=== PATIENT | male | born 1945 | race Caucasian/White ===

== ENCOUNTER 2023-11-26 08:15 | Outpatient (RCR) | payer OTHER, SELFPAY | END 2023-12-18 10:53 | disposition home or self-care (01) | LOC: PURB 08:15 | PROVIDERS: ATTENDING PHYSICIAN Internal Medicine Critical Care Medicine; FAMILY PHYSICIAN Family Medicine | DX: J44.9 Chronic obstructive pulmonary disease, unspecified (principal) | CPT/HCPCS: 94625 ==

== ENCOUNTER → 2024-02-21 09:12 | Outpatient (REF) | payer OTHER, SELFPAY | LOC: DHCBS HW 09:12 | PROVIDERS: ATTENDING PHYSICIAN Internal Medicine Cardiovascular Disease; FAMILY PHYSICIAN Family Medicine | DX: I48.0 Paroxysmal atrial fibrillation (principal) | CPT/HCPCS: 93306 ==

== ENCOUNTER → 2024-03-27 09:53 | Day surgery (SDC) | payer OTHER, SELFPAY | LOC: CATH 09:53 | PROVIDERS: ATTENDING PHYSICIAN Internal Medicine Cardiovascular Disease; FAMILY PHYSICIAN Family Medicine; OTHER PHYSICIAN Internal Medicine Cardiovascular Disease | DX: I48.0 Paroxysmal atrial fibrillation (principal); Z53.09 Procedure and treatment not carried out because of other contraindication; I08.3 Combined rheumatic disorders of mitral, aortic and tricuspid valves | CPT/HCPCS: 93005 ==

== ENCOUNTER → 2024-09-11 10:24 | Outpatient (REF) | payer OTHER, SELFPAY | LOC: RAD 10:24 | PROVIDERS: ATTENDING PHYSICIAN Family Medicine | DX: R25.2 Cramp and spasm (principal) | CPT/HCPCS: 93970 ==

== ENCOUNTER → 2024-10-01 11:53 | Outpatient (REF) | payer OTHER, SELFPAY | LOC: HWRAD 11:53 | PROVIDERS: ATTENDING PHYSICIAN Family Medicine | DX: R05.1 Acute cough (principal) | CPT/HCPCS: 71046 ==

== ENCOUNTER → 2024-10-09 11:17 | Day surgery (SDC) | payer OTHER, SELFPAY ==
[2024-10-09 12:35] LABS: Glucose - Point of Care 252 mg/dl (70-99)
== END ==
LOC: CATH 11:17
PROVIDERS: ATTENDING PHYSICIAN Student in an Organized Health Care Education/Training Program; FAMILY PHYSICIAN Family Medicine; OTHER PHYSICIAN Internal Medicine Cardiovascular Disease
DX: I48.91 Unspecified atrial fibrillation (principal); E11.9 Type 2 diabetes mellitus without complications; J44.9 Chronic obstructive pulmonary disease, unspecified; Z79.01 Long term (current) use of anticoagulants; Z79.4 Long term (current) use of insulin; Z79.84 Long term (current) use of oral hypoglycemic drugs
CPT/HCPCS: 82962; 92960; 93005

== ENCOUNTER 2024-10-12 16:38 | Inpatient (IN) | payer OTHER, SELFPAY ==
[2024-10-12] VITALS (32 sets, daily range): BP systolic 84–196; BP diastolic 52–179; PULSE 138–142; BMI 30.1; BMI 29.0
--- NOTE | 2024-10-12 12:12 | ED.GENMED ---
ED Provider Triage
<Kamini Garcia, CARDIOVASCULAR TECHNICIAN - Last Filed: 10/12/24 13:46>
-
Patient seen by provider in Triage?: Seen in Triage
Attestation: A medical screening examination has been initiated by a qualified medical provider. Based on the assessment performed at this time, it has been determined that an emergent medical condition may exist and the patient has been informed
that further medical evaluation and possible additional diagnostic testing may be needed.
HPI: 78-year-old male on Xarelto presents for shortness of breath, diagnosed with interstitial pneumonia last week, finished regimen of azithromycin and finished 8 days of Augmentin 875 twice daily 2 days ago. Patient had a cardioversion on Saturday.
GENERAL: Alert , in no apparent distress
EYE: No visual abnormalities.
ENT: No visible abnormalities.
LUNGS: No acute respiratory distress
NEUROLOGICAL: Alert and oriented
SKIN: Skin intact. No visible changes.
MUSCULOSKELETAL: Moving extremities normally
PSYCH: Normal and appropriate interaction.
This is a medical evaluation conducted in person to initiate diagnostic evaluation and provide initial therapeutics. Please see further documentation by the treating clinician.
History of Present Illness
<Kamini Garcia, CARDIOVASCULAR TECHNICIAN - Last Filed: 10/12/24 13:46>
General
Chief Complaint: Breathing Problem
Time Seen by Provider: 10/12/24 12:11
<Scottie Aranda DO - Last Filed: 10/12/24 19:51>
General
Source: patient and family
History of Present Illness
History of Present Illness:
This is a 78-year-old male with history of atrial fibrillation, hypertension, prostate cancer, diabetes who presents with persistent shortness of breath that has been ongoing for about a week. Patient states he has had a cough. States he is trying
to cough something up but really has not had much production. No hemoptysis. Patient was started on Zithromax by his PCP. He was then changed to Augmentin. Symptoms have persisted. Patient denies chest pain. Does report he recently had a
cardioversion for A-fib. Has had an ablation in the past. No abdominal pain. No urinary symptoms. No back pain. Is anticoagulated on Xarelto
Past History
<Kamini Garcia, CARDIOVASCULAR TECHNICIAN - Last Filed: 10/12/24 13:46>
Past History
ED Past Medical History: Cancer (Prostate) and NIDDM
Social History
Personal:
Living: with family
<Scottie Aranda, DO - Last Filed: 10/12/24 19:51>
Past History
ED Past Medical History: Arrthythmia (Atrial fibrillation with RVR)
Phy Exam
<Scottie Aranda, DO - Last Filed: 10/12/24 19:51>
Physical Exam
Physical Exam:
CONSTITUTIONAL Patient alert and oriented to person, place and time. ill-appearing. Vital signs reviewed. Tachypneic
HEAD atraumatic, normocephalic.
EYES eyelids normal to inspection, Extraocular muscles intact, Conjunctiva normal, Sclera normal.
NECK normal range of motion, Trachea midline, no jugular venous distention.
RESPIRATORY CHEST mild respiratory distress noted, Chest expansion equal, diminished at bilateral bases.
CARDIOVASCULAR irregularly irregular and tachycardic, Heart sounds normal.
ABDOMEN abdomen nontender, Bowel sounds normal. No distention.
BACK normal inspection, no obvious deformities
UPPER EXTREMITY range of motion normal, Motor strength normal, no cyanosis, no edema.
LOWER EXTREMITY range of motion normal, Motor strength normal, no cyanosis, no edema.
NEURO Speech normal, No focal motor deficits, Carey coma scale 15, Memory normal, Cranial Nerves intact to screening exam.
Scores
<Scottie Aranda, DO - Last Filed: 10/12/24 19:51>
Heart Failure Risk
Heart Failure Risk Score: Not Applicable
Course
<Kamini Garcia, CARDIOVASCULAR TECHNICIAN - Last Filed: 10/12/24 13:46>
Orders/Labs/Results
Orders:
Orders
10/12/24 12:10
Electrocardiogram (*1) Urgent
Reason for Study: Shortness of Breath
EKG- Treatment ONCE
10/12/24 12:15
CR Chest - 2 Views Urgent
Comment:
Reason For Exam: recent PNA, still SOB
10/12/24 12:29
Type+Screen Urgent
Complete Blood Count/With Diff Urgent
Comprehensive Metabolic Panel Urgent
10/12/24 14:15
Lactic Acid Q4H
Comment: CANCEL 2nd LACTIC ACID IF 1st LACTIC ACID IS LESS THAN 2
10/12/24 14:17
Lactic Acid Q4H
Comment: CANCEL 2nd LACTIC ACID IF 1st LACTIC ACID IS LESS THAN 2
NT-proBNP Urgent
Troponin I Urgent
Venous Blood Gas Urgent
%Oxygen/Room Air: 2L
Blood Culture Q30M
ZION Source: Blood/Venous
Specimen Description:
Blood Culture Q30M
ZION Source: Blood/Venous
Specimen Description:
10/12/24 14:18
0.9% Sodium Chloride 500 ml [Nss] 500 ml IV BOLUS
10/12/24 14:19
Bedside Glucose- Treatment ONCE
10/12/24 15:14
Cefepime HCl [Maxipime] 2,000 mg IV NOW STA
10/12/24 15:16
0.9% Sodium Chloride 1000 ml [Nss] 1,000 ml IV BOLUS
10/12/24 15:35
Calcium Gluconate 1,000 mg IV NOW STA
Dextrose 50%-Water [Dextrose 50% Syringe] 12.5 grams IV [id number] PRN
Dextrose 50%-Water [Dextrose 50% Syringe] 25 grams IV NOW STA
Insulin Human Regular [Novolin R] 5 units IV NOW STA
Bedside Glucose PRE IV Insulin- HyperK+ NOW
10/12/24 15:40
RSV [Respiratory Syncytial Virus] Stat
ZION Source: Nasal Swab
Specimen Description:
10/12/24 15:47
Linezolid 600 mg/300 ml [Zyvox 600 mg] 300 ml IV NOW
10/12/24 16:00
Nicardipine 40 mg/200 ml [Cardene] 40 mg in 200 ml IV PER PROTOCOL
Initial dose in mg/hr, then titrate:: 5
Titrate to keep:: Other
Titrate to keep other:: HR<110
Titrate by mg/hr:: 2.5 mg/hr
Frequency of titrations (minutes):: 5-15 minutes
Maximum dose in mg/hr:: 15
Begin to taper infusion when:: Remained at goal for 2hrs
Taper by mg/hr:: 2.5 mg/hr
Frequency of taper (minutes) if patient maintains goal:: every 15-30 minutes
Taper to off?: Yes
If infusion off & no longer maintaining goal:: Contact Provider
10/12/24 16:19
COVID-19 Antigen Stat
Source: Nasal Swab
Procalcitonin Stat
PCT Algorithmm Indication: Sepsis
Influenza A+B Rapid Molecular Stat
ZION Source: Nasal Swab
Specimen Description:
10/12/24 16:20
Heparin Protocol- PTT Orders As Directed
PTT per Heparin protocol: -Obtain CBC and baseline PTT - if not already collected.
-Obtain PTT 6 hours from start of infusion. Then, every 6 hours until 2 consecutive
PTT's are therapeutic. Then, PTT Daily.
-With each rate change, obtain PTT every 6 hours until 2 consecutive PTT's are
therapeutic. Then, PTT Daily.
Notify MD As Directed
Notify physician if: PTT is greater than or equal to 200.
10/12/24 16:21
NM Lung Scan Perf Only Routine
Comment:
Reason For Exam: hypoxia
CR Chest Portable - 1 View Routine
Reason For Exam: hypoxia
10/12/24 16:22
Admit/Transfer Patient As Directed
Co-Sign Provider:
Level of Care: Inpatient admission
Assign to:: IMU- Intermediate Care
Physician / Group: Hospitalist
Diagnosis: Hypoxia
Reason for Hospitalization: Hypoxia
Expected length of stay greater than two midnights?: Yes
ELOS- Estimated Length of Stay in days: 5
I certify the patient meets the requirements for IP care: Yes
CARDIOLOGY CONSULT Routine
Consulting Provider: Romeo Webber
Was physician already notified: Yes
Reason for consult: Afib with RVR
PULMONARY CONSULT Routine
Consulting Provider: Cameron Brennan
Was physician already notified: Yes
Reason for consult: dyspnea
PRN Pain Medication Management As Directed
May give lesser potent ordered pain med per pt: Yes
preference::
Protocol:: Medication orders for pain may be administered in a
manner that supports deferring to patient preference
when the pt is:
- Requesting an ordered lesser potent pain medication.
Least to most potent pain medications are defined
as: acetaminophen < NSAID < tramadol < opioids
(morphine, oxycodone, hydromorphone).
- Requesting a lesser dose of the same medication IF
ORDERED.
- Requesting a less intrusive route of administration
if both routes are prescribed by the provider (PO <
IV).
10/12/24 16:30
Code Status As Directed
Resuscitation Status: Full Code
Diltiazem 125 mg/125 ml Nss [Cardizem] 125 mg in 125 ml IV PER PROTOCOL
Initial dose in mg/hr, then titrate:: 5
Titrate to keep:: Heart rate 80-100 bpm
Titrate by mg/hr:: 5 mg/hr
Frequency of titrations (minutes):: 15
Maximum dose in mg/hr:: 15
Heparin 63426 Units/250 ml 25,000 units in 250 ml IV PER PROTOCOL
Weight to be used for heparin protocol in kilograms (kg):: 106.1
Protocol:: DVT/PE
PTT Goal Range to be used:: PTT 73 to 111 seconds
Order type:: Initial
INITIAL Infusion Dose (UNITS/KG/hr) & then follow protocol:: 18 units/kg/hr
Infusion Dose in UNITS/hr & then follow protocol (UNITS/hr):: 1,900
INFUSION RATE in mL/hr & then follow protocol (mL/hr):: 19
For DVT/PE algorithm, re-bolus for low PTT?: Yes
PTT less than or equal to 64 seconds:: Re-bolus 80 units/kg (max 10,000units). Increase by 400 units/hr
(+ 4mL/hr)
PTT 64.1 to 72.9 seconds:: Re-bolus 40 units/kg (max 5,000 units). Increase by 200 units/hr
(+ 2mL/hr)
PTT 73 to 111 seconds:: Target Range. No change in rate.
PTT 111.1 to 130.9 seconds:: Decrease rate by 200 units/hr (- 2 mL/hr)
PTT 131 to 199.9 seconds:: HOLD for 1 hr. Then decrease by 300 units/hr (- 3mL/hr)
PTT greater than or equal to 200 seconds:: HOLD for 2 hrs & Notify Provider. Then decrease by 400 units/hr
(- 4mL/hr)
Lab follow-up:: Each change, PTT q6h until 2 consecutive are therapeutic. Then
PTT daily.
10/12/24 16:49
PTT Urgent
Comment: Obtain baseline before beginning heparin infusion if not already collected
10/12/24 17:05
Bedside Glucose POST IV Insulin- HyperK+ Q1HX2,Q2HX2
10/12/24 17:51
BMP [Basic Metabolic Panel] Stat
10/14/24 06:00
Complete Blood Count/No Diff Q2D
Comment: Notify MD if platelet count is <130,000 or decreases by 50% from baseline
10/16/24 06:00
Complete Blood Count/No Diff Q2D
Comment: Notify MD if platelet count is <130,000 or decreases by 50% from baseline
10/18/24 06:00
Complete Blood Count/No Diff Q2D
Comment: Notify MD if platelet count is <130,000 or decreases by 50% from baseline
10/20/24 06:00
Complete Blood Count/No Diff Q2D
Comment: Notify MD if platelet count is <130,000 or decreases by 50% from baseline
10/22/24 06:00
Complete Blood Count/No Diff Q2D
Comment: Notify MD if platelet count is <130,000 or decreases by 50% from baseline
10/24/24 06:00
Complete Blood Count/No Diff Q2D
Comment: Notify MD if platelet count is <130,000 or decreases by 50% from baseline
10/26/24 06:00
Complete Blood Count/No Diff Q2D
Comment: Notify MD if platelet count is <130,000 or decreases by 50% from baseline
10/28/24 06:00
Complete Blood Count/No Diff Q2D
Comment: Notify MD if platelet count is <130,000 or decreases by 50% from baseline
Abnormal Lab Results
10/12/24 10/12/24 10/12/24
12: 14:17 14:55
WBC 15.2 H 10^3/uL
(4.8-10.8)
RBC 2.90 L 10^6/uL
(4.70-6.10)
Hgb 9.4 L g/dL
(13.0-18.0)
Hct 29.8 L %
(39.0-52.0)
MCV 102.8 H fL
(80.0-94.0)
MCH 32.4 H pg
(27.0-31.0)
MCHC 31.5 L g/dL
(33.0-37.0)
Plt Count 602 H 10^3/uL
(130-400)
Abs Immat Gran (auto) 0.1 H 10^3/uL
(0-0.05)
Absolute Neuts (auto) 13.1 H 10^3/uL
(1.4-6.5)
Absolute Lymphs (auto) 0.6 L 10^3/uL
(1.2-3.4)
Absolute Monos (auto) 1.2 H 10^3/uL
(0.1-0.6)
Immature Gran % 0.7 H %
(0-0.5)
Neutrophils % 86.5 H %
(42.2-75.2)
Lymphocytes % 4.2 L %
(20.5-51.1)
VBG pH 7.25 L
(7.32-7.43)
VBG HCO3 16.7 L mmol/L
(22-27)
Sodium 134 L mmol/L
(135-145)
Potassium 6.4 H* mmol/L
(3.5-5.1)
Carbon Dioxide 12 L* mmol/L
(22-30)
BUN 68 H mg/dl
(9-20)
Creatinine 1.8 H mg/dL
(0.7-1.3)
Glucose 276 H mg/dl
(70-99)
Lactic Acid 5.3 H* mmol/L
(0.7-2.0)
AST 174 H U/L
(17-59)
ALT 292 H U/L
(0-50)
Procalcitonin
POC Glucose 237 H mg/dl
(70-99)
10/12/24
16:19
WBC
RBC
Hgb
Hct
MCV
MCH
MCHC
Plt Count
Abs Immat Gran (auto)
Absolute Neuts (auto)
Absolute Lymphs (auto)
Absolute Monos (auto)
Immature Gran %
Neutrophils %
Lymphocytes %
VBG pH
VBG HCO3
Sodium
Potassium
Carbon Dioxide
BUN
Creatinine
Glucose
Lactic Acid
AST
ALT
Procalcitonin 1.23 H ng/ml
(0.0-0.25)
POC Glucose
10/12/24 12:29
10/12/24 12:29
Vital Signs
Initial and Last Documented VS:
Initial Vital Signs
Temp Pulse Resp Pulse Ox
97.9 F 94 16 100
10/12/24 12:05 10/12/24 12:05 10/12/24 12:05 10/12/24 12:05
Last Documented Vital Signs
Temp Pulse Resp BP Pulse Ox
97.7 F 98 27 123/65 100
10/12/24 14:15 10/12/24 19:30 10/12/24 19:30 10/12/24 19:30 10/12/24 19:30
<Scottie Aranda, DO - Last Filed: 10/12/24 19:51>
Orders/Labs/Results
Orders:
Orders
10/12/24 12:10
Electrocardiogram (*1) Urgent
Reason for Study: Shortness of Breath
EKG- Treatment ONCE
10/12/24 12:15
CR Chest - 2 Views Urgent
Comment:
Reason For Exam: recent PNA, still SOB
10/12/24 12:29
Type+Screen Urgent
Complete Blood Count/With Diff Urgent
Comprehensive Metabolic Panel Urgent
10/12/24 14:15
Lactic Acid Q4H
Comment: CANCEL 2nd LACTIC ACID IF 1st LACTIC ACID IS LESS THAN 2
10/12/24 14:17
Lactic Acid Q4H
Comment: CANCEL 2nd LACTIC ACID IF 1st LACTIC ACID IS LESS THAN 2
NT-proBNP Urgent
Troponin I Urgent
Venous Blood Gas Urgent
%Oxygen/Room Air: 2L
Blood Culture Q30M
ZION Source: Blood/Venous
Specimen Description:
Blood Culture Q30M
ZION Source: Blood/Venous
Specimen Description:
10/12/24 14:18
0.9% Sodium Chloride 500 ml [Nss] 500 ml IV BOLUS
10/12/24 14:19
Bedside Glucose- Treatment ONCE
10/12/24 15:14
Cefepime HCl [Maxipime] 2,000 mg IV NOW STA
10/12/24 15:16
0.9% Sodium Chloride 1000 ml [Nss] 1,000 ml IV BOLUS
10/12/24 15:35
Calcium Gluconate 1,000 mg IV NOW STA
Dextrose 50%-Water [Dextrose 50% Syringe] 12.5 grams IV [id number] PRN
Dextrose 50%-Water [Dextrose 50% Syringe] 25 grams IV NOW STA
Insulin Human Regular [Novolin R] 5 units IV NOW STA
Bedside Glucose PRE IV Insulin- HyperK+ NOW
10/12/24 15:40
RSV [Respiratory Syncytial Virus] Stat
ZION Source: Nasal Swab
Specimen Description:
10/12/24 15:47
Linezolid 600 mg/300 ml [Zyvox 600 mg] 300 ml IV NOW
10/12/24 16:00
Nicardipine 40 mg/200 ml [Cardene] 40 mg in 200 ml IV PER PROTOCOL
Initial dose in mg/hr, then titrate:: 5
Titrate to keep:: Other
Titrate to keep other:: HR<110
Titrate by mg/hr:: 2.5 mg/hr
Frequency of titrations (minutes):: 5-15 minutes
Maximum dose in mg/hr:: 15
Begin to taper infusion when:: Remained at goal for 2hrs
Taper by mg/hr:: 2.5 mg/hr
Frequency of taper (minutes) if patient maintains goal:: every 15-30 minutes
Taper to off?: Yes
If infusion off & no longer maintaining goal:: Contact Provider
10/12/24 16:19
COVID-19 Antigen Stat
Source: Nasal Swab
Procalcitonin Stat
PCT Algorithmm Indication: Sepsis
Influenza A+B Rapid Molecular Stat
ZION Source: Nasal Swab
Specimen Description:
10/12/24 16:20
Heparin Protocol- PTT Orders As Directed
PTT per Heparin protocol: -Obtain CBC and baseline PTT - if not already collected.
-Obtain PTT 6 hours from start of infusion. Then, every 6 hours until 2 consecutive
PTT's are therapeutic. Then, PTT Daily.
-With each rate change, obtain PTT every 6 hours until 2 consecutive PTT's are
therapeutic. Then, PTT Daily.
Notify MD As Directed
Notify physician if: PTT is greater than or equal to 200.
10/12/24 16:21
NM Lung Scan Perf Only Routine
Comment:
Reason For Exam: hypoxia
CR Chest Portable - 1 View Routine
Reason For Exam: hypoxia
10/12/24 16:22
Admit/Transfer Patient As Directed
Co-Sign Provider:
Level of Care: Inpatient admission
Assign to:: IMU- Intermediate Care
Physician / Group: Hospitalist
Diagnosis: Hypoxia
Reason for Hospitalization: Hypoxia
Expected length of stay greater than two midnights?: Yes
ELOS- Estimated Length of Stay in days: 5
I certify the patient meets the requirements for IP care: Yes
CARDIOLOGY CONSULT Routine
Consulting Provider: Romeo Webber
Was physician already notified: Yes
Reason for consult: Afib with RVR
PULMONARY CONSULT Routine
Consulting Provider: Cameron Brennan
Was physician already notified: Yes
Reason for consult: dyspnea
PRN Pain Medication Management As Directed
May give lesser potent ordered pain med per pt: Yes
preference::
Protocol:: Medication orders for pain may be administered in a
manner that supports deferring to patient preference
when the pt is:
- Requesting an ordered lesser potent pain medication.
Least to most potent pain medications are defined
as: acetaminophen < NSAID < tramadol < opioids
(morphine, oxycodone, hydromorphone).
- Requesting a lesser dose of the same medication IF
ORDERED.
- Requesting a less intrusive route of administration
if both routes are prescribed by the provider (PO <
IV).
10/12/24 16:30
Code Status As Directed
Resuscitation Status: Full Code
Diltiazem 125 mg/125 ml Nss [Cardizem] 125 mg in 125 ml IV PER PROTOCOL
Initial dose in mg/hr, then titrate:: 5
Titrate to keep:: Heart rate 80-100 bpm
Titrate by mg/hr:: 5 mg/hr
Frequency of titrations (minutes):: 15
Maximum dose in mg/hr:: 15
Heparin 27143 Units/250 ml 25,000 units in 250 ml IV PER PROTOCOL
Weight to be used for heparin protocol in kilograms (kg):: 106.1
Protocol:: DVT/PE
PTT Goal Range to be used:: PTT 73 to 111 seconds
Order type:: Initial
INITIAL Infusion Dose (UNITS/KG/hr) & then follow protocol:: 18 units/kg/hr
Infusion Dose in UNITS/hr & then follow protocol (UNITS/hr):: 1,900
INFUSION RATE in mL/hr & then follow protocol (mL/hr):: 19
For DVT/PE algorithm, re-bolus for low PTT?: Yes
PTT less than or equal to 64 seconds:: Re-bolus 80 units/kg (max 10,000units). Increase by 400 units/hr
(+ 4mL/hr)
PTT 64.1 to 72.9 seconds:: Re-bolus 40 units/kg (max 5,000 units). Increase by 200 units/hr
(+ 2mL/hr)
PTT 73 to 111 seconds:: Target Range. No change in rate.
PTT 111.1 to 130.9 seconds:: Decrease rate by 200 units/hr (- 2 mL/hr)
PTT 131 to 199.9 seconds:: HOLD for 1 hr. Then decrease by 300 units/hr (- 3mL/hr)
PTT greater than or equal to 200 seconds:: HOLD for 2 hrs & Notify Provider. Then decrease by 400 units/hr
(- 4mL/hr)
Lab follow-up:: Each change, PTT q6h until 2 consecutive are therapeutic. Then
PTT daily.
10/12/24 16:49
PTT Urgent
Comment: Obtain baseline before beginning heparin infusion if not already collected
10/12/24 17:05
Bedside Glucose POST IV Insulin- HyperK+ Q1HX2,Q2HX2
10/12/24 17:51
BMP [Basic Metabolic Panel] Stat
10/14/24 06:00
Complete Blood Count/No Diff Q2D
Comment: Notify MD if platelet count is <130,000 or decreases by 50% from baseline
10/16/24 06:00
Complete Blood Count/No Diff Q2D
Comment: Notify MD if platelet count is <130,000 or decreases by 50% from baseline
10/18/24 06:00
Complete Blood Count/No Diff Q2D
Comment: Notify MD if platelet count is <130,000 or decreases by 50% from baseline
10/20/24 06:00
Complete Blood Count/No Diff Q2D
Comment: Notify MD if platelet count is <130,000 or decreases by 50% from baseline
10/22/24 06:00
Complete Blood Count/No Diff Q2D
Comment: Notify MD if platelet count is <130,000 or decreases by 50% from baseline
10/24/24 06:00
Complete Blood Count/No Diff Q2D
Comment: Notify MD if platelet count is <130,000 or decreases by 50% from baseline
10/26/24 06:00
Complete Blood Count/No Diff Q2D
Comment: Notify MD if platelet count is <130,000 or decreases by 50% from baseline
10/28/24 06:00
Complete Blood Count/No Diff Q2D
Comment: Notify MD if platelet count is <130,000 or decreases by 50% from baseline
Abnormal Lab Results
10/12/24 10/12/24 10/12/24
12:29 14:17 14:55
WBC 15.2 H 10^3/uL
(4.8-10.8)
RBC 2.90 L 10^6/uL
(4.70-6.10)
Hgb 9.4 L g/dL
(13.0-18.0)
Hct 29.8 L %
(39.0-52.0)
MCV 102.8 H fL
(80.0-94.0)
MCH 32.4 H pg
(27.0-31.0)
MCHC 31.5 L g/dL
(33.0-37.0)
Plt Count 602 H 10^3/uL
(130-400)
Abs Immat Gran (auto) 0.1 H 10^3/uL
(0-0.05)
Absolute Neuts (auto) 13.1 H 10^3/uL
(1.4-6.5)
Absolute Lymphs (auto) 0.6 L 10^3/uL
(1.2-3.4)
Absolute Monos (auto) 1.2 H 10^3/uL
(0.1-0.6)
Immature Gran % 0.7 H %
(0-0.5)
Neutrophils % 86.5 H %
(42.2-75.2)
Lymphocytes % 4.2 L %
(20.5-51.1)
VBG pH 7.25 L
(7.32-7.43)
VBG HCO3 16.7 L mmol/L
(22-27)
Sodium 134 L mmol/L
(135-145)
Potassium 6.4 H* mmol/L
(3.5-5.1)
Carbon Dioxide 12 L* mmol/L
(22-30)
BUN 68 H mg/dl
(9-20)
Creatinine 1.8 H mg/dL
(0.7-1.3)
Glucose 276 H mg/dl
(70-99)
Lactic Acid 5.3 H* mmol/L
(0.7-2.0)
AST 174 H U/L
(17-59)
ALT 292 H U/L
(0-50)
Procalcitonin
POC Glucose 237 H mg/dl
(70-99)
11/25/24
16:19
WBC
RBC
Hgb
Hct
MCV
MCH
MCHC
Plt Count
Abs Immat Gran (auto)
Absolute Neuts (auto)
Absolute Lymphs (auto)
Absolute Monos (auto)
Immature Gran %
Neutrophils %
Lymphocytes %
VBG pH
VBG HCO3
Sodium
Potassium
Carbon Dioxide
BUN
Creatinine
Glucose
Lactic Acid
AST
ALT
Procalcitonin 1.23 H ng/ml
(0.0-0.25)
POC Glucose
10/12/24 12:29
10/12/24 12:29
Vital Signs
Initial and Last Documented VS:
Initial Vital Signs
Temp Pulse Resp Pulse Ox
97.9 F 94 16 100
10/12/24 12:05 10/12/24 12:05 10/12/24 12:05 10/12/24 12:05
Last Documented Vital Signs
Temp Pulse Resp BP Pulse Ox
97.7 F 98 27 123/65 100
10/12/24 14:15 10/12/24 19:30 10/12/24 19:30 10/12/24 19:30 10/12/24 19:30
<Scottie Aranda, DO - Last Filed: 10/12/24 19:51>
MDM/Problems Addressed
MDM/Problems Addressed:
Septic shock, atrial fibrillation with RVR, pneumonia, chronic kidney injury, anemia, leukocytosis
Acute Exacerbation and/or Progression of Chronic Illness: DM
<Scottie Aranda DO - Last Filed: 10/12/24 19:51>
*Radiology
Radiology exam reviewed: radiology read reviewed
*Pulse Oximetry
Patient hypoxic: yes
*EKG
Interpreted by ED Provider?: Yes
Interpretation: abnormal
Rate: tachycardiac
Rhythm: a-fib
Ischemia: non-specific ST changes
*Fur Repairer Interpretation
Rate: tachycardiac
Interpretation: abnormal
Rhythm: a-fib
*Critical Care Note
Total Time (30-74mins, 75-104mins- exclusive of procedures): 45 minutes
Data Reviewed
Review of Other/Old Records Reveals: Testing (Prior echocardiogram reviewed)
Source: patient and family
Prescriptions/Medications Considered But Not Given:
Consider vancomycin but history of going into renal failure with vancomycin.
<Scottie Aranda DO - Last Filed: 10/12/24 19:51>
Patient Management
Discussion with other providers: Hospitalist
Escalation/DeEscalation of care consider admission/obs:
78-year-old male who presents with rapid A-fib. Found to have lactic acidosis. I suspect that his anion gap is related to lactic acidosis over diabetic ketoacidosis. Continue IV fluids and continue to monitor. Broad-spectrum biotics ordered.
Will not give the 30/kg IV fluid bolus due to elevated BNP. Will need to watch closely for CHF.
ED Attending Note
<Kamini Garcia CARDIOVASCULAR TECHNICIAN - Last Filed: 10/12/24 13:46>
-
Portions of this chart may have been created with voice recognition software.� Occasional wrong word or��sound alike� substitutions may have occurred due to the inherent limitations of voice recognition software.
Discharge Plan
Departure
Patient Disposition: Admit
Date of Disposition: 10/12/24
Time of Disposition: 15:19
Admit to: IMU
Presentation/result/management discussed w/ accepting MD/DO: Hospitalist
Discharge Problem:
Septic shock, Pneumonia, Acidosis, lactic, Atrial fibrillation with rapid ventricular response
Interventions
Interventions:
*Risk Screen - Suicide Last Done: 10/12/24 12:10
*General Assessment Last Done: 10/12/24 14:01
*Neglect/Abuse Screening Last Done: 10/12/24 12:10
ED- Fall Risk Assessment Last Done: 10/12/24 14:01
*ED COVID-19 Vaccine History Last Done: 10/12/24 12:05
ED- Cardiac Assessment Last Done: 10/12/24 14:01
ED- Pulmonary Assessment Last Done: 10/12/24 14:01
[2024-10-12 12:44] LABS: % Basophils 0.5 % (0-2); % Eosinophils 0.1 % (0-6); % Immature Granulocytes 0.7 % (0-0.5); % Lymphocytes 4.2 % (20.5-51.1); % Neutrophils 86.5 % (42.2-75.2); Absolute Basophils 0.1 10^3/uL (0-0.2); Absolute Immature Granulocytes 0.1 10^3/uL (0-0.05); Absolute Lymphocytes 0.6 10^3/uL (1.2-3.4); Absolute Monocytes 1.2 10^3/uL (0.1-0.6); Absolute Neutrophils 13.1 10^3/uL (1.4-6.5); Hematocrit 29.8 % (39.0-52.0); Hemoglobin 9.4 g/dL (13.0-18.0); Mean Corp Hgb Conc. 31.5 g/dL (33.0-37.0); Mean Corpuscular Hgb 32.4 pg (27.0-31.0); Mean Corpuscular Volume 102.8 fL (80.0-94.0); Mean Platelet Volume 9.6 fL (7.4-10.4); Nucleated Red Blood Cells % 0 % (-); Platelet Count 602 10^3/uL (130-400); Red Cell Dist. Width 13.2 % (11.5-14.5); White Blood Cell Count 15.2 10^3/uL (4.8-10.8)
[2024-10-12 13:22] LABS: ALT (SGPT) 292 U/L (0-50); AST (SGOT) 174 U/L (17-59); Albumin 3.8 g/dl (3.5-5.0); Alkaline Phosphatase 102 U/L (38-126); Blood Urea Nitrogen 68 mg/dl (9-20); Calcium 8.9 mg/dl (8.4-10.2); Carbon Dioxide 12 mmol/L (22-30); Chloride 101 mmol/L (98-107); Glucose 276 mg/dl (70-99); Potassium 6.4 mmol/L (3.5-5.1); Sodium 134 mmol/L (135-145); Total Bilirubin 0.9 mg/dl (0.2-1.3); Total Protein 6.3 g/dl (6.3-8.2); eGFR 38.29
[2024-10-12 14:45] LABS: Venous Blood Gas B.E. -9.8 mmol/L (-4 to +4); Venous Blood Gas HCO3 16.7 mmol/L (22-27); Venous Blood Gas O2 Sat % 59.7 %; Venous Blood Gas pCO2 38 mmHg (35-48); Venous Blood Gas pH 7.25 (7.32-7.43); Venous Blood Gas pO2 40 mmHg (30-50)
[2024-10-12 14:56] LABS: Glucose - Point of Care 237 mg/dl (70-99)
[2024-10-12 14:59] LABS: Lactic Acid 5.3 mmol/L (0.7-2.0)
[2024-10-12] MEDS: NSS 500 IV (15:07)
[2024-10-12 15:10] LABS: NT-proBNP 1120 pg/ml; Troponin I < 0.012 ng/ml
[2024-10-12] MEDS: MAXIPIME 2000 MG IV (15:20)
[2024-10-12] MEDS: NOVOLIN R 5 UNITS IV (16:01)
[2024-10-12] MEDS: DEXTROSE 50% SYRINGE 25 GRAMS IV (16:03)
[2024-10-12] MEDS: NSS 1000 IV (16:04)
[2024-10-12] MEDS: CALCIUM GLUCONATE 1000 MG IV (16:04)
[2024-10-12] MEDS: CARDENE 200 IV (16:08)
--- NOTE | 2024-10-12 16:35 | HPS.HSE ---
Family Physician
-
Family Physician: Megan Souza
Chief Complaint
-
dyspnea
History of Present Illness
78yo M with PMHx of DM, COPD, Afib on Xarelto s/p cardioversion on 10/09 came with worsening SOB. He started to feel bad approximately 2 weeks ago, visited his PCP that found interstitial pneumonia on XR and started patient on Azithromycin and
Augmentin. [facility] cardiology did cardioversion 3 days ago in attempt to control his Afib. He has 10 years of Afib at this point, but never had much of the problems as per patient. Patient was also hospitalized in February 2024 for pneumonia, however CT
chest at that time showed b/l pleural effusions with atelectasis and with COPD changes, was seen by rheumatology at that time due to markadly elevated inflammatory markers, but no clearly identifiable rheumatologic condition found.
Medical History
Past Medical History
Past Medical History: Reports Other
Additional Past Medical History:
see HPI
Past Surgical History: Reports Other
Additional Past Surgical History:
See HPI
Social History
Tobacco: Non-smoker
Alcohol: None
Drug: None
Family History
Family History: Not pertinent
Allergies / Home Medications
Allergies reflects when Allergies were last updated in [facility].
Home Medications with original date entered in [facility]
Allergy/Medication List:
Allergies
Allergy/AdvReac Type Severity Reaction Status Date / Time
vancomycin Allergy Unknown Unknown Unverified 10/12/24 14:00
Home Medications
simvastatin 20 mg tablet 20 mg PO DAILY High cholesterol 01/22/12
fluticasone furoate 100 mcg-vilanterol 25 mcg/dose inhalation powder (Breo Ellipta) 1 inh inhalation R DAILY 03/03/23
glimepiride 4 mg tablet 4 mg PO DAILY 10/09/24
lisinopril 10 mg tablet 10 mg PO DAILY 10/09/24
sitagliptin phosphate 50 mg tablet (Januvia) 50 mg PO DAILY 10/09/24
metformin 850 mg tablet 850 mg PO TID 10/12/24
metoprolol succinate 25 mg tablet,extended release 24 hr 25 mg PO DAILY 10/12/24
metoprolol succinate 50 mg tablet,extended release 24 hr 50 mg PO DAILY 10/12/24
rivaroxaban 20 mg tablet (Xarelto) 20 mg PO DAILY 10/12/24
Review of Systems
-
History Source: Patient
A 12 point ROS was completed and negative except as noted: Yes
Respiratory: Reports Cough and Trouble Breathing
Physical Exam
Vital Signs
Vital Signs
Temp Pulse Resp BP Pulse Ox
97.7 F 152 20 114/57 94
10/12/24 14:15 10/12/24 16:31 10/12/24 16:31 10/12/24 16:31 10/12/24 16:31
Physical Exam
General: Comfortable, Conversant and Respiratory Distress
HEENT: Anicteric and Moist mucous membranes
Respiratory: Clear; No Wheezes or Crackles
Cardiac: Irregular Rhythm and Tachycardia
GI: Soft, Non Tender and Non Distended
Musculoskeletal: No Clubbing, No Cyanosis, Edema, Left Lower Extremity and Edema, Right Lower Extremity
Neuro: Awake, Alert, Oriented and AO x 3
Psych: Calm
Laboratory Results
-
10/12/24 12:29
Laboratory Results
Lactic Acid 5.3 mmol/L (0.7-2.0) H* 10/12/24 14:17
Total Bilirubin 0.9 mg/dl (0.2-1.3) 10/12/24 12:29
AST 174 U/L (17-59) H 10/12/24 12:29
ALT 292 U/L (0-50) H 10/12/24 12:29
Alkaline Phosphatase 102 U/L (38-126) 10/12/24 12:29
Troponin I < 0.012 ng/ml 10/12/24 14:17
Data Reviewed
-
Diagnostic Radiology: Report Reviewed by me
Lab Data: Labs Reviewed by me
Impression/Plan
-
A/P:
#Acute hypoxic respiratory failure, multifactorial, concern for bibasilar pneumonia
Dapto/Doxy/Cefepime
Bcx
Sputum Cx
Legionella, S.pneumonia urinary Ag
Cannot exclude VTE - start heparin pending V/Q scan
check COVID-19, Influenza, RSV
check Procalcitonin
#Afib with RVR
Cardizem drip since BP allows. If hypotension - Amio
can be 2/2 hypoxia, however did not correct on IVF and O2 supplementation
Telemetry
Cont anticoagulation with recent cardiovesion
Cardiology consult
Echo
Check ProBNP, TSH
#Possible sepsis on admission
FOllow lactate
IVF
Abx
Bcx
#LE edema
US LE
#Hyperkalemia with CKD stage 3b
Can be 2/2 hypoxia and hypoperfusion with RVR
Insulin, dextrose, calcium in ED
serial BMP q4h
Nephrology if not correcting
Hold ACEi
#COPD, questionable if in exacerbation
No wheezing, but tight breathing sounds
Will benefit from steroids taper
#DM type 2 with nephropathy
Insulin SS, DM diet, Accuchecks
HgbA1c
Hold oral antiglycemic
DVT ppx heparin drip
Full code
PPI ppx
I Have spent at least 70min of critical care time reviewing chart, test results, communication with consultants and direct patient care
[2024-10-12] MEDS: ZYVOX 600 MG 300 IV (16:40)
[2024-10-12 17:05] LABS: Glucose - Point of Care 249 mg/dl (70-99)
[2024-10-12 17:06] LABS: APTT 47.5 Sec (23.4-35.0)
[2024-10-12 17:12] LABS: COVID-19 Antigen Negative (Negative)
[2024-10-12 17:18] LABS: Procalcitonin 1.23 ng/ml (0.0-0.25)
[2024-10-12] MEDS: HEPARIN 25000 UNITS/250 ML IV (17:40)
[2024-10-12 18:17] LABS: Lactic Acid 3.8 mmol/L (0.7-2.0)
[2024-10-12 18:26] LABS: Blood Urea Nitrogen 76 mg/dl (9-20); Calcium 8.4 mg/dl (8.4-10.2); Carbon Dioxide 9 mmol/L (22-30); Chloride 103 mmol/L (98-107); Estimated Creatinine Clearance 40 ml/min; Glucose 237 mg/dl (70-99); Sodium 130 mmol/L (135-145); eGFR 38.29
[2024-10-12 18:37] LABS: Urine Albumin 1+ (Neg - Trace); Urine Bilirubin Negative (Negative); Urine Character Clear (Clear); Urine Color Yellow; Urine Glucose Negative (Negative); Urine Ketone Negative (Negative); Urine Leukocyte Trace (Negative); Urine Nitrite Negative (Negative); Urine Occult Blood Negative (Negative); Urine Specific Gravity 1.025 (<1.030); Urine Urobilinogen Negative (Neg - 1+)
[2024-10-12 18:51] LABS: Urine Mucus Moderate; Urine Red Blood Cell 0-2 /HPF (0-2)
[2024-10-12 18:53] LABS: Urine Bacteria Moderate (Negative)
[2024-10-12 20:47] LABS: Glucose - Point of Care 241 mg/dl (70-99)
[2024-10-12] MEDS: VIBRAMYCIN 260 MG IV (20:53)
[2024-10-12 21:21] LABS: Blood Urea Nitrogen 75 mg/dl (9-20); Carbon Dioxide 16 mmol/L (22-30); Estimated Creatinine Clearance 35 ml/min; Glucose 235 mg/dl (70-99); Sodium 133 mmol/L (135-145); eGFR 31.82
[2024-10-12 21:30] LABS: Calcium 8.5 mg/dl (8.4-10.2)
[2024-10-12 21:38] LABS: Chloride 103 mmol/L (98-107); Potassium 5.9 mmol/L (3.5-5.1)
[2024-10-12 21:52] LABS: TSH Reflex To Free T4 2.25 uIU/ml (0.47-4.68)
[2024-10-12] MEDS: DECADRON 10 MG IV (22:04)
[2024-10-12 22:12] LABS: Glucose - Point of Care 235 mg/dl (70-99)
--- NOTE | 2024-10-12 23:55 | PTCARENOTE ---
Admitted pt overnight. aaox3, forgetful, at bedside staying the night. Denies pain or SOB. remains controlled afib 80-90's, continues on cardizem gtt. Hep gtt running. ivabx. Checked BS X2 since the ED gave insulin for hyperkalemia. Rechecked
K, resulted 5.9, FOOD CHEMIST made aware, no new orders at this time. CAll fink in reach, bed alarm on. Willl monitor.
[2024-10-13] VITALS (37 sets, daily range): BP systolic 55–161; BP diastolic 33–128; BMI 29.8
[2024-10-13 00:14] LABS: APTT 117.1 Sec (23.4-35.0)
[2024-10-13 00:23] LABS: Lactic Acid 1.8 mmol/L (0.7-2.0)
[2024-10-13] MEDS: CARDIZEM 125 IV ×2 (00:58→13:41)
[2024-10-13 03:48] LABS: Blood Urea Nitrogen 79 mg/dl (9-20); Calcium 8.5 mg/dl (8.4-10.2); Carbon Dioxide 13 mmol/L (22-30); Chloride 105 mmol/L (98-107); Estimated Creatinine Clearance 35 ml/min; Glucose 239 mg/dl (70-99); Potassium 6.2 mmol/L (3.5-5.1); Sodium 133 mmol/L (135-145); eGFR 31.82
[2024-10-13] MEDS: ZYVOX 600 MG 300 IV ×2 (05:17→20:58)
[2024-10-13] MEDS: STERILE WATER FOR INJECTION 10 ML IV ×2 (05:17→15:15)
[2024-10-13] MEDS: MAXIPIME 2000 MG IV ×2 (05:17→15:16)
--- NOTE | 2024-10-13 05:44 | PTCARENOTE ---
potassium rechecked overnight. Coil Tester aware of the results. No new orders at this time, interventions to be made if K is >6.5
[2024-10-13 07:06] LABS: % Basophils 0.1 % (0-2); % Immature Granulocytes 0.9 % (0-0.5); % Lymphocytes 2.3 % (20.5-51.1); % Neutrophils 93.7 % (42.2-75.2); Absolute Immature Granulocytes 0.1 10^3/uL (0-0.05); Absolute Lymphocytes 0.3 10^3/uL (1.2-3.4); Absolute Monocytes 0.4 10^3/uL (0.1-0.6); Absolute Neutrophils 11.6 10^3/uL (1.4-6.5); Hematocrit 24.9 % (39.0-52.0); Hemoglobin 8.4 g/dL (13.0-18.0); Mean Corp Hgb Conc. 33.7 g/dL (33.0-37.0); Mean Corpuscular Hgb 32.8 pg (27.0-31.0); Mean Corpuscular Volume 97.3 fL (80.0-94.0); Mean Platelet Volume 10.1 fL (7.4-10.4); Nucleated Red Blood Cells % 0 % (-); Platelet Count 481 10^3/uL (130-400); Red Blood Cell Count 2.56 10^6/uL (4.70-6.10); Red Cell Dist. Width 13.3 % (11.5-14.5); White Blood Cell Count 12.4 10^3/uL (4.8-10.8)
[2024-10-13 07:27] LABS: Glucose - Point of Care 337 mg/dl (70-99)
[2024-10-13] MEDS: SYMBICORT 160/4.5 MCG INHALER 2 PUFF INH (07:28)
--- NOTE | 2024-10-13 07:30 | CON.CAR ---
Addendum entered and electronically signed by Adri Gregg MD 10/13/24 09:13:
I spent 32 minutes total critical care time.
Addendum entered and electronically signed by Adri Gregg MD 10/13/24 09:13:
I saw and examined the patient.
The Plant [employer] Specialist's note was reviewed and I agree with the note.
Comment: Patient appears ill. Short of breath requiring 6 L of oxygen. He denies chest pain. Heart rate controlled. Recent cardioversion 09/2022. His is at the bedside.
Exam with dyspnea. Some crackles at the bases. Irregularly irregular without significant murmur. Renal insufficiency noted. Hyperkalemia noted.
Shortness of breath is likely multifactorial may be in part infectious, secondary to heart failure. He has paroxysmal atrial fibrillation with recent cardioversion. They do not feel that he felt better recently after cardioversion and mormonism
to sinus rhythm.
-Agree with transfer to intensive care unit
-Support respiratory insufficiency/failure. Antibiotics per primary service.
-Blood pressure is stable follow
-Lactate somewhat improved
-Negative for COVID, RSV, flu, Legionella
-CT scan may be helpful.
-Renal insufficiency and hyperkalemia per primary service and nephrology.
-IV Lasix given
-Check troponin, echo and EKG. Initial EKG and troponin other than rapid A-fib no acute changes. Continue heparin and diltiazem.
-
Original Note:
Consultation
Consultation Request
Date/Time Consultation Performed: 10/13/24
Requesting Provider: Dr. Smalls
Performing Provider: Ирина Washington PA-C for Dr. Adri Gregg
Reason for Consultation: atrial fibrillation, SOB
Medical History
-
Chief Complaint: SOB
History of Present Illness:
Patient with past medical history of atrial arrhythmias status post ablation procedures as outlined below, COPD, hypertension, hyperlipidemia, type 2 diabetes who was found to have interstitial pneumonia approximately 2 weeks ago through primary
care physician. He was started on azithromycin then changed to Augmentin and completed his course late next week. He was seen by us in office 10/08/2024 and noted to be in rapid atrial flutter. He underwent successful cardioversion to sinus
rhythm 10/09/2024. He is maintained on chronic Xarelto therapy. He reports shortness of breath with exertion has not improved and last night significantly worsened resulting in him coming to the ER for further evaluation. Also reports some LE
edema. Not chronically on diuretic as OP. Noted to have lactic acidosis, leukocytosis. Chest x-ray with evidence of due to CHF. Also back in atrial flutter. Currently on IV heparin and IV Cardizem. Cardiology consulted for evaluation
PMH:
Recent PNA
Paroxysmal Afib s/p PVI 02/2019
Paroxysmal atrial tachycardia s/p ablation 02/2019
Paroxysmal typical atrial flutter s/p CTI ablation 2015 with recurrence 09/2024 s/p CV 10/09/24
chronic OAC with xarelto
DM2
HTN
HLD
COPD
former smoker
BPH
Prostate cancer, diagnosed 01/2022
Past Medical History
Past Medical History: Other (in HPI)
Past Surgical History: Cardiac (ablation)
Social History
Tobacco: Former Smoker
Alcohol: Occasional
Drug: None
Personal:
Living: With Family
Family History
Family History: Cancer and Diabetes
Allergies / Home Medications
Allergy/AdvReac Type Severity Reaction Status Date / Time
vancomycin AdvReac Kidney Unverified 10/12/24 20:38
failure
�Medication �Instructions �Recorded �Confirmed �Type
simvastatin 20 mg tablet 20 mg PO DAILY High cholesterol 01/22/12 10/12/24 History
fluticasone furoate 100 1 inh inhalation R DAILY 03/03/23 10/12/24 History
mcg-vilanterol 25 mcg/dose
inhalation powder (Breo Ellipta)
glimepiride 4 mg tablet 4 mg PO DAILY 10/09/24 10/12/24 History
lisinopril 10 mg tablet 10 mg PO DAILY 10/09/24 10/12/24 History
sitagliptin phosphate 50 mg tablet 50 mg PO DAILY 10/09/24 10/12/24 History
(Januvia)
metformin 850 mg tablet 850 mg PO TID 10/12/24 10/12/24 History
metoprolol succinate 25 mg 25 mg PO DAILY 10/12/24 10/12/24 History
tablet,extended release 24 hr
metoprolol succinate 50 mg 50 mg PO DAILY 10/12/24 10/12/24 History
tablet,extended release 24 hr
rivaroxaban 20 mg tablet (Xarelto) 20 mg PO DAILY 10/12/24 10/12/24 History
Review of Systems
-
History Source: Patient and Family
All other systems: Negative unless noted
Physical Exam
Vital Signs
Temp Pulse Resp BP Pulse Ox
97.9 F 92 22 120/71 100
10/13/24 06:50 10/13/24 06:00 10/13/24 06:00 10/13/24 06:00 10/13/24 06:00
Lab Results
10/13/24 06:31
Troponin I < 0.012 ng/ml 10/12/24 14:17
Piz-D-Sxyvhcmzbst Pept 1120 pg/ml 10/12/24 14:17
Physical Exam
General: No Apparent Distress and Other (on supp O2)
HEENT: Normocephalic, Anicteric and Moist Mucous Membranes
Respiratory: Non Labored Respirations
Cardiac: S1/S2 and Irregular Rhythm
Musculoskeletal: No Clubbing, No Cyanosis and Edema (1+ of B/L LE)
Skin: Warm and Dry
Neuro: AO x 3
Impression / Plan
-
Primary Polishing Wheel Repairer: Dr. Juan Carlos Gregg
Assessment:
Presentation with SOB/BROWN
Acute hypoxic respiratory failure
Acute HFpEF
Metabolic acidosis
Atrial flutter with RVR
Hyperkalemia
Transaminitis
Anemia, history of CHELI
DEAN on CKD
Recent PNA, concern for acute infectious process
Paroxysmal Afib s/p PVI 02/2019
Paroxysmal atrial tachycardia s/p ablation 02/2019
Paroxysmal typical atrial flutter s/p CTI ablation 2015 with recurrence 09/2024 s/p CV 10/09/24
chronic OAC with xarelto
DM2
HTN
HLD
COPD
former smoker
BPH
Prostate cancer, diagnosed 01/2022
ECHO 02/21/24: EF 55 to 60%, mild MR, trace AR, PAP 30 to 35 mmHg
Plan:
-Patient is a 78-year-old male who recently completed treatment for interstitial pneumonia. He was found last week to be in atrial flutter at office visit 10/08 and underwent successful cardioversion 10/09/2024. He now presents back to [facility] with worsening dyspnea on exertion.
-There is concern for component of acute CHF, as well as underlying infectious process given lactic acidosis and leukocytosis
-covid, flu, RSV negative. Blood cultures pending. Continue antibiotic therapy per primary service
-proBNP 1120 and CXR with evidence of acute CHF. Ordered IV Lasix 40 mg twice daily. blood pressure stable. Cr 2.1, follow with diuresis.
-recommend chest CT to evaluate lung parenchyma further
-correction of hyperkalemia - lokelma ordered per primary service. lasix should help with this in addition. would repeat K level after these interventions prior to giving additional treatment
-LFTs uptrending, possible passive congestion vs sepsis related
-s/p CV 10/09 but back in aflutter. presently HRs controlled on review of tele overnight on IV cardizem gtt and po toprol, continue. eventually could consider for AAD therapy. would also consider for OP EP eval to discuss repeat ablation
-continue IV heparin for now
-for echo and LE US today. last echo from 02/2024 as above
-agree with transfer to ICU
-MD d/w hospitalist via TT
-d/w nursing. d/w patient and at bedside
Data Reviewed
-
EKG: Tracing Personally Visualized and interpreted
Radiology: Report Reviewed by me
Medical Tests (Nuc Med, Echo etc): Report Reviewed by me
Labs: Labs Reviewed by me
Old Records: Reviewed
[2024-10-13 07:43] LABS: ALT (SGPT) 2035 U/L (0-50); Albumin 3.3 g/dl (3.5-5.0); Alkaline Phosphatase 123 U/L (38-126); Blood Urea Nitrogen 83 mg/dl (9-20); Calcium 8.3 mg/dl (8.4-10.2); Carbon Dioxide 13 mmol/L (22-30); Chloride 104 mmol/L (98-107); Estimated Creatinine Clearance 34 ml/min; Glucose 298 mg/dl (70-99); Iron 93 ug/dl (49-181); Percent Saturation 36 % (20-50); Potassium 6.7 mmol/L (3.5-5.1); Sodium 135 mmol/L (135-145); Total Bilirubin 0.9 mg/dl (0.2-1.3); Total Iron Binding Capacity 253 ug/dl (261-462); Total Protein 5.8 g/dl (6.3-8.2); eGFR 30.09
[2024-10-13 07:49] LABS: B-Hydroxybutyrate 2.11 mmol/L (0.02-0.27)
[2024-10-13 07:54] LABS: AST (SGOT) 2147 U/L (17-59); LDH 2863 U/L (120-246)
[2024-10-13] MEDS: VIBRAMYCIN 260 MG IV (08:10)
[2024-10-13] MEDS: DECADRON 4 MG IV (08:10)
[2024-10-13] MEDS: LASIX 40 MG IV (08:10)
[2024-10-13] MEDS: TOPROL XL 25 MG PO (08:11)
[2024-10-13] MEDS: HEPARIN 25000 UNITS/250 ML IV (08:24)
[2024-10-13 08:34] LABS: Folate > 20.0 ng/ml (2.76-20); Vitamin B12 > 1000 pg/ml (239-931)
--- NOTE | 2024-10-13 08:36 | W.PN.HOSP.TC ---
Today's Communication/Plan
-
see PN
Assessment / Plan
Assessment / Plan
as hypoxia abnd Afib with RVR. Witgh concern for sepsis- received hydration in ICU and later found with signs of pulmonary congestion on XR chest. With worsening laabs transferred to ICU for insulin drip
A/P:
#Acute hypoxic respiratory failure, multifactorial, concern for bibasilar pneumonia with possible sepsis on admission
Linezolid/Doxy/Cefepime
Bcx
Sputum Cx if possible
Legionella, S.pneumonia urinary Ag neg
Cannot exclude VTE - start heparin pending V/Q scan
check COVID-19, Influenza, RSV neg
Procalcitonin elevated to 1.23
CT chest/abd/pelvis
#positive UA
no urioonary symptoms
Follow Ucx
#Afib with RVR
#Acute on chronic HFpEF with pulmonary congestion on XR
Cardizem drip since BP allows. If hypotension - Amio
can be 2/2 hypoxia, however did not correct on IVF and O2 supplementation
Telemetry
Cont anticoagulation with recent cardiovesion
Cardiology consult: lasix
Echo
ProBNP minimally elevated from baseline on admission
TSH WNL
#Transaminitis
Most likely hypoperfusion 2/2 RVR with additional sepsis and hypoxia
folow LFT
Check INR
check acute hepatitis panel
GI consult
#Anemia
with Hx of CHELI
Hx of EGD, colonosscopy and pill endoscopy without sourse of bleeding
LDH significantly elevated - follow haptoglobin
follow CBC
anemia w/u to repeat
#Elevated LDH
check KELLEY, haptoglobin, phosphorus and urioc acid
#Hyperkalemia with DEAN on CKD stage 3b
#Metabolic acidosis
did not resolved with coprrection of hypoxia and RVR
Reasonable to start insulin drip with elevated BHB, complicated comorbidities to call DKA, since patient has other reasons for acidosis as well and blood sugar not significantly elevated. Was not on SGLT2 inh
serial BMP q2h
Accucheck q1h
Nephrology consult
Lokelma
Hold ACEi
#COPD, not in exacerbation
No wheezing, but tight breathing sounds
With prevalent pulmonary congestion picture - stopped steroids
Cont bronchodilators
#DM type 2 with nephropathy
Insulin SS, DM diet, Accuchecks
HgbA1c
Hold oral antiglycemic
#LE edema
US LE
DVT ppx heparin drip
Full code
PPI ppx
I Have spent at least 75min of critical care time reviewing chart, test results, communication with consultants and direct patient care
Anticipated Discharge: > 48 hours
Subjective/Interval History
-
Date of Service: October 13, 2024
Objective Data
-
Labs:
Laboratory Results
10/12/24 10/12/24 10/12/24
20:58 20:58 23:53
WBC
Hgb
Hct
Plt Count
PT
INR
APTT 117.1 H
Sodium 133 L
Potassium Cancelled 5.9 H
Chloride 103
Carbon Dioxide 16 L
BUN 75 H
Creatinine 2.1 H
Glucose 235 H
Calcium 8.5
Total Bilirubin
AST
ALT
Alkaline Phosphatase
10/13/24 10/13/24 10/13/24
02:13 06:31 06:31
WBC 12.4 H
Hgb 8.4 L
Hct 24.9 L
Plt Count 481 H D
PT
INR
APTT 105.0 H
Sodium 133 L 135 Cancelled
Potassium 6.2 H* 6.7 H*
Chloride 105
Carbon Dioxide 13 L*
BUN 79 H
Creatinine 2.1 H
Glucose 239 H
Calcium 8.5
Total Bilirubin
AST
ALT
Alkaline Phosphatase
10/13/24 10/13/24 10/13/24
06:31 06:31 06:31
WBC
Hgb
Hct
Plt Count
PT
INR
APTT
Sodium
Potassium Cancelled
Chloride 104 Cancelled
Carbon Dioxide 13 L* Cancelled
BUN 83 H
Creatinine
Glucose
Calcium
Total Bilirubin
AST
ALT
Alkaline Phosphatase
10/13/24 10/13/24 10/13/24
06:31 06:31 06:31
WBC
Hgb
Hct
Plt Count
PT
INR
APTT
Sodium
Potassium
Chloride
Carbon Dioxide
BUN Cancelled
Creatinine 2.2 H Cancelled
Glucose 298 H Cancelled
Calcium 8.3 L
Total Bilirubin
AST
ALT
Alkaline Phosphatase
10/13/24 10/13/24 10/13/24
06:31 08:01 08:09
WBC
Hgb
Hct
Plt Count
PT Pending
INR Pending
APTT
Sodium Cancelled
Potassium Cancelled
Chloride Cancelled
Carbon Dioxide Cancelled
BUN Cancelled
Creatinine Cancelled
Glucose Cancelled
Calcium Cancelled Cancelled
Total Bilirubin 0.9
AST 2147 H*
ALT 2035 H*
Alkaline Phosphatase 123
10/13/24 10/13/24 10/13/24
08:14 08:15 10:31
WBC
Hgb
Hct
Plt Count
PT
INR
APTT
Sodium Pending Pending
Potassium Pending Pending
Chloride Pending Pending
Carbon Dioxide Pending Pending
BUN Pending Pending
Creatinine Pending Pending
Glucose Pending Pending
Calcium Pending Pending
Total Bilirubin Pending Pending
AST Pending Pending
ALT Pending Pending
Alkaline Phosphatase Pending Pending
10/13/24 10/13/24 10/13/24
12:00 12:09 12:14
WBC
Hgb
Hct
Plt Count
PT
INR
APTT Pending
Sodium Cancelled
Potassium Cancelled
Chloride Cancelled
Carbon Dioxide Cancelled
BUN Cancelled
Creatinine Cancelled
Glucose Cancelled
Calcium Cancelled
Total Bilirubin Pending
AST Pending
ALT Pending
Alkaline Phosphatase Pending
10/13/24 10/13/24 10/13/24
12:15 14:14 14:15
WBC
Hgb
Hct
Plt Count
PT
INR
APTT
Sodium Pending Pending
Potassium Pending Pending
Chloride Pending Pending
Carbon Dioxide Pending Pending
BUN Pending Pending
Creatinine Pending Pending
Glucose Pending Pending
Calcium Pending Pending
Total Bilirubin Pending
AST Pending
ALT Pending
Alkaline Phosphatase Pending
10/13/24 10/13/24 10/13/24
16:09 16:14 16:15
WBC
Hgb
Hct
Plt Count
PT
INR
APTT
Sodium Cancelled Pending
Potassium Cancelled Pending
Chloride Cancelled Pending
Carbon Dioxide Cancelled Pending
BUN Cancelled Pending
Creatinine Cancelled Pending
Glucose Cancelled Pending
Calcium Cancelled Pending
Total Bilirubin Pending
AST Pending
ALT Pending
Alkaline Phosphatase Pending
10/13/24 10/13/24 10/13/24
18:00 20:14 20:15
WBC
Hgb
Hct
Plt Count
PT
INR
APTT
Sodium Pending Pending
Potassium Pending Pending
Chloride Pending Pending
Carbon Dioxide Pending Pending
BUN Pending Pending
Creatinine Pending Pending
Glucose Pending Pending
Calcium Pending Pending
Total Bilirubin Pending Pending
AST Pending Pending
ALT Pending Pending
Alkaline Phosphatase Pending Pending
10/13/24 10/13/24
22:14 22:15
WBC
Hgb
Hct
Plt Count
PT
INR
APTT
Sodium Pending
Potassium Pending
Chloride Pending
Carbon Dioxide Pending
BUN Pending
Creatinine Pending
Glucose Pending
Calcium Pending
Total Bilirubin Pending
AST Pending
ALT Pending
Alkaline Phosphatase Pending
Vital Signs:
Vital Signs
Temp Pulse Resp BP Pulse Ox
97.9 F 80 22 120/71 100
10/13/24 06:50 10/13/24 07:34 10/13/24 07:34 10/13/24 06:00 10/13/24 07:34
Review of Systems
-
History Source: Patient
All other systems: Reviewed and negative
Physical Exam
-
General: No Apparent Distress
HEENT: Normocephalic
Respiratory: Crackles
Cardiac: Regular Rhythm
GI: Soft, Nontender and Nondistended
Genito-urinary: No Costovertebral Tender
Musculoskeletal: No Cyanosis, Edema, Right Lower Extrem and Edema, Left Lower Extrem
Skin: Warm
Neuro: Awake, Alert, Oriented and AO x 3
--- NOTE | 2024-10-13 08:46 | CON.INTV ---
Consultation
Consultation Request
Date/Time Consultation Requested: 10/13/24
Date/Time Consultation Performed: 10/13/24
Performing Provider: aRdha
Reason for Consultation: MOD
Medical History
-
History of Present Illness:
Patient is a 78-year-old male with previous history of diabetes, COPD, A-fib on Xarelto status post recent cardioversion on 10/09 presenting to ER with worsening shortness of breath. He had noticed the symptoms about 2 weeks ago, treated for
atypical pneumonia on chest x-ray with course of azithromycin and Augmentin. This did not improve his complaints. He was admitted on 10/12/2024 to stepdown unit, overnight developed worsening laboratory findings including elevated liver enzymes,
severe persistent metabolic acidosis, acute kidney injury, hyperglycemia. Transferred to ICU on 10/13/2024 with worsening laboratory findings.
Past Medical History
Past Medical History: Other (see list below)
Social History
Tobacco: Non-smoker
Alcohol: None
Drug: None
Family History
Family History: Reviewed & Not Pertinent
Allergies / Home Medications
Allergies
Allergy/AdvReac Type Severity Reaction Status Date / Time
vancomycin AdvReac Kidney Unverified 10/12/24 20:38
failure
Home Medications
�Medication �Instructions �Recorded �Confirmed �Last Taken �Type
simvastatin 20 mg tablet 20 mg PO DAILY High cholesterol 01/22/12 10/12/24 10/12/24 History
fluticasone furoate 100 1 inh inhalation R DAILY 03/03/23 10/12/24 10/12/24 History
mcg-vilanterol 25 mcg/dose
inhalation powder (Breo Ellipta)
glimepiride 4 mg tablet 4 mg PO DAILY 10/09/24 10/12/24 10/12/24 History
lisinopril 10 mg tablet 10 mg PO DAILY 10/09/24 10/12/24 10/12/24 History
sitagliptin phosphate 50 mg tablet 50 mg PO DAILY 10/09/24 10/12/24 10/12/24 History
(Travonuvia)
metformin 850 mg tablet 850 mg PO TID 10/12/24 10/12/24 10/12/24 History
metoprolol succinate 25 mg 25 mg PO DAILY 10/12/24 10/12/24 10/12/24 History
tablet,extended release 24 hr
metoprolol succinate 50 mg 50 mg PO DAILY 10/12/24 10/12/24 10/12/24 History
tablet,extended release 24 hr
rivaroxaban 20 mg tablet (Xarelto) 20 mg PO DAILY 10/12/24 10/12/24 10/12/24 History
Review of Systems
-
History Source: Patient
All other systems: Negative unless noted
Vitals / Labs / Diagnostic Testing
Vital Signs
Temp Pulse Resp BP Pulse Ox
97.9 F 80 22 120/71 100
10/13/24 07:30 10/13/24 07:34 10/13/24 07:34 10/13/24 06:00 10/13/24 07:34
Lab Data
10/13/24 06:31
Laboratory Results
10/12/24 10/12/24 10/13/24
16:49 23:53 06:31
APTT 47.5 H 117.1 H 105.0 H
Microbiology
10/13/24 07:55 Nasal Swab Respiratory Syncytial Virus Culture - Final
Negative for Respiratory Syncytial Virus.
A false negative result may be obtained with a specimen
collected early in the acute phase. If symptoms persist, a
new specimen should be tested.
10/12/24 20:09 Urine Legionella Urinary Antigen - Final
Negative for Legionella pneumophila Serogroup 1 antigen.
A negative result does not rule out the possiblity of
Legionella infection due to other serogroups or species of
Legionella. Clinical correlation is recommended.
10/12/24 20:09 Urine Streptococcus pneumoniae Antigen (M - Final
Negative for Streptococcus pneumoniae antigen.
A negative result does not exclude infection with
Streptococcus pneumoniae. Clinical correlation is
recommended.
10/12/24 16:19 Nasal Swab Influenza Types A & B (KELSEY) - Final
Negative for Influenza A & B, NAAT
Negative results must be combined with clinical observations
and patient history.
Nucleic Acid Amplification test (NAAT)performed on the
[employer] platform.
Diagnostic Testing:
Physical Exam
-
HEENT: Normocephalic, Anicteric and Moist Mucous Membranes
Cardiovascular: S1/S2 and Regular Rhythm
Respiratory: Clear and Non-Labored Respirations
GI: Soft, Non Distended and Non Tender
Neurology: Awake, Alert, Oriented and No Motor Deficits
Skin: Warm, Dry and Good Color
General: Comfortable and Other (NAD')
Assessment
-
Patient is a 78-year-old male with previous history of diabetes, COPD, A-fib on Xarelto status post recent cardioversion on 10/09 presenting to ER with worsening shortness of breath. He had noticed the symptoms about 2 weeks ago, treated for
atypical pneumonia on chest x-ray with course of azithromycin and Augmentin. This did not improve his complaints. He was admitted on 10/12/2024 to stepdown unit, overnight developed worsening laboratory findings including elevated liver enzymes,
severe persistent metabolic acidosis, acute kidney injury, hyperglycemia. Transferred to ICU on 10/13/2024 with worsening laboratory findings.
Fulminant hepatic failure
DEAN
Severe metabolic acidosis
Recent AFib CV 10/09/24
SOB
Likely CHF on CXR, volume overload
Presumed sepsis
Lactic acidosis
Severe coagulopathy, elevated INR
Hx of PNA, recent treatment with abx as OP
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
Diabetes Adult Type II
Hyperlipidemia
Hypertension
COPD follows with Dr Santos
Afib on Chronic anticoagulation
History of prostate cancer
History of DEAN 02/2023-biopsy shows ATN, mild diabetic nephropathy, presence of IgA
History of Pneumonia
s/p Ablation for AF 11/2015
DTH Cardioversion 02/2018
s/p Ablation 03/06/19
Plan
Doing well, off sedation
Pain/sedation: PRN denies pain
RASS goals: 0
Hemodynamically stable, not on pressors
Cardiac history reviewed--HTN, recent Afib CV, history of ablation, on Xarelto
Prior ECHO showing preserved function
IV heparin placed, cards eval obtained
Monitor on telemetry
Currently on supplemental o2, resumed on home inhalers
Prior known history of lung disease: COPD, followed as OP
Supplemental O2 as indicated to maintain sats > 89%
CXR/CT reviewed indicating possible volume component, less so PNA
Treated recently as OP for PNA, would not need to treat again, r/o other causes
Agree with CT CAP
Severe liver disease, AST/ALT rising
NPO, for now
Potential DKA
Await CT AP as well--has history of pancreatic issue/prior CT
Check lipase/CA-19-9, hep panel negative
GI prophylaxis
Consideration for empiric steroids if continues to climb
DEAN present, worsening
History of renal disease in past-prior renal bx with ATN, mild diabetic nephropathy, presence of IgA
Void trials, currently oliguric
Renal eval, may eventually need HD
Follow urine output, critical I/Os
Replete electrolytes as needed
Repeat labs, ABG
Possible septic shock, mcmullen culture
Placed on empiric abx
Cultures sent--no growth thus far
MRSA screen now to eliminate LZD, can likely stop doxy
Follow fever trend, WBC count
Lactate elevated on admission, continue to trend until <2
Severe coag, INR going up
Hold OAC
DVT prophylaxis as assessed based on risk, including mechanical SCDs
Can transfuse if indicated for Hb <7, plt < 10
Heme onc eval, could be DIC though not typical w/ high plts
DM history noted, monitor accuchecks PRN/SS coverage if needed
Possible DKA, will place on insulin gtt
Prognosis guarded, will follow
Diagnostic Data
Chest X-Ray: 10/12/24-Congestive heart failure versus volume overload having developed since prior examination..
10/01/24- There is mild pleural parenchymal airspace disease at the posterior basilar portion of the right lower lobe, new when compared with the prior study consistent with small right pleural effusion with underlying interstitial pneumonia versus
compressive atelectasis
CT Scan: CHEST 03/14/23--Mild to moderate bilateral pleural effusions, left greater than right. Adjacent compressive atelectasis. COPD. Trace pericardial effusion.
Echo: 02/21/24- Normal left ventricular size, wall thickness and systolic function. No regional wall motion abnormalities are seen. LV ejection fraction is 55-60% by volumetric assessment. Normal diastolic function. Normal right ventricular size and
function.
Mild mitral regurgitation. Thickened, trileaflet aortic valve with normal leaflet excursion and trace aortic regurgitation. Estimated pulmonary artery pressure of 30-35 mmHg, assuming a right atrial pressure of 3 mmHg. Compared to prior study
dated 03/07/23, there is no significant change
PFT's:
Reports and relevant images were personally reviewed.
-----
Critical Care time >100 mins -- The patient is admitted for acute critical illness for the treatment of vital organ failure and/or prevention of further life-threatening conditions. Total care includes time spent in review of history, physical exam,
medications, hemodynamic/ventilator parameters, laboratory data, imaging and discussion with house staff, pharmacy, respiratory therapy, senior communications engineer, and nursing.
[2024-10-13 08:58] LABS: Magnesium 1.8 mg/dl (1.6-2.3); Phosphorus 4.6 mg/dl (2.5-4.5)
--- NOTE | 2024-10-13 09:00 | PTCARENOTE ---
Late entry,
Received this am, AAOx3 pale, VSS afebrile., Telemetry AF 80s BP 120/90. IV Cardizem infusing at 10mg/hr, IV Heparin infusing PTT assessed and therapeutic. IV antibx, IV Lasix and decadron given. RT collected RSV and sputum- sent to lab.
Critical labs relayed to Dr. Montes. Transfer orders for ICU - [id number] - present.
[2024-10-13 09:11] LABS: Glycohemoglobin (HgbA1c) 7.2 % (4.0-5.6)
[2024-10-13 09:14] LABS: Hepatitis B Surface Antigen Negative (Negative)
[2024-10-13 09:22] LABS: Hepatitis A IgM Antibody Negative (Negative); Hepatitis B Core Ab, IgM Negative (Negative)
[2024-10-13] MEDS: LOKELMA 10 GRAM PO ×2 (09:26→15:16)
[2024-10-13] MEDS: CALCIUM GLUCONATE 1000 MG IV (09:26)
[2024-10-13] MEDS: SODIUM BICARBONATE 50 MEQ IV ×3 (09:26→12:40)
[2024-10-13 09:33] LABS: Hepatitis B Core Ab, Total Reactive (Negative); Hepatitis B Surface Antibody Positive; Hepatitis C Antibody Negative (Negative)
[2024-10-13 10:15] LABS: Venous Blood Gas B.E. -15.5 mmol/L (-4 to +4); Venous Blood Gas HCO3 12.2 mmol/L (22-27); Venous Blood Gas O2 Sat % 98.2 %; Venous Blood Gas pCO2 35 mmHg (35-48); Venous Blood Gas pO2 95 mmHg (30-50)
[2024-10-13 10:17] LABS: Venous Blood Gas pH 7.15 (7.32-7.43)
[2024-10-13 10:37] LABS: PT 60.4 Sec (11.4-14.6)
[2024-10-13 10:38] LABS: INR 7.23
[2024-10-13 10:40] LABS: Troponin I < 0.012 ng/ml
--- NOTE | 2024-10-13 10:40 | W.CON.NEPH ---
Consultation
-
Date/Time Consultation Requested: 10/13/2024 9:00 AM
Date/Time Consultation Performed: 10/13/2024 10:40 AM
Requesting Provider: Dr. Smalls
Performing Provider: Dr. Gómez
Reason for Consultation: Acute kidney injury hyperkalemia metabolic acidemia
Medical History
-
Chief Complaint: DEAN/Hyperkalemia/Metabolic acidemia
History of Present Illness:
78yo M with PMHx of DM on glimepiride and metformin and Januvia,, COPD, Afib on Xarelto s/p cardioversion on 10/09. He has a history of chronic kidney disease stage III as noted by a creatinine of 1.6 from March 18, 2023 . He came into the hospital
with worsening SOB. He started to feel bad approximately 2 weeks ago, visited his PCP that found interstitial pneumonia on XR and started patient on Azithromycin and Augmentin. Cardiology performed cardioversion 3 days ago in attempt to control his
Afib. He has 10 years of Afib at this point, but never had much of the problems as per patient. Patient was also hospitalized in February 2024 for pneumonia, however CT chest at that time showed b/l pleural effusions with atelectasis and with COPD
changes, was seen by rheumatology at that time due to markadly elevated inflammatory markers, but no clearly identifiable rheumatologic condition found. On presentation to the hospital he was found to be in acute renal failure with profound
hyperkalemia and metabolic acidosis in addition to his hypoxic respiratory failure. He was noted to have a gapped metabolic acidosis. He was in atrial fibrillation with rapid ventricular response. He was transferred to the intensive care unit and
nephrology was asked to see this critically ill patient for the aforementioned issues.
Allergies / Home Medications
Allergy/AdvReac Type Severity Reaction Status Date / Time
vancomycin AdvReac Kidney Unverified 10/12/24 20:38
failure
�Medication �Instructions �Recorded �Confirmed �Type
simvastatin 20 mg tablet 20 mg PO DAILY High cholesterol 01/22/12 10/12/24 History
fluticasone furoate 100 1 inh inhalation R DAILY 03/03/23 10/12/24 History
mcg-vilanterol 25 mcg/dose Lung/Breathing Issues
inhalation powder (Breo Ellipta)
glimepiride 4 mg tablet 4 mg PO DAILY Diabetes 10/09/24 10/12/24 History
lisinopril 10 mg tablet 10 mg PO DAILY Blood Pressure 10/09/24 10/12/24 History
sitagliptin phosphate 50 mg tablet 50 mg PO DAILY Diabetes 10/09/24 10/12/24 History
(Januvia)
metformin 850 mg tablet 850 mg PO TID Diabetes 10/12/24 10/12/24 History
metoprolol succinate 25 mg 25 mg PO DAILY Heart 10/12/24 10/12/24 History
tablet,extended release 24 hr Disease/Condition
metoprolol succinate 50 mg 50 mg PO DAILY Heart 10/12/24 10/12/24 History
tablet,extended release 24 hr Disease/Condition
rivaroxaban 20 mg tablet (Xarelto) 20 mg PO DAILY Blood Clot 10/12/24 10/12/24 History
Prevention/Tx
Review of Systems
-
History Source: Patient
All other systems: Negative unless noted
Respiratory: Cough and Trouble Breathing
Physical Exam
Vital Signs
Vital Signs
Temp Pulse Resp BP Pulse Ox
97.9 F 80 22 120/71 100
10/13/24 07:30 10/13/24 07:34 10/13/24 07:34 10/13/24 06:00 10/13/24 07:34
Lab Results
10/13/24 06:31
WBC 12.4 10^3/uL (4.8-10.8) H 10/13/24 06:31
RBC 2.56 10^6/uL (4.70-6.10) L 10/13/24 06:31
Hgb 8.4 g/dL (13.0-18.0) L 10/13/24 06:31
Hct 24.9 % (39.0-52.0) L 10/13/24 06:31
Plt Count 481 10^3/uL (130-400) H D 10/13/24 06:31
eGFR Cancelled 10/13/24 16:09
Phosphorus 4.6 mg/dl (2.5-4.5) H 10/13/24 02:13
Btd-L-Bkilwqmgart Pept 1120 pg/ml 10/12/24 14:17
Physical Exam
General: AOx3, Nontoxic , NAD
HEENT: PERRL, EOMI, Anicteric, Conjunctivae Clear, Ear/Nose Intact, Hearing Normal, Oropharynx Clear/Moist, Dentition Intact, Facial Symmetry, Neck Supple, Neck: Trachea Midline, No JVD and No Thyromegaly, no Bruits
Respiratory: Coarse to auscultation with profoundly decreased breath sounds towards the bases
Cardiac: S1/S2 regular tachycardic with soft ejection murmur
Breast: Deferred by me
Abdomen: Soft, Nontender, Nondistended, Normal Bowel Sounds and No Hepatosplenomegaly
Rectal: Deferred by Provider
Genito-urinary: No Costovertebral Tenderness
Extremities: No Clubbing, No Cyanosis and trace Edema
Skin: No Rash or open lesions
Neuro: Nonfocal/Grossly Intact, CN II-XII (Intact) and Strength (Musculoskeletal exam 5 out of 5 both upper and lower extremities)
Hematologic/Lymphatic: No Cervical Lymphadenopathy, No Submandibular Lymphadenopathy and No Supraclavicular Lymphadenopathy
Psych: Mood/afflect pleasant, Insight/judgement good and Appropriate
Vascular: plus 1 pedal and radial pulses
Data Reviewed
-
Radiology: Image Personally Visualized and interpreted (Chest x-ray personally reviewed mild interstitial changes noted)
Labs: Labs Reviewed by me ([facility] CBC urinalysis)
Old Records: Reviewed (Old labs reviewed from 03/18/2023 in electronic medical record creatinine 1.6)
Assessment/Plan
-
Impression:
Acute kidney injury
Acute hypoxic respiratory with history of COPD
CHF decompensation (HFPef)
Anemia with elevated LDH
Hyperkalemia
Gapped metabolic acidosis/beta hydroxybutyrate
Chronic kidney disease stage III with baseline creatinine of 1.6
Hypertension
Paroxysmal atrial fibrillation
Diabetes
Prostate CA
Transaminitis
Plan:
DEAN/Hyperkalemia/Gapped metabolic acidosis (lactic acidemia/DKA)
-support hemodynamically if neededed, currently stable
-Acidosis and hyperkalemia should improve with insulin drip, as I suspect there is an underlying component of DKA
-Follow anion Gap : currently at 21
-Hyperkalemia function of profound metabolic acidosis, Lokelma provided for hyperkalemia, will use Kayexalate if this is not efficacious
-Holding Glucophage (lactic acidosis noted on presentation) and angelina inhibitor
-check PVR bladder scan
-Patient being diuresed in setting of decompensated congestive heart failure although patient does not look profoundly volume overloaded on my exam
-Patient may require sodium bicarbonate drip if acidosis does not improve with insulin drip, several sodium bicarbonate boluses provided earlier
-UA noted negative for ketones and 1+ albumin without blood
-Patient is critically ill with life-threatening hyperkalemia metabolic acidosis hypoxic respiratory failure
-Possibility of dialysis also discussed with patient
-60 minutes critical care time spent with patient
-Discussed with ICU team and attending
[2024-10-13] MEDS: OMNIPAQUE 50 ML PO (10:46)
[2024-10-13 10:54] LABS: Lipase 123 U/L (23-300)
[2024-10-13 10:55] LABS: Albumin 3.2 g/dl (3.5-5.0); Alkaline Phosphatase 113 U/L (38-126); Blood Urea Nitrogen 83 mg/dl (9-20); Calcium 8.5 mg/dl (8.4-10.2); Carbon Dioxide 11 mmol/L (22-30); Chloride 103 mmol/L (98-107); Direct Bilirubin 0.6 mg/dl (0.0-0.4); Estimated Creatinine Clearance 32 ml/min; Glucose 313 mg/dl (70-99); Potassium 6.5 mmol/L (3.5-5.1); Sodium 134 mmol/L (135-145); Total Protein 5.5 g/dl (6.3-8.2); eGFR 28.53
[2024-10-13 11:12] LABS: ALT (SGPT) 2424 U/L (0-50); AST (SGOT) 2503 U/L (17-59)
[2024-10-13] MEDS: NOVOLIN R INSULIN INFUSION 100 IV (11:20)
[2024-10-13 11:21] LABS: Glucose - Point of Care 353 mg/dl (70-99)
--- NOTE | 2024-10-13 11:43 | CON.GI ---
Consultation
-
Date/Time Consultation Requested: 10/13/24 8:03am
Date/Time Consultation Performed: 10/13/24 11:44am
Requesting Provider: Pato Smalls
Performing Provider: Johnnie Soria
Reason for Consultation: Abnl LFTs
Medical History
Chief Complaint / HPI
Chief Complaint: Abnl LFTs
History of Present Illness:
Patient is a 78-year-old male admitted with a flutter rapid ventricular rate. He was recently found to be in a flutter at a rapid rate in the cardiology office and was taken for cardioversion on October 09. Following that he still persisted with
shortness of breath which worsened and prompted him to come in the ER. Since admission he has had heart rates up to 155 and blood pressure lowest at 84/66. He has been placed on a Cardizem drip and Toprol by cardiology. Since admission his LFTs
have risen sharply. AST on admission was 174 and increased to 2147 and then 2503. ALT on admission was 292 and increased to 2035 then 2424. The bilirubin and alk phos have been normal. He denies prior LFT abnormalities. He does not drink
alcohol. He has not been taking Tylenol. He denies abdominal pain.
Past Medical History
Past Medical History: Arrhythmias (Afib), NIDDM and Other (prostate CA)
Past Surgical History: Other (Cardiac ablation, PVI 02/2019. )
Social History
Tobacco: Former Smoker
Alcohol: Occasional
Allergies / Home Medications
Allergy/AdvReac Type Severity Reaction Status Date / Time
vancomycin AdvReac Kidney Unverified 10/12/24 20:38
failure
�Medication �Instructions �Recorded
simvastatin 20 mg tablet 20 mg PO DAILY High cholesterol 01/22/12
fluticasone furoate 100 1 inh inhalation R DAILY 03/03/23
mcg-vilanterol 25 mcg/dose Lung/Breathing Issues
inhalation powder (Breo Ellipta)
glimepiride 4 mg tablet 4 mg PO DAILY Diabetes 10/09/24
lisinopril 10 mg tablet 10 mg PO DAILY Blood Pressure 10/09/24
sitagliptin phosphate 50 mg tablet 50 mg PO DAILY Diabetes 10/09/24
(Januvia)
metformin 850 mg tablet 850 mg PO TID Diabetes 10/12/24
metoprolol succinate 25 mg 25 mg PO DAILY Heart 10/12/24
tablet,extended release 24 hr Disease/Condition
metoprolol succinate 50 mg 50 mg PO DAILY Heart 10/12/24
tablet,extended release 24 hr Disease/Condition
rivaroxaban 20 mg tablet (Xarelto) 20 mg PO DAILY Blood Clot 10/12/24
Prevention/Tx
Review of Systems
-
All other systems: A 12 pt ROS was Negative except as stated above in HPI
Vital Signs
Temp Pulse Resp BP Pulse Ox
97.9 F 85 33 118/103 99
10/13/24 07:30 10/13/24 10:30 10/13/24 10:30 10/13/24 10:30 10/13/24 10:00
Physical Exam
Exam
General: No Apparent Distress
HEENT: Normocephalic and Atraumatic
Respiratory: Other (tachypnic)
GI: Soft, Non Tender and Non Distended
Skin: Warm and Dry
Results
WBC 12.4 10^3/uL (4.8-10.8) H 10/13/24 06:31
Hgb 8.4 g/dL (13.0-18.0) L 10/13/24 06:31
Hct 24.9 % (39.0-52.0) L 10/13/24 06:31
MCV 97.3 fL (80.0-94.0) H 10/13/24 06:31
Plt Count 481 10^3/uL (130-400) H D 10/13/24 06:31
Absolute Neuts (auto) 11.6 10^3/uL (1.4-6.5) H 10/13/24 06:31
PT 60.4 Sec (11.4-14.6) H 10/13/24 10:03
INR 7.23 H* 10/13/24 10:03
APTT 105.0 Sec (23.4-35.0) H 10/13/24 06:31
Sodium Cancelled 10/13/24 16:09
Potassium Cancelled 10/13/24 16:09
Chloride Cancelled 10/13/24 16:09
Carbon Dioxide Cancelled 10/13/24 16:09
BUN Cancelled 10/13/24 16:09
Creatinine Cancelled 10/13/24 16:09
Calcium Cancelled 10/13/24 16:09
Total Bilirubin 1.0 mg/dl (0.2-1.3) 10/13/24 10:03
AST 2503 U/L (17-59) H* 10/13/24 10:03
ALT 2424 U/L (0-50) H* 10/13/24 10:03
Alkaline Phosphatase 113 U/L (38-126) 10/13/24 10:03
Lipase 123 U/L (23-300) 10/13/24 02:13
Hepatitis A IgM Ab Negative (Negative) 10/13/24 06:31
Hep Bs Antibody Positive 10/13/24 06:31
Hep B Core Total Ab Reactive (Negative) 10/13/24 06:31
Hep B Core IgM Ab Negative (Negative) 10/13/24 06:31
Hepatitis C Antibody Negative (Negative) 10/13/24 06:31
Diagnostic Image Results:
Prior GI Procedures:
EGD:
Colonoscopy:
Assessment / Plan
-
Summary: 78yo male presents with recurrent Aflutter, RVR started on cardizem gtt; HR up to 155, BP 84/66 at lowest. LFTs bumped up to AST 2503, ALT 2424 from AST 174, ALT 292 at admission. Prior LFTs normal in past. Denies EtOH, Tylenol use. No
abd pain. No prior liver issues. Hep B/C negative
Impression:
Shock liver
Aflutter, RVR
SOB
Recommendations:
Check US doppler abd r/o vascular liver disease
Trend LFTs, suspect it will peak and then decrease
Continue management BP/HR per Cardiology and primary team
-
-
Thank you for consultation and allowing me to participate in the patient's care. Please call the geographic information system analyst GI physician during the after hours with any questions or concerns.
[2024-10-13 11:59] LABS: APTT 92.1 Sec (23.4-35.0)
--- NOTE | 2024-10-13 12:00 | PTCARENOTE ---
received pt at 1000 , pt awake and alert , pleasant , A fib on monitor , on 4 L nc , labs noted and redrawn , pt started on insulin gtt for DKA protocol , EKG , ECHO being done , plan for pt to have a CT of chest , abdomen and pelvis today , pt is
SOB and unable to tolerated VQ scan by laying flat for 2 hours , Dr Smalls aware , pt states he has no pain but is weak and complains of fatigue , at bedside and updated on plan of care and condition.
[2024-10-13 12:48] LABS: Glucose - Point of Care 308 mg/dl (70-99)
[2024-10-13 13:46] LABS: Glucose - Point of Care 296 mg/dl (70-99)
--- NOTE | 2024-10-13 13:57 | W.PN.UPDATE ---
Update Note
Progress Note Update
#Supratherapeutic INR
Hold hep since INR 7.23
follow INR daily
check fibrinogen and ddimer
Hematology consult
Blood transfusion consent signed
[2024-10-13 14:50] LABS: Glucose - Point of Care 270 mg/dl (70-99)
--- NOTE | 2024-10-13 14:59 | W.PN.UPDATE ---
Update Note
Progress Note Update
He remains critically ill. Echocardiogram noted with moderate to severe pericardial effusion and some features that could be consistent with tamponade. Looks fatigued and breathing remains labored. Continues on nasal cannula oxygen and being
followed closely.
Coagulopathy noted with elevated INR which may be in part related to Xarelto with last dose on Saturday morning. Heparin has been discontinued. Hematology consulted.
No further diuretic given LV looks a bit underfilled and moderate to large pericardial effusion.
Have discussed with patient that there may be benefit from pericardiocentesis with new moderate to severe pericardial effusion and continued illness. Will discuss with interventional cardiology given very high INR which may put patient at risk.
Discussed with nursing
Have sent message to senior major gifts officer and primary service.
Continue supportive care for now.
Continue supportive care for now.
Additional 30 minutes total critical care time
--- NOTE | 2024-10-13 15:15 | CON.ONC ---
Impression
Impression
shock, etiology unclear
dyspnea
pericardial fluid/effusion, ?tamponade
coagulopathy from Xarelto, heparin, shock liver
chronic anemia
prostate cancer, undetectable PSA per patient
Plan
Plan
Await official CT read
Would give FFP if any procedures are planned, ie, pericardiocentesis
Coagulopathy likely from xarelto, heparin, shock liver. Unlikely DIC w/ elevated platelet count
High LDH from shock liver
Support anemia w/ transfusions as needed. Was to have bone marrow biopsy in 2022, but cancelled. t/c outpt heme f/u.
Patient History
History of Present Illness
Asked to see patient re: anemia, coagulopathy.
This is a 78 yo M who presented w/ shortness of breath. He'd been treated recently as an outpatient with po antibiotics for possible pneumonia. He also underwent cardioversion on 10/09/24 for afib. His clinical status has been worsening today, with
new shock liver, ongoing coagulopathy, and imaging suggesting pericardial effusion, possibly tamponade. He took Xarelto Saturday am, and then was switched to heparin at admission. INR was noted to be >7 today, heparin was stopped. LDH is > 2000.
Platelet count 481.
He has a history of joselin 9 prostate cancer in 01/2022, treated w/ RT and a couple years of Lupron. He follows with Dr. Horne at [facility], PSA has been undetectable per report.
He has a h/o chronic anemia, somewhat due to B12 deficiency, for which he's now on B12 supplementation. He met with Dr. Goins in summer 2022 for anemia eval, bone marrow biopsy was planned but never done, and the patient cancelled f/u visit.
Past-Medical/Surgical History
PMH - as above, also DM, COPD, HTN, OA
SH - , former smoker, social etoh
FH - N/C
Patient Medication
�Medication �Instructions �Recorded �Confirmed �Last Taken �Type
simvastatin 20 mg tablet 20 mg PO DAILY High cholesterol 01/22/12 10/12/24 10/12/24 History
fluticasone furoate 100 1 inh inhalation R DAILY 03/03/23 10/12/24 10/12/24 History
mcg-vilanterol 25 mcg/dose Lung/Breathing Issues
inhalation powder (Breo Ellipta)
glimepiride 4 mg tablet 4 mg PO DAILY Diabetes 10/09/24 10/12/24 10/12/24 History
lisinopril 10 mg tablet 10 mg PO DAILY Blood Pressure 10/09/24 10/12/24 10/12/24 History
sitagliptin phosphate 50 mg tablet 50 mg PO DAILY Diabetes 10/09/24 10/12/24 10/12/24 History
(Januvia)
metformin 850 mg tablet 850 mg PO TID Diabetes 10/12/24 10/12/24 10/12/24 History
metoprolol succinate 25 mg 25 mg PO DAILY Heart 10/12/24 10/12/24 10/12/24 History
tablet,extended release 24 hr Disease/Condition
metoprolol succinate 50 mg 50 mg PO DAILY Heart 10/12/24 10/12/24 10/12/24 History
tablet,extended release 24 hr Disease/Condition
rivaroxaban 20 mg tablet (Xarelto) 20 mg PO DAILY Blood Clot 10/12/24 10/12/24 10/12/24 History
Prevention/Tx
Active Medications
Generic Name Dose Route Start Last Admin
Trade Name Freq PRN Reason Stop Dose Admin
Acetaminophen 650 mg 10/12/24 20:09
Acetaminophen 325 Mg Tablet PO 11/09/24 20:08
Q4HPRN PRN
mild pain/LOZANO/temp> 100.4F
Bisacodyl 10 mg 10/12/24 20:09
Bisacodyl 10 Mg Rectal Suppository RECTAL 11/09/24 20:08
[id number] PRN
constipation
Budesonide/Formoterol Fumarate 2 puff 10/13/24 08:00 10/13/24 07:28
Symbicort Inhaler 160/4.5 INH 11/10/24 07:59 2 puff
R BID LIANG Administration
Protocol
Cefepime HCl 2,000 mg 10/13/24 04:00 10/13/24 05:17
Cefepime Hcl 2,000 Mg/12.5 Ml Vial IV 2,000 mg
Q12H LIANG Administration
Dextrose 12.5 grams 10/12/24 20:09
Dextrose 50% (0.5 Grams/Ml) 50 Ml Syringe IV 11/09/24 20:08
[id number] PRN
hypoglycemia
Protocol
Furosemide 40 mg 10/13/24 08:00 10/13/24 08:10
Furosemide 40 Mg (10 Mg/Ml) 4 Ml Vial IV 11/10/24 07:59 40 mg
BID AT 0800,1600 LIANG Administration
Glucagon 1 mg 10/12/24 20:09
Glucagon 1 Mg Vial IM 11/09/24 20:08
PRN PRN
hypoglycemia
Protocol
Heparin Sodium 8,500 units 10/12/24 16:40
Heparin 80 Units/Kg Rebolus-Do Not Discard IV 11/09/24 16:39
PRN PRN
PTT < OR = 64 seconds
Heparin Sodium 4,200 units 10/12/24 16:41
Heparin 40 Units/Kg Rebolus-Do Not Discard IV 11/09/24 16:40
PRN PRN
PTT = 64.1 to 72.9 seconds
Heparin Sodium 25,000 units in 250 mls @ 0 mls/hr 10/12/24 16:30 10/13/24 08:24
Heparin 61766 Units/250 Ml IV 250 mls
PER PROTOCOL LIANG Administration
Protocol
Per Protocol
Diltiazem HCl 125 mg in 125 mls @ 0 mls/hr 10/12/24 16:30 10/13/24 13:41
Cardizem IV 125 mls
PER PROTOCOL LIANG Administration
Protocol
Per Protocol
Linezolid 300 mls @ 150 mls/hr 10/13/24 04:00 10/13/24 05:17
Zyvox 600 Mg IV 300 mls
Q12H LIANG Administration
Insulin Human Regular 100 units in 100 mls @ 0 mls/hr 10/13/24 09:00 10/13/24 11:20
Novolin R Insulin Infusion IV 100 mls
PER PROTOCOL LIANG Administration
Protocol
Per Protocol
Insulin Aspart 0 units 10/13/24 07:30 10/13/24 12:43
Insulin Aspart Moderate Resistance 300 Units/3 Ml Pen.Injctr SC 11/10/24 07:29 Not Given
AC LIANG
Protocol
Levalbuterol HCl 1.25 mg 10/12/24 20:09
Levalbuterol 1.25 Mg/3 Ml Ampul INH
R Q6HPRN PRN
wheezing, SOB
Protocol
Metoprolol Succinate 25 mg 10/13/24 08:00 10/13/24 08:11
Metoprolol 25 Mg Extended Release Tablet PO 11/10/24 07:59 25 mg
DAILY LIANG Administration
Polyethylene Glycol 17 grams 10/12/24 20:09
Polyethylene Glycol Powder 17 Grams Packet PO 11/09/24 20:08
DAILYPRN PRN
constipation
Senna/Docusate Sodium 1 tablet 10/12/24 20:09
Docusate W/Senna (Jacquelyn-Colace) Tablet PO 11/09/24 20:08
BIDPRN PRN
constipation
Sodium Chloride 0 flush 10/12/24 17:00
Sodium Chloride 0.9% (Flush) Syringe IV 11/09/24 16:59
PER PROTOCOL LIANG
Sodium Zirconium Cyclosilicate 10 gram 10/13/24 14:00
Sodium Zirconium Cyclosilicate (Lokelma) 10 Gram Powder Packet PO 10/15/24 06:01
TID@0600,1400,1800 LIANG
Sterile Water 10 ml 10/13/24 04:00 10/13/24 05:17
Sterile Water For Injection 10 Ml Vial IV 11/10/24 03:59 10 ml
Q12H LIANG Administration
Review of Systems
-
All Other Systems: Not reviewed unless documented
Physical Exam
-
General: Appears Chronically Ill
Neurology: No Lateralizing Symptoms
Skin: Warm and Dry
Psych: Intact Judgement/Insight
Labs
Lab Results
WBC 12.4 10^3/uL (4.8-10.8) H 10/13/24 06:31
RBC 2.56 10^6/uL (4.70-6.10) L 10/13/24 06:31
Hgb 8.4 g/dL (13.0-18.0) L 10/13/24 06:31
Hct 24.9 % (39.0-52.0) L 10/13/24 06:31
MCV 97.3 fL (80.0-94.0) H 10/13/24 06:31
MCH 32.8 pg (27.0-31.0) H 10/13/24 06:31
MCHC 33.7 g/dL (33.0-37.0) 10/13/24 06:31
RDW 13.3 % (11.5-14.5) 10/13/24 06:31
Plt Count 481 10^3/uL (130-400) H D 10/13/24 06:31
MPV 10.1 fL (7.4-10.4) 10/13/24 06:31
Abs Immat Gran (auto) 0.1 10^3/uL (0-0.05) H 10/13/24 06:31
Absolute Neuts (auto) 11.6 10^3/uL (1.4-6.5) H 10/13/24 06:31
Absolute Lymphs (auto) 0.3 10^3/uL (1.2-3.4) L 10/13/24 06:31
Absolute Monos (auto) 0.4 10^3/uL (0.1-0.6) 10/13/24 06:31
Absolute Eos (auto) 0.0 10^3/uL (0-0.7) 10/13/24 06:31
Absolute Basos (auto) 0.0 10^3/uL (0-0.2) 10/13/24 06:31
Immature Gran % 0.9 % (0-0.5) H 10/13/24 06:31
Neutrophils % 93.7 % (42.2-75.2) H 10/13/24 06:31
Lymphocytes % 2.3 % (20.5-51.1) L 10/13/24 06:31
Monocytes % 3.0 % (1.7-9.3) 10/13/24 06:31
Eosinophils % 0.0 % (0-6) 10/13/24 06:31
Basophils % 0.1 % (0-2) 10/13/24 06:31
Creatinine Cancelled 10/13/24 16:09
Vital Signs
Vital Signs
Temp Pulse Resp BP Pulse Ox
97.9 F 85 33 118/103 99
10/13/24 07:30 10/13/24 10:30 10/13/24 10:30 10/13/24 10:30 10/13/24 10:00
[2024-10-13 15:19] LABS: Fibrinogen 508 MG/DL (199-459)
[2024-10-13 15:21] LABS: PT 84.2 Sec (11.4-14.6)
[2024-10-13 15:23] LABS: INR > 8.0
[2024-10-13 15:51] LABS: Albumin 3.4 g/dl (3.5-5.0); Alkaline Phosphatase 109 U/L (38-126); Alkaline Phosphatase 112 U/L (38-126); Blood Urea Nitrogen 82 mg/dl (9-20); Calcium 8.5 mg/dl (8.4-10.2); Calcium 8.6 mg/dl (8.4-10.2); Carbon Dioxide 5 mmol/L (22-30); Carbon Dioxide < 5 mmol/L (22-30); Chloride 101 mmol/L (98-107); Chloride 102 mmol/L (98-107); Estimated Creatinine Clearance 26 ml/min; Glucose 227 mg/dl (70-99); Glucose 230 mg/dl (70-99); Potassium 5.8 mmol/L (3.5-5.1); Sodium 137 mmol/L (135-145); Sodium 138 mmol/L (135-145); Total Bilirubin 1.3 mg/dl (0.2-1.3); Total Protein 5.7 g/dl (6.3-8.2); Total Protein 5.9 g/dl (6.3-8.2); eGFR 22.53
[2024-10-13 15:51] LABS: Glucose - Point of Care 252 mg/dl (70-99)
[2024-10-13 16:08] LABS: ALT (SGPT) 3746 U/L (0-50)
[2024-10-13 16:13] LABS: ALT (SGPT) 3641 U/L (0-50)
[2024-10-13 16:18] LABS: AST (SGOT) 5065 U/L (17-59)
[2024-10-13 16:22] LABS: Albumin 3.2 g/dl (3.5-5.0); Blood Urea Nitrogen 82 mg/dl (9-20); Carbon Dioxide < 5 mmol/L (22-30); Estimated Creatinine Clearance 26 ml/min; Total Bilirubin 1.2 mg/dl (0.2-1.3); Total Protein 5.7 g/dl (6.3-8.2); eGFR 22.53
[2024-10-13 16:26] LABS: AST (SGOT) 4804 U/L (17-59)
[2024-10-13] MEDS: SODIUM BICARBONATE 1150 MEQ IV (16:30)
--- NOTE | 2024-10-13 16:30 | W.PN.ANESINT ---
Anesthesia Intubation Note
- Intubation Note
Intubation Note:
Diagnosis: pericardial effusion
Blade: VL MAC 4
Tube Size: 8.0
Depth: 23@ lip
Side Taped: right
Drugs Used: 50mg propofol and 300mcg phenylephrine for induction, then 500mcg phenylephrine, followed by 50mg rocuronium, 100mg ephedrine, 200mcg epinephrine. Pt continually unstable after vasopressor administration. [place] placed. Care
transferred to primary team for further management
Grade View: g1v
EtCO2 Present: sustained
Atraumatic: yes
Attempts: 1
Insertion Start and Stop Time: 1552, stop at 1625
SaO2 Pre: 100
SaO2 Post: 100
Glidescope Used: yes
Other Airway Adjustments:
Pre-Oxygenated: yes
Portable Chest X-Ray: yes
RSI:
Suctioned:
Bilateral Breath Sounds Confirmed: yes
Vent Settings:
Settings per ___Attending Physician
--- NOTE | 2024-10-13 16:36 | W.PN.UPDATE ---
Update Note
Progress Note Update
Nephrology update:
Patient remains anuric and now with uncontrollable metabolic acidosis
Patient has become hemodynamically unstable
Pericardial effusion noted on CT and echo
I will initiate CRRT as patient remains hemodynamically unstable and requires acidosis treatment
In the interim sodium bicarbonate drip initiated
--- NOTE | 2024-10-13 16:37 | W.PN.ANS.LIN ---
Anesthesia IV & A-Line Note
- IV/Arterial Line
Left Radial Arrow 20 (01/19)
IV Line Comments: Uneventful Procedure
Comment: placed by Cherelle Nicholson CRNA
A-Line Comments: Sterile technique as per standard protocol, Uneventful procedure, Ultrasound guided insertion, Biopatch applied
Funtioning A-line in situ: No
A-line Insertion Start Time: 16:10
A-line Insertion Stop Time: 16:15
[2024-10-13 16:41] LABS: B.E. -16.8 mmol/L; PCO2 40 mmHg (35-48); PO2 314 mmHg (83-108)
[2024-10-13] MEDS: LEVOPHED 250 IV ×2 (16:41→20:09)
[2024-10-13 16:49] LABS: HCO3 11.9 mmol/L (21-28); pH 7.08 (7.35-7.45)
[2024-10-13 16:51] LABS: Glucose - Point of Care 227 mg/dl (70-99)
--- NOTE | 2024-10-13 17:01 | W.PN.UPDATE ---
Update Note
Progress Note Update
CT showing mod-severe pericardial effusion, presumption that this is shock from poor perfusion
Cards aware, planning for intervention
Repeat labs showing decline in acidosis level and INR despite interventions
Intubated at bedside, placed on pressors
Hd cath to be placed for CRRT
Cards at bedside to perform emergent pericardiocentesis
updated over the phone about events of intubation and procedure
[2024-10-13] MEDS: NEO-SYNEPHRINE 250 IV ×2 (17:15→21:01)
[2024-10-13] MEDS: SUBLIMAZE 25 MCG IV ×3 (17:24→20:28)
[2024-10-13 17:25] LABS: Alkaline Phosphatase 99 U/L (38-126); Calcium 8.3 mg/dl (8.4-10.2); Chloride 103 mmol/L (98-107); Glucose 206 mg/dl (70-99); Potassium 5.9 mmol/L (3.5-5.1); Sodium 137 mmol/L (135-145)
--- NOTE | 2024-10-13 17:39 | W.PN.UPDATE ---
Update Note
Progress Note Update
PERICARDIOCENTESIS REPORT
Date: October 13, 2024
Referring: Adri Bullrosana
Indications: Emergent bedside pericardiocentesis due to ongoing hypotension despite pressor support and concern for cardiac tamponade
Procedure: Pericardiocentesis via transapical approach under echocardiographic guidance
Given patient was unstable with persistent hypotension despite 2 pressors, it was felt that he was too unstable to transport down to the heart catheterization lab. In this emergent setting, official consent could not be obtained through family as
patient was intubated however multiple discussions were had with who understood with the risk and benefits of the procedure especially in the setting of multiorgan failure and significant coagulopathy. Echocardiogram was used to ascertain the
best approach vector. An transapical approach was selected. The area was prepped bedside in a sterile fashion. Under ultrasound guidance, a micropuncture needle was advanced into the pericardial space under negative pressure. After obtaining
flashback of pericardial fluid, the micropuncture wire was advanced into the pericardial space and the needle was removed. The micropuncture sheath was advanced over the wire and the wire and dilator were removed. Agitated saline was injected
through the micropuncture sheath confirming its presence in the pericardial space on echocardiography. A 0.035 inch J-wire was advanced through the micropuncture sheath and into the pericardial space. The micropuncture sheath was removed and a 6
Tanzanian sheath was advanced over the 0.035 inch wire. A pigtail catheter was advanced through the sheath over the J-wire and placed in the pericardial space. The J-wire was removed. A sufficient sample of pericardial fluid was removed and sent for
laboratory testing (hemoglobin, hematocrit, white blood cell count, LDH, albumin, total protein, cytology and culture). The pigtail catheter was then connected to a Vacutainer and the pericardial space was evacuated. Serial echocardiography
confirmed reduction in the pericardial effusion from severe to trace. All evidence of tamponade was removed. The 6 Tanz[place] sheath was sutured into place. The pigtail catheter was likewise sutured into place then curled around the sheath and covered
by a sterile Tegaderm. The pigtail catheter was then connected to a ADITHYA drain to suction. The patient had some improvement in his blood pressure per the arterial line.
Procedure Details:
Approach: Transapical
Sheath/Drain size (Fr) 6
Pericardial Volume (mL): 560
Effusion type: Sanguinous
Non-effusion blood loss (mL): minimal
Conclusion:
1. Successful emergent bedside pericardiocentesis via transapical approach under echocardiographic guidance with 550 cc of sanguineous pericardial fluid output. Pericardial drain secured in place via a 6 Tanzanian sheath.
2. Pericardial fluid has been sent for laboratory analysis.
Recommendations:
1. Pain control as needed.
2. Plan to discontinue drain once pericardial output less than 25 cc over 24 hours or once the drain has been in for 5 or more days given increased risk for infection.
Copy to: Adri Gregg
Darlin Moseley MD, FACC, [facility]
[2024-10-13 17:55] LABS: Body Fluid Glucose 201 mg/dl; Body Fluid Protein 5.2 g/dl
[2024-10-13 18:01] LABS: Glucose - Point of Care 264 mg/dl (70-99)
[2024-10-13 18:04] LABS: Body Fluid LDH 1812 U/L
[2024-10-13 18:09] LABS: Body Fluid Hematocrit 14.2 %
[2024-10-13 18:10] LABS: Body Fluid WBC 1760 /CUMM
[2024-10-13 18:18] LABS: Body Fluid Granulocytes 63 %; Body Fluid Lymphocytes 28 %; Body Fluid Macrophages 8 %
[2024-10-13 18:19] LABS: Body Fluid Other Cells 1 %; Body Fluid Second Tech FB
[2024-10-13] MEDS: LOKELMA PO (18:26)
[2024-10-13 18:37] LABS: ALT (SGPT) 4497 U/L (0-50); AST (SGOT) 5879 U/L (17-59)
[2024-10-13] MEDS: DIPRIVAN 100 IV (18:38)
[2024-10-13 18:58] LABS: Glucose - Point of Care 275 mg/dl (70-99)
--- NOTE | 2024-10-13 19:30 | PTCARENOTE ---
at 1400 pt became more tachypneic and restless, ECHO completed and awaiting for results , his INR was up to 7.23 and his heparin was DC , he then had a CT Scan which showed large pericardial effusion at 1600 pt was seen by cardiology , principal biostatistician
, nephrology and hematology regarding labs and plan of care with patient , pt was intubated at 1630 and then needed to be placed on vasopressors for BP support his BP 66/30 , he was stabilized with vasopressors and then had a pericardial drain
inserted at bedside by Dr Moseley, 500ml obtained , fluid sent for cultures , pt had a L radial Nimo inserted by anesthesia and a HD cath inserted by IR physician at bedside , x-rays obtained for placement, pt to start on CRRT tonight , pt is drowsy
and nodding appropriately , pt given fentanyl for pain and started on propofol for sedation, pt and daughter here at bedside and updated on plan of care and condition ,
[2024-10-13 19:54] LABS: Glucose - Point of Care 270 mg/dl (70-99)
--- NOTE | 2024-10-13 20:00 | PTCARENOTE ---
tube sorter, pt with eyes open, nods appropriately, pupils 4S, MENDEZ. AFib HR 90s-low 100s. Pericardial drain intact with bloody drainage. pt cool/Sat intermittently reading- high 90s to 100s when obtainable- Fi02 100%-RT to wean as able. LA IV x 2,
RA IV x 2 WNL- gtts infusing as documented on work list. L rad AL WNL, leveled/zeroed. RIJ HD cath in place- awaiting CXR results for placement. /dtr at bedside, POC discussed, care ongoing.
[2024-10-13 20:41] LABS: Glucose - Point of Care 304 mg/dl (70-99)
[2024-10-13] MEDS: SYMBICORT 160/4.5 MCG INHALER INH (20:57)
[2024-10-13 21:29] LABS: PT 64.1 Sec (11.4-14.6)
[2024-10-13 21:33] LABS: INR 7.82
[2024-10-13 21:48] LABS: Glucose - Point of Care 402 mg/dl (70-99)
[2024-10-13 22:35] LABS: Glucose 392 mg/dl (70-99)
--- NOTE | 2024-10-13 23:19 | VATNOTE ---
picc order noted; INR extremely elevated; unable to place a picc with INR above 3.0 per VAT protocol. Will follow in am if still needed.
[2024-10-13 23:30] LABS: Glucose - Point of Care 411 mg/dl (70-99)
[2024-10-14] VITALS (15 sets, daily range): BP systolic 100–132; BP diastolic 53–62; BMI 30.4
[2024-10-14 00:12] LABS: Albumin 3.4 g/dl (3.5-5.0); Alkaline Phosphatase 117 U/L (38-126); Blood Urea Nitrogen 85 mg/dl (9-20); Calcium 7.5 mg/dl (8.4-10.2); Carbon Dioxide 15 mmol/L (22-30); Chloride 97 mmol/L (98-107); Estimated Creatinine Clearance 26 ml/min; Glucose 392 mg/dl (70-99); Sodium 136 mmol/L (135-145); Total Bilirubin 1.2 mg/dl (0.2-1.3); Total Protein 5.7 g/dl (6.3-8.2); eGFR 22.53
[2024-10-14 00:30] LABS: Glucose - Point of Care 380 mg/dl (70-99)
[2024-10-14 00:36] LABS: ALT (SGPT) 6915 U/L (0-50)
[2024-10-14] MEDS: LEVOPHED 250 IV ×2 (00:37→09:16)
[2024-10-14 00:39] LABS: Ionized Calcium 1.03 mMOL/L (1.15-1.33)
[2024-10-14 00:41] LABS: AST (SGOT) > 7500 U/L (17-59)
[2024-10-14 00:51] LABS: PT 57.2 Sec (11.4-14.6)
[2024-10-14 00:52] LABS: INR 6.72
[2024-10-14] MEDS: CALCIUM GLUCONATE 100 IV ×3 (01:30→20:55)
[2024-10-14] MEDS: SUBLIMAZE 25 MCG IV ×2 (02:25→12:15)
[2024-10-14] MEDS: MAGNESIUM SULFATE 100 IV (02:30)
[2024-10-14 03:56] LABS: Blood Urea Nitrogen 81 mg/dl (9-20); Calcium 7.9 mg/dl (8.4-10.2); Carbon Dioxide 18 mmol/L (22-30); Chloride 96 mmol/L (98-107); Estimated Creatinine Clearance 28 ml/min; Glucose 366 mg/dl (70-99); Magnesium 1.8 mg/dl (1.6-2.3); Phosphorus 5.6 mg/dl (2.5-4.5); Potassium 4.7 mmol/L (3.5-5.1); Sodium 136 mmol/L (135-145); eGFR 24.63
[2024-10-14 04:18] LABS: Glucose - Point of Care 324 mg/dl (70-99)
[2024-10-14] MEDS: MAXIPIME 2000 MG IV (04:50)
[2024-10-14] MEDS: ZYVOX 600 MG 300 IV (04:50)
[2024-10-14] MEDS: STERILE WATER FOR INJECTION 10 ML IV (04:50)
[2024-10-14 05:14] LABS: Glucose - Point of Care 329 mg/dl (70-99)
[2024-10-14] MEDS: LOKELMA PO (05:15)
[2024-10-14 05:16] LABS: B.E. -5.1 mmol/L; HCO3 19.8 mmol/L (21-28); O2 Saturation % 98.4 % (94-98); PCO2 35 mmHg (35-48); PO2 89 mmHg (83-108); pH 7.36 (7.35-7.45)
[2024-10-14] MEDS: NOVOLIN R 6 UNITS IV (05:16)
[2024-10-14] MEDS: DIPRIVAN 100 IV ×2 (05:18→09:16)
[2024-10-14] MEDS: NOVOLIN R INSULIN INFUSION 100 IV ×2 (05:20→17:41)
[2024-10-14 05:24] LABS: Ionized Calcium 1.17 mMOL/L (1.15-1.33)
[2024-10-14 05:32] LABS: Hematocrit 20.8 % (39.0-52.0); Hemoglobin 7.1 g/dL (13.0-18.0); Mean Corp Hgb Conc. 34.1 g/dL (33.0-37.0); Mean Corpuscular Hgb 33.3 pg (27.0-31.0); Mean Corpuscular Volume 97.7 fL (80.0-94.0); Mean Platelet Volume 10.1 fL (7.4-10.4); Platelet Count 276 10^3/uL (130-400); Red Blood Cell Count 2.13 10^6/uL (4.70-6.10); Red Cell Dist. Width 13.3 % (11.5-14.5); White Blood Cell Count 24.3 10^3/uL (4.8-10.8)
[2024-10-14 05:47] LABS: PT 57.2 Sec (11.4-14.6)
--- NOTE | 2024-10-14 06:00 | PTCARENOTE ---
pt with CRRT from [id number]- filter completely clotted, blood unable to be returned. New cartridge primed and started between 6-7am. pressors weaned down significantly overnight. total blood products for adm- 2 cryo, 3FFP, & 1uPRBC now infusing.
PICC ordered but not able to be placed due to INR. pt resting with eyes closed, appears comfortable. and dtr remain at bedside.
--- NOTE | 2024-10-14 06:22 | DOWNTIME ---
There was a [employer] Domestic Housekeeper Downtime on 10/14/2024 from 0100 to 10/14/2024 at 0350. Downtime documentation of patient's care, including medication administrations, has been reconciled in the electronic record per guidelines. Refer to the
patient's paper chart under the miscellaneous tab to see printed paper medication records and downtime forms.
[2024-10-14 06:23] LABS: Glucose - Point of Care 362 mg/dl (70-99)
[2024-10-14 06:33] LABS: INR 6.72
[2024-10-14 06:36] LABS: Albumin 3.3 g/dl (3.5-5.0); Alkaline Phosphatase 157 U/L (38-126); Blood Urea Nitrogen 78 mg/dl (9-20); Calcium 8.3 mg/dl (8.4-10.2); Carbon Dioxide 21 mmol/L (22-30); Chloride 97 mmol/L (98-107); Estimated Creatinine Clearance 35 ml/min; Glucose 311 mg/dl (70-99); Magnesium 2.9 mg/dl (1.6-2.3); Phosphorus 5.2 mg/dl (2.5-4.5); Potassium 4.6 mmol/L (3.5-5.1); Sodium 135 mmol/L (135-145); Total Bilirubin 1.4 mg/dl (0.2-1.3); Total Protein 5.6 g/dl (6.3-8.2); eGFR 27.11
[2024-10-14 07:01] LABS: ALT (SGPT) > 7500 U/L (0-50)
[2024-10-14 07:09] LABS: Glucose - Point of Care 392 mg/dl (70-99)
--- NOTE | 2024-10-14 07:09 | W.PN.INTV ---
Today's Communication / Plan
Recommendations
Improved following bedside pericardiocentesis, culture/cyto pending
CRRT ongoing until tonight, reviewed with Renal
Weaning off pressors/sedation
SBT planning likely in AM until off more therapies
De-escalate abx
Family updated on rounds this AM
Assessment
-
Patient is a 78-year-old male with previous history of diabetes, COPD, A-fib on Xarelto status post recent cardioversion on 10/09 presenting to ER with worsening shortness of breath. He had noticed the symptoms about 2 weeks ago, treated for
atypical pneumonia on chest x-ray with course of azithromycin and Augmentin. This did not improve his complaints. He was admitted on 10/12/2024 to stepdown unit, overnight developed worsening laboratory findings including elevated liver enzymes,
severe persistent metabolic acidosis, acute kidney injury, hyperglycemia. Transferred to ICU on 10/13/2024 with worsening laboratory findings.
Severe pericardial effusion s/p emergent bedside pericardiocentesis, removal of 560mL bloody fluid 10/13/24
C/b cardiogenic shock
Fulminant hepatic failure
DEAN
Severe metabolic acidosis
Recent AFib CV 10/09/24
SOB
Likely CHF on CXR, volume overload
Presumed sepsis
Lactic acidosis
Severe coagulopathy, elevated INR
Hx of PNA, recent treatment with abx as OP
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
Diabetes Adult Type II
Hyperlipidemia
Hypertension
COPD follows with Dr Santos
Afib on Chronic anticoagulation
History of prostate cancer
History of DEAN 02/2023-biopsy shows ATN, mild diabetic nephropathy, presence of IgA
History of Pneumonia
s/p Ablation for AF 11/2015
DTH Cardioversion 02/2018
s/p Ablation 03/06/19
Plan
Sedation: fent/prop, can try weaning lower if able
Pain/sedation: PRN
RASS goals: -2
Severe pericardial effusion with likely shock--s/p pericardiocentesis of 560mL
Culture and cyto pending
Hemodynamically unstable, low dose pressors: levophed, titrate to off as tolerated
Cardiac history reviewed--HTN, recent Afib CV, history of ablation, on Xarelto
Prior ECHO showing preserved function
IV heparin placed, cards eval obtained--on hold now
Monitor on telemetry
FU further ECHO per team
Intubated for procedure
AC settings: 550/16/40/5+
ABG(s) reviewed-acidosis improving
Prior known history of lung disease: COPD, followed as OP
CXR/CT reviewed indicating possible volume component, less so PNA
Treated recently as OP for PNA, would not need to treat again, r/o other causes
SBT likely in AM due to ongoing CRRT
Severe liver disease, AST/ALT rising, continue trending
Shock liver
NPO, for now
GI prophylaxis
DEAN present, worsening
History of renal disease in past-prior renal bx with ATN, mild diabetic nephropathy, presence of IgA
Void trials, currently oliguric
Renal eval, now on emergent CRRT to refractory acidosis
Follow urine output, critical I/Os
Replete electrolytes as needed
Repeat labs, ABG
Likely to stop tonight
Possible septic shock, mcmullen culture--mostly negative
Placed on empiric abx
Cultures sent--no growth thus far
MRSA screen neg, stop LZD, stop doxy
Can de-scalate CFP to CTX
Follow fever trend, WBC count
Lactate elevated on admission, continue to trend until <2
Severe coag, INR >8, now trending down
Hold OAC
DVT prophylaxis as assessed based on risk, including mechanical SCDs
Can transfuse if indicated for Hb <7, plt < 10
Heme onc eval, could be DIC though not typical w/ high plts
Transfused FFP/cryo
DM history noted, monitor accuchecks PRN/SS coverage if needed
Possible DKA, on insulin gtt
Eventual transition to SQ
Prognosis guarded, will follow
Diagnostic Data
Chest X-Ray: 10/12/24-Congestive heart failure versus volume overload having developed since prior examination..
10/01/24- There is mild pleural parenchymal airspace disease at the posterior basilar portion of the right lower lobe, new when compared with the prior study consistent with small right pleural effusion with underlying interstitial pneumonia versus
compressive atelectasis
CT Scan: CHEST 03/14/23--Mild to moderate bilateral pleural effusions, left greater than right. Adjacent compressive atelectasis. COPD. Trace pericardial effusion.
Echo: 02/21/24- Normal left ventricular size, wall thickness and systolic function. No regional wall motion abnormalities are seen. LV ejection fraction is 55-60% by volumetric assessment. Normal diastolic function. Normal right ventricular size and
function.
Mild mitral regurgitation. Thickened, trileaflet aortic valve with normal leaflet excursion and trace aortic regurgitation. Estimated pulmonary artery pressure of 30-35 mmHg, assuming a right atrial pressure of 3 mmHg. Compared to prior study
dated 03/07/23, there is no significant change
PFT's:
Reports and relevant images were personally reviewed.
-----
Critical Care time 45 mins -- The patient is admitted for acute critical illness for the treatment of vital organ failure and/or prevention of further life-threatening conditions. Total care includes time spent in review of history, physical exam,
medications, hemodynamic/ventilator parameters, laboratory data, imaging and discussion with house staff, pharmacy, respiratory therapy, manager mechanical maintenance, and nursing.
Subjective Dataa
Subjective Data
Date of Service:
Date of Service: October 14, 2024
Chief Complaint: Trimmer Loader Follow Up
Subjective:
Post pericardiocentesis, doing well--560 bloody fluid removed
Hemodynamics and labs improved
Now on CRRT, family at bedside
Objective Data
Data Reviewed
Vital Signs / I&O / Oxygen:
Vital Signs
Temp Pulse Resp BP Pulse Ox
97.4 F 108 16 108/57 97
10/14/24 06:51 10/14/24 06:51 10/14/24 06:51 10/14/24 06:51 10/14/24 06:00
Intake and Output
10/13/24 10/14/24 10/15/24
06:59 06:59 06:59
Intake Total 3639.3 / 3639.3
Output Total 1296 / 1296
Balance 2343.3 / 2343.3
SaO2 [A/C] 96
SaO2 97
Nasal Cannula flow liters per 4
minute
Physical Exam
General: Comfortable and Other (NAD)
HEENT: Normocephalic, Anicteric and Moist Mucous Membranes
Cardiovascular: S1-S2 and Regular Rhythm
Respiratory: Clear, Non-Labored Respirations and ET Tube
GI: Soft, Non Distended and Non Tender
Neurology: Lethargic (sedated/intubated) and Non Verbal
Skin: Warm, Dry and Good Color
Labs/Micro/Reports
Lab Data
10/14/24 05:07
10/14/24 05:06
Laboratory Results
10/13/24 10/13/24 10/13/24
06:31 10:03 11:18
PT 60.4 H
INR 7.23 H*
APTT 105.0 H 92.1 H
pH
pCO2
pO2
HCO3
O2 Delivery Level
10/13/24 10/13/24 10/13/24
14:57 16:32 21:11
PT 84.2 H 64.1 H
INR > 8.0 H* 7.82 H*
APTT
pH 7.08 L*
pCO2 40
pO2 314 H
HCO3 11.9 L*
O2 Delivery Level
10/14/24 10/14/24 10/14/24
00:33 05:06 05:07
PT 57.2 H 57.2 H
INR 6.72 H* 6.72 H*
APTT
pH 7.36
pCO2 35
pO2 89
HCO3 19.8 L
O2 Delivery Level
Microbiology
10/13/24 17:22 Pericardial Fluid Gram Stain - Preliminary
10/13/24 17:22 Pericardial Fluid Fungal Culture - Preliminary
Culture in progress.
Positive cultures are reported as soon as detected.
Final report to follow in four to five weeks.
10/13/24 11:07 Nose Nasal Screen MRSA (PCR) - Final
MRSA not detected - performed by PCR methodology.
10/12/24 14:17 Blood/Venous Blood Culture - Preliminary
No Growth in 24 hours- Final report to follow
10/12/24 14:17 Blood/Venous Blood Culture - Preliminary
No Growth in 24 hours- Final report to follow
10/12/24 18:33 Urine Urine Culture - Final
NO GROWTH
10/13/24 07:55 Nasal Swab Respiratory Syncytial Virus Culture - Final
Negative for Respiratory Syncytial Virus.
A false negative result may be obtained with a specimen
collected early in the acute phase. If symptoms persist, a
new specimen should be tested.
10/12/24 20:09 Urine Legionella Urinary Antigen - Final
Negative for Legionella pneumophila Serogroup 1 antigen.
A negative result does not rule out the possiblity of
Legionella infection due to other serogroups or species of
Legionella. Clinical correlation is recommended.
10/12/24 20:09 Urine Streptococcus pneumoniae Antigen (M - Final
Negative for Streptococcus pneumoniae antigen.
A negative result does not exclude infection with
Streptococcus pneumoniae. Clinical correlation is
recommended.
10/12/24 16:19 Nasal Swab Influenza Types A & B (KELSEY) - Final
Negative for Influenza A & B, NAAT
Negative results must be combined with clinical observations
and patient history.
Nucleic Acid Amplification test (NAAT)performed on the
[employer] platform.
[2024-10-14 07:18] LABS: AST (SGOT) > 7500 U/L (17-59)
[2024-10-14] MEDS: SYMBICORT 160/4.5 MCG INHALER 2 PUFF INH ×2 (07:35→18:02)
[2024-10-14 07:38] LABS: Glucose - Point of Care 352 mg/dl (70-99)
[2024-10-14 07:38] LABS: Glucose - Point of Care 377 mg/dl (70-99)
[2024-10-14 07:38] LABS: Glucose - Point of Care 349 mg/dl (70-99)
[2024-10-14] MEDS: MIRALAX TUBE (07:48)
[2024-10-14] MEDS: PROTONIX IV 40 MG IV (07:49)
[2024-10-14] MEDS: NSS (PRESERVATIVE FREE) 10 ML IV (07:49)
--- NOTE | 2024-10-14 07:59 | W.PN.ONC2 ---
Today's Communication / Plan
-
Continue supportive care. We will follow.
Impression
Impression
shock
pericardial tamponade
coagulopathy from Xarelto, heparin, shock liver
chronic anemia
prostate cancer, undetectable PSA per patient
Plan
Plan
FFP PRN for procedures or obvious bleeding
Coagulopathy likely from xarelto, heparin, shock liver. Unlikely DIC w/ elevated platelet count
Support anemia w/ transfusions as needed. Was to have bone marrow biopsy in 2022, but cancelled. t/c outpt heme f/u.
Subjective/Objective
Chief Complaint
ACS Heme
Subjective
Critically ill. Intubated, on pressors (Levophed 4 mcg), CRRT. Had emergency pericardiocentesis yesterday. Got 3 FFP, 2 cryo, getting PRBC now for HgB 7.1
Vital Signs:
Vital Signs
Temp Pulse Resp BP Pulse Ox
97.5 F 109 16 107/56 97
10/14/24 07:29 10/14/24 07:09 10/14/24 07:09 10/14/24 07:09 10/14/24 06:00
Lab Results:
Laboratory Data
WBC 24.3 10^3/uL (4.8-10.8) H 10/14/24 05:07
Hgb 7.1 g/dL (13.0-18.0) L 10/14/24 05:07
Plt Count 276 10^3/uL (130-400) D 10/14/24 05:07
PT 57.2 Sec (11.4-14.6) H 10/14/24 05:06
INR 6.72 H* 10/14/24 05:06
APTT 92.1 Sec (23.4-35.0) H 10/13/24 11:18
eGFR 27.11 10/14/24 05:06
Physical Exam
Cardiology: Other (tachy)
[2024-10-14 08:04] LABS: Glucose - Point of Care 339 mg/dl (70-99)
[2024-10-14 08:10] LABS: % Basophils 0.1 % (0-2); % Immature Granulocytes 1.7 % (0-0.5); % Neutrophils 93.2 % (42.2-75.2); Absolute Immature Granulocytes 0.4 10^3/uL (0-0.05); Absolute Lymphocytes 0.5 10^3/uL (1.2-3.4); Absolute Monocytes 0.7 10^3/uL (0.1-0.6); Absolute Neutrophils 22.7 10^3/uL (1.4-6.5); Nucleated Red Blood Cells % 0.6 % (-)
--- NOTE | 2024-10-14 08:30 | PTCARENOTE ---
Rec'd care of patient at 0720. Patient intubated and sedated. Pupils equal and reactive, +3mm. Afib/aflutter on tele monitor. Rate in the 100-110's. +1 anasarca. Pericardial drain in place. Dressing c/d/i. #8 ett @ 25cm. A/C 16/550/5/40%. Pulse ox
97%. Lung sounds diminished. +BS (hypo). No BM. Mcdermott in place for critical I/O. CRRT running. Circuit restarted at 0718 by hotel night auditor RN. Fent/Prop/Levo infusing through RFA INT. GP maintained; Insulin gtt through LFA INT. 1 unit PRBCs transfusing
through LAC INT. and daughter at bedside. Plan of care discussed.
--- NOTE | 2024-10-14 09:07 | W.PN.GI.CBS2 ---
Today's Communication / Plan
-
LFT and INR rise due to shock liver
Continue management per Cardiology and primary team
LFTs and INR should improve with stabilization of hemodynamics
Will sign off for now. Please call back if needed
Assessment / Plan
-
Summary: 78yo male presents with recurrent Aflutter, RVR started on cardizem gtt; HR up to 155, BP 84/66 at lowest. LFTs bumped up to AST 2503, ALT 2424 from AST 174, ALT 292 at admission. Prior LFTs normal in past. Denies EtOH, Tylenol use. No
abd pain. No prior liver issues. Hep B/C negative
Impression:
Moderate/Severe pericardial effusion s/p pericardial drain placement
Shock liver
Aflutter, RVR
SOB
Subjective
Subjective
Date of Service: October 14, 2024
Paracardiocentesis last night due to moderate/severe pericardial effusion noted. On pressor, getting PRBC. LFTs sharply increased and INR elevating
Objective
Data Reviewed
Laboratory Data:
Laboratory Results
10/14/24 05:07
Laboratory Results
PT 57.2 Sec (11.4-14.6) H 10/14/24 05:06
INR 6.72 H* 10/14/24 05:06
APTT 92.1 Sec (23.4-35.0) H 10/13/24 11:18
Phosphorus 5.2 mg/dl (2.5-4.5) H 10/14/24 05:06
Magnesium 2.9 mg/dl (1.6-2.3) H 10/14/24 05:06
Total Bilirubin 1.4 mg/dl (0.2-1.3) H 10/14/24 05:06
Total Bilirubin Cancelled 10/14/24 05:06
AST > 7500 U/L (17-59) H* 10/14/24 05:06
AST Cancelled 10/14/24 05:06
ALT > 7500 U/L (0-50) H* 10/14/24 05:06
ALT Cancelled 10/14/24 05:06
Alkaline Phosphatase 157 U/L (38-126) H 10/14/24 05:06
Alkaline Phosphatase Cancelled 10/14/24 05:06
Lipase 123 U/L (23-300) 10/13/24 02:13
Vital Signs and I&O:
Vital Signs
Temp Pulse Resp BP Pulse Ox
97.5 F 101 16 107/56 97
10/14/24 07:29 10/14/24 08:00 10/14/24 08:00 10/14/24 07:09 10/14/24 08:00
I&O
10/13/24 10/14/24 10/15/24
06:59 06:59 06:59
Intake Total 3639.3 / 3686.3 147.7 / 147.7
Output Total 1296 / 1326 139 / 139
Balance 2343.3 / 2360.3 8.7 / 8.7
Physical Exam
Physical Exam
GI: Soft and Non Distended
[2024-10-14 09:12] LABS: Glucose - Point of Care 285 mg/dl (70-99)
[2024-10-14 10:09] LABS: Glucose - Point of Care 283 mg/dl (70-99)
[2024-10-14 10:14] LABS: Ionized Calcium 1.08 mMOL/L (1.15-1.33)
--- NOTE | 2024-10-14 10:41 | PTCARENOTE ---
First unit of FFP transfusing. Vitals stable.
[2024-10-14 10:42] LABS: Albumin 2.9 g/dl (3.5-5.0); Alkaline Phosphatase 165 U/L (38-126); Blood Urea Nitrogen 70 mg/dl (9-20); Calcium 8.1 mg/dl (8.4-10.2); Carbon Dioxide 22 mmol/L (22-30); Chloride 99 mmol/L (98-107); Estimated Creatinine Clearance 38 ml/min; Glucose 242 mg/dl (70-99); Magnesium 2.5 mg/dl (1.6-2.3); Phosphorus 4.6 mg/dl (2.5-4.5); Potassium 4.3 mmol/L (3.5-5.1); Sodium 135 mmol/L (135-145); Total Bilirubin 1.8 mg/dl (0.2-1.3); Total Protein 5.3 g/dl (6.3-8.2); eGFR 30.09
--- NOTE | 2024-10-14 10:51 | W.PN.NEPH.PH ---
Today's Communication / Plan
-
decrease dose of CRRT
Assessment/Plan
-
Impression:
Acute kidney injury
Acute hypoxic respiratory with history of COPD
CHF decompensation (HFPef)
Anemia with elevated LDH
Hyperkalemia
Gapped metabolic acidosis/beta hydroxybutyrate
Chronic kidney disease stage III with baseline creatinine of 1.6
Hypertension
Paroxysmal atrial fibrillation
Diabetes
Prostate CA
Transaminitis
Plan:
DEAN/Hyperkalemia/Gapped metabolic acidosis (lactic acidemia/DKA), pericardial tamponade
CRRT was initiated refractory acidosis last evening
hyperkalemia and acidosis now improved change dialysate to 4k and reduse to 1.5lit/hr
UOP improving keeping even balance
wean pressors as tolerates to maintain MAP>65
LFTs high likely shock liver
pericardial drain remains
for transfusion decrease in hb
abx per primary
Patient is critically ill VDRF and CRRT
35 minutes critical care time spent with patient
-Discussed with ICU team and attending
-
-
Date of Service: October 14, 2024
CC / HPI / ROS
-
Chief Complaint:
DEAN
History of Present Illness:
CRRT initiated last evening
s/p pericardiocentesis 550cc, bloody fluid
INR and LFTs high
on pressors
improving UOP with langley
wt is up
WBC increasing to 24k
Review of Systems:
intubated Fio2 40% and sedated
Labs
-
Labs:
WBC 24.3 10^3/uL (4.8-10.8) H 10/14/24 05:07
RBC 2.13 10^6/uL (4.70-6.10) L 10/14/24 05:07
Hgb 7.1 g/dL (13.0-18.0) L 10/14/24 05:07
Hct 20.8 % (39.0-52.0) L* 10/14/24 05:07
Plt Count 276 10^3/uL (130-400) D 10/14/24 05:07
Sodium 135 mmol/L (135-145) 10/14/24 09:57
Potassium 4.3 mmol/L (3.5-5.1) 10/14/24 09:57
Chloride 99 mmol/L (98-107) 10/14/24 09:57
Carbon Dioxide 22 mmol/L (22-30) 10/14/24 09:57
BUN 70 mg/dl (9-20) H 10/14/24 09:57
Creatinine 2.2 mg/dL (0.7-1.3) H 10/14/24 09:57
eGFR 30.09 10/14/24 09:57
Glucose 242 mg/dl (70-99) H 10/14/24 09:57
Calcium 8.1 mg/dl (8.4-10.2) L 10/14/24 09:57
Phosphorus 4.6 mg/dl (2.5-4.5) H 10/14/24 09:57
Gex-L-Toqxadspgng Pept 1120 pg/ml 10/12/24 14:17
Albumin 2.9 g/dl (3.5-5.0) L 10/14/24 09:57
Physical Exam
-
Vital Signs:
Vital Signs
Temp Pulse Resp BP Pulse Ox
96.7 F L 114 16 100/54 99
10/14/24 10:50 10/14/24 10:50 10/14/24 10:50 10/14/24 10:50 10/14/24 10:50
Cardiovascular:: Regular rate and rhythm
Lung Excursion:: Abnormal (decreased BS)
Abdomen:: Nontender and Soft
Extremity Edema:: None: Bilateral:
Langley Catheter: Yes
[2024-10-14 10:54] LABS: ALT (SGPT) > 7500 U/L (0-50); AST (SGOT) > 7500 U/L (17-59)
--- NOTE | 2024-10-14 11:10 | CM ---
Patient seen at bedside. Patient stated that they live in a 2 story home with steps to enter. 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 Patient is typically independent at baseline with no DME. Patient PCP is Dr. Souza and he uses the
[facility] in [place] for pharmacy needs. Patient stated that she would accept information about living denny but they have an appointment with an corporate attorney to discuss all POA options. Patient had been at [facility] for about a week after last
hospitalization. Patient is open to SNF if therapy recommending. CM will continue to follow for discharge planning needs.
Plan; SNF vs home with VN watch for needs
--- NOTE | 2024-10-14 11:14 | PTCARENOTE ---
2nd unit of FFP transfusing.
[2024-10-14 11:18] LABS: Glucose - Point of Care 253 mg/dl (70-99)
--- NOTE | 2024-10-14 11:33 | W.PN.UPDATE ---
Update Note
Progress Note Update
CRRT note:
dialysate 3lit/hr-decrease to 1.5lit/hr
change to 4k bath
bld flow 150-300cc/min
no heparin
even balance
[2024-10-14 12:06] LABS: Glucose - Point of Care 220 mg/dl (70-99)
--- NOTE | 2024-10-14 12:19 | W.PN.HOSP.TC ---
Addendum entered and electronically signed by Pato Smalls MD 10/14/24 15:24:
COrrection: HepC AB neg - positive for HepB total core (with neg HepB IgM) - evidence of previous infection. No need in HepC NAAT
Original Note:
Today's Communication/Plan
-
cont Cefepime
follow INR - correct with FFP, no role for cryoprecipitate
Follow Hgb and transfuse as needed
Follow Plt
Sent HepC NAAT
cont CRRT as per nephrology
Assessment / Plan
Assessment / Plan
78yo M with PMHx of DM, COPD, Afib on Xarelto s/p cardioversion on 10/09 came with worsening SOB and Afib with RVR. Recently started on oral Abx with concern for pneumonia. With concern for sepsis - received hydration in ICU and later found with
signs of pulmonary congestion on XR chest. With worsening labs transferred to ICU for insulin drip. Found large pericardial effusion on Echo s/p pericardiocentesis with drain that showed sanguineous fluid. With new coagulopathy - anticoag stopped.
Intubated on 10/13/24 due to worsening acidosis. Started on CRRT with worsening renal failure on 10/13/24. DIC ruled out, monitoring for coagulopathy improvement with FFP and PRBC transfusions. Also found positive HepC Ab
A/P:
#Acute hypoxic respiratory failure, multifactorial, concern for bibasilar pneumonia with possible sepsis on admission
#Hemorrhagic vs septic shock
Cefepime
Linezolid and Doxy discontinued with Legionella, S.pneumonia urinary Ag neg and MRSA screen neg
Bcx NTD
Sputum Cx NTD
Cannot exclude VTE - start heparin pending V/Q scan
check COVID-19, Influenza, RSV neg
Procalcitonin elevated to 1.23
Intubated on 10/13/24
CT: bilateral pleural effusions with consolidation or atelectasis. Moderate-severe emphysema of the lungs, diverticulosis w/o diverticulitis. Mild b/l perinephric stranding
Vent, pressors and sedation mgmt as per senior escrow officer
#positive UA
no urinary symptoms
Ucx NTD
#Pericardial effusion with impending tamponade
sanguineous output
Cx pending
Cardiology follows
Drain in place
#Coagulopathy
Multifactorial: 2/2 sepsis, Xarelto, heparin, ischemic hepatitis
follow INR
fibrinogen eleavted -no concern for DIC
ddimer significantly elevated - acute phase reaction?
Hematology consult
Blood transfusion consent signed
#Afib with RVR
#Acute on chronic HFpEF with pulmonary congestion on XR
Cardizem drip since BP allows. If hypotension - Amio
can be 2/2 hypoxia, however did not correct on IVF and O2 supplementation
Telemetry
Cardiology consult
ProBNP minimally elevated from baseline on admission
TSH WNL
#Transaminitis 2/2 ischemic hepatitis
#Positive HepC Ab
Most likely hypoperfusion 2/2 RVR with additional sepsis and hypoxia
follow LFT
check HepC NAAT qualitative
GI consult: portal doppler
#Acute blood loss anemia on anemia of chronic disease and history of CHELI
worsened with new coagulopathy
Hx of EGD, colonoscopy and pill endoscopy without source of bleeding
LDH significantly elevated - follow haptoglobin
follow CBC
Transfuse to keep Hgb between 7.0-8.0
#Reactive thrombocytosis
resolved
#Elevated LDH
KELLEY neg
haptoglobin pending
#Hyperuricemia
2/2 DEAN?
#Hyperkalemia with DEAN on CKD stage 3b
#Metabolic acidosis
did not resolved with correction of hypoxia and RVR
Reasonable to start insulin drip with elevated BHB, complicated comorbidities to call DKA, since patient has other reasons for acidosis as well and blood sugar not significantly elevated. Was not on SGLT2 inh
serial BMP q2h
Accucheck q1h
Nephrology consult: CRRT
Lokelma
Hold ACEi
#COPD, not in exacerbation
No wheezing, but tight breathing sounds
With prevalent pulmonary congestion picture - stopped steroids
Cont bronchodilators
#DM type 2 with nephropathy
Insulin SS, DM diet, Accuchecks
HgbA1c
Hold oral antiglycemic
#LE edema
US LE pending
DVT ppx heparin drip
Full code
PPI ppx
I Have spent at least 55min of critical care time reviewing chart, test results, communication with consultants and direct patient care
Anticipated Discharge: > 48 hours
Subjective/Interval History
-
Date of Service: October 14, 2024
Objective Data
-
Labs:
Laboratory Results
10/13/24 10/14/24 10/14/24
23:32 00:33 05:06
WBC
Hgb
Hct
Plt Count
PT 57.2 H 57.2 H
INR 6.72 H* 6.72 H*
HCO3
Sodium 136 135
Potassium 4.7 4.6
Chloride 96 L 97 L
Carbon Dioxide 18 L 21 L
BUN 81 H 78 H
Creatinine 2.6 H 2.4 H
Glucose 366 H 311 H
Calcium 7.9 L 8.3 L
Total Bilirubin Cancelled
AST > 7500 H*
ALT 6915 H*
Alkaline Phosphatase
10/14/24 10/14/24 10/14/24
05:06 05:06 05:06
WBC
Hgb
Hct
Plt Count
PT
INR
HCO3
Sodium
Potassium
Chloride
Carbon Dioxide
BUN
Creatinine
Glucose
Calcium
Total Bilirubin 1.4 H
AST Cancelled > 7500 H*
ALT Cancelled > 7500 H*
Alkaline Phosphatase Cancelled
10/14/24 10/14/24 10/14/24
05:06 05:07 09:57
WBC 24.3 H
Hgb 7.1 L
Hct 20.8 L*
Plt Count 276 D
PT
INR
HCO3 19.8 L
Sodium 135
Potassium 4.3
Chloride 99
Carbon Dioxide 22
BUN 70 H
Creatinine 2.2 H
Glucose 242 H
Calcium 8.1 L
Total Bilirubin 1.8 H
AST > 7500 H*
ALT > 7500 H*
Alkaline Phosphatase 157 H 165 H
10/14/24
14:00
WBC Pending
Hgb Pending
Hct Pending
Plt Count Pending
PT Pending
INR Pending
HCO3
Sodium
Potassium
Chloride
Carbon Dioxide
BUN
Creatinine
Glucose
Calcium
Total Bilirubin
AST
ALT
Alkaline Phosphatase
Vital Signs:
Vital Signs
Temp Pulse Resp BP Pulse Ox
96.2 F L 110 16 100/53 100
10/14/24 12:00 10/14/24 11:39 10/14/24 11:39 10/14/24 11:39 10/14/24 12:00
I&O
10/13/24 10/14/24 10/15/24
06:59 06:59 06:59
Intake Total 3639.3 / 3686.3 1199.8 / 1199.8
Output Total 1296 / 1326 529 / 529
Balance 2343.3 / 2360.3 670.8 / 670.8
Review of Systems
-
Unable to obtain full review of systems at this time due to: Patient Intubation
Physical Exam
-
General: Intubated
Respiratory: Clear to Auscultation
Cardiac: Regular Rhythm
GI: Soft and Nontender
Neuro: Sedated
--- NOTE | 2024-10-14 12:22 | W.PN.CARDCBS ---
Today's Communication / Plan
-
Continue supportive care
Consider amiodarone as shock liver resolves
Hold anticoagulation
Digoxin x 2 short-term
Impression / Plan
-
Primary Mailing Section Clerk: Dr. Juan Carlos Gregg
Assessment:
Pericardial tamponade with cardiogenic shock
Acute hypoxic respiratory failure Vent dependent respiratory failure
Acute HFpEF related to tamponade
Metabolic acidosis
Atrial flutter with RVR status post cardioversion October 09
Hyperkalemia
Shock liver
Anemia, history of CHELI
DEAN on CKD, on CRRT
Recent PNA, concern for acute infectious process
Paroxysmal Afib s/p PVI 02/2019
Paroxysmal atrial tachycardia s/p ablation 02/2019
Paroxysmal typical atrial flutter s/p CTI ablation 2015 with recurrence 09/2024 s/p CV 10/09/24
chronic OAC with xarelto
DM2
HTN
HLD
COPD
former smoker
BPH
Prostate cancer, diagnosed 01/2022
ECHO 02/21/24: EF 55 to 60%, mild MR, trace AR, PAP 30 to 35 mmHg
Plan:
Overall, he looks much better. Attempted to aspirate pericardial drain, no recent output, total is been probably close to 500 mL.
He is awake, on the ventilator, sedation is being weaned off.
Still on pressors, which are also being weaned.
He is in atrial flutter rate is somewhat rapid. Will consider amiodarone, but given shock liver will hold off for now. As LFTs returned to normal we could reconsider. For now, we will give digoxin 0.25 mg IV x 2. Controlled without.
Follow-up echo study ordered. Will likely pull drain tomorrow, and then repeat echo on Saturday.
Hopefully can discontinue CRRT soon
Progress Note - Mailing Section Clerk
Subjective
Date of Service: October 14, 2024:
78-year-old man with COPD and recent pneumonia with history of paroxysmal A-fib and PVI 2018. Cardioversion performed on October 09 but readmitted on the with worsening evidence of CHF and found to have tamponade requiring emergent
pericardiocentesis on the .
PMH: Recent pneumonia, history of PAF and PVI in 2019, atrial tachycardia ablation 2019, flutter ablation 2015, DM, hypertension, hyperlipidemia, COPD, prostate cancer
Allergies: Vanco
Outpatient cardiac meds: Lisinopril 10 mg daily, metformin, metoprolol ER 50 mg a day a.m. and 25 mg p.m., rivaroxaban, simvastatin
Current meds: Norepinephrine, fentanyl, propofol, cefepime, CRRT, pantoprazole, insulin
100/53, pulse 10, respirate 16, 35.7, sats 100% on ventilator, intake and output 4.7 L in, 1.8 L out, Mcdermott 562, weight is 110.4 kg, up to 0.2 kg,, on the ventilator, nods appropriately to questions, head neck exam notable for intubation, lungs are
relatively clear, regular rate and rhythm, JVD okay, 1+ edema
EKG atrial flutter with variable block, ventricular response 77
Hemoglobin 7.1, white count 24.3, platelets 276, BUN/creatinine 70 and 2.2, creatinine 2.8 at peak on the , AST and ALT greater than 75,000, total bilirubin is 1.8, proBNP was 1120, troponin undetectable
Objective
Labs:
10/14/24 09:57
Labs
Hgb 7.1 g/dL (13.0-18.0) L 10/14/24 05:07
Hct 20.8 % (39.0-52.0) L* 10/14/24 05:07
Plt Count 276 10^3/uL (130-400) D 10/14/24 05:07
PT 57.2 Sec (11.4-14.6) H 10/14/24 05:06
INR 6.72 H* 10/14/24 05:06
APTT 92.1 Sec (23.4-35.0) H 10/13/24 11:18
Sodium 135 mmol/L (135-145) 10/14/24 09:57
Potassium 4.3 mmol/L (3.5-5.1) 10/14/24 09:57
BUN 70 mg/dl (9-20) H 10/14/24 09:57
Creatinine 2.2 mg/dL (0.7-1.3) H 10/14/24 09:57
Glucose 242 mg/dl (70-99) H 10/14/24 09:57
Troponins
10/12/24 10/13/24
14:17 10:03
Troponin I < 0.012 < 0.012
Vital Signs and I&O:
Vital Signs
Temp Pulse Resp BP Pulse Ox
35.7 C L 110 16 100/53 100
10/14/24 12:00 10/14/24 11:39 10/14/24 11:39 10/14/24 11:39 10/14/24 12:00
Vital Signs
Temp Pulse Resp BP Pulse Ox
35.7 C L 110 16 100/53 100
10/14/24 12:00 10/14/24 11:39 10/14/24 11:39 10/14/24 11:39 10/14/24 12:00
Intake & Output
10/12/24 10/13/24 10/14/24 10/15/24
07:59 07:59 07:59 07:59
Intake Total 3686.3 / 3734.3 1152.8 / 1152.8
Output Total 1326 / 1363 499 / 499
Balance 2360.3 / 2371.3 653.8 / 653.8
Physical Exam
Physical Exam
See above
--- NOTE | 2024-10-14 12:27 | PTCARENOTE ---
Patient reassessed- minor changes. Fent/Prop off for SAT. Patient alert and nodding head appropriately. Around 1205- RASS +1, patient restless. Dyssynchronous with vent. Fentanyl bolus administered and gtt restarted. Vitals stable. HR remains in the
100-110's. Titrating Levo for MAP >65. CRRT maintained. Urine output <10 cc/hr. Bairhugger on.
--- NOTE | 2024-10-14 12:27 | PTCARENOTE ---
Patient reassessed- minor changes. Fent/Prop off for SAT. Patient alert and nodding head appropriately. Around 1205- RASS +1, patient restless. Dyssynchronous with vent. Fentanyl bolus administered and gtt restarted. Vitals stable. ST with rate in
the 100-110's. Titrating Levo for MAP >65. CRRT maintained. Urine output <10 cc/hr. Bairhugger on.
[2024-10-14] MEDS: RFP-401 HD Soln (K+ 4 mEq/L) 15000 ML CRRT-IRR (12:38)
[2024-10-14 13:21] LABS: Glucose - Point of Care 186 mg/dl (70-99)
--- NOTE | 2024-10-14 13:46 | PTCARENOTE ---
Echo in progress.
--- NOTE | 2024-10-14 14:21 | PTCARENOTE ---
Around 1350, CRRT machine alarming for low venous pressures. Circuit assessed and flushed without improvement. Blood returned. CRRT off. 1400 labs sent.
[2024-10-14 14:26] LABS: Ionized Calcium 1.14 mMOL/L (1.15-1.33)
[2024-10-14 14:27] LABS: Glucose - Point of Care 138 mg/dl (70-99)
[2024-10-14] MEDS: LANOXIN 250 MCG IV ×2 (14:33→23:00)
[2024-10-14 14:43] LABS: % Basophils 0.1 % (0-2); % Lymphocytes 1.7 % (20.5-51.1); % Monocytes 2.9 % (1.7-9.3); % Neutrophils 94.3 % (42.2-75.2); Absolute Immature Granulocytes 0.2 10^3/uL (0-0.05); Absolute Lymphocytes 0.3 10^3/uL (1.2-3.4); Absolute Monocytes 0.5 10^3/uL (0.1-0.6); Absolute Neutrophils 14.8 10^3/uL (1.4-6.5); Hemoglobin 6.9 g/dL (13.0-18.0); INR 4.13; Mean Corp Hgb Conc. 34.5 g/dL (33.0-37.0); Mean Corpuscular Hgb 31.1 pg (27.0-31.0); Mean Corpuscular Volume 90.1 fL (80.0-94.0); Nucleated Red Blood Cells % 0.8 % (-); PT 40.1 Sec (11.4-14.6); Platelet Count 142 10^3/uL (130-400); Red Blood Cell Count 2.22 10^6/uL (4.70-6.10); Red Cell Dist. Width 15.5 % (11.5-14.5); White Blood Cell Count 15.7 10^3/uL (4.8-10.8)
--- NOTE | 2024-10-14 15:07 | PTCARENOTE ---
Hgb 6.9, Hct 20.0. 2 units PRBCs ordered. BP stable off pressors. Dig administered per Cardiology.
[2024-10-14 15:24] LABS: Glucose - Point of Care 121 mg/dl (70-99)
[2024-10-14 15:46] LABS: Fibrinogen 373 MG/DL (199-459)
[2024-10-14 16:09] LABS: Blood Urea Nitrogen 69 mg/dl (9-20); Calcium 8.7 mg/dl (8.4-10.2); Carbon Dioxide 23 mmol/L (22-30); Chloride 100 mmol/L (98-107); Estimated Creatinine Clearance 35 ml/min; Glucose 105 mg/dl (70-99); Magnesium 2.4 mg/dl (1.6-2.3); Phosphorus 4.9 mg/dl (2.5-4.5); Potassium 4.3 mmol/L (3.5-5.1); Sodium 137 mmol/L (135-145); eGFR 27.11
--- NOTE | 2024-10-14 16:12 | PTCARENOTE ---
Discussed plan of care with Dr. Moore. CRRT on hold for now. Repeat labs 1999.
[2024-10-14 17:16] LABS: Glucose - Point of Care 108 mg/dl (70-99)
[2024-10-14] MEDS: SUBLIMAZE 100 IV (17:44)
--- NOTE | 2024-10-14 18:02 | PTCARENOTE ---
1 unit PRBCs transfused. 2nd unit transfusing. Vitals stable. Patient alert. Nodding head appropriately. Fentanyl gtt infusing @ 25 through right forearm. Remains in aflutter on tele monitor. Rate in the 90-100's s/p dig. +2 anasarca. Lung sounds
coarse/diminished throughout. Pulse ox 96% on 40% FiO2. No BM. Mcdermott draining about 5-10 cc/hr. Mayra. CRRT off. GP maintained, blood sugars improved. Q2 hr accucheck.
[2024-10-14 18:10] LABS: LDH > 10000 U/L (120-246)
[2024-10-14 19:42] LABS: Glucose - Point of Care 100 mg/dl (70-99)
--- NOTE | 2024-10-14 20:00 | PTCARENOTE ---
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 AFib HR 80s-low 100s. Pericardial drain WNL- no additional output in bag since last documented. L angelika AL WNL. LA IV x 2,
RA IV x 1 WNL- Fent/insulin gtts infusing per work list. Sat 95% on MV 40% Fi02. RIJ HD cath intact. Mcdermott draining hillary concentrated urine. U/S in progress at bedside. /dtr at bedside, updated.
[2024-10-14 20:24] LABS: Ionized Calcium 1.13 mMOL/L (1.15-1.33)
[2024-10-14 20:55] LABS: Blood Urea Nitrogen 72 mg/dl (9-20); Calcium 8.6 mg/dl (8.4-10.2); Carbon Dioxide 23 mmol/L (22-30); Chloride 101 mmol/L (98-107); Estimated Creatinine Clearance 35 ml/min; Glucose 102 mg/dl (70-99); Magnesium 2.4 mg/dl (1.6-2.3); Phosphorus 4.9 mg/dl (2.5-4.5); Potassium 4.6 mmol/L (3.5-5.1); Sodium 136 mmol/L (135-145); eGFR 27.11
--- NOTE | 2024-10-14 21:10 | PTCARENOTE ---
[address] Moore, no change from previous- continue to hold CRRT at this time per MD.
[2024-10-14 21:58] LABS: Glucose - Point of Care 110 mg/dl (70-99)
[2024-10-14 23:58] LABS: Glucose - Point of Care 93 mg/dl (70-99)
[2024-10-15] VITALS (9 sets, daily range): BP systolic 125–142; BP diastolic 56–57; BMI 30.6
[2024-10-15] MEDS: SUBLIMAZE 25 MCG IV (01:30)
--- NOTE | 2024-10-15 01:30 | PTCARENOTE ---
pt coughing against vent, mouthing that he feels like he can't breathe, Sat 98% on Fi02 40%, appears anxious, prn fent given, ETT suctioned- no secretions, Fent gtt increased; RT to bedside to do a vent check. pt appears to settle and close eyes.
will monitor.
[2024-10-15 02:20] LABS: Glucose - Point of Care 109 mg/dl (70-99)
[2024-10-15 03:14] LABS: Glucose - Point of Care 112 mg/dl (70-99)
[2024-10-15 03:41] LABS: INR 3.81; PT 37.8 Sec (11.4-14.6)
[2024-10-15 03:42] LABS: % Basophils 0.1 % (0-2); % Immature Granulocytes 0.6 % (0-0.5); % Lymphocytes 1.4 % (20.5-51.1); % Monocytes 2.9 % (1.7-9.3); Absolute Immature Granulocytes 0.1 10^3/uL (0-0.05); Absolute Lymphocytes 0.2 10^3/uL (1.2-3.4); Absolute Monocytes 0.4 10^3/uL (0.1-0.6); Absolute Neutrophils 13.6 10^3/uL (1.4-6.5); Hematocrit 28.5 % (39.0-52.0); Hemoglobin 10.1 g/dL (13.0-18.0); Mean Corp Hgb Conc. 35.4 g/dL (33.0-37.0); Mean Corpuscular Hgb 31.4 pg (27.0-31.0); Mean Corpuscular Volume 88.5 fL (80.0-94.0); Mean Platelet Volume 10.5 fL (7.4-10.4); Nucleated Red Blood Cells % 0.5 % (-); Platelet Count 175 10^3/uL (130-400); Red Blood Cell Count 3.22 10^6/uL (4.70-6.10); Red Cell Dist. Width 15.8 % (11.5-14.5); White Blood Cell Count 14.3 10^3/uL (4.8-10.8)
[2024-10-15 04:15] LABS: Albumin 2.7 g/dl (3.5-5.0); Alkaline Phosphatase 199 U/L (38-126); Blood Urea Nitrogen 76 mg/dl (9-20); Calcium 8.5 mg/dl (8.4-10.2); Carbon Dioxide 22 mmol/L (22-30); Chloride 102 mmol/L (98-107); Estimated Creatinine Clearance 31 ml/min; Glucose 110 mg/dl (70-99); Magnesium 2.3 mg/dl (1.6-2.3); Phosphorus 5.3 mg/dl (2.5-4.5); Potassium 4.6 mmol/L (3.5-5.1); Sodium 136 mmol/L (135-145); Total Bilirubin 3.9 mg/dl (0.2-1.3); eGFR 23.54
[2024-10-15 04:19] LABS: Glucose - Point of Care 114 mg/dl (70-99)
[2024-10-15 04:48] LABS: ALT (SGPT) 5617 U/L (0-50); AST (SGOT) 6082 U/L (17-59)
--- NOTE | 2024-10-15 05:00 | PTCARENOTE ---
no changes in assessment. CHG bath. turned/repositioned.
[2024-10-15 05:13] LABS: Glucose - Point of Care 105 mg/dl (70-99)
[2024-10-15 06:07] LABS: Glucose - Point of Care 100 mg/dl (70-99)
--- NOTE | 2024-10-15 06:14 | W.PN.INTV ---
Today's Communication / Plan
Recommendations
Remarkable recovery post procedure
Off CRRT
SBT trials today with plan to extubate
Labs are improving across the board
Diet advancement post extubation
Discussed with family at bedside
Assessment
-
Patient is a 78-year-old male with previous history of diabetes, COPD, A-fib on Xarelto status post recent cardioversion on 10/09 presenting to ER with worsening shortness of breath. He had noticed the symptoms about 2 weeks ago, treated for
atypical pneumonia on chest x-ray with course of azithromycin and Augmentin. This did not improve his complaints. He was admitted on 10/12/2024 to stepdown unit, overnight developed worsening laboratory findings including elevated liver enzymes,
severe persistent metabolic acidosis, acute kidney injury, hyperglycemia. Transferred to ICU on 10/13/2024 with worsening laboratory findings.
Severe pericardial effusion s/p emergent bedside pericardiocentesis, removal of 560mL bloody fluid 10/13/24
C/b cardiogenic shock
Fulminant hepatic failure/shock liver
DEAN
Severe metabolic acidosis
Recent AFib CV 10/09/24
SOB
Likely CHF on CXR, volume overload
Presumed sepsis
Lactic acidosis
Severe coagulopathy, elevated INR
Hx of PNA, recent treatment with abx as OP
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
Diabetes Adult Type II
Hyperlipidemia
Hypertension
COPD follows with Dr Santos
Afib on Chronic anticoagulation
History of prostate cancer
History of DEAN 02/2023-biopsy shows ATN, mild diabetic nephropathy, presence of IgA
History of Pneumonia
s/p Ablation for AF 11/2015
DTH Cardioversion 02/2018
s/p Ablation 03/06/19
Plan
Sedation: fent/prop, wean off today for SBT
Pain/sedation: PRN
RASS goals: 0
Severe pericardial effusion with likely shock--s/p pericardiocentesis of 560mL
Culture and cyto pending
Hemodynamically unstable, low dose pressors: levophed, titrate to off as tolerated
Cardiac history reviewed--HTN, recent Afib CV, history of ablation, on Xarelto
Prior ECHO showing preserved function
IV heparin placed, cards eval obtained--on hold now
Monitor on telemetry
FU further ECHO per team--repeat study reviewed/improved-stable
Intubated for procedure
AC settings: 550/16/40/5+
ABG(s) reviewed-acidosis improving
Prior known history of lung disease: COPD, followed as OP
CXR/CT reviewed indicating possible volume component, less so PNA
Treated recently as OP for PNA, would not need to treat again, r/o other causes
SBT today with plan to extubate
Severe liver disease, AST/ALT trending down
Shock liver
NPO, for now
GI prophylaxis
Advance diet post extubation
DEAN present, worsening
History of renal disease in past-prior renal bx with ATN, mild diabetic nephropathy, presence of IgA
Void trials, currently oliguric
Renal eval, now on emergent CRRT to refractory acidosis--can hold off on further CRRT
Follow urine output, critical I/Os
Replete electrolytes as needed
Repeat labs, ABG
Possible septic shock, mcmullen culture--mostly negative
Placed on empiric abx
Cultures sent--no growth thus far
MRSA screen neg, stop LZD, stop doxy
Can de-scalate CFP to CTX
Follow fever trend, WBC count
Lactate elevated on admission, continue to trend until <2
Severe coag, INR >8, now trending down, 3.8
Hold OAC
DVT prophylaxis as assessed based on risk, including mechanical SCDs
Can transfuse if indicated for Hb <7, plt < 10
Heme onc eval, could be DIC though not typical w/ high plts
Transfused FFP/cryo
DM history noted, monitor accuchecks PRN/SS coverage if needed
Possible DKA, on insulin gtt
Eventual transition to SQ
Diagnostic Data
Chest X-Ray: 10/12/24-Congestive heart failure versus volume overload having developed since prior examination..
10/01/24- There is mild pleural parenchymal airspace disease at the posterior basilar portion of the right lower lobe, new when compared with the prior study consistent with small right pleural effusion with underlying interstitial pneumonia versus
compressive atelectasis
CT Scan: CHEST 03/14/23--Mild to moderate bilateral pleural effusions, left greater than right. Adjacent compressive atelectasis. COPD. Trace pericardial effusion.
Echo: 02/21/24- Normal left ventricular size, wall thickness and systolic function. No regional wall motion abnormalities are seen. LV ejection fraction is 55-60% by volumetric assessment. Normal diastolic function. Normal right ventricular size and
function. Mild mitral regurgitation. Thickened, trileaflet aortic valve with normal leaflet excursion and trace aortic regurgitation. Estimated pulmonary artery pressure of 30-35 mmHg, assuming a right atrial pressure of 3 mmHg. Compared to prior
study dated 03/07/23, there is no significant change
10/14/24- 1. Limited echocardiogram to reassess severity of pericardial effusion. 2. In limited views, left ventricular systolic function appears to be preserved with estimated left ventricular ejection fraction of 55 to 60% by visual estimation.
3. Small pericardial effusion, mostly posteriorly without evidence of cardiac tamponade. Trivial amount of fibrinous material noted anteriorly around the
right ventricle. Compared to initial echocardiogram from October 13, 2024, there is significant improvement in size of pericardial effusion post pericardiocentesis.
PFT's:
Reports and relevant images were personally reviewed.
-----
Critical Care time 40 mins -- The patient is admitted for acute critical illness for the treatment of vital organ failure and/or prevention of further life-threatening conditions. Total care includes time spent in review of history, physical exam,
medications, hemodynamic/ventilator parameters, laboratory data, imaging and discussion with house staff, pharmacy, respiratory therapy, press clippings cutter and paster, and nursing.
Subjective Dataa
Subjective Data
Date of Service:
Date of Service: October 15, 2024
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
Subjective:
Doing well, remains intubated overnight
Off CRRT
No new events, family at bedside
Objective Data
Data Reviewed
Vital Signs / I&O / Oxygen:
Vital Signs
Temp Pulse Resp BP Pulse Ox
97.5 F 84 16 132/62 97
10/15/24 03:23 10/15/24 05:00 10/15/24 05:00 10/14/24 19:37 10/15/24 05:00
Intake and Output
10/13/24 10/14/24 10/15/24
06:59 06:59 06:59
Intake Total 3639.3 / 3686.3 1869.6 / 1869.6
Output Total 1296 / 1326 1004 / 1004
Balance 2343.3 / 2360.3 865.6 / 865.6
SaO2 [A/C] 97
SaO2 97
Nasal Cannula flow liters per 4
minute
Physical Exam
General: Comfortable and Other (NAD)
HEENT: Normocephalic, Anicteric and Moist Mucous Membranes
Cardiovascular: S1-S2 and Regular Rhythm
Respiratory: Clear, Non-Labored Respirations and ET Tube
GI: Soft, Non Distended and Non Tender
Neurology: Awake, Alert, No Motor Deficits and Non Verbal (intubated)
Skin: Warm, Dry and Good Color
Labs/Micro/Reports
Lab Data
10/15/24 03:12
10/15/24 03:12
Laboratory Results
10/14/24 10/14/24 10/15/24
05:06 14:15 03:12
PT 57.2 H 40.1 H 37.8 H
INR 6.72 H* 4.13 D 3.81
Microbiology
10/12/24 14:17 Blood/Venous Blood Culture - Preliminary
No Growth in 48 hours- Final report to follow
10/12/24 14:17 Blood/Venous Blood Culture - Preliminary
No Growth in 48 hours- Final report to follow
10/13/24 17:22 Pericardial Fluid Body Fluid Culture - Preliminary
No Growth After 18-24 Hours
10/13/24 17:22 Pericardial Fluid Gram Stain - Preliminary
10/13/24 17:22 Pericardial Fluid Fungal Culture - Preliminary
Culture in progress.
Positive cultures are reported as soon as detected.
Final report to follow in four to five weeks.
10/13/24 11:07 Nose Nasal Screen MRSA (PCR) - Final
MRSA not detected - performed by PCR methodology.
10/12/24 18:33 Urine Urine Culture - Final
NO GROWTH
10/13/24 07:55 Nasal Swab Respiratory Syncytial Virus Culture - Final
Negative for Respiratory Syncytial Virus.
A false negative result may be obtained with a specimen
collected early in the acute phase. If symptoms persist, a
new specimen should be tested.
10/12/24 20:09 Urine Legionella Urinary Antigen - Final
Negative for Legionella pneumophila Serogroup 1 antigen.
A negative result does not rule out the possiblity of
Legionella infection due to other serogroups or species of
Legionella. Clinical correlation is recommended.
10/12/24 20:09 Urine Streptococcus pneumoniae Antigen (M - Final
Negative for Streptococcus pneumoniae antigen.
A negative result does not exclude infection with
Streptococcus pneumoniae. Clinical correlation is
recommended.
10/12/24 16:19 Nasal Swab Influenza Types A & B (KELSEY) - Final
Negative for Influenza A & B, NAAT
Negative results must be combined with clinical observations
and patient history.
Nucleic Acid Amplification test (NAAT)performed on the
[employer] platform.
[2024-10-15] MEDS: MIRALAX TUBE (07:03)
[2024-10-15 07:17] LABS: Glucose - Point of Care 107 mg/dl (70-99)
[2024-10-15] MEDS: PROTONIX IV 40 MG IV (07:32)
[2024-10-15] MEDS: NSS (PRESERVATIVE FREE) 10 ML IV (07:33)
[2024-10-15] MEDS: SYMBICORT 160/4.5 MCG INHALER 2 PUFF INH ×2 (07:44→20:35)
--- NOTE | 2024-10-15 08:21 | W.PN.HOSP.TC ---
Today's Communication/Plan
-
repeat CBC today - if stable hgb - no PRBC
At this time since no additional bleeding on pericardial aspirate - will hold off FFP and allow INR to drift down naturally
Extubation as per recruiting intern
Plan to switch to subq Insulin when extubated and if able to eat
Watch off Abx as agreed with recruiting intern - monitor fever curve and WBC
Assessment / Plan
Assessment / Plan
78yo M with PMHx of DM, COPD, Hx of HepB, Afib on Xarelto s/p cardioversion on 10/09 came with worsening SOB and Afib with RVR. Recently started on oral Abx with concern for pneumonia. With concern for sepsis - received hydration in ICU and later
found with signs of pulmonary congestion on XR chest. With worsening labs transferred to ICU for insulin drip. Found large pericardial effusion on Echo s/p pericardiocentesis with drain that showed sanguineous fluid. With new coagulopathy - anticoag
stopped. Intubated on 10/13/24 due to worsening acidosis. Started on CRRT with worsening renal failure on 10/13/24. DIC ruled out, monitoring for coagulopathy improvement with FFP and PRBC transfusions.
A/P:
#Afib with RVR
#Acute on chronic HFpEF with pulmonary congestion on XR
Cardizem drip since BP allows. If hypotension - Amio
can be 2/2 hypoxia, however did not correct on IVF and O2 supplementation
Telemetry
Cardiology consult
ProBNP minimally elevated from baseline on admission
TSH WNL
#Pericardial effusion with impending tamponade
sanguineous output
Cx pending
Cardiology follows
Drain in place
#Coagulopathy
Multifactorial: 2/2 sepsis, Xarelto, heparin, ischemic hepatitis
follow INR
fibrinogen eleavted -no concern for DIC
ddimer significantly elevated - acute phase reaction?
Hematology consult
Blood transfusion consent signed
#Acute hypoxic respiratory failure, multifactorial, concern for bibasilar pneumonia with possible sepsis on admission
#Hemorrhagic vs septic shock
Cefepime stopped with negative Cx as per recruiting intern
Linezolid and Doxy discontinued with Legionella, S.pneumonia urinary Ag neg and MRSA screen neg
Bcx NTD
Sputum Cx NTD
check COVID-19, Influenza, RSV neg
Procalcitonin elevated to 1.23
Intubated on 10/13/24
CT: bilateral pleural effusions with consolidation or atelectasis. Moderate-severe emphysema of the lungs, diverticulosis w/o diverticulitis. Mild b/l perinephric stranding
Vent, pressors and sedation mgmt as per recruiting intern
#Transaminitis 2/2 ischemic hepatitis
#Positive HepB core - previous infection
Most likely hypoperfusion 2/2 RVR with additional sepsis and hypoxia
follow LFT
GI consult: portal doppler without PVT, liver and biliary tree without acute pathology
#Acute blood loss anemia on anemia of chronic disease and history of CHELI
worsened with new coagulopathy
Hx of EGD, colonoscopy and pill endoscopy without source of bleeding
LDH significantly elevated - follow haptoglobin
follow CBC
Transfuse to keep Hgb between 7.0-8.0
#Reactive thrombocytosis
resolved
#Elevated LDH
2/2 acute disease
KELLEY neg
haptoglobin pending
#Hyperuricemia
2/2 DEAN?
#Hyperkalemia with DEAN on CKD stage 3b
#Metabolic acidosis, cannot exclude DKA component
did not resolved with correction of hypoxia and RVR
Reasonable to start insulin drip with elevated BHB, complicated comorbidities to call DKA, since patient has other reasons for acidosis as well and blood sugar not significantly elevated. Was not on SGLT2 inh
serial BMP q2h
Accucheck q1h
Nephrology consult: CRRT stopped on 10/14/24
Lokelma
Hold ACEi
#COPD, not in exacerbation
No wheezing, but tight breathing sounds
With prevalent pulmonary congestion picture - stopped steroids
Cont bronchodilators
#DM type 2 with nephropathy
Insulin SS, DM diet, Accuchecks
HgbA1c
Hold oral antiglycemic
#LE edema
US LE neg for DVT
#positive UA
no urinary symptoms
Ucx NTD
DVT ppx heparin drip
Full code
PPI ppx
I Have spent at least 55min of critical care time reviewing chart, test results, communication with consultants and direct patient care
Anticipated Discharge: > 48 hours
Subjective/Interval History
-
Date of Service: October 15, 2024
Objective Data
-
Labs:
Laboratory Results
10/14/24 10/15/24 10/15/24
20:15 03:12 08:45
WBC 14.3 H
Hgb 10.1 L D
Hct 28.5 L
Plt Count 175 D
PT 37.8 H
INR 3.81
HCO3 Pending
Sodium 136 136
Potassium 4.6 4.6
Chloride 101 102
Carbon Dioxide 23 22
BUN 72 H 76 H
Creatinine 2.4 H 2.7 H
Glucose 102 H 110 H
Calcium 8.6 8.5
Total Bilirubin 3.9 H D
AST 6082 H*
ALT 5617 H*
Alkaline Phosphatase 199 H
10/15/24
14:00
WBC Pending
Hgb Pending
Hct Pending
Plt Count Pending
PT
INR
HCO3
Sodium Pending
Potassium Pending
Chloride Pending
Carbon Dioxide Pending
BUN Pending
Creatinine Pending
Glucose Pending
Calcium Pending
Total Bilirubin Pending
AST Pending
ALT Pending
Alkaline Phosphatase Pending
Vital Signs:
Vital Signs
Temp Pulse Resp BP Pulse Ox
97.1 F 86 13 132/62 96
10/15/24 07:18 10/15/24 08:16 10/15/24 08:16 10/14/24 19:37 10/15/24 08:16
I&O
10/14/24 10/15/24 10/16/24
06:59 06:59 06:59
Intake Total 3639.3 / 3686.3 1869.6 / 1872.6
Output Total 1296 / 1326 1004 / 1019
Balance 2343.3 / 2360.3 865.6 / 853.6 -
--- NOTE | 2024-10-15 08:48 | PTCARENOTE ---
Rec'd care of patient at 0700. Patient alert. Following commands. Fentanyl gtt off. Pupils equal and reactive, +3mm. Afib/aflutter with pvcs on tele. Rate in the 80's. +1 anasarca. Remains intubated. #8 ett @ 25cm. SBT initiated at 0745. 5/5 40%.
Lung sounds diminished posteriorly. Mcdermott in place for critical I/O. Output hillary with sediment. Roughly 20 cc's/hr. CRRT off since 1400 10/14. GP continued. Vitals stable. ABG sent.
[2024-10-15 09:15] LABS: Glucose - Point of Care 116 mg/dl (70-99)
[2024-10-15 09:35] LABS: B.E. -0.1 mmol/L; HCO3 23.8 mmol/L (21-28); O2 Saturation % 99.1 % (94-98); PCO2 35 mmHg (35-48); PO2 99 mmHg (83-108); pH 7.44 (7.35-7.45)
--- NOTE | 2024-10-15 09:51 | PTCARENOTE ---
0948 patient extubated. Placed on 4L nc. Oral suctioning and hygiene provided. Alert and talking with staff. Vitals stable. and daughter at bedside.
--- NOTE | 2024-10-15 10:33 | W.PN.NEPH.PH ---
Today's Communication / Plan
-
lasix trial and follow labs
Assessment/Plan
-
Impression:
Acute kidney injury
Acute hypoxic respiratory with history of COPD
CHF decompensation (HFPef)
Anemia with elevated LDH
Hyperkalemia
Gapped metabolic acidosis/beta hydroxybutyrate
Chronic kidney disease stage III with baseline creatinine of 1.6
Hypertension
Paroxysmal atrial fibrillation
Diabetes
Prostate CA
Transaminitis
Plan:
DEAN/Hyperkalemia/Gapped metabolic acidosis (lactic acidemia/DKA), pericardial tamponade
CRRT was initiated refractory acidosis on 10/13
now off since 10/14 Pm, cr slightly up at 2.7 and barely non oliguric
if worsening renal function likely need HD in next 1-2days
Ok for lasix challenge with increasing wt
BP stable off pressors
LFTs high likely shock liver-improving
pericardial drain remains, echo better
hb better post PRBC
abx per primary
High risk encounter
d/w pt and
d/w nursing
-
-
Date of Service: October 15, 2024
CC / HPI / ROS
-
Chief Complaint:
DEAN
History of Present Illness:
CRRT initiated last evening
s/p pericardiocentesis 550cc, bloody fluid 10/13
INR and LFTs high-improving
off pressors
barely non oliguric with langley
wt is up
WBC improving, hb better at 10.1
Review of Systems:
extubated this am, on NC
feels well but tired
langley remains UOP <500cc
Labs
-
Labs:
eGFR 23.54 10/15/24 03:12
Phosphorus 5.3 mg/dl (2.5-4.5) H 10/15/24 03:12
Bsh-Y-Tkbsbshfyev Pept 1120 pg/ml 10/12/24 14:17
Physical Exam
-
Vital Signs:
Vital Signs
Temp Pulse Resp BP Pulse Ox
97 F 79 16 132/62 95
10/15/24 11:10 10/15/24 11:30 10/15/24 11:30 10/14/24 19:37 10/15/24 11:30
Cardiovascular:: Regular rate and rhythm
Lung Excursion:: Normal (decreased)
Abdomen:: Nontender and Soft
Extremity Edema:: None: Bilateral: (trace)
Langley Catheter: Yes
[2024-10-15 11:21] LABS: Glucose - Point of Care 104 mg/dl (70-99)
--- NOTE | 2024-10-15 12:12 | W.PN.UPDATE ---
Update Note
Progress Note Update
Patient was on Insulin 3units/h drip for past 24h, totaling 72units per day. Reasonable to switch to high resistance SS with Lantus 10units daily at this time as patient was cleared for oral intake by PSYCH RN
[2024-10-15] MEDS: LANTUS 0.1 UNITS SC (12:41)
--- NOTE | 2024-10-15 12:48 | PTCARENOTE ---
Patient sitting up in bed. Alert and oriented. Generalized weakness. Encouraging mobility in bed. Minor changes in assessment. DIRECTOR STYLE at bedside. Patient cleared for 1800 diabetic diet. 10 units Lantus administered. Transitioning off Insulin gtt.
Sipping on clears. No signs of aspiration. Vitals stable.
--- NOTE | 2024-10-15 12:51 | PTOTSP ---
ST Dysphagia Eval
Oropharyngeal function appears intact at the bedside. Dysphonia s/p intubation
Pt received awake a little drowsy but able to maintain alertness for exam. HOB raised upright for PO trials of puree, regular solids and thin liquids. Demo adequate oral access/containment, grossly functional mastication and bolus was orally
cleared. Thin liquids by straw sip swallow appears prompt. No overt s/sx of aspiration observed
Recommendations
1. Regular solids/thin liquids
2. Aspiration precautions and feeding assist as needed
3. Small bites, small single sips and slow rate
4. Follow up 1-2x
[2024-10-15 12:55] LABS: Glucose - Point of Care 104 mg/dl (70-99)
--- NOTE | 2024-10-15 14:42 | W.PN.CARDCBS ---
Today's Communication / Plan
-
Pericardial drain pulled
Okay to transfer to IMU or IVU if desired from cardiac standpoint
Restart metoprolol ER 25 mg twice daily
Eventual amiodarone to maintain sinus rhythm given that anticoagulation is to be avoided with pericardial effusion/tamponade
Echo follow-up study in a.m.
Impression / Plan
-
Primary Signal Supervisor: Dr. Juan Carlos Gregg
Assessment:
Pericardial tamponade with cardiogenic shock with emergent pericardiocentesis 10/13/2028
Acute hypoxic respiratory failure Vent dependent respiratory failure
Acute HFpEF related to tamponade
Metabolic acidosis
Atrial flutter with RVR status post cardioversion October 09
Hyperkalemia
Shock liver
Anemia, history of CHELI
DEAN on CKD, on CRRT
Recent PNA, concern for acute infectious process
Paroxysmal Afib s/p PVI 02/2019
Paroxysmal atrial tachycardia s/p ablation 02/2019
Paroxysmal typical atrial flutter s/p CTI ablation 2016 with recurrence 09/2024 s/p CV 10/09/24
chronic OAC with xarelto
DM2
HTN
HLD
COPD
former smoker
BPH
Prostate cancer, diagnosed 01/2022
ECHO 02/21/24: EF 55 to 60%, mild MR, trace AR, PAP 30 to 35 mmHg
Plan:
He continues to improve following emergent pericardiocentesis for tamponade that resulted in multisystem organ failure.
Now extubated.
Still with DEAN, and creatinine has risen somewhat but CRRT has been discontinued.
He has reverted to normal sinus rhythm. Will restart metoprolol ER 25 mg twice daily.
Still plan on starting amiodarone as shock liver resolves, as it would be desirable to maintain normal sinus rhythm and avoid anticoagulation given tamponade.
From my standpoint okay to transfer to IVU or IMU.
Will recheck follow-up echo study in a.m.
Progress Note - Signal Supervisor
Subjective
Date of Service: October 15, 2024:
Patient sitting up, eating, not much output from pericardial drain, CRRT has been discontinued, he denies complaints, family at bedside
PMH: Atrial flutter, cardioversion October 09, 2024, history of anemia, CKD, recent pneumonia, PAF with PVI February 2019 with atrial tach ablation, CTI in 2015, DM, hypertension, hyperlipidemia, COPD, prostate cancer 2021
Current meds: Symbicort, MiraLAX, pantoprazole, insulin
Outpatient meds: Breo elliptica, glimepiride 4 mg a day, lisinopril 10 mg daily, metformin 850 mg 3 times daily, metoprolol succinate totaling 75 mg a day, Xarelto, simvastatin, Januvia
Allergies vancomycin
142/57, pulse 75, respiratory rate 18, afebrile, no acute distress, head neck exam unremarkable, lungs are relatively clear, no obvious murmurs, JVD okay, pericardial drain in place, right IJ catheter still in place, abdomen benign, extremities
without clubbing cyanosis or edema, pulses palpable
Echo 10/14/2024: EF 55-60%, small pericardial effusion
Hemoglobin 10.1, white count 14.3, platelets 175, creatinine is 2.7, had been 2.4, BUN is 76, ALT is 6082 had been greater than 7500 ALT is 5617, had been greater than 7500
Telemetry: Now sinus rhythm with ectopy.
Objective
Labs:
Labs
Hgb 10.1 g/dL (13.0-18.0) L D 10/15/24 03:12
Hct 28.5 % (39.0-52.0) L 10/15/24 03:12
Plt Count 175 10^3/uL (130-400) D 10/15/24 03:12
PT 37.8 Sec (11.4-14.6) H 10/15/24 03:12
INR 3.81 10/15/24 03:12
APTT 92.1 Sec (23.4-35.0) H 10/13/24 11:18
Sodium 136 mmol/L (135-145) 10/15/24 03:12
Potassium 4.6 mmol/L (3.5-5.1) 10/15/24 03:12
BUN 76 mg/dl (9-20) H 10/15/24 03:12
Creatinine 2.7 mg/dL (0.7-1.3) H 10/15/24 03:12
Glucose 110 mg/dl (70-99) H 10/15/24 03:12
Troponins
10/12/24 10/13/24
14:17 10:03
Troponin I < 0.012 < 0.012
Vital Signs and I&O:
Vital Signs
Temp Pulse Resp BP Pulse Ox
36.1 C 75 18 142/57 98
10/15/24 11:10 10/15/24 14:00 10/15/24 14:00 10/15/24 12:00 10/15/24 14:00
Vital Signs
Temp Pulse Resp BP Pulse Ox
36.1 C 75 18 142/57 98
10/15/24 11:10 10/15/24 14:00 10/15/24 14:00 10/15/24 12:00 10/15/24 14:00
Intake & Output
10/13/24 10/14/24 10/15/24 10/16/24
07:59 07:59 07:59 07:59
Intake Total 3686.3 / 3734.3 1825.6 / 1828.6 138.9 / 138.9
Output Total 1326 / 1363 989 / 1009 135 / 135
Balance 2360.3 / 2371.3 836.6 / 819.6 3.9 / 3.9
Physical Exam
Physical Exam
See above
[2024-10-15 14:56] LABS: % Basophils 0.1 % (0-2); % Immature Granulocytes 1.1 % (0-0.5); % Lymphocytes 1.9 % (20.5-51.1); % Monocytes 4.2 % (1.7-9.3); % Neutrophils 92.7 % (42.2-75.2); Absolute Immature Granulocytes 0.2 10^3/uL (0-0.05); Absolute Lymphocytes 0.3 10^3/uL (1.2-3.4); Absolute Monocytes 0.6 10^3/uL (0.1-0.6); Absolute Neutrophils 12.7 10^3/uL (1.4-6.5); Hematocrit 28.2 % (39.0-52.0); Hemoglobin 9.9 g/dL (13.0-18.0); Mean Corp Hgb Conc. 35.1 g/dL (33.0-37.0); Mean Corpuscular Hgb 30.9 pg (27.0-31.0); Mean Corpuscular Volume 88.1 fL (80.0-94.0); Mean Platelet Volume 10.2 fL (7.4-10.4); Nucleated Red Blood Cells % 0.4 % (-); Platelet Count 163 10^3/uL (130-400); Red Cell Dist. Width 15.9 % (11.5-14.5); White Blood Cell Count 13.7 10^3/uL (4.8-10.8)
[2024-10-15 15:06] LABS: PT 31.5 Sec (11.4-14.6)
[2024-10-15 15:11] LABS: Albumin 2.6 g/dl (3.5-5.0); Alkaline Phosphatase 200 U/L (38-126); Blood Urea Nitrogen 82 mg/dl (9-20); Calcium 8.1 mg/dl (8.4-10.2); Carbon Dioxide 25 mmol/L (22-30); Chloride 101 mmol/L (98-107); Estimated Creatinine Clearance 28 ml/min; Glucose 114 mg/dl (70-99); Potassium 4.6 mmol/L (3.5-5.1); Sodium 136 mmol/L (135-145); Total Bilirubin 3.2 mg/dl (0.2-1.3); Total Protein 4.9 g/dl (6.3-8.2); eGFR 20.74
[2024-10-15 15:16] LABS: Glucose - Point of Care 117 mg/dl (70-99)
[2024-10-15] MEDS: NOVOLOG FLEXPEN-HIGH RESISTANCE 1 UNITS SC (15:19)
--- NOTE | 2024-10-15 15:31 | PTCARENOTE ---
[employer] Business Segment Leader at bedside. Pericardial drain removed. Occlusive dressing placed.
[2024-10-15 15:48] LABS: ALT (SGPT) 5056 U/L (0-50); AST (SGOT) 3237 U/L (17-59)
[2024-10-15] MEDS: TOPROL XL 25 MG PO (16:09)
--- NOTE | 2024-10-15 16:59 | PTCARENOTE ---
Patient assessed. Drowsy. Afib with pvcs. Rate in the 80-90's. Metoprolol administered as ordered. +1 anasarca. Arms elevated on pillows. O2 weaned to 2Lnc. Pulse ox 96%. No BM. Appetite poor. Slowly picking at meal with assistance. Aspiration
precautions maintained. Urine output remains <30. Well Flow Operator level up to 3.0. Dr Moore notified.
[2024-10-15 17:05] LABS: Glucose - Point of Care 157 mg/dl (70-99)
[2024-10-15] MEDS: LASIX 40 MG IV (17:36)
--- NOTE | 2024-10-15 20:00 | PTCARENOTE ---
Received pt resting in bed, AAOx3. Very drowsy, just wants to sleep. No complaints of pain. Gen. weakness. SR with PACs on tele. HR 80s. L radial A line transduced and zeroed. BP 120s-130s/40s-50s. Afebrile. Weak DP pulses. +1 anasarca. On 2L NC.
Lungs diminished throughout. Weak non productive cough, voice hoarse. Round abd. Hypoactive bowel sounds. Temp sensing langley cath draining yellow urine - see I&O. Peripheral IVs patent and capped. R IJ HD cath in place. Turning q2hrs
[2024-10-15 21:43] LABS: Glucose - Point of Care 256 mg/dl (70-99)
[2024-10-15] MEDS: NOVOLOG FLEXPEN 7 UNITS SC (22:14)
[2024-10-15] MEDS: ROCEPHIN 2000 MG IV (23:45)
[2024-10-15] MEDS: STERILE WATER FOR INJECTION 20 ML IV (23:45)
[2024-10-16] VITALS (15 sets, daily range): BP systolic 118–153; BP diastolic 56–79; PULSE 79; O2SAT 94; BMI 30.2
--- NOTE | 2024-10-16 00:07 | PTCARENOTE ---
Pt resting comfortably. Vitals stable. HS BG 256 - 7 units ordered by HEDIS NURSE. Mcdermott + mouth care provided
[2024-10-16 03:46] LABS: % Basophils 0.1 % (0-2); % Lymphocytes 1.7 % (20.5-51.1); % Monocytes 4.5 % (1.7-9.3); % Neutrophils 92.7 % (42.2-75.2); Absolute Immature Granulocytes 0.1 10^3/uL (0-0.05); Absolute Lymphocytes 0.2 10^3/uL (1.2-3.4); Absolute Monocytes 0.6 10^3/uL (0.1-0.6); Absolute Neutrophils 11.6 10^3/uL (1.4-6.5); Hematocrit 27.8 % (39.0-52.0); Hemoglobin 9.8 g/dL (13.0-18.0); Mean Corp Hgb Conc. 35.3 g/dL (33.0-37.0); Mean Corpuscular Hgb 30.9 pg (27.0-31.0); Mean Corpuscular Volume 87.7 fL (80.0-94.0); Mean Platelet Volume 10.7 fL (7.4-10.4); Nucleated Red Blood Cells % 0.3 % (-); Platelet Count 162 10^3/uL (130-400); Red Blood Cell Count 3.17 10^6/uL (4.70-6.10); Red Cell Dist. Width 15.7 % (11.5-14.5); White Blood Cell Count 12.6 10^3/uL (4.8-10.8)
[2024-10-16 03:54] LABS: INR 2.68; PT 28.9 Sec (11.4-14.6)
[2024-10-16 04:12] LABS: Albumin 2.6 g/dl (3.5-5.0); Alkaline Phosphatase 204 U/L (38-126); Blood Urea Nitrogen 94 mg/dl (9-20); Carbon Dioxide 23 mmol/L (22-30); Chloride 101 mmol/L (98-107); Estimated Creatinine Clearance 27 ml/min; Glucose 283 mg/dl (70-99); Sodium 136 mmol/L (135-145); Total Bilirubin 2.6 mg/dl (0.2-1.3); Total Protein 4.9 g/dl (6.3-8.2); Triglycerides 90 mg/dl (10-149); eGFR 19.94
[2024-10-16 04:24] LABS: AST (SGOT) 1395 U/L (17-59)
[2024-10-16 04:44] LABS: ALT (SGPT) 3875 U/L (0-50)
--- NOTE | 2024-10-16 05:31 | PTCARENOTE ---
Pt slept most of the night, without complaint. Assessment unchanged. Vitals stable, on 1L NC. Trialed room air- spo2 89%. Bathed with CHG, linens changed. Urine output ~100ml/hr overnight, hillary urine. AM labs drawn
[2024-10-16] MEDS: NOVOLOG FLEXPEN 7 UNITS SC ×3 (05:53→18:00)
--- NOTE | 2024-10-16 07:32 | W.PN.INTV ---
Today's Communication / Plan
Recommendations
Doing well, labs trending down (except creat)--renal following
BP adjustments per cards, path still pending from procedure
Culture negative to date, stop abx
Stable on RA, post extubation, doing well
PT/OT, OOB today
Transfer to floors, we will sign off upon transfer
Assessment
-
Patient is a 78-year-old male with previous history of diabetes, COPD, A-fib on Xarelto status post recent cardioversion on 10/09 presenting to ER with worsening shortness of breath. He had noticed the symptoms about 2 weeks ago, treated for
atypical pneumonia on chest x-ray with course of azithromycin and Augmentin. This did not improve his complaints. He was admitted on 10/12/2024 to stepdown unit, overnight developed worsening laboratory findings including elevated liver enzymes,
severe persistent metabolic acidosis, acute kidney injury, hyperglycemia. Transferred to ICU on 10/13/2024 with worsening laboratory findings.
Severe pericardial effusion s/p emergent bedside pericardiocentesis, removal of 560mL bloody fluid 10/13/24
C/b cardiogenic shock
Fulminant hepatic failure/shock liver
DEAN
Severe metabolic acidosis
Recent AFib CV 10/09/24
SOB
Likely CHF on CXR, volume overload
Presumed sepsis
Lactic acidosis
Severe coagulopathy, elevated INR
Hx of PNA, recent treatment with abx as OP
Conditions present [employer]
Diabetes Adult Type II
Hyperlipidemia
Hypertension
COPD follows with Dr Santos
Afib on Chronic anticoagulation
History of prostate cancer
History of DEAN 02/2023-biopsy shows ATN, mild diabetic nephropathy, presence of IgA
History of Pneumonia
s/p Ablation for AF 11/2015
DTH Cardioversion 02/2018
s/p Ablation 03/06/19
Plan
Sedation: off x 24 hours
Pain/sedation: PRN
RASS goals: 0
Severe pericardial effusion with likely shock--s/p pericardiocentesis of 560mL
Culture neg; cyto pending
Hemodynamically unstable, low dose pressors: levophed, titrate to off as tolerated
Cardiac history reviewed--HTN, recent Afib CV, history of ablation, on Xarelto
Prior ECHO showing preserved function
IV heparin placed, cards eval obtained--on hold now
Monitor on telemetry
FU further ECHO per team--repeat study reviewed/improved-stable
Further BP adjustments per team
Intubated for procedure, extubated 10/15/24
ABG(s) reviewed-acidosis improved
Prior known history of lung disease: COPD, followed as OP
CXR/CT reviewed indicating possible volume component, less so PNA
Currently stable on RA
Severe liver disease, AST/ALT trending down
Shock liver
NPO, for now
GI prophylaxis
Advance diet post extubation
DEAN present, worsening
History of renal disease in past-prior renal bx with ATN, mild diabetic nephropathy, presence of IgA
Void trials, currently oliguric
Renal following, now on emergent CRRT to refractory acidosis--can hold off on further CRRT
Follow urine output, critical I/Os
Replete electrolytes as needed
Repeat labs, ABG
Possible septic shock, mcmullen culture--mostly negative
Placed on empiric abx on admission/received 4 days total
Cultures sent--no growth thus far
Stop abx and observe off
Follow fever trend, WBC count
Severe coag, INR >8, now trending down, 3.8
Hold OAC
DVT prophylaxis as assessed based on risk, including mechanical SCDs
Can transfuse if indicated for Hb <7, plt < 10
Heme onc eval, could be DIC though not typical w/ high plts
Transfused FFP/cryo
DM history noted, monitor accuchecks PRN/SS coverage if needed
Possible DKA, on insulin gtt--transitioned to SQ insulin
Adjustments as needed
Diagnostic Data
Chest X-Ray: 10/12/24-Congestive heart failure versus volume overload having developed since prior examination..
10/01/24- There is mild pleural parenchymal airspace disease at the posterior basilar portion of the right lower lobe, new when compared with the prior study consistent with small right pleural effusion with underlying interstitial pneumonia versus
compressive atelectasis
CT Scan: CHEST 03/14/23--Mild to moderate bilateral pleural effusions, left greater than right. Adjacent compressive atelectasis. COPD. Trace pericardial effusion.
Echo: 02/21/24- Normal left ventricular size, wall thickness and systolic function. No regional wall motion abnormalities are seen. LV ejection fraction is 55-60% by volumetric assessment. Normal diastolic function. Normal right ventricular size and
function. Mild mitral regurgitation. Thickened, trileaflet aortic valve with normal leaflet excursion and trace aortic regurgitation. Estimated pulmonary artery pressure of 30-35 mmHg, assuming a right atrial pressure of 3 mmHg. Compared to prior
study dated 03/07/23, there is no significant change
10/14/24- 1. Limited echocardiogram to reassess severity of pericardial effusion. 2. In limited views, left ventricular systolic function appears to be preserved with estimated left ventricular ejection fraction of 55 to 60% by visual estimation.
3. Small pericardial effusion, mostly posteriorly without evidence of cardiac tamponade. Trivial amount of fibrinous material noted anteriorly around the
right ventricle. Compared to initial echocardiogram from October 13, 2024, there is significant improvement in size of pericardial effusion post pericardiocentesis.
PFT's:
Reports and relevant images were personally reviewed.
-----
Critical Care time 35 mins -- The patient is admitted for acute critical illness for the treatment of vital organ failure and/or prevention of further life-threatening conditions. Total care includes time spent in review of history, physical exam,
medications, hemodynamic/ventilator parameters, laboratory data, imaging and discussion with house staff, pharmacy, respiratory therapy, pain medicine physician, and nursing.
Subjective Dataa
Subjective Data
Date of Service:
Date of Service: October 16, 2024
Chief Complaint: Continuity Clerk Follow Up
Subjective:
Doing well post extubation, no acute events ON
Remains stable on room air
No new complaints
Objective Data
Data Reviewed
Vital Signs / I&O / Oxygen:
Vital Signs
Temp Pulse Resp BP Pulse Ox
97.6 F 85 20 125/56 96
10/16/24 03:39 10/16/24 06:30 10/16/24 06:30 10/15/24 23:49 10/16/24 06:30
Intake and Output
10/15/24 10/16/24 10/17/24
06:59 06:59 06:59
Intake Total 1869.6 / 1872.6 161.9 / 161.9
Output Total 1004 / 1019 1580 / 1580
Balance 865.6 / 853.6 -1418.1 / -1418.1
SaO2 [CPAP] 96
SaO2 [A/C] 97
SaO2 96
Nasal Cannula flow liters per 1
minute
Physical Exam
General: Comfortable, Good Appetite and Other (NAD)
HEENT: Normocephalic, Anicteric and Moist Mucous Membranes
Cardiovascular: S1-S2 and Regular Rhythm
Respiratory: Clear and Non-Labored Respirations
GI: Soft, Non Distended and Non Tender
Neurology: Awake, Alert, Oriented, No Motor Deficits and Non Verbal (intubated)
Skin: Warm, Dry and Good Color
Labs/Micro/Reports
Lab Data
10/16/24 03:35
10/16/24 03:35
Laboratory Results
10/15/24 10/15/24 10/15/24
08:45 09:16 09:22
PT
INR
pH Cancelled Cancelled 7.44
pCO2 Cancelled Cancelled 35
pO2 Cancelled Cancelled 99
HCO3 Cancelled Cancelled 23.8
O2 Delivery Level Cancelled Cancelled Not Reportable
10/15/24 10/16/24
14:01 03:35
PT 31.5 H 28.9 H
INR 3.00 2.68
pH
pCO2
pO2
HCO3
O2 Delivery Level
Microbiology
10/13/24 17:22 Pericardial Fluid Acid Fast Bacilli Smear - Preliminary
10/13/24 17:22 Pericardial Fluid Acid Fast Bacilli Culture - Preliminary
10/12/24 14:17 Blood/Venous Blood Culture - Preliminary
No Growth in 72 hours- Final report to follow
10/12/24 14:17 Blood/Venous Blood Culture - Preliminary
No Growth in 72 hours- Final report to follow
10/14/24 15:59 Tracheal Aspirate Gram Stain - Preliminary
10/13/24 17:22 Pericardial Fluid Body Fluid Culture - Preliminary
No Growth After 48 Hours
10/13/24 17:22 Pericardial Fluid Gram Stain - Preliminary
10/13/24 17:22 Pericardial Fluid Fungal Culture - Preliminary
Culture in progress.
Positive cultures are reported as soon as detected.
Final report to follow in four to five weeks.
10/13/24 11:07 Nose Nasal Screen MRSA (PCR) - Final
MRSA not detected - performed by PCR methodology.
10/12/24 18:33 Urine Urine Culture - Final
NO GROWTH
10/13/24 07:55 Nasal Swab Respiratory Syncytial Virus Culture - Final
Negative for Respiratory Syncytial Virus.
A false negative result may be obtained with a specimen
collected early in the acute phase. If symptoms persist, a
new specimen should be tested.
10/12/24 20:09 Urine Legionella Urinary Antigen - Final
Negative for Legionella pneumophila Serogroup 1 antigen.
A negative result does not rule out the possiblity of
Legionella infection due to other serogroups or species of
Legionella. Clinical correlation is recommended.
10/12/24 20:09 Urine Streptococcus pneumoniae Antigen (M - Final
Negative for Streptococcus pneumoniae antigen.
A negative result does not exclude infection with
Streptococcus pneumoniae. Clinical correlation is
recommended.
[2024-10-16 08:07] LABS: Glucose - Point of Care 345 mg/dl (70-99)
[2024-10-16] MEDS: TOPROL XL 25 MG PO ×2 (08:07→20:22)
[2024-10-16] MEDS: MIRALAX 17 GRAMS TUBE (08:07)
[2024-10-16] MEDS: PROTONIX 40 MG PO (08:07)
[2024-10-16] MEDS: LANTUS 0.1 UNITS SC (08:08)
[2024-10-16] MEDS: NOVOLOG FLEXPEN-HIGH RESISTANCE 10 UNITS SC (08:10)
[2024-10-16] MEDS: SYMBICORT 160/4.5 MCG INHALER 2 PUFF INH ×2 (08:23→19:49)
--- NOTE | 2024-10-16 09:03 | W.PN.ONC2 ---
Today's Communication / Plan
-
daily CBC
daily coags
transfuse prn
f/u haptoglobin w elevated LDH, retic (3), and LFTs (though improving) -KELLEY negative
Impression
Impression
pericardial tamponade with cardiogenic shock with emergent pericardiocentesis 10/13/2028
HFpEF
AF RVR
COPD, former smoker
coagulopathy from Xarelto, heparin, shock liver s/p 5FFP, last 10/14, 2cryo on 10/13
acute on chronic anemia (CHELI/CKD) s/p 5 unit prbc, last 10/14
prostate cancer, undetectable PSA per patient
Plan
Plan
FFP PRN for procedures or obvious bleeding
Coagulopathy likely from xarelto, heparin, shock liver. Unlikely DIC w/ elevated platelet count
Support anemia w/ transfusions as needed. Was to have bone marrow biopsy in 2022, but cancelled. t/c outpt heme f/u. KELLEY negative, f/u haptoglobin (elevated LFTS, Retic, LDH)
Iron studies difficult to interpret since checked after transfusions -would repeat in 6 weeks to assess trend
Subjective/Objective
Subjective
no new complaints
extubated, 1L NC
Vital Signs:
Vital Signs
Temp Pulse Resp BP Pulse Ox
97.2 F 84 18 149/75 97
10/16/24 08:00 10/16/24 08:32 10/16/24 08:32 10/16/24 08:21 10/16/24 08:32
Lab Results:
Laboratory Data
WBC 12.6 10^3/uL (4.8-10.8) H 10/16/24 03:35
Hgb 9.8 g/dL (13.0-18.0) L 10/16/24 03:35
Plt Count 162 10^3/uL (130-400) 10/16/24 03:35
PT 28.9 Sec (11.4-14.6) H 10/16/24 03:35
INR 2.68 10/16/24 03:35
APTT 92.1 Sec (23.4-35.0) H 10/13/24 11:18
eGFR 19.94 10/16/24 03:35
--- NOTE | 2024-10-16 10:07 | PTCARENOTE ---
Pt received from night cleaner RN. Ox3 and wide awake talking with upon initial assessment. states his MS is much improved compared to yesterday. Pt much more cooperative with care, able to turn self in bed with some difficulty. NSR on tele,
+1 gen edema. L radial A line in place, zeroed and flushed. Currently 96% on 1L, O2 removed and pt is satting 95%, pt using IS getting up to 1500mls. + BS, poor appetite. Mcdermott in place draining hillary urine at ~125/hr. R IJ HD cath in place. IV
sites intact. made aware of pt's increasing BP and glucose. Insulin changes made.
--- NOTE | 2024-10-16 11:03 | W.PN.NEPH.PH ---
Today's Communication / Plan
-
no lasix
labs later today
likely HD tomorrow
Assessment/Plan
-
Impression:
Acute kidney injury
Acute hypoxic respiratory with history of COPD
CHF decompensation (HFPef)
Anemia with elevated LDH
Hyperkalemia
Gapped metabolic acidosis/beta hydroxybutyrate
Chronic kidney disease stage III with baseline creatinine of 1.6
Hypertension
Paroxysmal atrial fibrillation
Diabetes
Prostate CA
Transaminitis
Plan:
DEAN/Hyperkalemia/Gapped metabolic acidosis (lactic acidemia/DKA), pericardial tamponade
CRRT was initiated refractory acidosis on 10/13
now off since 10/14 Pm, cr up 3.1
improving UOP , keep langley
azotemia is worse-monitor , hold lasix today
if worsening renal function likely need HD tomorrow
BP stable on low dose BB
LFTs high likely shock liver-improving
pericardial drain off, echo better
hb better post PRBC
abx per primary
High risk encounter
d/w pt and
d/w ICU
-
-
Date of Service: October 16, 2024
CC / HPI / ROS
-
Chief Complaint:
DEAN
History of Present Illness:
CRRT initiated 10/13, off 10/14
s/p pericardiocentesis 550cc, bloody fluid 10/13
INR and LFTs high-improving
off pressors
non oliguric with langley
wt is down
WBC improving, hb better at 12.6
Review of Systems:
on RA, no fever
feels well , has cough
langley remains UOP 2lit
Labs
-
Labs:
WBC 12.6 10^3/uL (4.8-10.8) H 10/16/24 03:35
RBC 3.17 10^6/uL (4.70-6.10) L 10/16/24 03:35
Hgb 9.8 g/dL (13.0-18.0) L 10/16/24 03:35
Hct 27.8 % (39.0-52.0) L 10/16/24 03:35
Plt Count 162 10^3/uL (130-400) 10/16/24 03:35
Sodium 136 mmol/L (135-145) 10/16/24 03:35
Potassium 5.0 mmol/L (3.5-5.1) 10/16/24 03:35
Chloride 101 mmol/L (98-107) 10/16/24 03:35
Carbon Dioxide 23 mmol/L (22-30) 10/16/24 03:35
BUN 94 mg/dl (9-20) H 10/16/24 03:35
Creatinine 3.1 mg/dL (0.7-1.3) H 10/16/24 03:35
eGFR 19.94 10/16/24 03:35
Glucose 283 mg/dl (70-99) H 10/16/24 03:35
Calcium 8.0 mg/dl (8.4-10.2) L 10/16/24 03:35
Phosphorus 5.3 mg/dl (2.5-4.5) H 10/15/24 03:12
Vml-L-Guksiajuffo Pept 1120 pg/ml 10/12/24 14:17
Albumin 2.6 g/dl (3.5-5.0) L 10/16/24 03:35
Physical Exam
-
Vital Signs:
Vital Signs
Temp Pulse Resp BP Pulse Ox
97.2 F 82 22 149/75 93
10/16/24 08:00 10/16/24 09:30 10/16/24 09:30 10/16/24 08:21 11/29/24 09:30
Cardiovascular:: Regular rate and rhythm
Respiratory:: Bilateral: CTA (decreased)
Lung Excursion:: Normal
Abdomen:: Nontender and Soft
Extremity Edema:: None: Bilateral: (trace)
Langley Catheter: Yes
--- NOTE | 2024-10-16 11:21 | W.PN.HOSP.TC ---
Today's Communication/Plan
-
Intensify insulin
Keep Mcdermott until patient with better ambulatory capacity
Amiodarone to be started as per agreement with cardio, reasonable since hepatic injury 2/2 hypoperfusion, not direct toxicity
Move to IMU
Lasix as per Nephrology
Keep HD cath in [facility] monitoring BMP - Cr still elevated
Assessment / Plan
Assessment / Plan
78yo M with PMHx of DM, COPD, Hx of HepB, Afib on Xarelto s/p cardioversion on 10/09 came with worsening SOB and Afib with RVR. Recently started on oral Abx with concern for pneumonia. With concern for sepsis - received hydration in ICU and later
found with signs of pulmonary congestion on XR chest. With worsening labs transferred to ICU for insulin drip. Found large pericardial effusion on Echo s/p pericardiocentesis with drain that showed sanguineous fluid. With new coagulopathy - anticoag
stopped. Intubated on 10/13/24 due to worsening acidosis. Started on CRRT with worsening renal failure on 10/13/24. DIC ruled out, was managed for coagulopathy with FFP and PRBC transfusions. Extubated on 10/15/24
A/P:
#Afib with RVR
#Acute on chronic HFpEF with pulmonary congestion on XR
can be 2/2 hypoxia, however did not correct on IVF and O2 supplementation
Telemetry
ProBNP minimally elevated from baseline on admission
TSH WNL
Lasix as per nephro in view of DEAN
completed CRRT
Amio with close LFT follow up - reasonable to preserve sinus rhythm as anticoagulation is extremely risky with recent hemopericardium
#Pericardial effusion, sanguinous, with impending tamponade
Cx NTD
Cardiology follows
Drain removed on 10/15/24
Hold off anticoagulation
#Coagulopathy
Multifactorial: 2/2 sepsis, Xarelto, heparin, ischemic hepatitis
follow INR
fibrinogen elevated -no concern for DIC
ddimer significantly elevated - acute phase reaction?
Hematology consult: follow haptoglobin
Blood transfusion consent signed
#Acute hypoxic respiratory failure, multifactorial, concern for bibasilar pneumonia with possible sepsis on admission
#Hemorrhagic vs septic shock
Cefepime stopped with negative Cx as per child protection specialist
Linezolid and Doxy discontinued with Legionella, S.pneumonia urinary Ag neg and MRSA screen neg
Bcx NTD
Sputum Cx NTD
COVID-19, Influenza, RSV neg
Procalcitonin elevated to 1.23
Intubated on 10/13/24
CT: bilateral pleural effusions with consolidation or atelectasis. Moderate-severe emphysema of the lungs, diverticulosis w/o diverticulitis. Mild b/l perinephric stranding
Vent, pressors and sedation mgmt as per child protection specialist
#Transaminitis 2/2 ischemic hepatitis
#Positive HepB core - previous infection
Most likely hypoperfusion 2/2 RVR with additional sepsis and hypoxia
follow LFT
GI consult: portal Doppler without PVT, liver and biliary tree without acute pathology
#Acute blood loss anemia on anemia of chronic disease and history of CHELI
worsened with new coagulopathy
Hx of EGD, colonoscopy and pill endoscopy without source of bleeding
LDH significantly elevated - follow haptoglobin
follow CBC
Transfuse to keep Hgb between 7.0-8.0
#Reactive thrombocytosis
resolved
#Elevated LDH
2/2 acute disease
KELLEY neg
haptoglobin pending
#Hyperuricemia
2/2 DEAN?
#Hyperkalemia with DEAN on CKD stage 3b
#Metabolic acidosis, cannot exclude DKA component
did not resolved with correction of hypoxia and RVR
Reasonable to start insulin drip with elevated BHB, complicated comorbidities to call DKA, since patient has other reasons for acidosis as well and blood sugar not significantly elevated. Was not on SGLT2 inh
serial BMP q2h
Accucheck q1h
Nephrology consult: CRRT stopped on 10/14/24
Lokelma
Hold ACEi
#COPD, not in exacerbation
No wheezing, but tight breathing sounds
With prevalent pulmonary congestion picture - stopped steroids
Cont bronchodilators
#DM type 2 with nephropathy
Insulin SS, DM diet, Accuchecks
Start Basal bolus on 10/16/24 and adjust as needed
HgbA1c
Hold oral antiglycemic
#LE edema
US LE neg for DVT
#positive UA
no urinary symptoms
Ucx NTD
DVT ppx heparin drip
Full code
PPI ppx
I Have spent at least 58min of critical care time reviewing chart, test results, communication with consultants and direct patient care
Anticipated Discharge: > 48 hours
Subjective/Interval History
-
Date of Service: October 16, 2024
Objective Data
-
Labs:
Laboratory Results
10/16/24 10/16/24
03:35 16:00
WBC 12.6 H
Hgb 9.8 L
Hct 27.8 L
Plt Count 162
PT 28.9 H
INR 2.68
Sodium 136 Pending
Potassium 5.0 Pending
Chloride 101 Pending
Carbon Dioxide 23 Pending
BUN 94 H Pending
Creatinine 3.1 H Pending
Glucose 283 H Pending
Calcium 8.0 L Pending
Total Bilirubin 2.6 H
AST 1395 H*
ALT 3875 H*
Alkaline Phosphatase 204 H
Vital Signs:
Vital Signs
Temp Pulse Resp BP Pulse Ox
97.2 F 82 22 149/75 94
10/16/24 08:00 10/16/24 09:30 10/16/24 09:30 10/16/24 08:21 10/16/24 11:01
I&O
10/15/24 10/16/24 10/17/24
06:59 06:59 06:59
Intake Total 1869.6 / 1872.6 161.9 / 161.9 240 / 240
Output Total 1004 / 1019 1580 / 1705 550 / 550
Balance 865.6 / 853.6 -1418.1 / -1543.1 -310 / -310
Review of Systems
-
History Source: Patient and Family
All other systems: Reviewed and negative
Physical Exam
-
General: No Apparent Distress
HEENT: Normocephalic
Respiratory: Clear to Auscultation
Cardiac: Regular Rhythm
GI: Soft, Nontender and Nondistended
Musculoskeletal: No Clubbing, No Cyanosis, Edema, Right Lower Extrem and Edema, Left Lower Extrem
Neuro: Awake, Alert, Oriented and AO x 3
Psych: Calm
--- NOTE | 2024-10-16 11:47 | PN.DE.MGMTRT ---
Insulin Management
- -
10/16/2024: Diabetes Management Consult
78 year old male with PMH: T2DM, COPD, Hx of HepB, Afib on Xarelto s/p cardioversion on 10/09, admitted 10/12 with worsening SOB and Afib with RVR likely due to pneumonia with concern for sepsis, started on IV steroids, contributing to hyperglycemia
requiring insulin infusion. Found to have large pericardial effusion on Echo s/p pericardiocentesis with drain that showed sanguineous fluid. Intubated on 10/13/24 due to worsening acidosis. Started on CRRT due to worsening renal failure on
10/13/24. Was taking Januvia 50 mg daily, Metformin 850 TID and Glimepiride 4mg daily BAND ATTACHER.
A1C 7.2%, Cr 1.8 on admission, worsened to 3.1, eGFR 19.94
Pt was extubated on 10/15/24, transitioned off insulin drip on 10/15 to Lantus 10 units and High corrective.
Glucose has remained elevated since transitioning off drip.
FBG 283 (V) and [address] Smalls has increased Lantus to 13 units daily and started NovoLog 7 units AC with high corrective.
Will make no changes to Lantus and NovoLog doses but will change corrective to moderate. Diet has been added for 1999 milo
Pt os not a candidate for oral antiglycemic agents due to DEAN on CKD with Cr 3.1 today.
Diabetes History
- -
Type of Diabetes: 2 requiring insulin
Pre-Admission Diabetes Regimen
10/15/24 10/16/24
14:01 03:35
Creatinine 3.0 H 3.1 H
Lab Results
Hemoglobin A1c 7.2 % (4.0-5.6) H 10/12/24 12:29
Insulin Pump Settings
IP Diabetes Regimen
10/15/24 10/15/24 10/15/24
12:40 14:01 15:05
Glucose 114 H
POC Glucose 104 H 117 H
10/15/24 10/15/24 10/16/24
16:54 21:32 03:35
Glucose 283 H
POC Glucose 157 H 256 H
10/16/24
07:56
Glucose
POC Glucose 345 H
Meal type: Dinner
Amount consumed: 25%
Patient Education
[2024-10-16 12:05] LABS: Glucose - Point of Care 296 mg/dl (70-99)
[2024-10-16 12:46] LABS: Haptoglobin 347 mg/dL (30-200)
[2024-10-16 12:49] LABS: CA 19-9 7 U/mL (<=35)
--- NOTE | 2024-10-16 13:30 | PTCARENOTE ---
Pt seen by PT, assisted OOB to the chair. Heavy two person assist, difficult to straighten his legs while standing. Was able to sit in the chair for over 3 hours before he started to get tired. Assisted back into bed, pulse ox dropped into the high
80's, did not improve with IS and nasal cannula was replaced at 2L.
--- NOTE | 2024-10-16 13:41 | W.PN.CARDCBS ---
Today's Communication / Plan
-
Start amiodarone 200 mg twice daily
Trend LFTs and INR
Hold anticoagulation
Blood pressure/volume status per nephrology and hospitalist
Impression / Plan
-
Primary Head Machine Feeder: Dr. Juan Carlos Gregg
Assessment:
Pericardial tamponade with cardiogenic shock with emergent pericardiocentesis 10/13/2028
Acute hypoxic respiratory failure Vent dependent respiratory failure
Acute HFpEF related to tamponade
Metabolic acidosis
Atrial flutter with RVR status post cardioversion October 09
Hyperkalemia
Shock liver
Anemia, history of CHELI
DEAN on CKD, on CRRT
Recent PNA, concern for acute infectious process
Paroxysmal Afib s/p PVI 02/2019
Paroxysmal atrial tachycardia s/p ablation 02/2019
Paroxysmal typical atrial flutter s/p CTI ablation 2015 with recurrence 09/2024 s/p CV 10/09/24
chronic OAC with xarelto
DM2
HTN
HLD
COPD
former smoker
BPH
Prostate cancer, diagnosed 01/2022
ECHO 02/21/24: EF 55 to 60%, mild MR, trace AR, PAP 30 to 35 mmHg
Plan:
He continues to improve following pericardiocentesis for tamponade and shock. Still with multisystem organ failure but renal function may be plateauing. LFTs are improving. He is no longer in atrial flutter.
Would continue to hold Xarelto given bloody pericardial effusion. With drop in transaminases, we will start amiodarone 200 mg twice daily to help maintain sinus rhythm and reduce likelihood of recurrent A-fib which would be problematic in the
setting of tamponade requiring emergent pericardiocentesis.
INR is improving, now 2.68, but still with coagulopathy from shock liver.
Defer management of blood pressure and volume status to nephrology. Hopefully to avoid hemodialysis. From hemodynamic standpoint he could probably tolerate standard hemodialysis if required.
From my standpoint could leave ICU.
Progress Note - Head Machine Feeder
Subjective
Date of Service: October 16, 2024:
78-year-old man with COPD and recent pneumonia with history of paroxysmal A-fib and PVI 2018. Cardioversion performed on October 09 but readmitted on the with worsening evidence of CHF and found to have tamponade requiring emergent
pericardiocentesis on the .
Pericardial drain pulled yesterday, patient feeling better, offers no complaints at present, still in sinus rhythm with ectopy, off Xarelto
PMH: Recent pneumonia, history of PAF and PVI in 2019, atrial tachycardia ablation 2018, flutter ablation 2015, DM, hypertension, hyperlipidemia, COPD, prostate cancer
Allergies: Vanco
Outpatient cardiac meds: Lisinopril 10 mg daily, metformin, metoprolol ER 50 mg a day a.m. and 25 mg p.m., rivaroxaban, simvastatin
Current meds: Symbicort, MiraLAX, metoprolol ER 25 twice daily, insulin. Outpatient glimepiride, lisinopril, metformin, rivaroxaban, simvastatin
149/79, pulse 82, respirate 22, no distress, communicative, lungs relatively clear, regular rate and rhythm, no obvious murmurs JVD okay, abdomen benign, 1+ edema
Hemoglobin 9.8, platelets are 162, AST is 1395, ALT is 3875, creatinine is 3.1, BUN is 94, potassium is 5
Echo: Pending
Objective
Labs:
10/16/24 03:35
Labs
Hgb 9.8 g/dL (13.0-18.0) L 10/16/24 03:35
Hct 27.8 % (39.0-52.0) L 10/16/24 03:35
Plt Count 162 10^3/uL (130-400) 10/16/24 03:35
PT 28.9 Sec (11.4-14.6) H 10/16/24 03:35
INR 2.68 10/16/24 03:35
APTT 92.1 Sec (23.4-35.0) H 10/13/24 11:18
Sodium 136 mmol/L (135-145) 10/16/24 03:35
Potassium 5.0 mmol/L (3.5-5.1) 10/16/24 03:35
BUN 94 mg/dl (9-20) H 10/16/24 03:35
Creatinine 3.1 mg/dL (0.7-1.3) H 10/16/24 03:35
Glucose 283 mg/dl (70-99) H 10/16/24 03:35
Vital Signs and I&O:
Vital Signs
Temp Pulse Resp BP Pulse Ox
36.3 C 82 22 149/75 94
10/16/24 12:11 10/16/24 09:30 10/16/24 09:30 10/16/24 08:21 10/16/24 11:01
Vital Signs
Temp Pulse Resp BP Pulse Ox
36.3 C 82 22 149/75 94
10/16/24 12:11 10/16/24 09:30 10/16/24 09:30 10/16/24 08:21 10/16/24 11:01
Intake & Output
10/14/24 10/15/24 10/16/24 10/17/24
07:59 07:59 07:59 07:59
Intake Total 3686.3 / 3734.3 1825.6 / 1828.6 158.9 / 398.9 240 / 240
Output Total 1326 / 1363 989 / 1009 1690 / 1790 425 / 425
Balance 2360.3 / 2371.3 836.6 / 819.6 -1531.1 / -1391.1 -185 / -185
Physical Exam
Physical Exam
See above
--- NOTE | 2024-10-16 14:20 | CM ---
CM following re: discharge planning.
Discussed in Rounds, reviewed pt's chart, met with pt. pt's spouse and daughter at bedside.
PT and OT evaluations noted - SNF level of care recommended. Both pt and his family are aware, expressed their agreement. 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 Pt's spouse
stated that [facility] is just [address] from their house and both pt and his family requested [facility]. A referral to [facility] made.
D/C plan: [facility] home SNF when medically stable.
CM will follow to assist pt with discharge to [facility].
[2024-10-16] MEDS: NOVOLOG FLEXPEN-MODERATE RESISTANCE 5 UNITS SC (14:22)
[2024-10-16] MEDS: PACERONE 200 MG PO ×2 (14:27→20:22)
[2024-10-16] MEDS: NOVOLOG FLEXPEN-HIGH RESISTANCE SC (14:46)
[2024-10-16 17:55] LABS: Glucose - Point of Care 324 mg/dl (70-99)
[2024-10-16] MEDS: NOVOLOG FLEXPEN-MODERATE RESISTANCE 7 UNITS SC (18:00)
[2024-10-16 18:30] LABS: Blood Urea Nitrogen 108 mg/dl (9-20); Calcium 8.1 mg/dl (8.4-10.2); Carbon Dioxide 23 mmol/L (22-30); Chloride 100 mmol/L (98-107); Estimated Creatinine Clearance 23 ml/min; Glucose 324 mg/dl (70-99); Potassium 4.4 mmol/L (3.5-5.1); Sodium 135 mmol/L (135-145)
--- NOTE | 2024-10-16 20:40 | PTCARENOTE ---
Patient received in bed drowsy but arousable to verbal commands. No complaints of pain. AAOx3. Plan of care for the shift reviewed with the patient. Sinus rhythm on the monitor. +1 anasarca.Breath sounds are diminished. Strong non productive cough.
Active bowel sounds. Abdomen is round. Temp sensing langley catheter is draining yellow urine. Rt IJ cath is in place. Family is at the bedside.
[2024-10-16 22:11] LABS: Glucose - Point of Care 362 mg/dl (70-99)
[2024-10-16] MEDS: NOVOLOG FLEXPEN 10 UNITS SC (23:21)
[2024-10-16 23:34] LABS: Glucose - Point of Care 372 mg/dl (70-99)
[2024-10-17] VITALS (28 sets, daily range): BP systolic 81–159; BP diastolic 49–87; BMI 29.5
--- NOTE | 2024-10-17 00:30 | PTCARENOTE ---
0000: Patient reassessed. No changes.
[2024-10-17] MEDS: STERILE WATER FOR INJECTION IV (03:16)
[2024-10-17 04:58] LABS: % Basophils 0.1 % (0-2); % Immature Granulocytes 0.9 % (0-0.5); % Lymphocytes 3.4 % (20.5-51.1); % Monocytes 5.4 % (1.7-9.3); % Neutrophils 90.2 % (42.2-75.2); Absolute Immature Granulocytes 0.1 10^3/uL (0-0.05); Absolute Lymphocytes 0.4 10^3/uL (1.2-3.4); Absolute Monocytes 0.7 10^3/uL (0.1-0.6); Hematocrit 31.6 % (39.0-52.0); Hemoglobin 11.2 g/dL (13.0-18.0); Mean Corp Hgb Conc. 35.4 g/dL (33.0-37.0); Mean Corpuscular Hgb 31.5 pg (27.0-31.0); Mean Corpuscular Volume 88.8 fL (80.0-94.0); Mean Platelet Volume 10.1 fL (7.4-10.4); Nucleated Red Blood Cells % 0.2 % (-); Platelet Count 145 10^3/uL (130-400); Red Blood Cell Count 3.56 10^6/uL (4.70-6.10); Red Cell Dist. Width 15.1 % (11.5-14.5); White Blood Cell Count 12.1 10^3/uL (4.8-10.8)
[2024-10-17 05:32] LABS: AST (SGOT) 415 U/L (17-59); Albumin 2.9 g/dl (3.5-5.0); Alkaline Phosphatase 216 U/L (38-126); Blood Urea Nitrogen 112 mg/dl (9-20); Calcium 8.3 mg/dl (8.4-10.2); Carbon Dioxide 24 mmol/L (22-30); Chloride 103 mmol/L (98-107); Estimated Creatinine Clearance 25 ml/min; Glucose 240 mg/dl (70-99); Potassium 4.5 mmol/L (3.5-5.1); Sodium 139 mmol/L (135-145); Total Bilirubin 2.3 mg/dl (0.2-1.3); Total Protein 5.4 g/dl (6.3-8.2); eGFR 20.74
[2024-10-17 05:54] LABS: ALT (SGPT) 2842 U/L (0-50)
--- NOTE | 2024-10-17 07:03 | W.PN.ONC2 ---
Today's Communication / Plan
-
daily CBC
daily coags
transfuse prn
Impression
Impression
pericardial tamponade with cardiogenic shock with emergent pericardiocentesis 10/13/2028
HFpEF
AF RVR
COPD, former smoker
coagulopathy from Xarelto, heparin, shock liver s/p 5FFP, last 10/14, 2cryo on 10/13
acute on chronic anemia (CHELI/CKD) s/p 5 unit prbc, last 10/14
DEAN on CKD
elevated LFTs
prostate cancer, undetectable PSA per patient
Plan
Plan
FFP PRN for procedures or obvious bleeding
Coagulopathy likely from xarelto, heparin, shock liver. Unlikely DIC w/ elevated platelet count
Support anemia w/ transfusions as needed. Was to have bone marrow biopsy in 2022, but cancelled. t/c outpt heme f/u. KELLEY negative, elevated haptoglobin.
Iron studies difficult to interpret since checked after transfusions -would repeat in 6 weeks to assess trend
Subjective/Objective
Subjective
no new complaints
at bedside provided updates
Vital Signs:
Vital Signs
Temp Pulse Resp BP Pulse Ox
97.7 F 83 33 138/60 95
10/17/24 03:41 10/16/24 20:22 10/16/24 19:52 10/16/24 20:22 10/16/24 21:00
Lab Results:
Laboratory Data
WBC 12.1 10^3/uL (4.8-10.8) H 10/17/24 04:37
Hgb 11.2 g/dL (13.0-18.0) L 10/17/24 04:37
Plt Count 145 10^3/uL (130-400) 10/17/24 04:37
PT 28.9 Sec (11.4-14.6) H 10/16/24 03:35
INR 2.68 10/16/24 03:35
APTT 92.1 Sec (23.4-35.0) H 10/13/24 11:18
eGFR 20.74 10/17/24 04:37
[2024-10-17 07:28] LABS: Glucose - Point of Care 227 mg/dl (70-99)
[2024-10-17] MEDS: NOVOLOG FLEXPEN-MODERATE RESISTANCE 3 UNITS SC (07:49)
[2024-10-17] MEDS: NOVOLOG FLEXPEN 7 UNITS SC (07:49)
[2024-10-17] MEDS: PACERONE 200 MG PO ×2 (07:50→20:48)
[2024-10-17] MEDS: TOPROL XL 25 MG PO ×2 (07:50→20:48)
[2024-10-17] MEDS: LANTUS 0.13 UNITS SC (07:50)
[2024-10-17] MEDS: MIRALAX 17 GRAMS TUBE (07:50)
[2024-10-17] MEDS: SYMBICORT 160/4.5 MCG INHALER 2 PUFF INH ×2 (07:52→21:01)
--- NOTE | 2024-10-17 08:00 | W.PN.NEPH.PH ---
Today's Communication / Plan
-
HD today
Assessment/Plan
-
Impression:
Acute kidney injury
Acute hypoxic respiratory with history of COPD
CHF decompensation (HFPef)
Anemia with elevated LDH
Hyperkalemia
Gapped metabolic acidosis/beta hydroxybutyrate
Chronic kidney disease stage III with baseline creatinine of 1.6
Hypertension
Paroxysmal atrial fibrillation
Diabetes
Prostate CA
Transaminitis
Plan:
DEAN/Hyperkalemia/Gapped metabolic acidosis (lactic acidemia/DKA), pericardial tamponade
CRRT was initiated refractory acidosis on 10/13
now off since 10/14 Pm, cr up 3.0, withBUN of 112
improving UOP , keep langley
azotemia is worse-monitor , holding lasix today
if worsening renal function likely need HD tomorrow
BP stable on low dose BB
LFTs high likely shock liver-improving
pericardial drain off, echo better
hgb better post PRBC
abx per primary
will provide HD again today
d/w pt and
d/w ICU
-
-
Date of Service: October 17, 2024
CC / HPI / ROS
-
Chief Complaint:
DEAN
History of Present Illness:
CRRT initiated 10/13, off 10/14
s/p pericardiocentesis 550cc, bloody fluid 10/13
INR and LFTs high-improving
off pressors
non oliguric with langley
wt is down
WBC improving, hb better at 12
Review of Systems:
on RA, no fever
feels well , has cough
langley remains UOP ~ 2liters
weights down
Labs
-
Labs:
WBC 12.1 10^3/uL (4.8-10.8) H 10/17/24 04:37
RBC 3.56 10^6/uL (4.70-6.10) L 10/17/24 04:37
Hgb 11.2 g/dL (13.0-18.0) L 10/17/24 04:37
Hct 31.6 % (39.0-52.0) L 10/17/24 04:37
Plt Count 145 10^3/uL (130-400) 10/17/24 04:37
Sodium 139 mmol/L (135-145) 10/17/24 04:37
Potassium 4.5 mmol/L (3.5-5.1) 10/17/24 04:37
Chloride 103 mmol/L (98-107) 10/17/24 04:37
Carbon Dioxide 24 mmol/L (22-30) 10/17/24 04:37
BUN 112 mg/dl (9-20) H* 10/17/24 04:37
Creatinine 3.0 mg/dL (0.7-1.3) H 10/17/24 04:37
eGFR 20.74 10/17/24 04:37
Glucose 240 mg/dl (70-99) H 10/17/24 04:37
Calcium 8.3 mg/dl (8.4-10.2) L 10/17/24 04:37
Phosphorus 5.3 mg/dl (2.5-4.5) H 10/15/24 03:12
Qnn-Z-Htognewqpdv Pept 1120 pg/ml 10/12/24 14:17
Albumin 2.9 g/dl (3.5-5.0) L 10/17/24 04:37
Physical Exam
-
Vital Signs:
Vital Signs
Temp Pulse Resp BP Pulse Ox
97.7 F 83 16 154/76 95
10/17/24 03:41 10/17/24 07:56 10/17/24 07:56 10/17/24 07:50 10/17/24 07:56
Cardiovascular:: Regular rate and rhythm
Respiratory:: Bilateral: Coarse
Lung Excursion:: Normal
Abdomen:: Nontender and Soft
Bowel Sounds:: Normal
Extremity Edema:: +1: Bilateral:
Langley Catheter: Yes
--- NOTE | 2024-10-17 09:16 | PTCARENOTE ---
Pt received from maintenance supervisor 2nd shift RN. Pt's at bedside. She states mental status is again improved compared to yesterday. Ox3 still drowsy at times. NSR on tele, +1 anasarca. Currently 96% on RA, breath sounds clear throughout. Pt getting up to 1000
on IS, encouraged continued use. Appetite improving, blood sugars are still high, 227 this morning after receiving 10units of additional insulin overnight. Mcdermott in place draining clear yellow urine. IV sites intact. HD cath in tact. All questions
answered, pt makes needs known.
[2024-10-17] MEDS: MANNITOL 25% 12.5 GRAMS IV ×2 (11:58→13:39)
[2024-10-17 12:14] LABS: INR 1.82; PT 21.3 Sec (11.4-14.6)
--- NOTE | 2024-10-17 12:25 | W.PN.HOSP.TC ---
Today's Communication/Plan
-
HD as per nephro
cont monitoring off Abx - leukocytosis improving
Increased Basal/Bolus insulin dosing
Assessment / Plan
Assessment / Plan
78yo M with PMHx of DM, COPD, Hx of HepB, Afib on Xarelto s/p cardioversion on 10/09 came with worsening SOB and Afib with RVR. Recently started on oral Abx with concern for pneumonia. With concern for sepsis - received hydration in ICU and later
found with signs of pulmonary congestion on XR chest. With worsening labs transferred to ICU for insulin drip. Found large pericardial effusion on Echo s/p pericardiocentesis with drain that showed sanguineous fluid. With new coagulopathy - anticoag
stopped. Intubated on 10/13/24 due to worsening acidosis. Started on CRRT with worsening renal failure on 10/13/24. DIC ruled out, was managed for coagulopathy with FFP and PRBC transfusions. Extubated on 10/15/24. Labs improving, but still
requires HD
A/P:
#Afib with RVR
#Acute on chronic HFpEF with pulmonary congestion on XR
can be 2/2 hypoxia, however did not correct on IVF and O2 supplementation
Telemetry
ProBNP minimally elevated from baseline on admission
TSH WNL
Lasix as per nephro in view of DEAN
completed CRRT
Amio with close LFT follow up - reasonable to preserve sinus rhythm as anticoagulation is extremely risky with recent hemopericardium
#Pericardial effusion, sanguinous, with impending tamponade
Cx NTD
Cardiology follows
Drain removed on 10/15/24
Hold off anticoagulation
#Coagulopathy
Multifactorial: 2/2 sepsis, Xarelto, heparin, ischemic hepatitis
follow INR
fibrinogen elevated -no concern for DIC
ddimer significantly elevated - acute phase reaction?
Hematology consult: follow haptoglobin
Blood transfusion consent signed
#Acute hypoxic respiratory failure, multifactorial, concern for bibasilar pneumonia with possible sepsis on admission
#Hemorrhagic vs septic shock
Cefepime stopped with negative Cx as per plastic design applier
Linezolid and Doxy discontinued with Legionella, S.pneumonia urinary Ag neg and MRSA screen neg
Bcx NTD
Sputum Cx NTD
COVID-19, Influenza, RSV neg
Procalcitonin elevated to 1.23
Intubated on 10/13/24
CT: bilateral pleural effusions with consolidation or atelectasis. Moderate-severe emphysema of the lungs, diverticulosis w/o diverticulitis. Mild b/l perinephric stranding
Vent, pressors and sedation mgmt as per plastic design applier
#Transaminitis 2/2 ischemic hepatitis
#Positive HepB core - previous infection
Most likely hypoperfusion 2/2 RVR with additional sepsis and hypoxia
follow LFT
GI consult: portal Doppler without PVT, liver and biliary tree without acute pathology
#Acute blood loss anemia on anemia of chronic disease and history of CHELI
worsened with new coagulopathy
Hx of EGD, colonoscopy and pill endoscopy without source of bleeding
LDH significantly elevated - follow haptoglobin
follow CBC
Transfuse to keep Hgb between 7.0-8.0
#Reactive thrombocytosis
resolved
#Elevated LDH
2/2 acute disease
KELLEY neg
haptoglobin pending
#Hyperuricemia
2/2 DEAN?
#Hyperkalemia with DEAN on CKD stage 3b
#Metabolic acidosis, cannot exclude DKA component
did not resolved with correction of hypoxia and RVR
Reasonable to start insulin drip with elevated BHB, complicated comorbidities to call DKA, since patient has other reasons for acidosis as well and blood sugar not significantly elevated. Was not on SGLT2 inh
serial BMP q2h
Accucheck q1h
Nephrology consult: CRRT stopped on 10/14/24
Lokelma
Hold ACEi
#COPD, not in exacerbation
No wheezing, but tight breathing sounds
With prevalent pulmonary congestion picture - stopped steroids
Cont bronchodilators
#DM type 2 with nephropathy
Insulin SS, DM diet, Accuchecks
Start Basal bolus on 10/16/24 and adjust as needed
HgbA1c
Hold oral antiglycemic
#LE edema
US LE neg for DVT
#positive UA
no urinary symptoms
Ucx NTD
DVT ppx heparin drip
Full code
PPI ppx
I Have spent at least 38min of critical care time reviewing chart, test results, communication with consultants and direct patient care
Anticipated Discharge: > 48 hours
Subjective/Interval History
-
Date of Service: October 17, 2024
Objective Data
-
Labs:
Laboratory Results
10/17/24 10/17/24
04:37 11:39
WBC 12.1 H
Hgb 11.2 L
Hct 31.6 L
Plt Count 145
PT 21.3 H
INR 1.82
Sodium 139
Potassium 4.5
Chloride 103
Carbon Dioxide 24
BUN 112 H*
Creatinine 3.0 H
Glucose 240 H
Calcium 8.3 L
Total Bilirubin 2.3 H
AST 415 H
ALT 2842 H*
Alkaline Phosphatase 216 H
Vital Signs:
Vital Signs
Temp Pulse Resp BP Pulse Ox
97.3 F 83 16 154/76 94
10/17/24 07:15 10/17/24 07:56 10/17/24 07:56 10/17/24 07:50 10/17/24 08:00
I&O
10/16/24 10/17/24 10/18/24
06:59 06:59 06:59
Intake Total 161.9 / 161.9 690 / 690
Output Total 1580 / 1705 1545 / 1545 1175 / 1175
Balance -1418.1 / -1543.1 -855 / -855 -1175 / -1175
Review of Systems
-
History Source: Patient
All other systems: Reviewed and negative
Physical Exam
-
General: Comfortable
Respiratory: Clear to Auscultation
Cardiac: Regular Rhythm
GI: Soft, Nontender and Nondistended
Musculoskeletal: No Clubbing, No Cyanosis, Edema, Right Lower Extrem and Edema, Left Lower Extrem
Neuro: Awake, Alert, Oriented and AO x 3
Psych: Calm
--- NOTE | 2024-10-17 12:30 | W.PN.NEPH.HD ---
Assessment
-
Patient seen on dialysis
Systolic blood pressure at 128 at UF
Decrease time to 2-1/2 hours as this is only his second treatment
Mannitol x 2 given
Progress Note - Hemodialysis
-
Date of Service: October 17, 2024
Duration: 30 minutes and 2 hours
Potassium Bath: 3
Calcium Bath: 2.5
Opti-Dialyzer: 160
Ultrafiltration: Other (1.5 kg)
Blood Flow: 300
Dialysate Flow: 600
Heparin: None
EPO: None
[2024-10-17 13:37] LABS: Glucose - Point of Care 184 mg/dl (70-99)
[2024-10-17] MEDS: HEPARIN 2200 UNITS INTRACATH (14:58)
[2024-10-17] MEDS: NOVOLOG FLEXPEN SC (15:24)
--- NOTE | 2024-10-17 16:04 | W.PN.CARDCBS ---
Today's Communication / Plan
-
Supportive care
Impression / Plan
-
Primary Head Of Cytogenetics: Dr. Juan Carlos Gregg
Assessment:
Pericardial tamponade with cardiogenic shock with emergent pericardiocentesis 10/13/2028
Acute hypoxic respiratory failure Vent dependent respiratory failure
Acute HFpEF related to tamponade
Metabolic acidosis
Atrial flutter with RVR status post cardioversion October 09
Hyperkalemia
Shock liver
Anemia, history of CHELI
DEAN on CKD, on CRRT
Recent PNA, concern for acute infectious process
Paroxysmal Afib s/p PVI 02/2019
Paroxysmal atrial tachycardia s/p ablation 02/2019
Paroxysmal typical atrial flutter s/p CTI ablation 2015 with recurrence 09/2024 s/p CV 10/09/24
chronic OAC with xarelto
DM2
HTN
HLD
COPD
former smoker
BPH
Prostate cancer, diagnosed 01/2022
ECHO 02/21/24: EF 55 to 60%, mild MR, trace AR, PAP 30 to 35 mmHg
Plan:
Medically complex 78-year-old gentleman with multisystem organ failure S/p pericardiocentesis for tamponade and shock.
-Appreciate nephrology input�patient is currently on dialysis
-2D echocardiogram done yesterday with trivial pericardial effusion and normal LV systolic function
-He is no longer in atrial flutter.
-Would continue to hold Xarelto given bloody pericardial effusion.
-Continue amiodarone 200 mg twice daily to help maintain sinus rhythm and reduce likelihood of recurrent A-fib which would be problematic in the setting of tamponade requiring emergent pericardiocentesis.
-Monitor coagulopathy; appreciate hematology input
-INR is improving, now 1.82
Progress Note - Head Of Cytogenetics
Subjective
Date of Service: October 17, 2024
Patient seen and examined on dialysis
Objective
Labs:
10/17/24 04:37
10/17/24 04:37
Labs
Hgb 11.2 g/dL (13.0-18.0) L 10/17/24 04:37
Hct 31.6 % (39.0-52.0) L 10/17/24 04:37
Plt Count 145 10^3/uL (130-400) 10/17/24 04:37
PT 21.3 Sec (11.4-14.6) H 10/17/24 11:39
INR 1.82 10/17/24 11:39
APTT 92.1 Sec (23.4-35.0) H 10/13/24 11:18
Sodium 139 mmol/L (135-145) 10/17/24 04:37
Potassium 4.5 mmol/L (3.5-5.1) 10/17/24 04:37
BUN 112 mg/dl (9-20) H* 10/17/24 04:37
Creatinine 3.0 mg/dL (0.7-1.3) H 10/17/24 04:37
Glucose 240 mg/dl (70-99) H 10/17/24 04:37
Vital Signs and I&O:
Vital Signs
Temp Pulse Resp BP Pulse Ox
97.4 F 85 22 109/64 95
10/17/24 11:20 10/17/24 14:15 10/17/24 14:15 10/17/24 14:15 10/17/24 14:19
Vital Signs
Temp Pulse Resp BP Pulse Ox
97.4 F 85 22 109/64 95
10/17/24 11:20 10/17/24 14:15 10/17/24 14:15 10/17/24 14:15 10/17/24 14:19
Intake & Output
10/15/24 10/16/24 10/17/24 10/18/24
06:59 06:59 06:59 06:59
Intake Total 1869.6 / 1872.6 161.9 / 161.9 690 / 690
Output Total 1004 / 1019 1580 / 1705 1545 / 1545 1175 / 1175
Balance 865.6 / 853.6 -1418.1 / -1543.1 -855 / -855 -1175 / -1175
Physical Exam
Physical Exam
General: 78-year-old gentleman on dialysis
Heart: Regular, positive S1/S2, no murmur
Lungs: Decreased breath sounds anteriorly. HD cath
Abd: Positive BS, NT/ND, neg rebound/rigidity/guarding
Ext: No edema
[2024-10-17 16:13] LABS: Glucose - Point of Care 185 mg/dl (70-99)
[2024-10-17] MEDS: NOVOLOG FLEXPEN-MODERATE RESISTANCE SC (16:29)
[2024-10-17] MEDS: NOVOLOG FLEXPEN 12 UNITS SC (17:00)
[2024-10-17] MEDS: NOVOLOG FLEXPEN-MODERATE RESISTANCE 1 UNITS SC (17:00)
--- NOTE | 2024-10-17 18:44 | PTCARENOTE ---
Pt reassessed. 1.5 kg removed with HD. Pt initially tolerating well with BP's in the 120's. HE is quite lethargic after dialysis, he was able to eat 50% of his dinner and went back to sleep. BP's now alarming in the 80/50's. Nephrology made aware
and a one time bolus of 500mls was ordered.
[2024-10-17] MEDS: NSS 500 IV (20:47)
[2024-10-17 22:13] LABS: Glucose - Point of Care 195 mg/dl (70-99)
--- NOTE | 2024-10-17 22:38 | PTCARENOTE ---
Handoff report received from off going RN. Patient received in bed with his eyes closed. Arouses to verbal command. Plan of care for the shift reviewed with the patient. AAOx3 and able to make his needs known. Denies pain. Sinus rhythm with PACs on
the monitor. Breath sounds are diminished. SpO2 at 95% on room air. Occasional nonproductive cough. +BS. Mcdermott catheter is in place. Scheduled medications administered. The patient brushed his teeth and assisted with repositioning. Pt's family
remains at the bedside.
2216. Pt's BG 195. SPRAYING MACHINE OPERATOR made aware. No new orders.
[2024-10-18] VITALS (20 sets, daily range): BP systolic 95–170; BP diastolic 47–85; BMI 29.0
--- NOTE | 2024-10-18 00:53 | PTCARENOTE ---
Patient reassessed. No changes from the previous assessment. Patient cleansed with CHG wipes. Linens changed. Pt's spouse is at the bedside.
[2024-10-18 04:16] LABS: APTT 31.2 Sec (23.4-35.0); INR 1.68
[2024-10-18 04:25] LABS: Hematocrit 30.2 % (39.0-52.0); Hemoglobin 10.7 g/dL (13.0-18.0); Mean Corp Hgb Conc. 35.4 g/dL (33.0-37.0); Mean Corpuscular Hgb 31.4 pg (27.0-31.0); Mean Corpuscular Volume 88.6 fL (80.0-94.0); Red Blood Cell Count 3.41 10^6/uL (4.70-6.10); Red Cell Dist. Width 14.9 % (11.5-14.5); White Blood Cell Count 10.9 10^3/uL (4.8-10.8)
[2024-10-18 04:28] LABS: AST (SGOT) 193 U/L (17-59); Albumin 2.8 g/dl (3.5-5.0); Alkaline Phosphatase 195 U/L (38-126); Blood Urea Nitrogen 80 mg/dl (9-20); Calcium 7.8 mg/dl (8.4-10.2); Carbon Dioxide 25 mmol/L (22-30); Chloride 105 mmol/L (98-107); Estimated Creatinine Clearance 35 ml/min; Glucose 193 mg/dl (70-99); Potassium 4.4 mmol/L (3.5-5.1); Sodium 139 mmol/L (135-145); Total Bilirubin 2.5 mg/dl (0.2-1.3); Total Protein 5.2 g/dl (6.3-8.2); eGFR 31.82
[2024-10-18 04:29] LABS: Fibrinogen 249 MG/DL (199-459)
--- NOTE | 2024-10-18 04:34 | PTCARENOTE ---
Patient reassessed. No changes. arouses to voice. Pt declined repositioning at this time.
[2024-10-18 04:39] LABS: D-Dimer > 20.00 ug/mlFEU (0.00-0.50)
[2024-10-18 04:40] LABS: ALT (SGPT) 1878 U/L (0-50)
--- NOTE | 2024-10-18 06:44 | PTCARENOTE ---
Pt's labs resulted. D dimer >20. LONNY Aguero made aware. No new orders.
[2024-10-18 07:09] LABS: Mean Platelet Volume 11.1 fL (7.4-10.4); Platelet Count 49 10^3/uL (130-400)
[2024-10-18 07:11] LABS: % Basophils 0.1 % (0-2); % Eosinophils 0.2 % (0-6); % Immature Granulocytes 0.6 % (0-0.5); % Lymphocytes 4.9 % (20.5-51.1); % Monocytes 6.5 % (1.7-9.3); % Neutrophils 87.7 % (42.2-75.2); Absolute Immature Granulocytes 0.1 10^3/uL (0-0.05); Absolute Lymphocytes 0.5 10^3/uL (1.2-3.4); Absolute Monocytes 0.7 10^3/uL (0.1-0.6); Absolute Neutrophils 9.6 10^3/uL (1.4-6.5); Nucleated Red Blood Cells % 0.2 % (-)
--- NOTE | 2024-10-18 07:20 | W.PN.ONC2 ---
Addendum entered and electronically signed by Jessica Rosenberg MD 10/18/24 20:01:
Case d/w Dr. Mims. Upon review of medical record, pt was on a heparin drip within the last 100 days, and she got heparin with hemodialysis within 24 hours prior to platelet drop.
HIT 4T test intermediate risk with score of 5. Will hold off on argatroban as pt with recent blood pericardial effusion.
Amiodarone also has an association with thrombocytopenia. Observe for improvement with amiodarone now held.
Await HIT VILMA.
Original Note:
Today's Communication / Plan
-
daily CBC, coags
consider alternative to amiodarone with acute drop in platelet since starting amiodarone
Impression
Impression
acute thrombocytopenia, 49,000 -no evidence of acute dic with normal fibrinogen
pericardial tamponade with cardiogenic shock with emergent pericardiocentesis 10/13/2028 -pericardial effusion negative for malignancy
HFpEF
AF RVR
COPD, former smoker
coagulopathy from Xarelto, heparin, shock liver s/p 5FFP, last 10/14, 2cryo on 10/13 -improved
acute on chronic anemia (CHELI/CKD) s/p 5 unit prbc, last 10/14. no evidence hemolysis with elevated haptoglobin & KELLEY negative. Hgb stable 10.7g/dL today
DEAN on CKD
elevated LFTs -improving
prostate cancer, undetectable PSA per patient
Plan
Plan
new acute thrombocytopenia -possibly 2/2 amiodarone started 10/16 -otherwise medications that could contribute were stopped prior to drop in platelets ie last dose Zyvox 10/14, Vibramycin 10/13, heparin gtt 10/13, cefepime 10/14, and ceftriaxone
10/15
Support anemia w/ transfusions as needed. Was to have bone marrow biopsy in 2022, but cancelled. t/c outpt heme
Iron studies difficult to interpret since checked after transfusions -would repeat in 6 weeks to assess trend
CRRT was initiated refractory acidosis on 10/13 -management per nephrology
Subjective/Objective
Subjective
no new complaints
mild oozing at CVL otherwise denies overt bleeding
at bedside provided updates
Vital Signs:
Vital Signs
Temp Pulse Resp BP Pulse Ox
97.4 F 66 16 144/63 95
10/17/24 23:12 10/18/24 01:00 10/18/24 01:00 10/18/24 00:00 10/18/24 01:00
Lab Results:
Laboratory Data
WBC 10.9 10^3/uL (4.8-10.8) H 10/18/24 03:36
Hgb 10.7 g/dL (13.0-18.0) L 10/18/24 03:36
Plt Count 49 10^3/uL (130-400) L D 10/18/24 03:36
PT 20.0 Sec (11.4-14.6) H 10/18/24 03:36
INR 1.68 10/18/24 03:36
APTT 31.2 Sec (23.4-35.0) 10/18/24 03:36
eGFR 31.82 10/18/24 03:36
Orders
Orders
Orders From Last 24 Hours
10/18/24 03:36
D-Dimer IN AM
Fibrinogen IN AM
INR [Prothrombin Time] IN AM
PTT IN AM
--- NOTE | 2024-10-18 07:32 | W.PN.NEPH.PH ---
Today's Communication / Plan
-
No HD today
Observe
Assessment/Plan
-
Impression:
Acute kidney injury
Acute hypoxic respiratory with history of COPD
CHF decompensation (HFPef)
Anemia with elevated LDH
Hyperkalemia
Gapped metabolic acidosis/beta hydroxybutyrate
Chronic kidney disease stage III with baseline creatinine of 1.6
Hypertension
Paroxysmal atrial fibrillation
Diabetes
Prostate CA
Transaminitis
Pericardial effusion
Plan:
DEAN/Hyperkalemia/Gapped metabolic acidosis (lactic acidemia/DKA), pericardial tamponade
CRRT was initiated refractory acidosis on 10/13
Patient received dialysis on 10/17/2024
We will hold off dialysis today and observe as patient grossly nonoliguric and acidosis corrected
improving UOP , keep langley
azotemia is worse-monitor , holding lasix today
if worsening renal function likely need HD tomorrow
BP stable on low dose BB
LFTs high likely shock liver-improving
pericardial drain off, echo better
d/w pt and
-
-
Date of Service: October 18, 2024
CC / HPI / ROS
-
Chief Complaint:
DEAN
History of Present Illness:
CRRT initiated 10/13, off 10/14, HD 10/17
s/p pericardiocentesis 550cc, bloody fluid 10/13
INR and LFTs high-improving
off pressors
non oliguric with langley
wt is down
WBC improving
Review of Systems:
on RA, no fever
langley remains UOP ~ 2liters
weights down
temp IJ catheter
Labs
-
Labs:
WBC 10.9 10^3/uL (4.8-10.8) H 10/18/24 03:36
RBC 3.41 10^6/uL (4.70-6.10) L 10/18/24 03:36
Hgb 10.7 g/dL (13.0-18.0) L 10/18/24 03:36
Hct 30.2 % (39.0-52.0) L 10/18/24 03:36
Plt Count 49 10^3/uL (130-400) L D 10/18/24 03:36
Sodium 139 mmol/L (135-145) 10/18/24 03:36
Potassium 4.4 mmol/L (3.5-5.1) 10/18/24 03:36
Chloride 105 mmol/L (98-107) 10/18/24 03:36
Carbon Dioxide 25 mmol/L (22-30) 10/18/24 03:36
BUN 80 mg/dl (9-20) H 10/18/24 03:36
Creatinine 2.1 mg/dL (0.7-1.3) H 10/18/24 03:36
eGFR 31.82 10/18/24 03:36
Glucose 193 mg/dl (70-99) H 10/18/24 03:36
Calcium 7.8 mg/dl (8.4-10.2) L 10/18/24 03:36
Phosphorus 5.3 mg/dl (2.5-4.5) H 10/15/24 03:12
Gtf-R-Fppykilpsdp Pept 1120 pg/ml 10/12/24 14:17
Albumin 2.8 g/dl (3.5-5.0) L 10/18/24 03:36
Physical Exam
-
Vital Signs:
Vital Signs
Temp Pulse Resp BP Pulse Ox
97.7 F 66 16 144/63 95
10/18/24 07:00 10/18/24 01:00 10/18/24 01:00 10/18/24 00:00 10/18/24 01:00
Cardiovascular:: Regular rate and rhythm
Respiratory:: Bilateral: Coarse
Lung Excursion:: Normal
Abdomen:: Nontender and Soft
Bowel Sounds:: Normal
Extremity Edema:: +1: Bilateral: (trace)
Langley Catheter: Yes
[2024-10-18] MEDS: SYMBICORT 160/4.5 MCG INHALER 2 PUFF INH ×2 (07:43→19:41)
[2024-10-18 08:05] LABS: Glucose - Point of Care 202 mg/dl (70-99)
[2024-10-18] MEDS: SENOKOT-S 1 TABLET PO (08:54)
[2024-10-18] MEDS: PACERONE 200 MG PO (08:54)
[2024-10-18] MEDS: LANTUS 0.16 UNITS SC (08:55)
[2024-10-18] MEDS: NOVOLOG FLEXPEN 12 UNITS SC ×3 (08:55→18:16)
[2024-10-18] MEDS: NOVOLOG FLEXPEN-MODERATE RESISTANCE 3 UNITS SC ×2 (08:55→14:14)
[2024-10-18] MEDS: MIRALAX 17 GRAMS TUBE (08:56)
[2024-10-18] MEDS: TOPROL XL 25 MG PO (08:59)
[2024-10-18] MEDS: CORDARONE 518 MG IV (10:18)
--- NOTE | 2024-10-18 10:38 | W.PN.HOSP.TC ---
Today's Communication/Plan
-
follow labs
Cardio for rhythm/rate control since recurrent RVR -cardizem drip
HIT Ab sent
Assessment / Plan
Assessment / Plan
78yo M with PMHx of DM, COPD, Hx of HepB, Afib on Xarelto s/p cardioversion on 10/09 came with worsening SOB and Afib with RVR. Recently started on oral Abx with concern for pneumonia. With concern for sepsis - received hydration in ICU and later
found with signs of pulmonary congestion on XR chest. With worsening labs transferred to ICU for insulin drip. Found large pericardial effusion on Echo s/p pericardiocentesis with drain that showed sanguineous fluid. With new coagulopathy - anticoag
stopped. Intubated on 10/13/24 due to worsening acidosis. Started on CRRT with worsening renal failure on 10/13/24. DIC ruled out, was managed for coagulopathy with FFP and PRBC transfusions. Extubated on 10/15/24. Labs improving, but still
requires HD. Developed thrombocytopenia
A/P:
#Afib with RVR
#Acute on chronic HFpEF with pulmonary congestion on XR
can be 2/2 hypoxia, however did not correct on IVF and O2 supplementation
Telemetry
ProBNP minimally elevated from baseline on admission
TSH WNL
Lasix as per nephro in view of DEAN
completed CRRT
Amio started on 10/17/24, but developed thrombocytopenia, so switched to cardizem
#Pericardial effusion, sanguinous, with tamponade and cardiogenic shock
s/p pericardiocentesis draining hemopericardium on 10/13/24
Cx NTD
Cardiology follows
Drain removed on 10/15/24
Hold off anticoagulation
#Thrombocytopenia
Hematology follows - recommended to stop Amio - cardiology will switch to Cardizem
HIT AB pending
Not on heparin product since 10/13/24
#Coagulopathy
Multifactorial: 2/2 sepsis, Xarelto, heparin, ischemic hepatitis
follow INR
improved
#Acute hypoxic respiratory failure, multifactorial, concern for bibasilar pneumonia with possible sepsis on admission
#Concern for septic shock on admission
Cefepime stopped with negative Cx as per costume specialist
Linezolid and Doxy discontinued with Legionella, S.pneumonia urinary Ag neg and MRSA screen neg
Bcx NTD
Sputum Cx NTD
COVID-19, Influenza, RSV neg
Procalcitonin elevated to 1.23
#Transaminitis 2/2 ischemic hepatitis
#Positive HepB core - previous infection
Most likely hypoperfusion 2/2 RVR with additional sepsis and hypoxia
follow LFT
GI consult: portal Doppler without PVT, liver and biliary tree without acute pathology
#Acute blood loss anemia on anemia of chronic disease and history of CHELI
worsened with new coagulopathy
Hx of EGD, colonoscopy and pill endoscopy without source of bleeding
LDH significantly elevated - follow haptoglobin
follow CBC
Transfuse to keep Hgb between 7.0-8.0
#Reactive thrombocytosis
resolved
#Elevated LDH
2/2 acute disease
KELLEY neg
haptoglobin high-normal - no concern for hemolysis
#Hyperuricemia
2/2 DEAN?
#Hyperkalemia with DEAN on CKD stage 3b
#Metabolic acidosis, cannot exclude DKA component
completed insulin drip
Nephrology for HD
#COPD, not in exacerbation
No wheezing, but tight breathing sounds
With prevalent pulmonary congestion picture - stopped steroids
Cont bronchodilators
#DM type 2 with nephropathy
Insulin SS, DM diet, Accuchecks
Start Basal bolus on 10/16/24 and adjust as needed
HgbA1c
Hold oral antiglycemic
#LE edema
US LE neg for DVT
#positive UA
no urinary symptoms
Ucx NTD
DVT ppx SCDs
Full code
PPI ppx
I Have spent at least 38min of critical care time reviewing chart, test results, communication with consultants and direct patient care
Anticipated Discharge: > 48 hours
Subjective/Interval History
-
Date of Service: October 18, 2024
Objective Data
-
Labs:
Laboratory Results
10/18/24 10/18/24
03:36 09:24
WBC 10.9 H Pending
Hgb 10.7 L Pending
Hct 30.2 L Pending
Plt Count 49 L D Pending
PT 20.0 H
INR 1.68
APTT 31.2
Sodium 139
Potassium 4.4
Chloride 105
Carbon Dioxide 25
BUN 80 H
Creatinine 2.1 H
Glucose 193 H
Calcium 7.8 L
Total Bilirubin 2.5 H
AST 193 H
ALT 1878 H*
Alkaline Phosphatase 195 H
Vital Signs:
Vital Signs
Temp Pulse Resp BP Pulse Ox
97.7 F 72 18 170/74 96
10/18/24 07:00 10/18/24 08:54 10/18/24 07:48 10/18/24 08:54 10/18/24 07:48
I&O
10/17/24 10/18/24 10/19/24
06:59 06:59 06:59
Intake Total 690 / 690 1100 / 1100
Output Total 1545 / 1545 2410 / 2410
Balance -855 / -855 -1310 / -1310
Review of Systems
-
History Source: Patient
All other systems: Reviewed and negative
Physical Exam
-
General: No Apparent Distress
HEENT: Other (oozing blood from HD cath site)
Cardiac: Irregular Rhythm and Tachycardic
GI: Soft, Nontender and Nondistended
Musculoskeletal: No Clubbing, No Cyanosis, Edema, Right Lower Extrem and Edema, Left Lower Extrem
Neuro: Awake, Alert, Oriented and AO x 3
Psych: Calm
[2024-10-18 10:56] LABS: Hematocrit 35.3 % (39.0-52.0); Hemoglobin 12.2 g/dL (13.0-18.0); Mean Corp Hgb Conc. 34.6 g/dL (33.0-37.0); Mean Corpuscular Volume 89.6 fL (80.0-94.0); Mean Platelet Volume 12.4 fL (7.4-10.4); Platelet Count 53 10^3/uL (130-400); Red Blood Cell Count 3.94 10^6/uL (4.70-6.10); Red Cell Dist. Width 15.1 % (11.5-14.5); White Blood Cell Count 11.7 10^3/uL (4.8-10.8)
--- NOTE | 2024-10-18 10:56 | W.PN.CARDCBS ---
Today's Communication / Plan
-
Discontinue amiodarone
Trial of IV Cardizem for recurrent atrial fibrillation
Monitor platelets and appreciate hematology input
Impression / Plan
-
Primary Fur Floor Worker: Dr. Juan Carlos Gregg
Assessment:
Pericardial tamponade with cardiogenic shock with emergent pericardiocentesis 10/13/2028
Acute hypoxic respiratory failure Vent dependent respiratory failure
Acute HFpEF related to tamponade
Metabolic acidosis
Atrial flutter with RVR status post cardioversion October 09
Hyperkalemia
Shock liver
Anemia, history of CHELI
DEAN on CKD, on CRRT
Recent PNA, concern for acute infectious process
Paroxysmal Afib s/p PVI 02/2019
Paroxysmal atrial tachycardia s/p ablation 02/2019
Paroxysmal typical atrial flutter s/p CTI ablation 2015 with recurrence 09/2024 s/p CV 10/09/24
chronic OAC with xarelto
DM2
HTN
HLD
COPD
former smoker
BPH
Prostate cancer, diagnosed 01/2022
ECHO 02/21/24: EF 55 to 60%, mild MR, trace AR, PAP 30 to 35 mmHg
Plan:
Medically complex 78-year-old gentleman with multisystem organ failure s/p pericardiocentesis for tamponade and shock.
New development of acute thrombocytopenia
-Platelets dropped in the last 24 hours from 145 to 49. Repeat platelets 53
-Fortunately hemoglobin is stable
-Discussed with hospitalist, nephrology, and hematology: Patient had IV heparin last week, discontinued 10/13. He was likely exposed to small amount of heparin during dialysis yesterday. Amiodarone is also new as of October 16. Concern for HIT and
assay was sent. Out of abundance of caution we will also discontinue amiodarone.
-Monitor coagulopathy/platelets closely. INR today 1.68
Bloody pericardial effusion new since February 2024 status post pericardiocentesis for tamponade/shock
-2D echocardiogram done 10/16/2024 with trivial pericardial effusion and normal LV systolic function
-Pericardial drain removed 10/15/2024
-Would continue to hold Xarelto given bloody pericardial effusion
Atrial fibrillation/flutter status post recent cardioversion October 09, 2024
-Patient went back into asymptomatic rapid atrial fibrillation this morning and placed on IV amiodarone drip
-Amiodarone will be discontinued after multidisciplinary discussion of new thrombocytopenia
-Will try IV Cardizem drip.
Acute renal insufficiency requiring CRRT status post dialysis yesterday
-Appreciate nephrology input. They doubt he will require long-term dialysis and hope renal function will continue to improve
Progress Note - Fur Floor Worker
Subjective
Date of Service: October 18, 2024
patient seen and examined with at bedside. Offers no complaints and denies palpitations, dizziness or chest pain. Shortness of breath unchanged
Objective
Labs:
10/18/24 03:36
Labs
Hgb 10.7 g/dL (13.0-18.0) L 10/18/24 03:36
Hct 30.2 % (39.0-52.0) L 10/18/24 03:36
Plt Count 49 10^3/uL (130-400) L D 10/18/24 03:36
PT 20.0 Sec (11.4-14.6) H 10/18/24 03:36
INR 1.68 10/18/24 03:36
APTT 31.2 Sec (23.4-35.0) 10/18/24 03:36
Sodium 139 mmol/L (135-145) 10/18/24 03:36
Potassium 4.4 mmol/L (3.5-5.1) 10/18/24 03:36
BUN 80 mg/dl (9-20) H 10/18/24 03:36
Creatinine 2.1 mg/dL (0.7-1.3) H 10/18/24 03:36
Glucose 193 mg/dl (70-99) H 10/18/24 03:36
Vital Signs and I&O:
Vital Signs
Temp Pulse Resp BP Pulse Ox
97.7 F 72 18 170/74 96
10/18/24 07:00 10/18/24 08:54 10/18/24 07:48 10/18/24 08:54 10/18/24 07:48
Vital Signs
Temp Pulse Resp BP Pulse Ox
97.7 F 72 18 17074 96
10/18/24 07:00 10/18/24 08:54 10/18/24 07:48 10/18/24 08:54 10/18/24 07:48
Intake & Output
10/16/24 10/17/24 10/18/24 10/19/24
06:59 06:59 06:59 06:59
Intake Total 161.9 / 161.9 690 / 690 1100 / 1100
Output Total 1580 / 1705 1545 / 1545 2410 / 2410
Balance -1418.1 / -1543.1 -855 / -855 -1310 / -1310
Physical Exam
Physical Exam
General: 78-year-old gentleman
Heart: Irregularly irregular positive S1/S2, no murmur
Lungs: Decreased breath sounds anteriorly. HD cath
Abd: Positive BS, NT/ND, neg rebound/rigidity/guarding
Ext: No edema
[2024-10-18] MEDS: CARDIZEM 125 IV ×2 (11:52→20:37)
[2024-10-18 11:54] LABS: Glucose - Point of Care 218 mg/dl (70-99)
--- NOTE | 2024-10-18 12:25 | PTCARENOTE ---
Pt more drowsy this AM, sleeping between interactions. He slept well last night with no further dips in BP. Plt's low, noted his NT HD cath dressing to be slowly oozing blood. Shortly after 9 AM, pt was found to be in AFib in the 110's, this was
confirmed by EKG. made aware and an amio gtt was ordered. Attempted to place new IV to start amio, VAT attempted and a midline was placed. Amio running through midline. Decision was made to stop amio and start diltiazem. at bedside, updated
with plan of care. Pt makes needs known.
[2024-10-18 16:57] LABS: Glucose - Point of Care 278 mg/dl (70-99)
[2024-10-18] MEDS: NOVOLOG FLEXPEN-MODERATE RESISTANCE 5 UNITS SC (18:15)
[2024-10-18 21:37] LABS: Glucose - Point of Care 211 mg/dl (70-99)
[2024-10-19] VITALS (29 sets, daily range): BP systolic 70–142; BP diastolic 48–87; PULSE 69–119; O2SAT 95–98; BMI 28.6
[2024-10-19 05:27] LABS: % Basophils 0.1 % (0-2); % Eosinophils 1.6 % (0-6); % Immature Granulocytes 1.1 % (0-0.5); % Lymphocytes 8.2 % (20.5-51.1); % Monocytes 11.6 % (1.7-9.3); % Neutrophils 77.4 % (42.2-75.2); Absolute Eosinophils 0.2 10^3/uL (0-0.7); Absolute Immature Granulocytes 0.1 10^3/uL (0-0.05); Absolute Lymphocytes 0.9 10^3/uL (1.2-3.4); Absolute Monocytes 1.2 10^3/uL (0.1-0.6); Absolute Neutrophils 8.1 10^3/uL (1.4-6.5); Hematocrit 29.5 % (39.0-52.0); Hemoglobin 10.4 g/dL (13.0-18.0); Mean Corp Hgb Conc. 35.3 g/dL (33.0-37.0); Mean Corpuscular Hgb 31.7 pg (27.0-31.0); Mean Corpuscular Volume 89.9 fL (80.0-94.0); Mean Platelet Volume 11.2 fL (7.4-10.4); Nucleated Red Blood Cells % 0 % (-); Platelet Count 52 10^3/uL (130-400); Red Blood Cell Count 3.28 10^6/uL (4.70-6.10); Red Cell Dist. Width 14.8 % (11.5-14.5); White Blood Cell Count 10.5 10^3/uL (4.8-10.8)
[2024-10-19 05:32] LABS: INR 1.44; PT 17.8 Sec (11.4-14.6)
[2024-10-19 05:54] LABS: AST (SGOT) 123 U/L (17-59); Albumin 2.6 g/dl (3.5-5.0); Alkaline Phosphatase 174 U/L (38-126); Blood Urea Nitrogen 81 mg/dl (9-20); Calcium 7.9 mg/dl (8.4-10.2); Carbon Dioxide 27 mmol/L (22-30); Chloride 105 mmol/L (98-107); Estimated Creatinine Clearance 37 ml/min; Glucose 110 mg/dl (70-99); Sodium 140 mmol/L (135-145); Total Protein 4.9 g/dl (6.3-8.2); Triglycerides 67 mg/dl (10-149); eGFR 33.74
[2024-10-19 06:06] LABS: ALT (SGPT) 1133 U/L (0-50)
[2024-10-19] MEDS: SYMBICORT 160/4.5 MCG INHALER 2 PUFF INH ×2 (07:31→20:24)
[2024-10-19] MEDS: LANTUS 0.16 UNITS SC (08:28)
[2024-10-19] MEDS: NOVOLOG FLEXPEN-MODERATE RESISTANCE SC ×3 (08:30→17:44)
[2024-10-19] MEDS: MIRALAX 17 GRAMS TUBE (08:34)
[2024-10-19] MEDS: NOVOLOG FLEXPEN 12 UNITS SC (08:34)
[2024-10-19 08:38] LABS: Glucose - Point of Care 139 mg/dl (70-99)
[2024-10-19] MEDS: CARDIZEM 125 IV (08:56)
--- NOTE | 2024-10-19 09:00 | PN.DE.MGMTRT ---
Insulin Management
- -
10/19/2024: Diabetes Management F/U:
78 year old male with PMH: T2DM, COPD, Hx of HepB, Afib on Xarelto s/p cardioversion on 10/09, admitted 10/12 with worsening SOB and Afib with RVR likely due to pneumonia with concern for sepsis, started on IV steroids, contributing to hyperglycemia
requiring insulin infusion. Found to have large pericardial effusion on Echo s/p pericardiocentesis with drain that showed sanguineous fluid. Intubated on 10/13/24 due to worsening acidosis. Started on CRRT due to worsening renal failure on
10/13/24. Was taking Januvia 50 mg daily, Metformin 850 TID and Glimepiride 4mg daily FLAT CLOTHIER.
A1C 7.2%, Cr 1.8 on admission, worsened to 3.1, eGFR 19.94
Pt awake, alert, sitting up in bed, offers no complaints, - April at bedside, able to discuss diabetes mgt at home.
Pt was extubated on 10/15/24, transitioned off insulin drip on 10/15 to Lantus 10 units and High corrective. Cr 2.0, eGFR 33.74 today.
Premeal glucose has remained elevated since transitioning off drip. 10/18 range was 202 to 278 requiring 3-5 units of corrective insulin with meals
Received Lantus 16 units @ HS, FBG 110(V) and 139 POC.
Will increase NovoLog to 15 units AC. Cont Lantus 16 units and moderate corrective insulin.
Pt is not a candidate for oral antiglycemic agents due to DEAN on CKD, will reassess when Cr is at baseline.
states pt has a working monitor and checks his blood sugars twice a day.
Diabetes History
- -
Type of Diabetes: 2 requiring insulin
Pre-Admission Diabetes Regimen
10/19/24
04:54
Creatinine 2.0 H
Lab Results
Hemoglobin A1c 7.2 % (4.0-5.6) H 10/12/24 12:29
Insulin Pump Settings
IP Diabetes Regimen
10/18/24 10/18/24 10/18/24
11:43 16:45 21:26
Glucose
POC Glucose 218 H 278 H 211 H
10/19/24 10/19/24
04:54 08:27
Glucose 110 H
POC Glucose 139 H
Meal type: Breakfast
Amount consumed: 70%
Patient Education
--- NOTE | 2024-10-19 10:28 | W.PN.CARDCBS ---
Today's Communication / Plan
-
Continue volume removal with diuresis and dialysis per nephrology. Chest x-ray with pleural effusions. Follow.
Status post emergency pericardiocentesis. Fluid bloody but no infection or malignancy noted
Reassess echocardiogram Limited study in a.m.
Await hematology opinion regarding thrombocytopenia. HIT pending
Impression / Plan
-
Primary System Auditor: Dr. Juan Carlos Gregg
Assessment:
Pericardial tamponade with cardiogenic shock with emergent pericardiocentesis 10/13/2028
Acute hypoxic respiratory failure Vent dependent respiratory failure
Acute HFpEF related to tamponade
Metabolic acidosis
Atrial flutter/atrial tachycardia with RVR status post cardioversion October 09
Hyperkalemia
Shock liver
Anemia, history of CHELI
DEAN on CKD, on CRRT
Recent PNA, concern for acute infectious process
Paroxysmal Afib s/p PVI 02/2019
Paroxysmal atrial tachycardia s/p ablation 02/2019
Paroxysmal typical atrial flutter s/p CTI ablation 2016 with recurrence 09/2024 s/p CV 10/09/24
chronic OAC with xarelto
DM2
HTN
HLD
COPD
former smoker
BPH
Prostate cancer, diagnosed 01/2022
ECHO 02/21/24: EF 55 to 60%, mild MR, trace AR, PAP 30 to 35 mmHg
Plan:
Medically complex 78-year-old gentleman with multisystem organ failure s/p pericardiocentesis for tamponade and cardiogenic shock.
New development of acute thrombocytopenia
-Hematology following
-Platelets low but stable at 52,000
-Hemoglobin stable
-Patient had IV heparin last week, discontinued 10/13. He was likely exposed to small amount of heparin during dialysis. Amiodarone is also new as of October 16. Concern for HIT and assay was sent. Out of abundance of caution we will also have
held amiodarone.
-Monitor coagulopathy/platelets closely.
Bloody pericardial effusion new since February 2024 status post pericardiocentesis for tamponade/shock
-2D echocardiogram done 10/16/2024 with trivial pericardial effusion and normal LV systolic function
-Pericardial drain removed 10/15/2024. Bloody but no infection or malignant cells noted.
-Would continue to hold Xarelto given bloody pericardial effusion also given thrombocytopenia.
-Patient is at risk for thromboembolic event given recent cardioversion 09/2022
-
Atrial fibrillation/flutter status post recent cardioversion October 09, 2024
-Patient went back into asymptomatic rapid atrial fibrillation and 10/18 and placed on IV amiodarone drip
-Amiodarone as noted it was discontinued after multidisciplinary discussion of new thrombocytopenia
-Currently on IV Cardizem drip.
-Will switch to oral diltiazem CD 180 mg and Toprol-XL 50 mg daily. Stop diltiazem drip if heart rate acceptable this afternoon. Will also place order for metoprolol IV pushes as needed.
Acute renal insufficiency requiring CRRT status post dialysis yesterday
-He is still making urine
-Appreciate nephrology input. They doubt he will require long-term dialysis and hope renal function will continue to improve
Heart failure with preserved ejection fraction and also iatrogenic volume overload.
-Still volume overloaded. Chest x-ray with pleural effusions
-Continue diuresis. Continue volume removal per nephrology.
-By report recent dry weight at home around 220 pounds. Currently 228 pounds.
Spoke with the patient and his at great length.
Progress Note - System Auditor
Subjective
Date of Service: October 19, 2024
He denies chest pain and palpitations. He has no dizziness.
Objective
Labs:
10/19/24 04:54
10/19/24 04:54
Labs
Hgb 10.4 g/dL (13.0-18.0) L 10/19/24 04:54
Hct 29.5 % (39.0-52.0) L 10/19/24 04:54
Plt Count 52 10^3/uL (130-400) L 10/19/24 04:54
PT 17.8 Sec (11.4-14.6) H 10/19/24 04:54
INR 1.44 10/19/24 04:54
APTT 31.2 Sec (23.4-35.0) 10/18/24 03:36
Sodium 140 mmol/L (135-145) 10/19/24 04:54
Potassium 4.0 mmol/L (3.5-5.1) 10/19/24 04:54
BUN 81 mg/dl (9-20) H 10/19/24 04:54
Creatinine 2.0 mg/dL (0.7-1.3) H 10/19/24 04:54
Glucose 110 mg/dl (70-99) H 10/19/24 04:54
Vital Signs and I&O:
Vital Signs
Temp Pulse Resp BP Pulse Ox
97.5 F 103 23 119/68 93
10/19/24 08:50 10/19/24 07:34 10/19/24 07:34 10/19/24 05:00 10/19/24 07:34
Vital Signs
Temp Pulse Resp BP Pulse Ox
97.5 F 103 23 119/68 93
10/19/24 08:50 10/19/24 07:34 10/19/24 07:34 10/19/24 05:00 10/19/24 07:34
Intake & Output
10/17/24 10/18/24 10/19/24 10/20/24
06:59 06:59 06:59 06:59
Intake Total 690 / 690 1100 / 1100 1102 / 1102
Output Total 1545 / 1545 2410 / 2410 1715 / 1715
Balance -855 / -855 -1310 / -1310 -613 / -613
Physical Exam
Physical Exam
General: Fatigued appearing man
Heart: Tachycardic
Lungs: Decreased breath sounds at the bases
Extremities: No clubbing, cyanosis and +1-2 edema bilaterally.
Neuro: Grossly nonfocal, awake, alert and oriented x3.
[2024-10-19] MEDS: CARDIZEM CD 180 MG PO (10:51)
--- NOTE | 2024-10-19 11:22 | W.PN.NEPH.PH ---
Today's Communication / Plan
-
lasix x1
Assessment/Plan
-
Impression:
Acute kidney injury
Acute hypoxic respiratory with history of COPD
CHF decompensation (HFPef)
Anemia with elevated LDH
Hyperkalemia
Gapped metabolic acidosis/beta hydroxybutyrate
Chronic kidney disease stage III with baseline creatinine of 1.6
Hypertension
Paroxysmal atrial fibrillation
Diabetes
Prostate CA
Transaminitis
Pericardial effusion
Plan:
DEAN/Hyperkalemia/Gapped metabolic acidosis (lactic acidemia/DKA), pericardial tamponade
CRRT was initiated refractory acidosis on 10/13
last dialysis on 10/17/2024
cr seem stable and non oliguric
We will hold off dialysis still and observe as patient grossly nonoliguric , keep langley
if renal function improving still likely d/c HD catheter soon
azotemia stable-monitor ,
CXR pleural effusion-ok for prn lasix
BP soft on BB, cardizem changed to PO
LFTs high likely shock liver-improving
pericardial drain off, echo repeat in am
thrombocytopenia-heme follows, HIT pending
dose meds renally
d/w pt and
-
-
Date of Service: October 19, 2024
CC / HPI / ROS
-
Chief Complaint:
DEAN
History of Present Illness:
CRRT initiated 10/13, off 10/14, HD 10/17
s/p pericardiocentesis 550cc, bloody fluid 10/13
INR and LFTs high-improving
BP soft
non oliguric with langley
wt is down
WBC improving, low plt stable 52k
Review of Systems:
on RA, no fever
langley remains UOP ~ 1.7liters
weights down
temp IJ catheter
Labs
-
Labs:
WBC 10.5 10^3/uL (4.8-10.8) 10/19/24 04:54
RBC 3.28 10^6/uL (4.70-6.10) L 10/19/24 04:54
Hgb 10.4 g/dL (13.0-18.0) L 10/19/24 04:54
Hct 29.5 % (39.0-52.0) L 10/19/24 04:54
Plt Count 52 10^3/uL (130-400) L 10/19/24 04:54
Sodium 140 mmol/L (135-145) 10/19/24 04:54
Potassium 4.0 mmol/L (3.5-5.1) 10/19/24 04:54
Chloride 105 mmol/L (98-107) 10/19/24 04:54
Carbon Dioxide 27 mmol/L (22-30) 10/19/24 04:54
BUN 81 mg/dl (9-20) H 10/19/24 04:54
Creatinine 2.0 mg/dL (0.7-1.3) H 10/19/24 04:54
eGFR 33.74 10/19/24 04:54
Glucose 110 mg/dl (70-99) H 10/19/24 04:54
Calcium 7.9 mg/dl (8.4-10.2) L 10/19/24 04:54
Phosphorus 5.3 mg/dl (2.5-4.5) H 10/15/24 03:12
Mld-N-Exiynkgowtg Pept 1120 pg/ml 10/12/24 14:17
Albumin 2.6 g/dl (3.5-5.0) L 10/19/24 04:54
Physical Exam
-
Vital Signs:
Vital Signs
Temp Pulse Resp BP Pulse Ox
98 F 105 27 105/48 94
10/19/24 11:15 10/19/24 10:32 10/19/24 10:32 10/19/24 10:32 10/19/24 10:32
Cardiovascular:: Irregular rate and rhythm
Lung Excursion:: Normal (decrased)
Abdomen:: Nontender and Soft
Extremity Edema:: +1: Bilateral: (trace)
Langley Catheter: Yes
[2024-10-19] MEDS: TOPROL XL 50 MG PO (11:51)
--- NOTE | 2024-10-19 12:07 | CM ---
CM following re: discharge planning.
Reviewed pt's chart, met with pt and pt.
Per chart review temporary dialysis treatment stopped on 10/17/24 and HD catheter will be removed soon.
PT and OT continue recommending SNF level of care. [facility] is preferred. Pt referred to [facility] last week, pending review status. Updated clinical provided to [facility] for a review.
D/c plan: [facility] when medically stable.
CM will follow with discharge plan updates as hospitalization progresses
[2024-10-19] MEDS: LASIX 20 MG IV (12:09)
[2024-10-19] MEDS: NOVOLOG FLEXPEN-MODERATE RESISTANCE 1 UNITS SC (12:15)
[2024-10-19] MEDS: NOVOLOG FLEXPEN 15 UNITS SC (12:16)
[2024-10-19 12:23] LABS: Glucose - Point of Care 182 mg/dl (70-99)
--- NOTE | 2024-10-19 12:26 | W.PN.HOSP.TC ---
Today's Communication/Plan
-
lasix per nephro
keep langley for now
OOB
Monitor HR
ECHO in am
Assessment / Plan
Assessment / Plan
78yo M with PMHx of DM, COPD, Hx of HepB, Afib on Xarelto s/p cardioversion on 10/09 came with worsening SOB and Afib with RVR. Recently started on oral Abx with concern for pneumonia. With concern for sepsis - received hydration in ICU and later
found with signs of pulmonary congestion on XR chest. With worsening labs transferred to ICU for insulin drip. Found large pericardial effusion on Echo s/p pericardiocentesis with drain that showed sanguineous fluid. With new coagulopathy - anticoag
stopped. Intubated on 10/13/24 due to worsening acidosis. Started on CRRT with worsening renal failure on 10/13/24. DIC ruled out, was managed for coagulopathy with FFP and PRBC transfusions. Extubated on 10/15/24. Labs improving, but still
requires HD. Developed thrombocytopenia
A/P:
#Afib with RVR
#Acute on chronic HFpEF with pulmonary congestion on XR
can be 2/2 hypoxia, however did not correct on IVF and O2 supplementation
Telemetry
ProBNP minimally elevated from baseline on admission
TSH WNL
Lasix as per nephro in view of DEAN
completed CRRT
Amio started on 10/17/24, but developed thrombocytopenia, so switched to cardizem
#Pericardial effusion, sanguinous, with tamponade and cardiogenic shock
s/p pericardiocentesis draining hemopericardium on 10/13/24
Cx NTD
Cardiology follows
Drain removed on 10/15/24
Hold off anticoagulation
repeat ECHO
#Thrombocytopenia
Hematology follows - recommended to stop Amio - cardiology will switch to Cardizem
HIT AB pending
Not on heparin product since 10/13/24
Platelet hopefully start to plateau.
#Coagulopathy
Multifactorial: 2/2 sepsis, Xarelto, heparin, ischemic hepatitis
follow INR
improved
#Acute hypoxic respiratory failure, multifactorial, concern for bibasilar pneumonia with possible sepsis on admission
#Concern for septic shock on admission
Cefepime stopped with negative Cx as per rn community
Linezolid and Doxy discontinued with Legionella, S.pneumonia urinary Ag neg and MRSA screen neg
Bcx NTD
Sputum Cx NTD
COVID-19, Influenza, RSV neg
Procalcitonin elevated to 1.23
#Transaminitis 2/2 ischemic hepatitis
#Positive HepB core - previous infection
Most likely hypoperfusion 2/2 RVR with additional sepsis and hypoxia
follow LFT-significant improvmeent noted
GI consult: portal Doppler without PVT, liver and biliary tree without acute pathology
#Acute blood loss anemia on anemia of chronic disease and history of CHELI
worsened with new coagulopathy
Hx of EGD, colonoscopy and pill endoscopy without source of bleeding
LDH significantly elevated - follow haptoglobin
follow CBC
Transfuse to keep Hgb between 7.0-8.0
#Reactive thrombocytosis
resolved
#Elevated LDH
2/2 acute disease
KELLEY neg
haptoglobin high-normal - no concern for hemolysis
#Hyperuricemia
2/2 DEAN?
#Hyperkalemia with DEAN on CKD stage 3b
#Metabolic acidosis, cannot exclude DKA component
completed insulin drip
Nephrology for HD
#COPD, not in exacerbation
No wheezing, but tight breathing sounds
With prevalent pulmonary congestion picture - stopped steroids
Cont bronchodilators
#DM type 2 with nephropathy
Insulin SS, DM diet, Accuchecks
Start Basal bolus on 10/16/24 and adjust as needed
HgbA1c
Hold oral antiglycemic
#LE edema
US LE neg for DVT
#positive UA
no urinary symptoms
Ucx NTD
DVT ppx SCDs in setting of severe thrombocytopenia
Full code
d/w with spouse at bedside
Anticipated Discharge: > 48 hours
Subjective/Interval History
-
Date of Service: October 19, 2024
denies chest pain or sob
Objective Data
-
Labs:
Laboratory Results
10/19/24
04:54
WBC 10.5
Hgb 10.4 L
Hct 29.5 L
Plt Count 52 L
PT 17.8 H
INR 1.44
Sodium 140
Potassium 4.0
Chloride 105
Carbon Dioxide 27
BUN 81 H
Creatinine 2.0 H
Glucose 110 H
Calcium 7.9 L
Total Bilirubin 2.0 H
AST 123 H
ALT 1133 H*
Alkaline Phosphatase 174 H
Vital Signs:
Vital Signs
Temp Pulse Resp BP Pulse Ox
98 F 105 27 105/48 94
10/19/24 11:15 10/19/24 10:32 10/19/24 10:32 10/19/24 10:32 10/19/24 10:32
I&O
10/18/24 10/19/24 10/20/24
06:59 06:59 06:59
Intake Total 1100 / 1100 1102 / 1102
Output Total 2410 / 2410 1715 / 1715
Balance -1310 / -1310 -613 / -613
Physical Exam
-
General: No Apparent Distress
HEENT: Other (old blood from HD cath site)
Cardiac: Irregular Rhythm and Tachycardic
GI: Soft, Nontender and Nondistended
Musculoskeletal: No Clubbing, No Cyanosis, Edema, Right Lower Extrem and Edema, Left Lower Extrem
Neuro: Awake, Alert, Oriented and AO x 3
Psych: Calm
Data Reviewed
-
Total Time Spent with Patient (in minutes): 53
--- NOTE | 2024-10-19 15:51 | PTCARENOTE ---
r midline redressed w/ quick clot due to saturation of blood to site. HR remained in 70's. Cards made aware. cardizem gtt off. pt ambulated back into bed w/ assistance of 2. Will monitor.
--- NOTE | 2024-10-19 15:55 | VATNOTE ---
Radha Vega RN, Danis, called and stated midline soaked in blood. 2 quik clot given to Danis for redress.
[2024-10-19] MEDS: NOVOLOG FLEXPEN SC (17:44)
[2024-10-19 17:51] LABS: Glucose - Point of Care 83 mg/dl (70-99)
--- NOTE | 2024-10-19 21:35 | W.PN.ONC2 ---
Today's Communication / Plan
-
Awaiting HIT test and improvement in plt with time away from amiodarone.
Impression
Impression
acute thrombocytopenia, 49,000 -no evidence of acute dic with normal fibrinogen
pericardial tamponade with cardiogenic shock with emergent pericardiocentesis 10/13/2028 -pericardial effusion negative for malignancy
HFpEF
AF RVR
COPD, former smoker
coagulopathy from Xarelto, heparin, shock liver s/p 5FFP, last 10/14, 2cryo on 10/13 -improved
acute on chronic anemia (CHELI/CKD) s/p 5 unit prbc, last 10/14. no evidence hemolysis with elevated haptoglobin & KELLEY negative. Hgb stable 10.7g/dL today
DEAN on CKD
elevated LFTs -improving
prostate cancer, undetectable PSA per patient
Plan
Plan
new acute thrombocytopenia -possibly 2/2 amiodarone started 10/16 -otherwise medications that could contribute were stopped prior to drop in platelets ie last dose Zyvox 10/14, Vibramycin 10/13, heparin gtt 10/13, cefepime 10/14, and ceftriaxone
10/15
Support anemia w/ transfusions as needed. Was to have bone marrow biopsy in 2022, but cancelled. t/c outpt heme
Iron studies difficult to interpret since checked after transfusions -would repeat in 6 weeks to assess trend
CRRT was initiated refractory acidosis on 10/13 -management per nephrology
Subjective/Objective
Chief Complaint
Heme/Onc follow up of thrombocytopenia
Subjective
Denies bleeding.
Vital Signs:
Vital Signs
Temp Pulse Resp BP Pulse Ox
97.8 F 88 22 119/54 95
10/19/24 19:28 10/19/24 20:27 10/19/24 20:27 10/19/24 17:00 10/19/24 20:27
Lab Results:
Laboratory Data
WBC 10.5 10^3/uL (4.8-10.8) 10/19/24 04:54
Hgb 10.4 g/dL (13.0-18.0) L 10/19/24 04:54
Plt Count 52 10^3/uL (130-400) L 10/19/24 04:54
PT 17.8 Sec (11.4-14.6) H 10/19/24 04:54
INR 1.44 10/19/24 04:54
APTT 31.2 Sec (23.4-35.0) 10/18/24 03:36
eGFR 33.74 10/19/24 04:54
Physical Exam
Awake, alert, non-toxic
[2024-10-19 21:41] LABS: Glucose - Point of Care 229 mg/dl (70-99)
[2024-10-20] VITALS (16 sets, daily range): BP systolic 115–141; BP diastolic 59–88; BMI 29.3
[2024-10-20 05:19] LABS: Hematocrit 28.5 % (39.0-52.0); Hemoglobin 9.6 g/dL (13.0-18.0); Mean Corp Hgb Conc. 33.7 g/dL (33.0-37.0); Mean Corpuscular Hgb 30.7 pg (27.0-31.0); Mean Corpuscular Volume 91.1 fL (80.0-94.0); Mean Platelet Volume 12.3 fL (7.4-10.4); Platelet Count 56 10^3/uL (130-400); Red Blood Cell Count 3.13 10^6/uL (4.70-6.10); Red Cell Dist. Width 14.8 % (11.5-14.5); White Blood Cell Count 9.1 10^3/uL (4.8-10.8)
[2024-10-20 05:45] LABS: Blood Urea Nitrogen 76 mg/dl (9-20); Calcium 7.9 mg/dl (8.4-10.2); Carbon Dioxide 28 mmol/L (22-30); Chloride 105 mmol/L (98-107); Estimated Creatinine Clearance 41 ml/min; Glucose 181 mg/dl (70-99); Potassium 4.1 mmol/L (3.5-5.1); Sodium 138 mmol/L (135-145); eGFR 38.29
[2024-10-20 07:53] LABS: Glucose - Point of Care 173 mg/dl (70-99)
[2024-10-20] MEDS: SYMBICORT 160/4.5 MCG INHALER 2 PUFF INH ×2 (07:57→19:37)
--- NOTE | 2024-10-20 08:00 | PTCARENOTE ---
Pt rec'd from night RN with at bedside, AOx3 pleasant and cooperative. Plan of care discussed with plate grainer apprentice Dr. Alvarez, diesel instructor Dr. Moore and certified adaptive physical educator Gio. Medications and assessment as documented, see worklist. Pt for
echo today, increased activity encouraged, langley and HD catheter ok to be removed per Dr. Moore. Peripheral IV sites assessed, all were removed. Midline site continues oozing, patent with brisk blood return. Discussed with VAT RN Min, wrapped with
angelina. Pt comfortable, verbalized agreement with plan of care. Safe environment maintained.
[2024-10-20] MEDS: CARDIZEM CD 180 MG PO (08:29)
[2024-10-20] MEDS: LANTUS 0.16 UNITS SC (08:30)
[2024-10-20] MEDS: MIRALAX 17 GRAMS TUBE (08:30)
[2024-10-20] MEDS: NOVOLOG FLEXPEN 12 UNITS SC ×3 (08:31→17:46)
[2024-10-20] MEDS: TOPROL XL 50 MG PO (08:31)
[2024-10-20] MEDS: NOVOLOG FLEXPEN-MODERATE RESISTANCE 1 UNITS SC ×3 (08:32→17:46)
--- NOTE | 2024-10-20 09:02 | PN.DE.MGMTRT ---
Insulin Management
- -
10/20/2024: Diabetes Management F/U:
78 year old male with PMH: T2DM, COPD, Hx of HepB, Afib on Xarelto s/p cardioversion on 10/09, admitted 10/12 with worsening SOB and Afib with RVR likely due to pneumonia with concern for sepsis, started on IV steroids, contributing to hyperglycemia
requiring insulin infusion. Found to have large pericardial effusion on Echo s/p pericardiocentesis with drain that showed sanguineous fluid. Intubated on 10/13/24 due to worsening acidosis. Started on CRRT due to worsening renal failure on
10/13/24. 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
A1C 7.2%, Cr 1.8 on admission, worsened to 3.1, eGFR 19.94
Pt awake, alert, sitting up in bed, offers no complaints, - April at bedside, able to discuss diabetes mgt.
Pt was extubated on 10/15/24, transitioned off insulin drip on 10/15 to Lantus 10 units and High corrective. Cr 2.0, eGFR 33.74 today.
Premeal glucose remained elevated since transitioning off drip. 10/18 range was 202 to 278 requiring 3-5 units of corrective insulin with meals
10/19 NovoLog was increased to 15 units AC. Glucose has improved, 83 to 182.
Cont current regimen: NovoLog 15 units, Lantus 16 units and moderate corrective insulin.
Pt's not a candidate for oral diabetes agents due to DAEN/CKD, Cr improving 1.8 today, will reassess and switch back to his OP oral regimen when Cr is at baseline.
states pt has a working monitor and checks his blood sugars twice a day.
Diabetes History
- -
Type of Diabetes: 2 requiring insulin
Pre-Admission Diabetes Regimen
10/20/24
04:54
Creatinine 1.8 H
Lab Results
Hemoglobin A1c 7.2 % (4.0-5.6) H 10/12/24 12:29
Insulin Pump Settings
IP Diabetes Regimen
10/19/24 10/19/24 10/19/24
12:12 17:39 21:30
Glucose
POC Glucose 182 H 83 229 H
10/20/24 10/20/24
04:54 07:42
Glucose 181 H
POC Glucose 173 H
Meal type: Breakfast
Amount consumed: 100%
Patient Education
[2024-10-20 09:14] LABS: AST (SGOT) 81 U/L (17-59); Albumin 2.5 g/dl (3.5-5.0); Alkaline Phosphatase 159 U/L (38-126); Direct Bilirubin 0.7 mg/dl (0.0-0.4); Total Bilirubin 1.7 mg/dl (0.2-1.3); Total Protein 4.8 g/dl (6.3-8.2)
--- NOTE | 2024-10-20 09:22 | W.PN.CARDCBS ---
Today's Communication / Plan
-
Limited echo today to reassess pericardial effusion
Impression / Plan
-
Primary Energy Management Specialist: Dr. Juan Carlos Gregg
Assessment:
Pericardial tamponade with cardiogenic shock with emergent pericardiocentesis 10/13/2028
Acute hypoxic respiratory failure Vent dependent respiratory failure
Acute HFpEF related to tamponade
Metabolic acidosis
Atrial flutter/atrial tachycardia with RVR status post cardioversion October 09
Hyperkalemia
Shock liver
Anemia, history of CHELI
DEAN on CKD, on CRRT
Recent PNA, concern for acute infectious process
Paroxysmal Afib s/p PVI 02/2019
Paroxysmal atrial tachycardia s/p ablation 02/2019
Paroxysmal typical atrial flutter s/p CTI ablation 2015 with recurrence 09/2024 s/p CV 10/09/24
chronic OAC with xarelto
DM2
HTN
HLD
COPD
former smoker
BPH
Prostate cancer, diagnosed 01/2022
ECHO 02/21/24: EF 55 to 60%, mild MR, trace AR, PAP 30 to 35 mmHg
Plan:
Medically complex 78-year-old gentleman with multisystem organ failure s/p pericardiocentesis for tamponade and cardiogenic shock
Bloody pericardial effusion new since February 2024 status post pericardiocentesis for tamponade/shock
-2D echocardiogram done 10/16/2024 with trivial pericardial effusion and normal LV systolic function
-Pericardial drain removed 10/15/2024. Bloody but no infection or malignant cells noted.
-Would continue to hold Xarelto given bloody pericardial effusion also given thrombocytopenia.
-Patient is at risk for thromboembolic event given recent cardioversion 09/2022
New development of acute thrombocytopenia
-Hematology following
-Platelets low but stable at 56k
-Hemoglobin stable
-Patient had IV heparin last week, discontinued 10/13. He was likely exposed to small amount of heparin during dialysis. Amiodarone is also new as of October 16. Concern for HIT and assay was sent. Out of abundance of caution we have held
amiodarone.
-Monitor coagulopathy/platelets closely
Atrial fibrillation/flutter status post recent cardioversion October 09, 2024
-Patient went back into asymptomatic rapid atrial fibrillation and 10/18 and placed on IV amiodarone drip
-Amiodarone as noted was discontinued after multidisciplinary discussion of new thrombocytopenia
-Rates are better controlled on oral diltiazem CD 180 mg and Toprol-XL 50 mg daily
Acute renal insufficiency requiring CRRT status post dialysis yesterday
-He is still making urine
-Appreciate nephrology input. They doubt he will require long-term dialysis and hope renal function will continue to improve
Heart failure with preserved ejection fraction and also iatrogenic volume overload.
-Still volume overloaded. Chest x-ray with pleural effusions
-Continue diuresis. Continue volume removal per nephrology.
-By report recent dry weight at home around 220 pounds. Currently 228 pounds.
Spoke with the patient, his and nursing at beside
Progress Note - Energy Management Specialist
Subjective
Date of Service: October 20, 2024
NAOE. Resting comfortably today. No chest pain or SOB. No palpitations despite persistent AFlutter.
Objective
Labs:
10/20/24 04:54
10/20/24 04:54
Labs
Hgb 9.6 g/dL (13.0-18.0) L 10/20/24 04:54
Hct 28.5 % (39.0-52.0) L 10/20/24 04:54
Plt Count 56 10^3/uL (130-400) L 10/20/24 04:54
PT 17.8 Sec (11.4-14.6) H 10/19/24 04:54
INR 1.44 10/19/24 04:54
APTT 31.2 Sec (23.4-35.0) 10/18/24 03:36
Sodium 138 mmol/L (135-145) 10/20/24 04:54
Potassium 4.1 mmol/L (3.5-5.1) 10/20/24 04:54
BUN 76 mg/dl (9-20) H 10/20/24 04:54
Creatinine 1.8 mg/dL (0.7-1.3) H 10/20/24 04:54
Glucose 181 mg/dl (70-99) H 10/20/24 04:54
Vital Signs and I&O:
Vital Signs
Temp Pulse Resp BP Pulse Ox
98.1 F 121 20 137/70 97
10/20/24 08:03 10/20/24 08:29 10/20/24 08:01 10/20/24 08:29 10/20/24 08:01
Vital Signs
Temp Pulse Resp BP Pulse Ox
98.1 F 121 20 137/70 97
10/20/24 08:03 10/20/24 08:29 10/20/24 08:01 10/20/24 08:29 10/20/24 08:01
Intake & Output
10/18/24 10/19/24 10/20/24 10/21/24
06:59 06:59 06:59 06:59
Intake Total 1100 / 1100 1102 / 1102
Output Total 2410 / 2410 1715 / 1715
Balance -1310 / -1310 -613 / -613
Physical Exam
Physical Exam
Gen: NAD, AAOx3
HEENT: NC/AT, sclera anicteric
Neck: No JVD
CV: irregularly irregular, NL s1/s2
Lungs: Diminished at the bases otherwise CTAB
Abd: S/ND
Ext: 1+ LE edema
Skin: Warm, dry
Neuro: Non-focal
[2024-10-20] MEDS: NOVOLOG FLEXPEN SC (09:23)
[2024-10-20 09:24] LABS: ALT (SGPT) 812 U/L (0-50)
--- NOTE | 2024-10-20 10:45 | PTCARENOTE ---
Plan discussed with designer writer Dr. Moore, Mcdermott catheter removed at this time. VAT RN contacted to remove IJ as well.
--- NOTE | 2024-10-20 11:32 | W.PN.NEPH.PH ---
Today's Communication / Plan
-
prn lasix, d/c HD catheter and langley
Assessment/Plan
-
Impression:
Acute kidney injury
Acute hypoxic respiratory with history of COPD
CHF decompensation (HFPef)
Anemia with elevated LDH
Hyperkalemia
Gapped metabolic acidosis/beta hydroxybutyrate
Chronic kidney disease stage III with baseline creatinine of 1.6
Hypertension
Paroxysmal atrial fibrillation
Diabetes
Prostate CA
Transaminitis
Pericardial effusion
Plan:
DEAN/Hyperkalemia/Gapped metabolic acidosis (lactic acidemia/DKA), pericardial tamponade
CRRT was initiated refractory acidosis on 10/13
last dialysis on 10/17/2024
cr improving to 1.8 and non oliguric
d/c HD catheter
ok for prn lasix , ok to d/c langley too
BP stable on BB and cardizem
LFTs high likely shock liver-improving
plt improving, HIT pending
echo repeat today
dose meds renally
d/w pt and
d/w nursing
-
-
Date of Service: October 20, 2024
CC / HPI / ROS
-
Chief Complaint:
DEAN
History of Present Illness:
CRRT initiated 10/13, off 10/14, HD 10/17
s/p pericardiocentesis 550cc, bloody fluid 10/13
LFTs high-improving
BP stable
non oliguric with langley
hb low 9.6, low plt stable 56k
Review of Systems:
on RA, no fever
langley remains UOP, non oliguric
temp IJ catheter
no cp or sob
Labs
-
Labs:
WBC 9.1 10^3/uL (4.8-10.8) 10/20/24 04:54
RBC 3.13 10^6/uL (4.70-6.10) L 10/20/24 04:54
Hgb 9.6 g/dL (13.0-18.0) L 10/20/24 04:54
Hct 28.5 % (39.0-52.0) L 10/20/24 04:54
Plt Count 56 10^3/uL (130-400) L 10/20/24 04:54
Sodium 138 mmol/L (135-145) 10/20/24 04:54
Potassium 4.1 mmol/L (3.5-5.1) 10/20/24 04:54
Chloride 105 mmol/L (98-107) 10/20/24 04:54
Carbon Dioxide 28 mmol/L (22-30) 10/20/24 04:54
BUN 76 mg/dl (9-20) H 10/20/24 04:54
Creatinine 1.8 mg/dL (0.7-1.3) H 10/20/24 04:54
eGFR 38.29 10/20/24 04:54
Glucose 181 mg/dl (70-99) H 10/20/24 04:54
Calcium 7.9 mg/dl (8.4-10.2) L 10/20/24 04:54
Phosphorus 5.3 mg/dl (2.5-4.5) H 10/15/24 03:12
Dei-W-Fozjfuvqdme Pept 1120 pg/ml 10/12/24 14:17
Albumin 2.5 g/dl (3.5-5.0) L 10/20/24 04:54
Physical Exam
-
Vital Signs:
Vital Signs
Temp Pulse Resp BP Pulse Ox
98.1 F 94 29 122/62 100
10/20/24 08:03 10/20/24 10:00 10/20/24 10:00 10/20/24 10:00 10/20/24 10:00
Cardiovascular:: Irregular rate and rhythm
Lung Excursion:: Normal (decrased)
Abdomen:: Nontender and Soft
Extremity Edema:: +1: Bilateral: (trace)
Langley Catheter: Yes
--- NOTE | 2024-10-20 11:39 | CM ---
M following re: discharge planning.
Reviewed pt's chart, met with pt and pt.
Per chart review temporary dialysis treatment stopped on 10/17/24 and per Nephrology d/c HD catheter and shivam
PT and OT continue recommending SNF level of care. [facility] is preferred. Pt referred to [facility] last week. CM spoke to [facility] director of brand marketing, updated her on pt's clinical especially d/c HD catheter that was a
barrier for pt's admission. Per [facility] director of brand marketing, pt is accepted for admission based on bed availability on the day of discharge.
D/c plan: [facility] when medically stable.
CM will follow with discharge plan updates as hospitalization progresses
[2024-10-20 11:59] LABS: Glucose - Point of Care 153 mg/dl (70-99)
--- NOTE | 2024-10-20 13:02 | PTCARENOTE ---
Pt reassessed. As per MD orders, IJ HD cath and langley both removed this am. Pt tolerated well. Pt fully washed and linens changed, oral care provided. at bedside, pt verbalized no complaints at this time. Awaiting Echo.
--- NOTE | 2024-10-20 13:10 | W.PN.HOSP.TC ---
Today's Communication/Plan
-
US chest to assess effusion
DC HD catheter and langley
Repeat ECHO today
lasix prn
trend cbc/bmp
Assessment / Plan
Assessment / Plan
78yo M with PMHx of DM, COPD, Hx of HepB, Afib on Xarelto s/p cardioversion on 10/09 came with worsening SOB and Afib with RVR. Recently started on oral Abx with concern for pneumonia. With concern for sepsis - received hydration in ICU and later
found with signs of pulmonary congestion on XR chest. With worsening labs transferred to ICU for insulin drip. Found large pericardial effusion on Echo s/p pericardiocentesis with drain that showed sanguineous fluid. With new coagulopathy - anticoag
stopped. Intubated on 10/13/24 due to worsening acidosis. Started on CRRT with worsening renal failure on 10/13/24. DIC ruled out, was managed for coagulopathy with FFP and PRBC transfusions. Extubated on 10/15/24. Labs improving, but still
requires HD. Developed thrombocytopenia
A/P:
#Afib with RVR
#Acute on chronic HFpEF with pulmonary congestion on XR
can be 2/2 hypoxia, however did not correct on IVF and O2 supplementation
Telemetry
ProBNP minimally elevated from baseline on admission
TSH WNL
Lasix as per nephro in view of DEAN
Amio started on 10/17/24, but developed thrombocytopenia, so switched to cardizem
on cardizem 180mg daily. can uptitrate if needed
#Pericardial effusion, sanguinous, with tamponade and cardiogenic shock
s/p pericardiocentesis draining hemopericardium on 10/13/24
Cx NTD
Cardiology follows
Drain removed on 10/15/24
Hold off anticoagulation
repeat ECHO
#Thrombocytopenia
Hematology follows - recommended to stop Amio - cardiology will switch to Cardizem
HIT AB at 0.111 negative.
Not on heparin product since 10/13/24
Platelet hopefully start to plateau. Plt at 56k today.
#Coagulopathy
Multifactorial: 2/2 sepsis, Xarelto, heparin, ischemic hepatitis
follow INR
improved
#Acute hypoxic respiratory failure, multifactorial, concern for bibasilar pneumonia with possible sepsis on admission
#Concern for septic shock on admission
Cefepime stopped with negative Cx as per mri tech
Linezolid and Doxy discontinued with Legionella, S.pneumonia urinary Ag neg and MRSA screen neg
Bcx NTD
Sputum Cx NTD
COVID-19, Influenza, RSV neg
Procalcitonin elevated to 1.23
#Transaminitis 2/2 ischemic hepatitis
#Positive HepB core - previous infection
Most likely hypoperfusion 2/2 RVR with additional sepsis and hypoxia
follow LFT-significant improvement noted- slow improvement expected.
GI consult: portal Doppler without PVT, liver and biliary tree without acute pathology
#Acute blood loss anemia on anemia of chronic disease and history of CHELI
worsened with new coagulopathy
Hx of EGD, colonoscopy and pill endoscopy without source of bleeding
LDH significantly elevated - follow haptoglobin
follow CBC
Transfuse to keep Hgb between 7.0-8.0
#Pleural effusion
Effusion noted on CXR
Check US chest Bilateral
#Elevated LDH
2/2 acute disease
KELLEY neg
haptoglobin high-normal - no concern for hemolysis
#Hyperuricemia
2/2 DEAN?
#Hyperkalemia with DEAN on CKD stage 3b
#Metabolic acidosis, cannot exclude DKA component
completed insulin drip
completed CRRT. DC HD catheter
DC langley and TOV
Nephrology for HD
#COPD, not in exacerbation
No wheezing, but tight breathing sounds
With prevalent pulmonary congestion picture - stopped steroids
Cont bronchodilators
#DM type 2 with nephropathy
Insulin SS, DM diet, Accuchecks
Start Basal bolus on 10/16/24 and adjust as needed
Hold oral antiglycemic
#LE edema
US LE neg for DVT
#positive UA
no urinary symptoms
Ucx NTD
DVT ppx SCDs in setting of severe thrombocytopenia
Full code
d/w with spouse at bedside
Anticipated Discharge: > 48 hours
Subjective/Interval History
-
Date of Service: October 20, 2024
states of swelling
on room air
tolerating diet
Objective Data
-
Labs:
Laboratory Results
10/20/24
04:54
WBC 9.1
Hgb 9.6 L
Hct 28.5 L
Plt Count 56 L
Sodium 138
Potassium 4.1
Chloride 105
Carbon Dioxide 28
BUN 76 H
Creatinine 1.8 H
Glucose 181 H
Calcium 7.9 L
Total Bilirubin 1.7 H
AST 81 H
ALT 812 H*
Alkaline Phosphatase 159 H
Vital Signs:
Vital Signs
Temp Pulse Resp BP Pulse Ox
97.4 F 94 29 122/62 100
10/20/24 11:56 10/20/24 10:00 10/20/24 10:00 10/20/24 10:00 10/20/24 10:00
I&O
10/19/24 10/20/24 10/21/24
06:59 06:59 06:59
Intake Total 1102 / 1102
Output Total 1715 / 1715 1200 / 1200
Balance -613 / -613 -1200 / -1200
Physical Exam
-
General: No Apparent Distress and Comfortable
HEENT: Normocephalic, Atraumatic, Moist Mucous Membranes and Other (HD cath site noted )
Respiratory: Clear to Auscultation
Cardiac: S1/S2
GI: Soft, Nontender, Nondistended and Normal Bowel Sounds
Genito-urinary: Langley
Musculoskeletal: No Clubbing, No Cyanosis, Edema, Right Lower Extrem and Edema, Left Lower Extrem
Neuro: Awake, Alert, Oriented and AO x 3
Psych: Calm
Data Reviewed
-
Total Time Spent with Patient (in minutes): 53
--- NOTE | 2024-10-20 13:51 | PTCARENOTE ---
Addendum entered by Joanna Richmond RN 10/20/24 13:55:
Pt voided 100 mls yellow hillary urine.
Original Note:
Echo completed. Awaiting US chest.
--- NOTE | 2024-10-20 14:53 | W.PN.ONC2 ---
Today's Communication / Plan
-
daily CBC, monitor for bleeding
Impression
Impression
acute thrombocytopenia, ~50,000 -no evidence of acute dic with normal fibrinogen, HIT negative
pericardial tamponade with cardiogenic shock with emergent pericardiocentesis 10/13/2028 -pericardial effusion negative for malignancy
HFpEF
AF RVR
COPD, former smoker
coagulopathy from Xarelto, heparin, shock liver s/p 5FFP, last 10/14, 2cryo on 10/13 -improved
acute on chronic anemia (CHELI/CKD) s/p 5 unit prbc, last 10/14. no evidence hemolysis with elevated haptoglobin & KELLEY negative. Hgb stable
DEAN on CKD
elevated LFTs -improving
prostate cancer, undetectable PSA per patient
Plan
Plan
new acute thrombocytopenia -possibly 2/2 amiodarone started 10/16 -otherwise medications that could contribute were stopped prior to drop in platelets ie last dose Zyvox 10/14, Vibramycin 10/13, heparin gtt 10/13, cefepime 10/14, and ceftriaxone
10/15. HIT negative
Support anemia w/ transfusions as needed. Was to have bone marrow biopsy in 2022, but cancelled. t/c outpt heme
Iron studies difficult to interpret since checked after transfusions -would repeat in 6 weeks to assess trend
CRRT was initiated refractory acidosis on 10/13 -management per nephrology
Subjective/Objective
Subjective
no new complaints
Vital Signs:
Vital Signs
Temp Pulse Resp BP Pulse Ox
97.4 F 94 25 135/87 94
10/20/24 11:56 10/20/24 14:00 10/20/24 14:00 10/20/24 14:00 10/20/24 14:00
Lab Results:
Laboratory Data
WBC 9.1 10^3/uL (4.8-10.8) 10/20/24 04:54
Hgb 9.6 g/dL (13.0-18.0) L 10/20/24 04:54
Plt Count 56 10^3/uL (130-400) L 10/20/24 04:54
PT 17.8 Sec (11.4-14.6) H 10/19/24 04:54
INR 1.44 10/19/24 04:54
APTT 31.2 Sec (23.4-35.0) 10/18/24 03:36
eGFR 38.29 10/20/24 04:54
[2024-10-20 16:50] LABS: Glucose - Point of Care 187 mg/dl (70-99)
--- NOTE | 2024-10-20 20:16 | PTCARENOTE ---
Received pt from previous RN. Pt is AAOx3, drowsy @ times, LE weakness, +1 general edema. Pt in Afib w/ PVCs on the monitor. On RA O2 sat 98%, lungs diminished, non-productive, moist weak cough. Pt uses the urinal. Mouth care and Q2T provided.
at bedside. Pt is laying in bed with call fink in reach. Safe environment maintained.
[2024-10-20 22:24] LABS: Glucose - Point of Care 94 mg/dl (70-99)
[2024-10-21] VITALS (12 sets, daily range): BP systolic 70–143; BP diastolic 52–82; BMI 28.8
--- NOTE | 2024-10-21 00:41 | PTCARENOTE ---
at bedside, staying the night. Systems reviewed, no changes from previous assessment.
[2024-10-21 06:14] LABS: % Basophils 0.1 % (0-2); % Eosinophils 5.9 % (0-6); % Immature Granulocytes 1.5 % (0-0.5); % Lymphocytes 11.3 % (20.5-51.1); % Monocytes 12.3 % (1.7-9.3); % Neutrophils 68.9 % (42.2-75.2); Absolute Eosinophils 0.6 10^3/uL (0-0.7); Absolute Immature Granulocytes 0.2 10^3/uL (0-0.05); Absolute Lymphocytes 1.2 10^3/uL (1.2-3.4); Absolute Monocytes 1.3 10^3/uL (0.1-0.6); Absolute Neutrophils 7.1 10^3/uL (1.4-6.5); Hematocrit 29.5 % (39.0-52.0); Hemoglobin 9.6 g/dL (13.0-18.0); Mean Corp Hgb Conc. 32.5 g/dL (33.0-37.0); Mean Corpuscular Hgb 30.9 pg (27.0-31.0); Mean Corpuscular Volume 94.9 fL (80.0-94.0); Mean Platelet Volume 11.9 fL (7.4-10.4); Nucleated Red Blood Cells % 0 % (-); Platelet Count 63 10^3/uL (130-400); Red Blood Cell Count 3.11 10^6/uL (4.70-6.10); Red Cell Dist. Width 14.7 % (11.5-14.5); White Blood Cell Count 10.3 10^3/uL (4.8-10.8)
[2024-10-21 06:43] LABS: ALT (SGPT) 550 U/L (0-50); AST (SGOT) 64 U/L (17-59); Albumin 2.6 g/dl (3.5-5.0); Alkaline Phosphatase 152 U/L (38-126); Blood Urea Nitrogen 62 mg/dl (9-20); Calcium 7.9 mg/dl (8.4-10.2); Carbon Dioxide 27 mmol/L (22-30); Chloride 105 mmol/L (98-107); Estimated Creatinine Clearance 46 ml/min; Glucose 97 mg/dl (70-99); Potassium 3.9 mmol/L (3.5-5.1); Sodium 139 mmol/L (135-145); Total Bilirubin 1.7 mg/dl (0.2-1.3); Total Protein 4.9 g/dl (6.3-8.2)
[2024-10-21] MEDS: SYMBICORT 160/4.5 MCG INHALER 2 PUFF INH (07:17)
--- NOTE | 2024-10-21 07:57 | PN.DE.MGMTRT ---
Insulin Management
- -
10/21/2024: Diabetes Management F/U:
78 year old male with PMH: T2DM, COPD, Hx of HepB, Afib on Xarelto s/p cardioversion on 10/09, admitted 10/12 with worsening SOB and Afib with RVR likely due to pneumonia with concern for sepsis, started on IV steroids, contributing to hyperglycemia
requiring insulin infusion. Found to have large pericardial effusion on Echo s/p pericardiocentesis with drain that showed sanguineous fluid. Intubated on 10/13/24 due to worsening acidosis. Started on CRRT due to worsening renal failure on
10/13/24. Was taking Januvia 50 mg daily, Metformin 850 TID and Glimepiride 4mg daily RN REFERRAL.
A1C 7.2%, Cr 1.8 on admission, worsened to 3.1, eGFR 19.94
Pt awake, alert, sitting up in bed, offers no complaints, - April at bedside, able to discuss diabetes mgt.
Pt was extubated on 10/15/24, transitioned off insulin drip on 10/15 to Lantus 10 units and High corrective. Cr improving 1.6, eGFR 44.10 today.
Premeal glucose improved to 153 to 187 yesterday. FBG 97(V), 115 POC this AM.
Cont current regimen: NovoLog 12 units, Lantus 16 units and moderate corrective insulin.
Pt's not a candidate for oral diabetes agents due to DEAN/CKD, although Cr is improving 1.6 today, will reassess and switch back to his OP oral regimen when Cr is at baseline.
states pt has a working monitor and checks his blood sugars twice a day.
Diabetes History
- -
Type of Diabetes: 2 requiring insulin
Pre-Admission Diabetes Regimen
10/20/24 10/21/24
04:54 05:46
Creatinine 1.8 H 1.6 H
Lab Results
Hemoglobin A1c 7.2 % (4.0-5.6) H 10/12/24 12:29
Insulin Pump Settings
IP Diabetes Regimen
10/20/24 10/20/24 10/20/24
04:54 11:48 16:39
Glucose 181 H
POC Glucose 153 H 187 H
10/20/24 10/21/24
22:13 05:46
Glucose 97
POC Glucose 94
Meal type: Lunch
Meal type: Breakfast
Amount consumed: 100%
Amount consumed: 75%
Patient Education
[2024-10-21] MEDS: CARDIZEM CD 180 MG PO (08:12)
[2024-10-21] MEDS: LANTUS 0.16 UNITS SC (08:13)
[2024-10-21] MEDS: TOPROL XL 50 MG PO (08:13)
[2024-10-21] MEDS: MIRALAX 17 GRAMS TUBE (08:17)
[2024-10-21 08:25] LABS: Glucose - Point of Care 115 mg/dl (70-99)
[2024-10-21] MEDS: NOVOLOG FLEXPEN 12 UNITS SC ×3 (08:28→17:42)
[2024-10-21] MEDS: NOVOLOG FLEXPEN-MODERATE RESISTANCE SC (08:29)
--- NOTE | 2024-10-21 08:54 | W.PN.CARDCBS ---
Today's Communication / Plan
-
Increase metoprolol and monitor HRs
Pericardial effusion resolved based on echo 10/20, plan for repeat in 4-6 weeks
Diuresis per nephrology
Impression / Plan
-
Primary Tenderizer Tender: Dr. Juan Carlos Gregg
Assessment:
Pericardial tamponade with cardiogenic shock with emergent pericardiocentesis 10/13/2028
Acute hypoxic respiratory failure Vent dependent respiratory failure
Acute HFpEF related to tamponade
Metabolic acidosis
Atrial flutter/atrial tachycardia with RVR status post cardioversion October 09
Hyperkalemia
Shock liver
Anemia, history of CHELI
DEAN on CKD, on CRRT
Recent PNA, concern for acute infectious process
Paroxysmal Afib s/p PVI 02/2019
Paroxysmal atrial tachycardia s/p ablation 02/2019
Paroxysmal typical atrial flutter s/p CTI ablation 2015 with recurrence 09/2024 s/p CV 10/09/24
chronic OAC with xarelto
DM2
HTN
HLD
COPD
former smoker
BPH
Prostate cancer, diagnosed 01/2022
ECHO 02/21/24: EF 55 to 60%, mild MR, trace AR, PAP 30 to 35 mmHg
Plan:
Medically complex 78-year-old gentleman with multisystem organ failure s/p pericardiocentesis for tamponade and cardiogenic shock
Bloody pericardial effusion new since February 2024 status post pericardiocentesis for tamponade/shock
-Pericardial effusion has resolved based on TTE 10/20/24
-Tentative plan for repeat echo in 4-6 weeks
-Pericardial drain removed 10/15/2024. Bloody but no infection or malignant cells noted.
-Would continue to hold Xarelto given bloody pericardial effusion also given thrombocytopenia.
-Patient is at risk for thromboembolic event given recent cardioversion 09/2022
New development of acute thrombocytopenia
-Hematology following
-Platelets low but up trending
-Patient had IV heparin last week, discontinued 10/13. He was likely exposed to small amount of heparin during dialysis. Amiodarone is also new as of October 16. Concern for HIT and assay was sent. Out of abundance of caution we have held
amiodarone.
-Monitor coagulopathy/platelets closely
Atrial fibrillation/flutter status post recent cardioversion October 09, 2024
-Patient went back into asymptomatic rapid atrial fibrillation/flutter on 10/18 and placed on IV amiodarone drip
-Amiodarone as noted was discontinued after multidisciplinary discussion of new thrombocytopenia
-Rates are better controlled on oral diltiazem CD 180 mg and Toprol-XL 50 mg daily, but plan to increase Toprol to home dose of 75mg daily for better control
Acute renal insufficiency (resolved)
-No longer requiring CRRT
-Appreciate nephrology inpu
Heart failure with preserved ejection fraction and also iatrogenic volume overload
-Volume status is improving, but still mildly volume overloaded with pleural effusions and up from dry weight at home of 220 pounds
-Appreciate nephrology input, plan for PRN lasix
Spoke with the patient, his and nursing at beside
Progress Note - Tenderizer Tender
Subjective
Date of Service: October 21, 2024
NOAE. Resting comfortably in bed. Remains in ICU. Off HD. No cardiac complaints.
Objective
Labs:
10/21/24 05:46
10/21/24 05:46
Labs
Hgb 9.6 g/dL (13.0-18.0) L 10/21/24 05:46
Hct 29.5 % (39.0-52.0) L 10/21/24 05:46
Plt Count 63 10^3/uL (130-400) L 10/21/24 05:46
PT 17.8 Sec (11.4-14.6) H 10/19/24 04:54
INR 1.44 10/19/24 04:54
APTT 31.2 Sec (23.4-35.0) 10/18/24 03:36
Sodium 139 mmol/L (135-145) 10/21/24 05:46
Potassium 3.9 mmol/L (3.5-5.1) 10/21/24 05:46
BUN 62 mg/dl (9-20) H 10/21/24 05:46
Creatinine 1.6 mg/dL (0.7-1.3) H 10/21/24 05:46
Glucose 97 mg/dl (70-99) 10/21/24 05:46
Vital Signs and I&O:
Vital Signs
Temp Pulse Resp BP Pulse Ox
97.8 F 105 16 135/75 97
10/21/24 07:44 10/21/24 07:20 10/21/24 07:20 10/21/24 06:00 10/21/24 07:20
Vital Signs
Temp Pulse Resp BP Pulse Ox
97.8 F 105 16 135/75 97
10/21/24 07:44 10/21/24 07:20 10/21/24 07:20 10/21/24 06:00 10/21/24 07:20
Intake & Output
10/19/24 10/20/24 10/21/24 10/22/24
06:59 06:59 06:59 06:59
Intake Total 1102 / 1102 690 / 690
Output Total 1715 / 1715 2270 / 2270
Balance -613 / -613 -1580 / -1580
Physical Exam
Physical Exam
Gen: NAD, AA
HEENT: NC/AT, sclera anicteric
Neck: No JVD
CV: irregular, NL s1/s2, no M/R/G
Lungs: CTAB, no increased WOB on RA
Abd: S/ND
Ext: Trace LE edema
Skin: Warm, dry
Neuro: Non-focal
--- NOTE | 2024-10-21 09:45 | W.PN.NEPH.PH ---
Today's Communication / Plan
-
Holding Lasix
Follow-up BMP
Assessment/Plan
-
Impression:
Acute kidney injury
Acute hypoxic respiratory with history of COPD
CHF decompensation (HFPef)
Anemia with elevated LDH
Hyperkalemia
Gapped metabolic acidosis/beta hydroxybutyrate
Chronic kidney disease stage III with baseline creatinine of 1.6
Hypertension
Paroxysmal atrial fibrillation
Diabetes
Prostate CA
Transaminitis
Pericardial effusion
Plan:
DEAN/Hyperkalemia/Gapped metabolic acidosis (lactic acidemia/DKA), pericardial tamponade
CRRT was initiated refractory acidosis on 10/13, creatinine continues to improve down to 1.6 with nonoliguric output via langley
last dialysis on 10/17/2024
BP stable on BB and cardizem
LFTs high likely shock liver-improving
plt improving, HIT pending
hold lasix today
d/w pt and
d/w nursing
-
-
Date of Service: October 21, 2024
CC / HPI / ROS
-
Chief Complaint:
DEAN
History of Present Illness:
CRRT initiated 10/13, off 10/14, HD 10/17
s/p pericardiocentesis 550cc, bloody fluid 10/13
LFTs high-improving
BP stable
non oliguric
Creatinine down to 1 point
hb low 9.6, low plt stable 56k
Review of Systems:
on RA, no fever
non oliguric
no cp or sob
Labs
-
Labs:
WBC 10.3 10^3/uL (4.8-10.8) 10/21/24 05:46
RBC 3.11 10^6/uL (4.70-6.10) L 10/21/24 05:46
Hgb 9.6 g/dL (13.0-18.0) L 10/21/24 05:46
Hct 29.5 % (39.0-52.0) L 10/21/24 05:46
Plt Count 63 10^3/uL (130-400) L 10/21/24 05:46
Sodium 139 mmol/L (135-145) 10/21/24 05:46
Potassium 3.9 mmol/L (3.5-5.1) 10/21/24 05:46
Chloride 105 mmol/L (98-107) 10/21/24 05:46
Carbon Dioxide 27 mmol/L (22-30) 10/21/24 05:46
BUN 62 mg/dl (9-20) H 10/21/24 05:46
Creatinine 1.6 mg/dL (0.7-1.3) H 10/21/24 05:46
eGFR 44.10 10/21/24 05:46
Glucose 97 mg/dl (70-99) 10/21/24 05:46
Calcium 7.9 mg/dl (8.4-10.2) L 10/21/24 05:46
Phosphorus 5.3 mg/dl (2.5-4.5) H 10/15/24 03:12
Ais-B-Eervrwjxvbk Pept 1120 pg/ml 10/12/24 14:17
Albumin 2.6 g/dl (3.5-5.0) L 10/21/24 05:46
Physical Exam
-
Vital Signs:
Vital Signs
Temp Pulse Resp BP Pulse Ox
97.8 F 91 26 143/82 98
10/21/24 07:44 10/21/24 08:00 10/21/24 08:00 10/21/24 08:00 10/21/24 08:00
Cardiovascular:: Irregular rate and rhythm
Lung Excursion:: Normal (decrased)
Abdomen:: Nontender and Soft
Extremity Edema:: +1: Bilateral: (trace)
Langley Catheter: Yes
[2024-10-21] MEDS: TOPROL XL 25 MG PO (09:47)
--- NOTE | 2024-10-21 11:00 | PTCARENOTE ---
Pt received start of shift, HR SR w/ frequent PACs. Pt on RA, O2 sat 98%. AAox4. R midline access flushing well. Weak occasional cough, non-productive. Diminished throughout b/l lungs. +1 to +2 generalized anasarca. Pt denies any pain. Call fink
within reach.
--- NOTE | 2024-10-21 11:22 | W.PN.HOSP.TC ---
Today's Communication/Plan
-
trend cr-downtrending
daily cbc
hold BC
PT/OT-fall precautions
lasix prn per nephro
tx out of IMU
Metoprolol increased
Assessment / Plan
Assessment / Plan
78yo M with PMHx of DM, COPD, Hx of HepB, Afib on Xarelto s/p cardioversion on 10/09 came with worsening SOB and Afib with RVR. Recently started on oral Abx with concern for pneumonia. With concern for sepsis - received hydration in ICU and later
found with signs of pulmonary congestion on XR chest. With worsening labs transferred to ICU for insulin drip. Found large pericardial effusion on Echo s/p pericardiocentesis with drain that showed sanguineous fluid. With new coagulopathy - anticoag
stopped. Intubated on 10/13/24 due to worsening acidosis. Started on CRRT with worsening renal failure on 10/13/24. DIC ruled out, was managed for coagulopathy with FFP and PRBC transfusions. Extubated on 10/15/24. Labs improving, but still
requires HD. Developed thrombocytopenia
A/P:
#Afib with RVR
#Acute on chronic HFpEF with pulmonary congestion on XR
can be 2/2 hypoxia, however did not correct on IVF and O2 supplementation
Telemetry
ProBNP minimally elevated from baseline on admission
TSH WNL
Lasix as per nephro in view of DEAN
Amio started on 10/17/24, but developed thrombocytopenia, so switched to cardizem
on cardizem 180mg daily. can uptitrate if needed
Metoprolol dose increased 75mg daily. Monitor HR.
#Pericardial effusion, sanguinous, with tamponade and cardiogenic shock
s/p pericardiocentesis draining hemopericardium on 10/13/24
Cx NTD
Cardiology follows
Drain removed on 10/15/24
Hold off anticoagulation
repeat ECHO without pericaridal effusion
#Thrombocytopenia
Hematology follows - recommended to stop Amio - cardiology will switch to Cardizem
HIT AB at 0.111 negative.
Not on heparin product since 10/13/24
Platelet hopefully start to plateau. Plt at 63k today. Slow improvement
#Coagulopathy
Multifactorial: 2/2 sepsis, Xarelto, heparin, ischemic hepatitis
follow INR
improved
#Acute hypoxic respiratory failure, multifactorial, concern for bibasilar pneumonia with possible sepsis on admission
#Concern for septic shock on admission
Cefepime stopped with negative Cx as per surgical lead
Linezolid and Doxy discontinued with Legionella, S.pneumonia urinary Ag neg and MRSA screen neg
Bcx NTD
Sputum Cx NTD
COVID-19, Influenza, RSV neg
Procalcitonin elevated to 1.23
now on room air.
#Transaminitis 2/2 ischemic hepatitis
#Positive HepB core - previous infection
Most likely hypoperfusion 2/2 RVR with additional sepsis and hypoxia
follow LFT-significant improvement noted- slow improvement expected.
GI consult: portal Doppler without PVT, liver and biliary tree without acute pathology
#Acute blood loss anemia on anemia of chronic disease and history of CHELI
worsened with new coagulopathy
Hx of EGD, colonoscopy and pill endoscopy without source of bleeding
LDH significantly elevated - follow haptoglobin
follow CBC
Transfuse to keep Hgb between 7.0-8.0
#L>R Pleural effusion
Effusion noted on CXR
Check US chest Bilateral showing Small right and [id number] left pleural effusions are noted.
Will ask IRAD if enough for thoracentesis
#Elevated LDH
2/2 acute disease
KELLEY neg
haptoglobin high-normal - no concern for hemolysis
#Hyperuricemia
2/2 DEAN?
#Hyperkalemia with DEAN on CKD stage 3b
#Metabolic acidosis, cannot exclude DKA component
completed insulin drip
completed CRRT. DC HD catheter removed on 10/20/24
DC langley and voiding without any difficulty.
Nephrology for HD
#COPD, not in exacerbation
No wheezing, but tight breathing sounds
With prevalent pulmonary congestion picture - stopped steroids
Cont bronchodilators
#DM type 2 with nephropathy
Insulin SS, DM diet, Accuchecks
Start Basal bolus on 10/16/24 and adjust as needed
Hold oral antiglycemic
#LE edema
US LE neg for DVT
#positive UA
no urinary symptoms
Ucx NTD
DVT ppx SCDs in setting of severe thrombocytopenia
Full code
d/w with spouse at bedside
Anticipated Discharge: > 48 hours
Subjective/Interval History
-
Date of Service: October 21, 2024
states of LE edema
Voiding after langley removal
states of severe coughing after inhaler
states noted some blood in phelgm earlier
Objective Data
-
Labs:
Laboratory Results
10/21/24
05:46
WBC 10.3
Hgb 9.6 L
Hct 29.5 L
Plt Count 63 L
Sodium 139
Potassium 3.9
Chloride 105
Carbon Dioxide 27
BUN 62 H
Creatinine 1.6 H
Glucose 97
Calcium 7.9 L
Total Bilirubin 1.7 H
AST 64 H
ALT 550 H*
Alkaline Phosphatase 152 H
Vital Signs:
Vital Signs
Temp Pulse Resp BP Pulse Ox
97.8 F 107 28 125/57 97
10/21/24 11:16 10/21/24 10:07 10/21/24 10:07 10/21/24 10:07 10/21/24 10:07
I&O
10/20/24 10/21/24 10/22/24
06:59 06:59 06:59
Intake Total 690 / 690
Output Total 2270 / 2270 210 / 210
Balance -1580 / -1580 -210 / -210
Physical Exam
-
General: No Apparent Distress and Comfortable
HEENT: Normocephalic, Atraumatic and Moist Mucous Membranes
Respiratory: Clear to Auscultation
Cardiac: S1/S2, Irregular Rhythm and Tachycardic
GI: Soft, Nontender, Nondistended and Normal Bowel Sounds
Musculoskeletal: No Clubbing, No Cyanosis, Edema, Right Lower Extrem and Edema, Left Lower Extrem
Neuro: Awake, Alert, Oriented and AO x 3
Psych: Calm
Data Reviewed
-
Total Time Spent with Patient (in minutes): 55
[2024-10-21 12:27] LABS: Glucose - Point of Care 273 mg/dl (70-99)
[2024-10-21] MEDS: NOVOLOG FLEXPEN-MODERATE RESISTANCE 5 UNITS SC (12:54)
--- NOTE | 2024-10-21 14:11 | CM ---
CM following re: discharge planning.
Reviewed pt's chart, met with pt.
PT and OT continue recommending SNF level of care. [facility] SN[facility] is preferred. Per [facility] director of agriculture, pt is accepted for admission based on bed availability on the day of discharge.
D/c plan: [facility] when medically stable and based on bed availability on the day of discharge.
CM will follow with discharge plan updates as hospitalization progresses
--- NOTE | 2024-10-21 14:12 | PTCARENOTE ---
Pt to IR for thoracentesis. Report called to TD Licona on . Pt belongings w/ pt's . Tele pack sent with pt.
[2024-10-21 15:47] LABS: Body Fluid Mononuclear 80.2 %; Body Fluid Polymorphonuclear 19.8 %; Body Fluid WBC 953 /CUMM
[2024-10-21 15:52] LABS: Body Fluid Amylase < 30 U/L; Body Fluid Glucose 225 mg/dl; Body Fluid LDH 318 U/L; Body Fluid Protein < 2.0 g/dl; Body Fluid Second Tech RP; Body Fluid Triglycerides < 30 mg/dl
[2024-10-21 16:11] LABS: Body Fluid pH 7.51
[2024-10-21 17:16] LABS: LDH 288 U/L (120-246); Total Protein 5.2 g/dl (6.3-8.2)
[2024-10-21 17:27] LABS: Glucose - Point of Care 164 mg/dl (70-99)
[2024-10-21] MEDS: NOVOLOG FLEXPEN-MODERATE RESISTANCE 1 UNITS SC (17:41)
[2024-10-21 21:32] LABS: Glucose - Point of Care 179 mg/dl (70-99)
--- NOTE | 2024-10-21 23:55 | PTCARENOTE ---
@3349;LONNY Canela on to review pt's tele strips of regular irregular w/rate in 90's. Pt denies CP/SOB. Magnesium ordered for AM labs.
[2024-10-22] VITALS (9 sets, daily range): BP systolic 107–148; BP diastolic 55–84; PULSE 104; O2SAT 98
[2024-10-22] MEDS: LOPRESSOR 5 MG IV (01:34)
[2024-10-22] MEDS: FLUSH (NSS) 2 FLUSH IV (01:35)
--- NOTE | 2024-10-22 02:20 | PTCARENOTE ---
@0125;Monitor alarming Sinus tach @rate 135.Rate sustained and BP 114/71.Pt denies SOB/CP and appears comfortable.Lopressor 5mg IV x1 administered.@0200;Monitor showed- regular irregular w/PVC's,rate ranging 95 to 104.Pt appears comfortable sleeping.
[2024-10-22 05:34] LABS: % Eosinophils 1.2 % (0-6); % Immature Granulocytes 2.1 % (0-0.5); % Lymphocytes 6.2 % (20.5-51.1); % Monocytes 11.2 % (1.7-9.3); % Neutrophils 79.3 % (42.2-75.2); Absolute Eosinophils 0.1 10^3/uL (0-0.7); Absolute Immature Granulocytes 0.2 10^3/uL (0-0.05); Absolute Lymphocytes 0.6 10^3/uL (1.2-3.4); Absolute Monocytes 1.1 10^3/uL (0.1-0.6); Absolute Neutrophils 7.4 10^3/uL (1.4-6.5); Hematocrit 29.3 % (39.0-52.0); Mean Corp Hgb Conc. 34.1 g/dL (33.0-37.0); Mean Corpuscular Hgb 31.5 pg (27.0-31.0); Mean Corpuscular Volume 92.4 fL (80.0-94.0); Mean Platelet Volume 11.7 fL (7.4-10.4); Nucleated Red Blood Cells % 0 % (-); Platelet Count 97 10^3/uL (130-400); Red Blood Cell Count 3.17 10^6/uL (4.70-6.10); Red Cell Dist. Width 14.9 % (11.5-14.5); White Blood Cell Count 9.4 10^3/uL (4.8-10.8)
[2024-10-22 05:52] LABS: AST (SGOT) 57 U/L (17-59); Albumin 2.7 g/dl (3.5-5.0); Alkaline Phosphatase 153 U/L (38-126); Blood Urea Nitrogen 53 mg/dl (9-20); Calcium 8.1 mg/dl (8.4-10.2); Carbon Dioxide 28 mmol/L (22-30); Chloride 105 mmol/L (98-107); Estimated Creatinine Clearance 49 ml/min; Glucose 65 mg/dl (70-99); Magnesium 1.8 mg/dl (1.6-2.3); Sodium 140 mmol/L (135-145); Total Bilirubin 1.5 mg/dl (0.2-1.3); Total Protein 5.1 g/dl (6.3-8.2); eGFR 47.65
[2024-10-22 06:03] LABS: ALT (SGPT) 472 U/L (0-50)
[2024-10-22 07:33] LABS: Glucose - Point of Care 76 mg/dl (70-99)
--- NOTE | 2024-10-22 07:44 | PN.DE.MGMTRT ---
Insulin Management
- -
10/22/2024: Diabetes Management F/U:
78 year old male with PMH: T2DM, COPD, Hx of HepB, Afib on Xarelto s/p cardioversion on 10/09, admitted 10/12 with worsening SOB and Afib with RVR likely due to pneumonia with concern for sepsis, started on IV steroids, contributing to hyperglycemia
requiring insulin infusion. Found to have large pericardial effusion on Echo s/p pericardiocentesis with drain that showed sanguineous fluid. Intubated on 10/13/24 due to worsening acidosis. Started on CRRT due to worsening renal failure on
10/13/24. 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
A1C 7.2%, Cr 1.8 on admission, worsened to 3.1, eGFR 19.94
Pt awake, alert, sitting up in chair, offers no complaints, - April and Dtr- Annie at bedside, able to discuss diabetes mgt.
Pt was extubated on 10/15/24, transitioned off insulin drip on 10/15 to Lantus 10 units and High corrective. Cr improving 1.5, eGFR 47.65 today.
Noted for mild hypoglycemia as low as 65(V) @05AM. Dinner time glucose was 164, pt received 13 units of NovoLog, HS glucose 179, FBG 65(V), 76 POC this AM.
Otherwise, Premeal glucose stable, 115 to 273 yesterday. Will reduce NovoLog to 10 units AC.
Cont Lantus 16 units in AM and moderate corrective insulin.
Pt's not a candidate for oral diabetes agents at this time due to DEAN/CKD, although Cr is improving 1.5 today.
Will closely monitor and switch back to his OP oral regimen when Cr is at baseline.
states pt has a working monitor and checks his blood sugars twice a day.
Diabetes History
- -
Type of Diabetes: 2 requiring insulin
Pre-Admission Diabetes Regimen
10/22/24
05:09
Creatinine 1.5 H
Lab Results
Hemoglobin A1c 7.2 % (4.0-5.6) H 10/12/24 12:29
Insulin Pump Settings
IP Diabetes Regimen
10/21/24 10/21/24 10/21/24
08:14 12:16 17:26
Glucose
POC Glucose 115 H 273 H 164 H
10/21/24 10/22/24 10/22/24
21:31 05:09 07:32
Glucose 65 L
POC Glucose 179 H 76
Meal type: Dinner
Meal type: Breakfast
Amount consumed: 100%
Amount consumed: 100%
Patient Education
[2024-10-22] MEDS: NOVOLOG FLEXPEN SC ×2 (08:46→11:15)
[2024-10-22] MEDS: NOVOLOG FLEXPEN-MODERATE RESISTANCE SC (08:47)
[2024-10-22] MEDS: LANTUS 0.16 UNITS SC (08:51)
[2024-10-22] MEDS: CARDIZEM CD 180 MG PO (08:51)
[2024-10-22] MEDS: TOPROL XL 75 MG PO (08:52)
[2024-10-22] MEDS: MIRALAX 17 GRAMS TUBE (08:52)
--- NOTE | 2024-10-22 09:22 | W.PN.ONC ---
Today's Communication / Plan
-
No hematologic restriction for DOAC with platelet 97K
Hemoglobin has improved above his baseline at 10.0 g/dL
Consider outpatient workup for MDS with possible bone marrow as discussed previously
Impression
Impression
Acute thrombocytopenia resolving now nearly 100 K
Pericardial tamponade with cardiogenic shock with emergent pericardiocentesis 10/13/2028 -pericardial effusion negative for malignancy
HFpEF
AF RVR
COPD, former smoker
Acute on chronic anemia (CHELI/CKD) s/p 5 unit prbc, last 10/14. no evidence hemolysis with elevated haptoglobin & KELLEY negative. Hgb stable
DEAN on CKD
Prostate cancer, undetectable PSA per patient
Subjective/Objective
Subjective/Objective
No new complaints this morning. Encouraged by his improvement in CBC
Vital Signs:
Vital Signs
Temp Pulse Resp BP Pulse Ox
98.2 F 103 17 132/84 99
10/22/24 07:26 10/22/24 07:26 10/22/24 07:26 10/22/24 07:26 10/22/24 07:26
unchanged
Lab Results:
Laboratory Data
WBC 9.4 10^3/uL (4.8-10.8) 10/22/24 05:09
Hgb 10.0 g/dL (13.0-18.0) L 10/22/24 05:09
Plt Count 97 10^3/uL (130-400) L D 10/22/24 05:09
PT 17.8 Sec (11.4-14.6) H 10/19/24 04:54
INR 1.44 10/19/24 04:54
APTT 31.2 Sec (23.4-35.0) 10/18/24 03:36
eGFR 47.65 10/22/24 05:09
[2024-10-22 11:07] LABS: Glucose - Point of Care 239 mg/dl (70-99)
[2024-10-22] MEDS: NOVOLOG FLEXPEN-MODERATE RESISTANCE 5 UNITS SC ×2 (11:38→16:41)
[2024-10-22] MEDS: NOVOLOG FLEXPEN 10 UNITS SC ×2 (11:38→16:40)
--- NOTE | 2024-10-22 12:10 | W.PN.HOSP.TC ---
Today's Communication/Plan
-
Platelets continue to improve
Creatinine continues to downtrend
Cardiology recs
Monitor heart rate
Out of bed
Assessment / Plan
Assessment / Plan
78yo M with PMHx of DM, COPD, Hx of HepB, Afib on Xarelto s/p cardioversion on 10/09 came with worsening SOB and Afib with RVR. Recently started on oral Abx with concern for pneumonia. With concern for sepsis - received hydration in ICU and later
found with signs of pulmonary congestion on XR chest. With worsening labs transferred to ICU for insulin drip. Found large pericardial effusion on Echo s/p pericardiocentesis with drain that showed sanguineous fluid. With new coagulopathy - anticoag
stopped. Intubated on 10/13/24 due to worsening acidosis. Started on CRRT with worsening renal failure on 10/13/24. DIC ruled out, was managed for coagulopathy with FFP and PRBC transfusions. Extubated on 10/15/24. Labs improving, but still
requires HD. Developed thrombocytopenia
A/P:
#Afib with RVR
#Acute on chronic HFpEF with pulmonary congestion on XR
can be 2/2 hypoxia, however did not correct on IVF and O2 supplementation
Telemetry
ProBNP minimally elevated from baseline on admission
TSH WNL
Lasix as per nephro in view of DEAN
Amio started on 10/17/24, but developed thrombocytopenia, so switched to cardizem
on cardizem 180mg daily. can uptitrate if needed
Metoprolol dose increased 75mg daily. Monitor HR.
Restart Xarelto pending cardiology clearance as with recent pericardial effusion. Per oncology okay to restart DOAC
#Pericardial effusion, sanguinous, with tamponade and cardiogenic shock
s/p pericardiocentesis draining hemopericardium on 10/13/24
Cx NTD
Cardiology follows
Drain removed on 10/15/24
Repeat echo in 4 to 6 weeks as outpatient.
repeat ECHO without pericardial effusion
#Thrombocytopenia
Hematology follows - recommended to stop Amio - cardiology will switch to Cardizem
HIT AB at 0.111 negative.
Not on heparin product since 10/13/24
Platelet hopefully start to plateau. Plt at 97k today.
#Coagulopathy
Multifactorial: 2/2 sepsis, Xarelto, heparin, ischemic hepatitis
follow INR
improved
#Acute hypoxic respiratory failure, multifactorial, concern for bibasilar pneumonia with possible sepsis on admission
#Concern for septic shock on admission
Cefepime stopped with negative Cx as per mail messenger contractor
Linezolid and Doxy discontinued with Legionella, S.pneumonia urinary Ag neg and MRSA screen neg
Bcx NTD
Sputum Cx NTD
COVID-19, Influenza, RSV neg
Procalcitonin elevated to 1.23
now on room air.
#Transaminitis 2/2 ischemic hepatitis
#Positive HepB core - previous infection
Most likely hypoperfusion 2/2 RVR with additional sepsis and hypoxia
follow LFT-significant improvement noted- slow improvement expected.
GI consult: portal Doppler without PVT, liver and biliary tree without acute pathology
#Acute blood loss anemia on anemia of chronic disease and history of CHELI
worsened with new coagulopathy
Hx of EGD, colonoscopy and pill endoscopy without source of bleeding
LDH significantly elevated - follow haptoglobin
follow CBC
Transfuse to keep Hgb between 7.0-8.0
# Exudative left-sided pleural effusion
Effusion noted on CXR
Check US chest Bilateral showing Small right and [id number] left pleural effusions are noted.
Status post thoracentesis with 1100 cc removed. Fluid culture preliminary negative. Cytology pending.
#Elevated LDH
2/2 acute disease
KELLEY neg
haptoglobin high-normal - no concern for hemolysis
#Hyperuricemia
2/2 DEAN?
#Hyperkalemia with DEAN on CKD stage 3b
#Metabolic acidosis, cannot exclude DKA component
completed insulin drip
completed CRRT. DC HD catheter removed on 10/20/24
DC langley and voiding without any difficulty.
Cr continues to downtrend.
Lasix prn.
Nephrology for HD
#COPD, not in exacerbation
No wheezing, but tight breathing sounds
With prevalent pulmonary congestion picture - stopped steroids
Cont bronchodilators
#DM type 2 with nephropathy
Insulin SS, DM diet, Accuchecks
Start Basal bolus on 10/16/24 and adjust as needed
Hold oral antiglycemic
#LE edema
US LE neg for DVT
#positive UA
no urinary symptoms
Ucx NTD
DVT ppx SCDs in setting of severe thrombocytopenia
Full code
Anticipated Discharge: 24 - 48 hours
Subjective/Interval History
-
Date of Service: October 22, 2024
States of losing weight
states breathing has improved
Objective Data
-
Labs:
Laboratory Results
10/22/24
05:09
WBC 9.4
Hgb 10.0 L
Hct 29.3 L
Plt Count 97 L D
Sodium 140
Potassium 4.0
Chloride 105
Carbon Dioxide 28
BUN 53 H
Creatinine 1.5 H
Glucose 65 L
Calcium 8.1 L
Total Bilirubin 1.5 H
AST 57
ALT 472 H
Alkaline Phosphatase 153 H
Vital Signs:
Vital Signs
Temp Pulse Resp BP Pulse Ox
98.0 F 94 17 107/63 95
10/22/24 11:01 10/22/24 11:01 10/22/24 11:01 10/22/24 11:01 10/22/24 11:01
I&O
10/21/24 10/22/24 10/23/24
06:59 06:59 06:59
Intake Total 690 / 690 420 / 420
Output Total 2270 / 2270 860 / 860
Balance -1580 / -1580 -440 / -440
Physical Exam
-
General: No Apparent Distress and Comfortable
HEENT: Normocephalic, Atraumatic and Moist Mucous Membranes
Respiratory: Clear to Auscultation
Cardiac: S1/S2, Irregular Rhythm and Tachycardic
GI: Soft, Nontender, Nondistended and Normal Bowel Sounds
Musculoskeletal: No Clubbing, No Cyanosis, Edema, Right Lower Extrem (improved ) and Edema, Left Lower Extrem (improved )
Neuro: Awake, Alert, Oriented and AO x 3
Psych: Calm
Data Reviewed
-
Total Time Spent with Patient (in minutes): 55
--- NOTE | 2024-10-22 13:30 | W.PN.CARDCBS ---
Addendum entered and electronically signed by Eamon Gonsales MD 10/22/24 16:57:
I saw and examined the patient.
The Bottom Buffer's note was reviewed and I agree with the note.
Comment: Briefly, 78-year-old man presenting in cardiogenic shock secondary to pericardial effusion resulting in tamponade. He underwent pericardiocentesis with resolution of his pericardial effusion. Now transferred out of the ICU. Multiorgan
failure is resolving.
Remains in atrial flutter on review of telemetry with rates elevated at times. Plan to increase Toprol to 50 mg twice daily and continue diltiazem.
Would not resume anticoagulation as pericardial effusion was hemorrhagic and patient currently has thrombocytopenia
Plan for outpatient echo and if effusion has not reaccumulated would consider resuming oral anticoagulation with close monitoring. Explained to patient's family at bedside and they were in agreement with the plan.
Appreciate nephrology input, agree with as needed Lasix going forward.
Original Note:
Today's Communication / Plan
-
would plan to remain off OAC for now. repeat CBC and echo in ~2 weeks to reassess for pericardial fluid reaccumulation. if none, would plan to start on eliquis if cost affordable (instead of xarelto). then repeat echo 2 weeks after initiation of OAC
to assess for recurrence
continue toprol, cardizem
eventual consideration for watchman procedure
would consider for low dose daily lasix upon DC
Impression / Plan
-
Primary Shank Tapper: Dr. Juan Carlos Gregg
Assessment:
Pericardial tamponade with cardiogenic shock with emergent pericardiocentesis 10/13/2024
Acute hypoxic respiratory failure/Vent dependent respiratory failure
Acute HFpEF related to tamponade
Metabolic acidosis
Atrial flutter/atrial tachycardia with RVR status post cardioversion October 09
Hyperkalemia
Shock liver
Anemia, history of CHELI
DEAN on CKD, on CRRT
Recent PNA, concern for acute infectious process
Paroxysmal Afib s/p PVI 02/2019
Paroxysmal atrial tachycardia s/p ablation 02/2019
Paroxysmal typical atrial flutter s/p CTI ablation 2015 with recurrence 09/2024 s/p CV 10/09/24
chronic OAC with xarelto
DM2
HTN
HLD
COPD
former smoker
BPH
Prostate cancer, diagnosed 01/2022
ECHO 02/21/24: EF 55 to 60%, mild MR, trace AR, PAP 30 to 35 mmHg
Plan:
-Medically complex 78-year-old gentleman who presented with multisystem organ failure s/p pericardiocentesis for tamponade and cardiogenic shock
-pericardial fluid was bloody. drain removed 10/15. negative for malignancy
-pericardial effusion resolved by echo 10/20/24
-hgb 10 and plts 97K. remains off OAC (was on xarelto preop)
-remains in aflutter with controlled vent response on review of tele. continue cardizem, toprol. Amiodarone had been initiated this admission however was then discontinued after multidisciplinary discussion of new thrombocytopenia
-was cardioverted 10/09/24. went back into afib 10/18/24. difficult situation with both elevated risk of CVA and risk of bleeding, however would remain off OAC for now. repeat CBC and echo in ~2 weeks to assess for pericardial effusion recurrence. if
without reaccumulation, would start OAC perhaps with eliquis instead of OP xarelto (due to slightly better bleeding profile) and repeat echo in ~2 weeks to reassess for reaccumulation.
-ARF resolved and off of CRRT. Cr continues to improve, 1.5 on 10/22
-s/p L thora 10/21/24. dry weight felt to be 220-225 pounds. follow volume status. would consider for low dose standing lasix. d/w nephrology. if DC'd on lasix, would repeat BMP in 1 week
-discussed potential candidacy for eventual watchman however would need to be able to tolerate OAC elin-procedurally
-will arrange OP cardiac follow up
-PT evaluation
-d/w patient, , and daughter at bedside in detail. all questions answered
Progress Note - Shank Tapper
Subjective
Date of Service: October 22, 2024
feeling well. no issues
Objective
Labs:
10/22/24 05:09
10/22/24 05:09
Labs
Hgb 10.0 g/dL (13.0-18.0) L 10/22/24 05:09
Hct 29.3 % (39.0-52.0) L 10/22/24 05:09
Plt Count 97 10^3/uL (130-400) L D 10/22/24 05:09
PT 17.8 Sec (11.4-14.6) H 10/19/24 04:54
INR 1.44 10/19/24 04:54
APTT 31.2 Sec (23.4-35.0) 10/18/24 03:36
Sodium 140 mmol/L (135-145) 10/22/24 05:09
Potassium 4.0 mmol/L (3.5-5.1) 10/22/24 05:09
BUN 53 mg/dl (9-20) H 10/22/24 05:09
Creatinine 1.5 mg/dL (0.7-1.3) H 10/22/24 05:09
Glucose 65 mg/dl (70-99) L 10/22/24 05:09
Vital Signs and I&O:
Vital Signs
Temp Pulse Resp BP Pulse Ox
98.0 F 94 17 107/63 95
10/22/24 11:01 10/22/24 11:01 10/22/24 11:01 10/22/24 11:01 10/22/24 11:01
Vital Signs
Temp Pulse Resp BP Pulse Ox
98.0 F 94 17 107/63 95
10/22/24 11:01 10/22/24 11:01 10/22/24 11:01 10/22/24 11:01 10/22/24 11:01
Intake & Output
10/20/24 10/21/24 10/22/24 10/23/24
07:59 07:59 07:59 07:59
Intake Total 690 / 690 420 / 420
Output Total 2270 / 2270 860 / 860
Balance -1580 / -1580 -440 / -440
Physical Exam
Physical Exam
GEN: No distress, awake, alert, oriented x3
HEENT: supple, anicteric, mmm, eomi
LUNGS: few crackles B/L bases, no wheezes
CV: Irreg, S1/S2, no murmur
ABD: soft, BS+, NT/ND
EXT: No cyanosis, clubbing. trace edema of B/L LE
NEURO: Gross non-focal
SKIN: Warm, pink, dry. No rash
--- NOTE | 2024-10-22 14:04 | W.PN.NEPH.PH ---
Today's Communication / Plan
-
Will start Lasix 20 mg daily
Assessment/Plan
-
Impression:
Acute kidney injury
Acute hypoxic respiratory with history of COPD
CHF decompensation (HFPef)
Anemia with elevated LDH
Hyperkalemia
Gapped metabolic acidosis/beta hydroxybutyrate
Chronic kidney disease stage III with baseline creatinine of 1.6
Hypertension
Paroxysmal atrial fibrillation
Diabetes
Prostate CA
Transaminitis
Pericardial effusion
Plan:
DEAN/Hyperkalemia/Gapped metabolic acidosis (lactic acidemia/DKA), pericardial tamponade
CRRT was initiated refractory acidosis on 10/13, creatinine continues to improve down to 1.5with nonoliguric output via langley
last dialysis on 10/17/2024
BP stable on BB and cardizem
LFTs high likely shock liver-improving
plt improving, HIT pending
re: lasix 20mg daily
Patient is cleared for discharge research program manager
d/w pt and
d/w nursing
-
-
Date of Service: October 22, 2024
CC / HPI / ROS
-
Chief Complaint:
DEAN
History of Present Illness:
CRRT initiated 10/13, off 10/14, HD 10/17
s/p pericardiocentesis 550cc, bloody fluid 10/13
LFTs high-improving
BP stable
non oliguric
Creatinine down to 1.5
hb low 9.6, low plt stable 56k
Review of Systems:
on RA, no fever
non oliguric
no cp or sob
Labs
-
Labs:
WBC 9.4 10^3/uL (4.8-10.8) 10/22/24 05:09
RBC 3.17 10^6/uL (4.70-6.10) L 10/22/24 05:09
Hgb 10.0 g/dL (13.0-18.0) L 10/22/24 05:09
Hct 29.3 % (39.0-52.0) L 10/22/24 05:09
Plt Count 97 10^3/uL (130-400) L D 10/22/24 05:09
Sodium 140 mmol/L (135-145) 10/22/24 05:09
Potassium 4.0 mmol/L (3.5-5.1) 10/22/24 05:09
Chloride 105 mmol/L (98-107) 10/22/24 05:09
Carbon Dioxide 28 mmol/L (22-30) 10/22/24 05:09
BUN 53 mg/dl (9-20) H 10/22/24 05:09
Creatinine 1.5 mg/dL (0.7-1.3) H 10/22/24 05:09
eGFR 47.65 10/22/24 05:09
Glucose 65 mg/dl (70-99) L 10/22/24 05:09
Calcium 8.1 mg/dl (8.4-10.2) L 10/22/24 05:09
Phosphorus 5.3 mg/dl (2.5-4.5) H 10/15/24 03:12
Dmj-C-Hhefnspjlwo Pept 1120 pg/ml 10/12/24 14:17
Albumin 2.7 g/dl (3.5-5.0) L 10/22/24 05:09
Physical Exam
-
Vital Signs:
Vital Signs
Temp Pulse Resp BP Pulse Ox
98.0 F 94 17 107/63 95
10/22/24 11:01 10/22/24 11:01 10/22/24 11:01 10/22/24 11:01 10/22/24 11:01
Cardiovascular:: Irregular rate and rhythm
Respiratory:: Bilateral: CTA
Lung Excursion:: Normal (decrased)
Abdomen:: Nontender and Soft
Extremity Edema:: +1: Bilateral: (trace)
Langley Catheter: Yes
--- NOTE | 2024-10-22 15:34 | CM ---
chart reviewed: Anticipated Discharge: 24 - 48 hours.
Plan: Discharge to [facility] when stable pending bed availability and AUTH approval
[2024-10-22] MEDS: LASIX 20 MG PO (15:59)
[2024-10-22 16:03] LABS: Glucose - Point of Care 298 mg/dl (70-99)
[2024-10-22] MEDS: SYMBICORT 160/4.5 MCG INHALER 2 PUFF INH (20:06)
[2024-10-22] MEDS: TOPROL XL 50 MG PO (20:58)
[2024-10-22 21:20] LABS: Glucose - Point of Care 98 mg/dl (70-99)
[2024-10-23 03:00] VITALS: BP 131/72
[2024-10-23 05:56] LABS: % Basophils 0.1 % (0-2); % Eosinophils 3.1 % (0-6); % Immature Granulocytes 1.3 % (0-0.5); % Lymphocytes 11.6 % (20.5-51.1); % Monocytes 11.6 % (1.7-9.3); % Neutrophils 72.3 % (42.2-75.2); Absolute Eosinophils 0.2 10^3/uL (0-0.7); Absolute Immature Granulocytes 0.1 10^3/uL (0-0.05); Absolute Lymphocytes 0.9 10^3/uL (1.2-3.4); Absolute Monocytes 0.9 10^3/uL (0.1-0.6); Absolute Neutrophils 5.6 10^3/uL (1.4-6.5); Hematocrit 27.3 % (39.0-52.0); Mean Corpuscular Hgb 31.3 pg (27.0-31.0); Mean Corpuscular Volume 94.8 fL (80.0-94.0); Mean Platelet Volume 10.6 fL (7.4-10.4); Nucleated Red Blood Cells % 0 % (-); Platelet Count 109 10^3/uL (130-400); Red Blood Cell Count 2.88 10^6/uL (4.70-6.10); Red Cell Dist. Width 15.2 % (11.5-14.5); White Blood Cell Count 7.7 10^3/uL (4.8-10.8)
[2024-10-23 06:00] VITALS: BMI 28.4
[2024-10-23 06:19] LABS: ALT (SGPT) 341 U/L (0-50); AST (SGOT) 46 U/L (17-59); Albumin 2.5 g/dl (3.5-5.0); Alkaline Phosphatase 142 U/L (38-126); Blood Urea Nitrogen 50 mg/dl (9-20); Calcium 7.9 mg/dl (8.4-10.2); Carbon Dioxide 26 mmol/L (22-30); Chloride 104 mmol/L (98-107); Estimated Creatinine Clearance 46 ml/min; Glucose 82 mg/dl (70-99); Potassium 3.9 mmol/L (3.5-5.1); Sodium 137 mmol/L (135-145); Total Bilirubin 1.5 mg/dl (0.2-1.3); Total Protein 4.8 g/dl (6.3-8.2)
[2024-10-23 07:15] VITALS: BP 145/66
[2024-10-23 07:21] LABS: Glucose - Point of Care 88 mg/dl (70-99)
[2024-10-23] MEDS: SYMBICORT 160/4.5 MCG INHALER INH (07:40)
--- NOTE | 2024-10-23 07:43 | PN.DE.MGMTRT ---
Insulin Management
- -
10/23/2024: Diabetes Management F/U:
78 year old male with PMH: T2DM, COPD, Hx of HepB, Afib on Xarelto s/p cardioversion on 10/09, admitted 10/12 with worsening SOB and Afib with RVR likely due to pneumonia with concern for sepsis, started on IV steroids, contributing to hyperglycemia
requiring insulin infusion. Found to have large pericardial effusion on Echo s/p pericardiocentesis with drain that showed sanguineous fluid. Intubated on 10/13/24 due to worsening acidosis. Started on CRRT due to worsening renal failure on
10/13/24. Was taking Januvia 50 mg daily, Metformin 850 TID and Glimepiride 4mg daily DIDACTIC INSTRUCTOR.
A1C 7.2%, Cr 1.8 on admission, worsened to 3.1, eGFR 19.94
Pt awake, alert, sitting up in chair, offers no complaints, - April at bedside, able to discuss diabetes mgt.
Extubated on 10/15/24. Transitioned off insulin drip on 10/15. Cr improving 1.6, eGFR 44.10 today.
Noted for Premeal glucose excursions yesterday, pre-lunch glucose was 239 and ore-dinner 298.
Pt received Lantus 16 units in AM, FBG 82(V) and 88 poc.
Will increase pre-breakfast and pre-lunch NovoLog to 15 units. Cont pre-dinner NovoLog 10 units and Lantus 16 units in AM
Pt's not a candidate for oral diabetes agents at this time due to DEAN/CKD.
Will closely monitor and switch back to his OP oral regimen when Cr is at baseline.
states pt has a working monitor and checks his blood sugars twice a day.
Diabetes History
- -
Type of Diabetes: 2 requiring insulin
Pre-Admission Diabetes Regimen
10/23/24
05:39
Creatinine 1.6 H
Lab Results
Hemoglobin A1c 7.2 % (4.0-5.6) H 10/12/24 12:29
Insulin Pump Settings
IP Diabetes Regimen
10/22/24 10/22/24 10/22/24
11:06 16:02 21:18
Glucose
POC Glucose 239 H 298 H 98
10/23/24 10/23/24
05:39 07:04
Glucose 82
POC Glucose 88
Meal type: Lunch
Meal type: Breakfast
Amount consumed: 100%
Amount consumed: 100%
Patient Education
[2024-10-23] MEDS: CARDIZEM CD 180 MG PO (08:12)
[2024-10-23] MEDS: LASIX 20 MG PO (08:12)
[2024-10-23] MEDS: TOPROL XL 50 MG PO (08:12)
[2024-10-23] MEDS: MIRALAX TUBE (08:13)
[2024-10-23] MEDS: NOVOLOG FLEXPEN-MODERATE RESISTANCE SC ×2 (08:13→12:47)
[2024-10-23] MEDS: NOVOLOG FLEXPEN 10 UNITS SC (08:13)
[2024-10-23] MEDS: LANTUS 0.16 UNITS SC (08:17)
--- NOTE | 2024-10-23 11:24 | CM ---
Addendum entered by Elvin Collins 10/23/24 13:27:
Both pt and his spouse changed discharge plan and they requested to return back home with VN services, instead of going to [facility] [place] [facility]. Pt's spouse stated her daughter is an OT and it will be much better if her goes home. A list of
SNFs provided to pt and his spouse, [facility] preferred.
A referral to [facility] made.
Please fax discharge instructions to [facility] at [phone].
D/C plan: home with VN and family support. Family to transport
Original Note:
CM following re: discharge planning.
Reviewed pt's chart, met with pt.
pt is aware of the plan to go to [facility] for a short term rehab and pt expressed his agreement. IMM reviewed, placed on [employer], pt has a copy.
[facility] has accepted the pt based on bed availability on the day of discharge.
CM left a message to [facility] regarding bed availability for a possible pt's discharge today or tomorrow.
D/C plan: [facility] based on bed availability on the day of discharge.
CM will follow with discharge plan updates as hospitalization progresses
[2024-10-23 11:27] VITALS: BP 122/54
[2024-10-23 11:39] LABS: Glucose - Point of Care 117 mg/dl (70-99)
--- NOTE | 2024-10-23 11:41 | W.PN.HOSP.TC ---
Today's Communication/Plan
-
GDMT
CCB/BB
lasix
Home VN
insulin on dc
Assessment / Plan
Assessment / Plan
78yo M with PMHx of DM, COPD, Hx of HepB, Afib on Xarelto s/p cardioversion on 10/09 came with worsening SOB and Afib with RVR. Recently started on oral Abx with concern for pneumonia. With concern for sepsis - received hydration in ICU and later
found with signs of pulmonary congestion on XR chest. With worsening labs transferred to ICU for insulin drip. Found large pericardial effusion on Echo s/p pericardiocentesis with drain that showed sanguineous fluid. With new coagulopathy - anticoag
stopped. Intubated on 10/13/24 due to worsening acidosis. Started on CRRT with worsening renal failure on 10/13/24. DIC ruled out, was managed for coagulopathy with FFP and PRBC transfusions. Extubated on 10/15/24. Labs improving, but still
requires HD. Developed thrombocytopenia
A/P:
#Afib with RVR
#Acute on chronic HFpEF with pulmonary congestion on XR
can be 2/2 hypoxia, however did not correct on IVF and O2 supplementation
Telemetry
ProBNP minimally elevated from baseline on admission
TSH WNL
Lasix as per nephro in view of DEAN
Amio started on 10/17/24, but developed thrombocytopenia, so switched to Cardizem
on cardizem 180mg daily. can uptitrate if needed
Metoprolol dose adjusted to 50 mg twice daily.
Plan to hold Xarelto until outpatient echocardiogram in 4 to 6 weeks. And if stable echocardiogram then can be restarted as outpatient.
#Pericardial effusion, sanguinous, with tamponade and cardiogenic shock
s/p pericardiocentesis draining hemopericardium on 10/13/24
Cx NTD
Cardiology follows
Drain removed on 10/15/24
Repeat echo in 4 to 6 weeks as outpatient.
repeat ECHO without pericardial effusion
#Thrombocytopenia
Hematology follows - recommended to stop Amio - cardiology will switch to Cardizem
HIT AB at 0.111 negative.
Not on heparin product since 10/13/24
Platelet hopefully start to plateau. Plt at 109k today.
#Coagulopathy
Multifactorial: 2/2 sepsis, Xarelto, heparin, ischemic hepatitis
follow INR
improved
#Acute hypoxic respiratory failure, multifactorial, concern for bibasilar pneumonia with possible sepsis on admission
#Concern for septic shock on admission
Cefepime stopped with negative Cx as per personnel analyst
Linezolid and Doxy discontinued with Legionella, S.pneumonia urinary Ag neg and MRSA screen neg
Bcx NTD
Sputum Cx NTD
COVID-19, Influenza, RSV neg
Procalcitonin elevated to 1.23
now on room air.
#Transaminitis 2/2 ischemic hepatitis
#Positive HepB core - previous infection
Most likely hypoperfusion 2/2 RVR with additional sepsis and hypoxia
follow LFT-significant improvement noted- slow improvement expected.
GI consult: portal Doppler without PVT, liver and biliary tree without acute pathology
#Acute blood loss anemia on anemia of chronic disease and history of CHELI
worsened with new coagulopathy
Hx of EGD, colonoscopy and pill endoscopy without source of bleeding
LDH significantly elevated - follow haptoglobin
follow CBC
Transfuse to keep Hgb between 7.0-8.0
# Exudative left-sided pleural effusion
Effusion noted on CXR
Check US chest Bilateral showing Small right and [id number] left pleural effusions are noted.
Status post thoracentesis with 1100 cc removed. Fluid culture preliminary negative. Cytology pending.
#Elevated LDH
2/2 acute disease
KELLEY neg
haptoglobin high-normal - no concern for hemolysis
#Hyperuricemia
2/2 DEAN?
#Hyperkalemia with DEAN on CKD stage 3b
#Metabolic acidosis, cannot exclude DKA component
completed insulin ip
completed CRRT. DC HD catheter removed on 10/20/24
DC langley and voiding without any difficulty.
Cr continues to downtrend.
Lasix 20 mg daily
Nephrology for HD
#COPD, not in exacerbation
No wheezing, but tight breathing sounds
With prevalent pulmonary congestion picture - stopped steroids
Cont bronchodilators
#DM type 2 with nephropathy
Insulin SS, DM diet, Accuchecks
Start Basal bolus on 10/16/24 and adjust as needed
Patient comfortable with insulin.
#LE edema
US LE neg for DVT
#positive UA
no urinary symptoms
Ucx NTD
DVT ppx SCDs in setting of severe thrombocytopenia
Full code
d/w with spouse at bedside in details. Patietn and spouse wants to go home. Does not want SNF.
d/w with cardiology okay for discharge
More than 30 minutes spent in discharge including
Final examination of the patient
Summarizing hospital stay
Instructions for continuing care to all relevant caregivers
Preparation of discharge records, prescriptions, and referral forms
Total time spent (in minutes): 55
Anticipated Discharge: Today
Subjective/Interval History
-
Date of Service: October 23, 2024
OOB to chair
denies cp or palpaptions
Objective Data
-
Labs:
Laboratory Results
10/23/24
05:39
WBC 7.7
Hgb 9.0 L
Hct 27.3 L
Plt Count 109 L
Sodium 137
Potassium 3.9
Chloride 104
Carbon Dioxide 26
BUN 50 H
Creatinine 1.6 H
Glucose 82
Calcium 7.9 L
Total Bilirubin 1.5 H
AST 46
ALT 341 H
Alkaline Phosphatase 142 H
Vital Signs:
Vital Signs
Temp Pulse Resp BP Pulse Ox
97.5 F 73 17 122/54 98
10/23/24 11:27 10/23/24 11:27 10/23/24 11:27 10/23/24 11:27 10/23/24 11:27
I&O
10/22/24 10/23/24 10/24/24
06:59 06:59 06:59
Intake Total 420 / 420 720 / 720 480 / 480
Output Total 860 / 860 600 / 600 1000 / 1000
Balance -440 / -440 120 / 120 -520 / -520
Physical Exam
-
General: No Apparent Distress and Comfortable
HEENT: Normocephalic, Atraumatic and Moist Mucous Membranes
Respiratory: Clear to Auscultation
Cardiac: S1/S2 and Irregular Rhythm
GI: Soft, Nontender, Nondistended and Normal Bowel Sounds
Musculoskeletal: No Clubbing, No Cyanosis, Edema, Right Lower Extrem (improved ) and Edema, Left Lower Extrem (improved )
Neuro: Awake, Alert, Oriented and AO x 3
Psych: Calm
--- NOTE | 2024-10-23 11:56 | W.DCSUMMARY ---
Discharge Summary
Discharge Data
Date of Admission: 10/12/24
Date of Discharge: 10/23/24
-
Pending Results: Yes
Additional Pending Results:
Left pleural fluid cytology follow-up with primary doctor
Hospital Course
78yo M with PMHx of DM, COPD, Hx of HepB, Afib on Xarelto s/p cardioversion on 10/09 came with worsening SOB and Afib with RVR. Recently started on oral Abx with concern for pneumonia. With concern for sepsis - received hydration in ICU and later
found with signs of pulmonary congestion on XR chest. With worsening labs transferred to ICU for insulin drip. Found large pericardial effusion on Echo s/p pericardiocentesis with drain that showed sanguineous fluid. With new coagulopathy - anticoag
stopped. Intubated on 10/13/24 due to worsening acidosis. Started on CRRT with worsening renal failure on 10/13/24. DIC ruled out, was managed for coagulopathy with FFP and PRBC transfusions. Extubated on 10/15/24. Patient was also found to have
a thrombocytopenia. Patient with atrial fibrillation with rapid ventricular response. Amiodarone was discontinued. HIT panel was sent was found to be negative. Patient was started on Cardizem. Metoprolol dose was adjusted. Heart rate
stabilized. Patient creatinine continued to improve and was taken off hemodialysis. HD catheter was removed. Patient creatinine continues to stabilize. Patient was also found to have pleural effusion status post thoracentesis with 1100 cc fluid
removed. Once patient off insulin drip he was started on basal bolus regimen. Diabetic TIMBER SIZER was consulted and patient received diabetic education. Due to unpredictable creatinine and creatinine clearance patient was taken off p.o. diabetic regimen
and will be maintained on basal bolus regimen for now. Education was provided. Patient and spouse comfortable with getting basal bolus regimen. Patient platelets continue to uptrend. No sign of bleeding was noted. Patient was started on 20 mg
of Lasix daily. Repeat echocardiogram was performed which was found negative for pericardial effusion. Patient would follow-up with cardiology in the office and subsequently afterwards will undergo repeat echocardiogram to assess for pericardial
effusion as patient had hemorrhagic pericardial effusion. If repeat echo as outpatient remained stable then plan will be to start patient back on DOAC. Patient also was found to have ischemic hepatitis with severely elevated AST and ALT. Patient
portal Doppler was negative for PVT. Patient transaminitis slowly continue to downtrend. Significant improvement was noted with stabilization of blood pressure. Patient was eval by physical and Occupational Therapy. Initial plan was for SNF
however patient and spouse both refused and wants to go home with VN.
Discharge Plan
-
Patient Disposition: Home with Home Care
Discharge Diagnosis/Procedures: Atrial fibrillation with rapid ventricular response
Acute on chronic diastolic heart failure exacerbation
Pericardial effusion with tamponade status post pericardiocentesis
Cardiogenic shock
Thrombocytopenia
Coagulopathy
Ischemic hepatitis
Acute hypoxic respiratory failure
Exudative left-sided pleural effusion status post thoracentesis
Hyperkalemia
Metabolic acidosis
Diabetes mellitus uncontrolled
Condition: Fair
Diet: Low Sodium, Diabetic, Carb Controlled and Other diet
Additional Diets: 60 oz fluid restriction
Activity: With assistance and As tolerated
Driving Restrictions: Not until seen by your Dr
Blood Work: CBC/CMP next week with primary doctor or cardiology
Other Services: VN
Specialty Instructions: Weigh Daily- Call MD for wt gain/loss 3 lbs overnight/5 lbs in 1 week
Activity Restrictions/Additional Instructions:
hold statin until CBC/CMP next week and if LFTs continue to trend down will resume at 10/29/24 Cardiology office visit
Left pleural fluid cytology follow-up with primary doctor or cardiology in office.
Instructions: *[facility] Heart Failure Instructions
Referrals:
Do.[facility]- [facility] [Provider Group] - 11/03/24 4:00 pm
(You have an echo study at the [facility] in [facility], [address]. Please call with questions.
You are then scheduled for a repeat echo study 11/16/24 at 1:00PM at the [facility] in [facility], [address]. Please call with questions. )
Megan Souza DO [Family Provider] -
Shania Morales CRNP [Specified Professional Personl] - 10/29/24 11:00 am (You have a cardiology follow up appointment at the [place] office with Dr. Rangel's nurse practitioner, Shania. Please call with questions. )
Additional Discharge Medication Instructions: Lisinopril, simvastatin, Xarelto, metformin, Januvia and glimepiride was stopped for now.
Prescriptions:
New
diltiazem HCl 180 mg Capsule,Extended Release 24hr
180 mg PO DAILY 30 Days Qty: 30 0RF
furosemide 20 mg Tablet
20 mg PO DAILY 30 Days Qty: 30 0RF
metoprolol succinate 50 mg Tablet Extended Release 24 Hr
50 mg PO BID 30 Days Qty: 60 0RF
insulin aspart U-100 [Novolog FlexPen U-100 Insulin] 100 unit/mL (3 mL) Insulin Pen
10 unit SC AC Qty: 5 0RF
Rx Instructions:
Take 10 units before each meal
insulin glargine [Basaglar KwikPen U-100 Insulin] 100 unit/mL (3 mL) Insulin Pen
16 unit SC DAILY Qty: 5 0RF
Rx Instructions:
Take 16 units daily in the morning
(DME) pen needle, diabetic [BD Ultra-Fine Kelley Pen Needle] 32 gauge x 5/32' Needle
Qty: 200 0RF
Rx Instructions:
Patient taking insulin 4 times a day
Continued
fluticasone furoate-vilanterol [Breo Ellipta] 100-25 mcg/dose Blister With Device
1 inh INHALATION R DAILY
Discontinued
simvastatin 20 MG tablet
20 mg PO DAILY
lisinopril 10 mg Tablet
10 mg PO DAILY
glimepiride 4 mg Tablet
4 mg PO DAILY
Januvia 50 mg Tablet
50 mg PO DAILY
metformin 850 mg Tablet
850 mg PO TID
metoprolol succinate 25 mg Tablet Extended Release 24 Hr
25 mg PO DAILY
Rx Instructions:
take with 50mg for total of 75mg
Xarelto 20 mg Tablet
20 mg PO DAILY
metoprolol succinate 50 mg tablet extended release 24 hr
50 mg PO DAILY
Rx Instructions:
take with 25mg for total of 75mg
Discharge Orders:
Discharge Patient (As Directed); Ordered 10/23/24
Ordered By: Regis Mancuso
Discharge Date and Time
Print Language: THAI
--- NOTE | 2024-10-23 12:35 | W.PN.CARDCBS ---
Addendum entered and electronically signed by Eamon Gonsales MD 10/23/24 15:28:
I saw and examined the patient.
The Manager Law's note was reviewed and I agree with the note.
Comment: Briefly, 78-year-old man presenting in cardiogenic shock secondary to tamponade due to hemorrhagic pericardial effusion. He underwent emergent pericardiocentesis. Pericardial drain has subsequently been removed and based on most recent
echocardiogram effusion has resolved. Patient downgraded from ICU to telemetry floor and lab work shows that his multiorgan failure is resolving.
Currently asymptomatic from a cardiovascular standpoint
Remains in atrial flutter/fibrillation�heart rates are better controlled on current doses of metoprolol and diltiazem, would continue on discharge
Would not resume anticoagulation as pericardial effusion was hemorrhagic and patient currently has resolving thrombocytopenia
Plan for outpatient echo and if effusion has not reaccumulated would consider resuming oral anticoagulation with close monitoring.
Appreciate nephrology input, agree with low-dose daily Lasix
Rest per Ирина Washington
Original Note:
Today's Communication / Plan
-
remains off OAC for now given bloody pericardial effusion
plan for follow up visit 10/29, follow up echo 11/03. if no reaccumulation, will plan to start eliquis if cost affordable to patient. then repeat echo 11/16. if remains ok, will discuss watchman candidacy at 11/24/24 office visit
hold statin until CBC/CMP next week and if LFTs continue to trend down will resume at 10/29 office visit
continue toprol, cardizem
holding lisinopril
lasix 20mg po daily. instructed on CHF signs/symptoms
Impression / Plan
-
Primary Retail Security Professional: Dr. Juan Carlos Gregg
Assessment:
Pericardial tamponade with cardiogenic shock with emergent pericardiocentesis 10/13/2024
Acute hypoxic respiratory failure/Vent dependent respiratory failure
Acute HFpEF related to tamponade
Metabolic acidosis
Atrial flutter/atrial tachycardia with RVR status post cardioversion October 09
Hyperkalemia
Shock liver
Anemia, history of CHELI
DEAN on CKD, on CRRT
Recent PNA, concern for acute infectious process
Paroxysmal Afib s/p PVI 02/2019
Paroxysmal atrial tachycardia s/p ablation 02/2019
Paroxysmal typical atrial flutter s/p CTI ablation 2015 with recurrence 09/2024 s/p CV 10/09/24
chronic OAC with xarelto
DM2
HTN
HLD
COPD
former smoker
BPH
Prostate cancer, diagnosed 01/2022
ECHO 02/21/24: EF 55 to 60%, mild MR, trace AR, PAP 30 to 35 mmHg
Plan:
-Medically complex 78-year-old gentleman who presented with multisystem organ failure s/p pericardiocentesis for tamponade and cardiogenic shock
-pericardial fluid was bloody. drain removed 10/15. negative for malignancy
-pericardial effusion resolved by echo 10/20/24
-hgb 9 and plts 109K. remains off OAC (was on xarelto preop)
-remains in aflutter with controlled vent response on review of tele. continue cardizem, toprol. Amiodarone had been initiated this admission however was then discontinued after multidisciplinary discussion of new thrombocytopenia
-was cardioverted 10/09/24. went back into afibr 10/18/24. currently in rate controlled aflutter with PVCs on review of tele. difficult situation with both elevated risk of CVA and risk of bleeding, however would remain off OAC for now. repeat
CBC/CMP in 1 week and echo in ~1-2 weeks to assess for pericardial effusion recurrence. if without reaccumulation, would start OAC perhaps with eliquis instead of OP xarelto (due to slightly better bleeding profile- CM to assess cost to patient) and
repeat echo in ~2 weeks to reassess for reaccumulation. if tolerating, then can discuss expedited watchman (KIEL rather than CT to assess preprocedure due to RI) at office visit 11/24/24.
-ARF resolved and off of CRRT. Cr stable, 1.6 on 10/23
-s/p L thora 10/21/24. dry weight felt to be 220-225 pounds. follow volume status. continue po lasix 20mg daily
-PT
-plan for DC to home today
-reviewed signs and symptoms of acute CHF and conversely overdiuresis/dehydration with patient and
-d/w patient, at bedside in detail. d/w nursing
Progress Note - Retail Security Professional
Subjective
Date of Service: October 23, 2024
feeling well. eager for DC
Objective
Labs:
10/23/24 05:39
10/23/24 05:39
Labs
Hgb 9.0 g/dL (13.0-18.0) L 10/23/24 05:39
Hct 27.3 % (39.0-52.0) L 10/23/24 05:39
Plt Count 109 10^3/uL (130-400) L 10/23/24 05:39
PT 17.8 Sec (11.4-14.6) H 10/19/24 04:54
INR 1.44 10/19/24 04:54
APTT 31.2 Sec (23.4-35.0) 10/18/24 03:36
Sodium 137 mmol/L (135-145) 10/23/24 05:39
Potassium 3.9 mmol/L (3.5-5.1) 10/23/24 05:39
BUN 50 mg/dl (9-20) H 10/23/24 05:39
Creatinine 1.6 mg/dL (0.7-1.3) H 10/23/24 05:39
Glucose 82 mg/dl (70-99) 10/23/24 05:39
Vital Signs and I&O:
Vital Signs
Temp Pulse Resp BP Pulse Ox
97.5 F 73 17 122/54 98
10/23/24 11:27 10/23/24 11:27 10/23/24 11:27 10/23/24 11:27 10/23/24 11:27
Vital Signs
Temp Pulse Resp BP Pulse Ox
97.5 F 73 17 122/54 98
10/23/24 11:27 10/23/24 11:27 10/23/24 11:27 10/23/24 11:27 10/23/24 11:27
Intake & Output
10/21/24 10/22/24 10/23/24 10/24/24
07:59 07:59 07:59 07:59
Intake Total 690 / 690 420 / 420 1200 / 1200
Output Total 2270 / 2270 860 / 860 1600 / 1600
Balance -1580 / -1580 -440 / -440 -400 / -400
Physical Exam
Physical Exam
GEN: No distress, awake, alert, oriented x3
HEENT: supple, anicteric, mmm, eomi
LUNGS: few crackles B/L bases, no wheezes
CV: Irreg, S1/S2, no murmur
ABD: soft, BS+, NT/ND
EXT: No cyanosis, clubbing. 1+ edema of B/L LE
NEURO: Gross non-focal
SKIN: Warm, pink, dry. No rash. Ecchymoses of B/L UE
[2024-10-23] MEDS: NOVOLOG FLEXPEN 15 UNITS SC (12:47)
--- NOTE | 2024-10-23 13:58 | VNURNOTE ---
Home Health Liaison met with patient and spouse at bedside to discuss [facility] nurse/therapy, visits, schedule and homebound status. Patient is agreeable and understands that visits at home will be 2-3 x per week to assess and teach medical management.
[facility] brochure provided with contact information. Patient is aware that [facility] will contact them for start of care in 1-2 days after discharge from .
[facility] referral completed in [facility].
[2024-10-23 15:32] VITALS: BP 125/65
--- NOTE | 2024-10-23 15:45 | W.PN.NEPH.PH ---
Today's Communication / Plan
-
d/c today
Assessment/Plan
-
Impression:
Acute kidney injury
Acute hypoxic respiratory with history of COPD
CHF decompensation (HFPef)
Anemia with elevated LDH
Hyperkalemia
Gapped metabolic acidosis/beta hydroxybutyrate
Chronic kidney disease stage III with baseline creatinine of 1.6
Hypertension
Paroxysmal atrial fibrillation
Diabetes
Prostate CA
Transaminitis
Pericardial effusion
Plan:
DEAN/Hyperkalemia/Gapped metabolic acidosis (lactic acidemia/DKA), pericardial tamponade
CRRT was initiated refractory acidosis on 10/13,
last dialysis on 10/17/2024
cr stable at 1.6 back on lasix
BP stable on BB and cardizem
LFTs high likely shock liver-improving
plt improving, HIT pending
d/c today, will see cards first and will decide if need to f/u with nephro
d/w pt and
d/w nursing
-
-
Date of Service: October 23, 2024
CC / HPI / ROS
-
Chief Complaint:
DEAN
History of Present Illness:
CRRT initiated 10/13, off 10/14, HD 10/17
s/p pericardiocentesis 550cc, bloody fluid 10/13
left thoracentesis 1.1lit on 10/21
LFTs high-improving
BP stable
non oliguric
Creatinine stable 1.6
hb low 9., low plt better at 109k
Review of Systems:
on RA, no fever
non oliguric
no cp or sob
Labs
-
Labs:
WBC 7.7 10^3/uL (4.8-10.8) 10/23/24 05:39
RBC 2.88 10^6/uL (4.70-6.10) L 10/23/24 05:39
Hgb 9.0 g/dL (13.0-18.0) L 10/23/24 05:39
Hct 27.3 % (39.0-52.0) L 10/23/24 05:39
Plt Count 109 10^3/uL (130-400) L 10/23/24 05:39
Sodium 137 mmol/L (135-145) 10/23/24 05:39
Potassium 3.9 mmol/L (3.5-5.1) 10/23/24 05:39
Chloride 104 mmol/L (98-107) 10/23/24 05:39
Carbon Dioxide 26 mmol/L (22-30) 10/23/24 05:39
BUN 50 mg/dl (9-20) H 10/23/24 05:39
Creatinine 1.6 mg/dL (0.7-1.3) H 10/23/24 05:39
eGFR 44.10 10/23/24 05:39
Glucose 82 mg/dl (70-99) 10/23/24 05:39
Calcium 7.9 mg/dl (8.4-10.2) L 10/23/24 05:39
Phosphorus 5.3 mg/dl (2.5-4.5) H 10/15/24 03:12
Uet-R-Efsnwljgerp Pept 1120 pg/ml 10/12/24 14:17
Albumin 2.5 g/dl (3.5-5.0) L 10/23/24 05:39
Physical Exam
-
Vital Signs:
Vital Signs
Temp Pulse Resp BP Pulse Ox
98.1 F 88 17 125/65 98
10/23/24 15:32 10/23/24 15:32 10/23/24 15:32 10/23/24 15:32 10/23/24 15:32
Lung Excursion:: Normal
Extremity Edema:: +1: Bilateral:
Mcdermott Catheter: No
Other Findings::
ski no rashes
speech clear and oriented
no distress
== END 2024-10-23 15:46 | disposition home health service (06) | DRG 871 ==
LOC: 3 WEST ACU 16:38
PROVIDERS: Internal Medicine; Internal Medicine Interventional Cardiology; Nurse Practitioner Acute Care; Nurse Practitioner Primary Care; Physician Assistant; Radiology Diagnostic Radiology; Radiology Vascular & Interventional Radiology; Registered Nurse; ADMITTING PHYSICIAN Internal Medicine; ATTENDING PHYSICIAN Hospitalist; CONSULT PHYSICIAN Internal Medicine Hematology & Oncology; CONSULT PHYSICIAN Specialist; EMERGENCY PHYSICIAN Emergency Medicine; FAMILY PHYSICIAN Family Medicine; OTHER PHYSICIAN Internal Medicine; OTHER PHYSICIAN Internal Medicine Cardiovascular Disease
PROC: 02HV33Z Insertion of Infusion Device into Superior Vena Cava, Percutaneous Approach (ICD-10-PCS; 2024-10-13)
PROC: 5A1945Z Respiratory Ventilation, 24-96 Consecutive Hours (ICD-10-PCS; 2024-10-13)
PROC: 30233K1 Transfusion of Nonautologous Frozen Plasma into Peripheral Vein, Percutaneous Approach (ICD-10-PCS; 2024-10-13)
PROC: 0W9D3ZZ Drainage of Pericardial Cavity, Percutaneous Approach (ICD-10-PCS; 2024-10-13)
PROC: 5A1D90Z Performance of Urinary Filtration, Continuous, Greater than 18 hours Per Day (ICD-10-PCS; 2024-10-13)
PROC: 0BH17EZ Insertion of Endotracheal Airway into Trachea, Via Natural or Artificial Opening (ICD-10-PCS; 2024-10-13)
PROC: 03HY32Z Insertion of Monitoring Device into Upper Artery, Percutaneous Approach (ICD-10-PCS; 2024-10-13)
PROC: 30233N1 Transfusion of Nonautologous Red Blood Cells into Peripheral Vein, Percutaneous Approach (ICD-10-PCS; 2024-10-14)
PROC: 5A1D70Z Performance of Urinary Filtration, Intermittent, Less than 6 Hours Per Day (ICD-10-PCS; 2024-10-17)
PROC: 0W9B3ZZ Drainage of Left Pleural Cavity, Percutaneous Approach (ICD-10-PCS; 2024-10-21)
DX: A41.9 Sepsis, unspecified organism (principal); I50.33 Acute on chronic diastolic (congestive) heart failure; J96.01 Acute respiratory failure with hypoxia; K72.00 Acute and subacute hepatic failure without coma; R57.0 Cardiogenic shock; N17.9 Acute kidney failure, unspecified; J84.9 Interstitial pulmonary disease, unspecified; I13.0 Hypertensive heart and chronic kidney disease with heart failure and stage 1 through stage 4 chronic kidney disease, or unspecified chronic kidney disease; D68.32 Hemorrhagic disorder due to extrinsic circulating anticoagulants; I31.39 Other pericardial effusion (noninflammatory); I48.3 Typical atrial flutter; I31.4 Cardiac tamponade; J91.8 Pleural effusion in other conditions classified elsewhere; E87.20 Acidosis, unspecified; J44.0 Chronic obstructive pulmonary disease with (acute) lower respiratory infection; D62 Acute posthemorrhagic anemia; I48.0 Paroxysmal atrial fibrillation; N18.32 Chronic kidney disease, stage 3b; E87.5 Hyperkalemia; E11.22 Type 2 diabetes mellitus with diabetic chronic kidney disease; E78.00 Pure hypercholesterolemia, unspecified; N40.0 Benign prostatic hyperplasia without lower urinary tract symptoms; D63.1 Anemia in chronic kidney disease; T45.515A Adverse effect of anticoagulants, initial encounter; D51.9 Vitamin B12 deficiency anemia, unspecified; D69.6 Thrombocytopenia, unspecified; Z11.52 Encounter for screening for COVID-19; Z79.01 Long term (current) use of anticoagulants; Z79.4 Long term (current) use of insulin; Z79.899 Other long term (current) drug therapy; Z85.46 Personal history of malignant neoplasm of prostate; Z87.01 Personal history of pneumonia (recurrent); Z87.891 Personal history of nicotine dependence
CPT/HCPCS: 88305; 93308; 32555; 36556; 71045; 71046; 71250; 74176; 76604; 76700; 76937; 80048; 80053; 80076; 81003; 81015; 82010; 82150; 82248; 82330; 82607; 82728; 82746; 82805; 82945; 82947; 82962; 83010; 83036; 83540; 83550; 83605; 83615; 83690; 83735; 83880; 83986; 84100; 84145; 84155; 84157; 84443; 84478; 84484; 84550; 85014; 85025; 85027; 85045; 85379; 85384; 85610; 85730; 86022; 86301; 86704; 86705; 86706; 86709; 86803; 86850; 86880; 86900; 86901; 86920; 87015; 87040; 87070; 87086; 87102; 87116; 87205; 87206; 87340; 87449; 87502; 87641; 87807; 87811; 87899; 88112; 89051; 92526; 92610; 93005; 93306; 93970; 93975; 94002; 94003; 94640; 96361; 96374; 96375; 97116; 97163; 97167; 97530; 99291; C1752; G0257; J1160; J2020; P9012; P9016; P9059

== ENCOUNTER → 2024-11-03 15:21 | Outpatient (REF) | payer OTHER, SELFPAY | LOC: HWRCS 15:21 | PROVIDERS: ATTENDING PHYSICIAN Nurse Practitioner; FAMILY PHYSICIAN Family Medicine | DX: I48.0 Paroxysmal atrial fibrillation (principal); J90 Pleural effusion, not elsewhere classified | CPT/HCPCS: 71046; 93308 ==

== ENCOUNTER → 2024-11-16 12:45 | Outpatient (REF) | payer OTHER, SELFPAY | LOC: HWRCS 12:45 | PROVIDERS: ATTENDING PHYSICIAN Physician Assistant; FAMILY PHYSICIAN Family Medicine | DX: I31.39 Other pericardial effusion (noninflammatory) (principal) | CPT/HCPCS: 93308 ==

== ENCOUNTER 2024-12-07 06:54 | Day surgery (SDC) | payer OTHER, SELFPAY ==
--- NOTE | 2024-12-07 12:42 | ITS.CL.CARDI ---
Technician [employer] Development - Cardioversion
Cardioversion
Procedure Report:
Date of Procedure: December 07 2024
Procedure: Cardioversion
Indication: Symptomatic atrial fibrillation
Performing Physician: Romeo Webber DO, FACC
Technique: The patient was brought to the holding area. Signed informed consent was obtained. A time out was called and performed. The patient was anesthetized by the anesthesia service. Anticoagulation status was reviewed and appropriate. R2 pads
were placed anteriorly and posteriorly. A 200 J synchronized biphasic shock restored normal sinus rhythm without significant bradycardia. There were no complications.
Conclusion: Uncomplicated cardioversion from atrial fibrillation to sinus rhythm.
Recommendation: Routine post cardioversion care. 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
== END 2024-12-07 09:40 | disposition home or self-care (01) ==
LOC: CATH 06:54
PROVIDERS: ATTENDING PHYSICIAN Nuclear Medicine Nuclear Cardiology; FAMILY PHYSICIAN Family Medicine; OTHER PHYSICIAN Internal Medicine Cardiovascular Disease
DX: I48.0 Paroxysmal atrial fibrillation (principal); I13.0 Hypertensive heart and chronic kidney disease with heart failure and stage 1 through stage 4 chronic kidney disease, or unspecified chronic kidney disease; I50.32 Chronic diastolic (congestive) heart failure; N18.32 Chronic kidney disease, stage 3b; E11.22 Type 2 diabetes mellitus with diabetic chronic kidney disease; J44.9 Chronic obstructive pulmonary disease, unspecified; Z87.891 Personal history of nicotine dependence; Z85.46 Personal history of malignant neoplasm of prostate; Z79.4 Long term (current) use of insulin; Z79.01 Long term (current) use of anticoagulants
CPT/HCPCS: 92960; 93005

== ENCOUNTER → 2025-02-03 12:42 | Outpatient (REF) | payer OTHER, SELFPAY | LOC: HWRAD 12:42 | PROVIDERS: ATTENDING PHYSICIAN Family Medicine | DX: M25.551 Pain in right hip (principal); M25.552 Pain in left hip | CPT/HCPCS: 73522 ==

== ENCOUNTER 2025-03-24 06:28 | Day surgery (SDC) | payer OTHER, SELFPAY ==
[2025-03-24 12:53] LABS: Glucose - Point of Care 147 mg/dl (70-99)
== END 2025-03-24 15:51 | disposition home or self-care (01) ==
LOC: GI 06:28
PROVIDERS: ATTENDING PHYSICIAN Internal Medicine Gastroenterology
DX: D50.0 Iron deficiency anemia secondary to blood loss (chronic) (principal); K62.5 Hemorrhage of anus and rectum; K64.0 First degree hemorrhoids; K64.4 Residual hemorrhoidal skin tags; K55.20 Angiodysplasia of colon without hemorrhage; K44.9 Diaphragmatic hernia without obstruction or gangrene; K31.7 Polyp of stomach and duodenum; D12.3 Benign neoplasm of transverse colon; D12.5 Benign neoplasm of sigmoid colon; D12.2 Benign neoplasm of ascending colon; K63.5 Polyp of colon; K22.10 Ulcer of esophagus without bleeding; K31.89 Other diseases of stomach and duodenum; R19.7 Diarrhea, unspecified; K31.A0 Gastric intestinal metaplasia, unspecified; K29.50 Unspecified chronic gastritis without bleeding; K20.80 Other esophagitis without bleeding; B00.89 Other herpesviral infection
CPT/HCPCS: 45382; 45385; 45380; 43239; 88305; 82962; 88342

== ENCOUNTER → 2025-04-20 13:00 | Outpatient (REF) | payer OTHER, SELFPAY ==
[2025-04-20 13:57] LABS: Hematocrit 31.6 % (39.0-52.0); Hemoglobin 10.5 g/dL (13.0-18.0); Mean Corp Hgb Conc. 33.2 g/dL (33.0-37.0); Mean Corpuscular Hgb 32.3 pg (27.0-31.0); Mean Corpuscular Volume 97.2 fL (80.0-94.0); Platelet Count 360 10^3/uL (130-400); Red Blood Cell Count 3.25 10^6/uL (4.70-6.10); Red Cell Dist. Width 13.6 % (11.5-14.5); White Blood Cell Count 9.7 10^3/uL (4.8-10.8)
[2025-04-20 14:26] LABS: Glycohemoglobin (HgbA1c) 7.1 % (4.0-5.6)
[2025-04-20 14:44] LABS: ALT (SGPT) 12 U/L (0-50); AST (SGOT) 17 U/L (17-59); Albumin 3.8 g/dl (3.5-5.0); Alkaline Phosphatase 101 U/L (38-126); Blood Urea Nitrogen 40 mg/dl (9-20); Carbon Dioxide 24 mmol/L (22-30); Chloride 106 mmol/L (98-107); Glucose 253 mg/dl (70-99); Potassium 4.4 mmol/L (3.5-5.1); Sodium 139 mmol/L (135-145); Total Bilirubin 0.6 mg/dl (0.2-1.3); eGFR > 60.00
--- NOTE | 2025-04-20 15:31 | CM ---
CM reviewed medical records. CM spoke with patient via live telephone. Patient has a history of VN with [facility], but is currently not on service. Patient has had a history of SNF at [facility]. Patient has a walker, cane, and raised toilet seat.
Patient is active with his PCP. Patient plans to use [facility] for medication services.
Patient is agreeable to [facility]. CM updated [facility] horticultural farmer RN as patient will need [facility] authorization for VN.
PLAN: Home SDS, with [facility]>
--- NOTE | 2025-04-21 11:38 | VNURNOTE ---
Addendum entered by Imani Robertson RN 04/30/25 11:41:
Appears that surgery now re-scheduled for 05/26/25. [facility] Intake aware.
Original Note:
Patient is scheduled for an elective L SARAH on 05/05 - he is a same day patient with Dr Gomez. Spoke with patient prior to surgery. Introduced role of [facility] Liaison. Patient reports that he lives with his in a split level home.
There are 6 steps to enter.
He has a raised toilet seat, cane and rolling walker.
Discussed [facility] joint protocol and post surgical plans.
Reviewed that he will have VN services initially and will then start outpatient PT.
Patient selects [facility] for his home care needs and will go to [facility] for outpatient PT. Scheduled TBD. Advised pt to schedule outpt PT Mon following surgery (05/10).
Patient is in agreement with plan and states that his will be home with him. Advised to bring RW with him day of surgery. Referral placed in [facility].
Plan: [facility] per [facility] joint protocol 05/05 then outpt PT TBD
[2025-04-22 15:14] LABS: Iron 62 ug/dl (49-181)
[2025-04-22 15:23] LABS: Percent Saturation 18 % (20-50); Total Iron Binding Capacity 330 ug/dl (261-462)
[2025-04-22 16:28] LABS: Ferritin 27.8 ng/ml (17.9-464.0)
[2025-04-22 17:00] LABS: Folate 16.3 ng/ml (2.76-20); Vitamin B12 283 pg/ml (239-931)
[2025-05-17 11:33] LABS: Hematocrit 30.2 % (39.0-52.0); Hemoglobin 10.1 g/dL (13.0-18.0); Mean Corp Hgb Conc. 33.4 g/dL (33.0-37.0); Mean Corpuscular Volume 98.7 fL (80.0-94.0); Mean Platelet Volume 9.9 fL (7.4-10.4); Platelet Count 266 10^3/uL (130-400); Red Blood Cell Count 3.06 10^6/uL (4.70-6.10); Red Cell Dist. Width 14.2 % (11.5-14.5); White Blood Cell Count 6.6 10^3/uL (4.8-10.8)
[2025-05-17 12:20] LABS: ALT (SGPT) 12 U/L (0-50); AST (SGOT) 18 U/L (17-59); Albumin 3.8 g/dl (3.5-5.0); Alkaline Phosphatase 149 U/L (38-126); Blood Urea Nitrogen 37 mg/dl (9-20); Calcium 9.6 mg/dl (8.4-10.2); Carbon Dioxide 24 mmol/L (22-30); Chloride 109 mmol/L (98-107); Glucose 90 mg/dl (70-99); Potassium 4.4 mmol/L (3.5-5.1); Sodium 141 mmol/L (135-145); Total Bilirubin 0.5 mg/dl (0.2-1.3); Total Protein 6.2 g/dl (6.3-8.2); eGFR 56.23
[2025-05-17 14:19] VITALS: BMI 28.8
[2025-05-17 14:57] VITALS: BMI 28.8
--- NOTE | 2025-06-17 15:13 | HPS.HSE ---
Family Physician
-
Family Physician: Megan Souza
Chief Complaint
-
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 Same-day surgery.
History of Present Illness
The patient is a 79-year-old male presenting today for advanced primary osteoarthritis of the left hip. The patient reports significant left hip pain secondary to this diagnosis. He notes that his current left hip pain greatly interferes
with his activities of daily living and overall impacts his quality of life. He has tried and failed multiple conservative treatment measures in the past for his left hip pain. These conservative treatment measures include activity modification,
self-directed therapeutic exercises, attempted weight loss, medical management with Tylenol and NSAIDs, bracing, and the application of ice and/or heat. Recent x-rayfindings of the left hip demonstrated severe osteoarthritis. He was determined to be
in need of a left total hip arthroplasty. He denies any current complaints today such as chest pain, shortness of breath, palpitations, nausea, vomiting, diarrhea, lightheadedness, dizziness, cough, sore throat, or fever.
Medical History
Past Medical History
Past Medical History: Reports Other
Additional Past Medical History:
1. Osteoarthritis.
2. Hypertension.
3. Hyperlipidemia.
4. PACs.
5. Paroxysmal atrial fibrillation/atrial flutter, status post pulmonary vein isolation, atrial flutter ablation, and cardioversion x3; pharmacological therapy with Diltiazem and Metoprolol Succinate, oral anticoagulation with Eliquis.
6. Congestive heart failure, preserved ejection fraction.
7. Cardiogenic shock with multisystem organ failure secondary to cardiac tamponade due to hemorrhagic pericardial effusion, 09/2024, status post pericardiocentesis; resolution of effusion noted on 10/2024 echo.
8. Left-sided pleural effusion, 10/2024, status post thoracentesis.
9. Mild valvular disease.
10. COPD.
11. Pulmonary nodules.
12. History of recurrent pneumonia.
13. Chronic kidney disease stage 2.
14. Insulin-dependent diabetes, A1c 7.1.
15. GERD.
16. Hiatal hernia.
17. Herpes esophagitis, treated with Acyclovir.
18. Dysphagia.
19. Colon and gastric polyps.
20. Diverticulosis.
21. Esophageal ulcer without bleed.
22. GI bleed, likely secondary to previous radiation and hemorrhoids, 12/2024.
23. Hepatitis B history per records.
24. Ambulatory dysfunction.
25. Prostate cancer, 2001, status post radiation.
26. BPH.
27. Multifactorial anemia.
28. Remote history of tobacco abuse.
Past Surgical History: Reports Other
Additional Past Surgical History:
1. Pulmonary vein isolation.
2. Atrial flutter ablation.
3. Cardioversion x3.
4. Pericardiocentesis.
5. Thoracocentesis.
6. Colonoscopy x2.
7. Endoscopy.
Social History
Tobacco: Former Smoker (He is a former 1 pack per day cigarette smoker who quit tobacco products altogether in 1999.)
Alcohol: None
Personal:
Living: With Family (in a split-level home. )
Family History
Family History: Not pertinent
Allergies / Home Medications
Allergy/Medication List:
HOME MEDICATIONS:
1. Acetaminophen 650 mg p.o. every 4 hours as needed.
2. Eliquis 5 mg p.o. twice a day.
3. Diltiazem 180 mg p.o. daily.
4. Trilogy Ellipta 1 inhalation daily.
5. NovoLog 12 units subcutaneous with meals.
6. Basaglar 14 units subcutaneous daily.
7. Metoprolol succinate 75 mg p.o. twice a day.
8. Ferrous sulfate 325 mg p.o. daily.
9. Vitamin B12 1 dose subcutaneous weekly.
10. Omeprazole 20 mg p.o. daily.
ALLERGIES: Vancomycin.
Review of Systems
-
A 12 point ROS was completed and negative except as noted: Yes
Physical Exam
Vital Signs
Blood pressure 114/61. Heart rate 59. Respirations 18. Pulse ox 98% on room air.
Height. Weight. BMI.
Physical Exam
General: Well Developed, Well Nourished and No Apparent Distress
HEENT: NormoCephalic, Moist mucous membranes, Atraumatic and PERRLA
Respiratory: Clear
Cardiac: Bradycardia
GI: Soft, Non Tender and Non Distended
Musculoskeletal: Other (Bilateral knees: No warmth, no effusion, neutral alignment, 0-120 range of motion. Left hip: 0 internal rotation, 5 external rotation with pain upon passive motion. Right hip: 20 internal rotation, 20 external rotation, no
pain upon passive motion. +1 edema in bilateral lower extremities.)
Skin: Warm and Dry
Neuro: AO x 3 and Nonfocal/grossly intact
Laboratory Results
-
DIAGNOSTIC STUDIES as of 05/17/2025: White blood cell count 6.6, hemoglobin 10.1, platelet count 266,000. Sodium 141, potassium 4.4, BUN 37, creatinine 1.3, glucose 90, calcium 9.6, AST 18, ALT 12, albumin 3.8. Blood type O positive. MRSA screen
negative.
DIAGNOSTIC STUDIES as of 04/20/2025: Hemoglobin A1c 7.1.
EKG provided by Cardiology.
Echocardiogram 11/16/2024: Ejection fraction is 60-65 percent. Mild tricuspid regurgitation. Estimated pulmonary artery pressure of 35-40 mmHg, assuming right atrial pressure of 3 mmHg. No significant pericardial effusion present.
Impression/Plan
-
CLEARANCES:
1. Primary medical: Dr. Megan Souza, pending.
Primary medical phone number: [phone].
2. Cardiology: Dr. Kyel Gregg, pending.
3. Dental waived.
IMPRESSION/PLAN:
1. Advanced primary osteoarthritis of the left hip in need of a left total hip arthroplasty with Dr. Scottie Gomez. The benefits and risks of the procedure have been explained to the patient. The patient understands these risks and wishes to
proceed.
2. DVT prophylaxis: Eliquis at modified dosing with bilateral venous compression devices. He was made aware to hold his Eliquis 3 days prior to his upcoming procedure. He will resume his home dosing of Eliquis on post-operative day 3 as long as he
remains hemodynamically stable. Plasma flow devices were highly encouraged to be purchased and used in the outpatient setting upon discharge.
3. Pain management: In preparation for his procedure, he has already been prescribed Oxycodone 5 mg, 1-2 tablets p.o. every 6 hours as needed for moderate to severe post-operative pain. He will also utilize Acetaminophen at 650 mg p.o. every 4 hours
while awake and Gabapentin 300 mg p.o. at bedtime for neuropathic pain and sleep
4. Post-operative bowel regimen. The patient was advised to purchase Colace and Senokot for post-operative use. He will continue these medications twice a day post-procedure, regardless of oral intake, until having regular bowel movements. Adequate
hydration, early mobility as tolerated, and the minimization of opioids was also discussed pre-operatively.
Late entry: The patient's surgery was ultimately postponed due to worsening anemia. He was advised to get hematology clearance. Dr. Rodriguez of [facility] has started this patient on IV iron
== END ==
LOC: SDSPAT 13:00
PROVIDERS: ATTENDING PHYSICIAN Orthopaedic Surgery; FAMILY PHYSICIAN Family Medicine; OTHER PHYSICIAN Physician Assistant; REFERRING PHYSICIAN Internal Medicine Cardiovascular Disease
DX: Z01.818 Encounter for other preprocedural examination (principal)
CPT/HCPCS: 36415; 80053; 82607; 82728; 82746; 83036; 83540; 83550; 85027; 86850; 86900; 86901; 87070; 93005

== ENCOUNTER 2025-05-19 06:30 | Day surgery (SDC) | payer OTHER, SELFPAY ==
[2025-04-20 14:10] VITALS: BMI 29.7
[2025-05-19 08:06] LABS: Glucose - Point of Care 153 mg/dl (70-99)
== END 2025-05-19 16:32 | disposition home or self-care (01) ==
LOC: GI 06:30
PROVIDERS: ATTENDING PHYSICIAN Internal Medicine Gastroenterology
DX: K22.89 Other specified disease of esophagus (principal); K44.9 Diaphragmatic hernia without obstruction or gangrene; K31.811 Angiodysplasia of stomach and duodenum with bleeding; K31.89 Other diseases of stomach and duodenum; K22.10 Ulcer of esophagus without bleeding
CPT/HCPCS: 43255; 43239; 82962; 88305

== ENCOUNTER 2025-07-21 05:46 | Day surgery (SDC) | payer OTHER, SELFPAY ==
--- NOTE | 2025-07-08 14:52 | VNURNOTE ---
Patient is scheduled for an elective L THR on 07/21 - he is a same day patient with Dr Gomez . Spoke with patient prior to surgery. Introduced role of [facility] Liaison. Patient reports that he lives with his in a MULTI story home.
There are steps to enter and a flight of steps to the second floor.
He has a cane and rolling walker.
He had VN services in the past.
PCP is Dr Megan Souza
Discussed [facility] joint protocol and post surgical plans.
Reviewed that he will have VN services initially and will then start outpatient PT.
Patient selects [facility] for his home care needs and will go to [facility] for outpatient PT. Scheduled for 07/26 .
Patient is in agreement with plan and states that his will be home with him. Advised to bring RW with him day of surgery. Referral placed in [facility].
Plan: [facility] per [facility] joint protocol 07/21 then outpt PT on 07/26
[2025-07-09 14:03] VITALS: BMI 31.0
[2025-07-09 14:40] LABS: Hematocrit 33.2 % (39.0-52.0); Hemoglobin 11.3 g/dL (13.0-18.0); Mean Corp Hgb Conc. 34.0 g/dL (33.0-37.0); Mean Corpuscular Volume 98.2 fL (80.0-94.0); Platelet Count 275 10^3/uL (130-400); Red Cell Dist. Width 13.2 % (11.5-14.5)
[2025-07-09 15:06] LABS: ALT (SGPT) 15 U/L (0-50); AST (SGOT) 22 U/L (17-59); Albumin 4.3 g/dl (3.5-5.0); Alkaline Phosphatase 132 U/L (38-126); Blood Urea Nitrogen 42 mg/dl (9-20); Calcium 9.9 mg/dl (8.4-10.2); Carbon Dioxide 24 mmol/L (22-30); Chloride 105 mmol/L (98-107); Estimated Creatinine Clearance 58 ml/min; Glucose 107 mg/dl (70-99); Potassium 5.2 mmol/L (3.5-5.1); Sodium 136 mmol/L (135-145); Total Protein 6.6 g/dl (6.3-8.2); eGFR 56.23
[2025-07-10 10:16] LABS: Glycohemoglobin (HgbA1c) 6.6 % (4.0-5.6)
[2025-07-13 09:27] VITALS: BMI 31.0
[2025-07-21] VITALS (13 sets, daily range): BP systolic 104–143; BP diastolic 34–70; PULSE 50; O2SAT 97; BMI 31.0
[2025-07-21 06:37] LABS: Glucose - Point of Care 180 mg/dl (70-99)
[2025-07-21] MEDS: NORMOSOL-R/PLASMALYTE-A 1000 IV (06:37)
[2025-07-21] MEDS: TYLENOL 650 MG PO ×2 (06:37→11:08)
[2025-07-21] MEDS: CELEBREX 200 MG PO (06:37)
--- NOTE | 2025-07-21 07:09 | W.DS.TRANS ---
DC Summary - Segregator
-
Discharge Instructions:
Sleep Apnea Risk Intermediate
Discharge Diagnosis/Procedures L SARAH Gomez 07/21/25 SDS
Diet Diabetic, Carb Controlled
Activity With Walker
Driving Restrictions No driving
Bathing Restrictions OK to Shower
Other Services PT
Instructions:
Stand-Alone Forms:
Changes to Home Medications: Yes
Discharge Medications:
DC Medications w/original date entered in [employer]
diltiazem HCl 180 mg capsule,extended release 24 hr 180 mg PO DAILY Arrhythmia 30 days #30 caps 10/23/24
pen needle, diabetic 32 gauge x ' (BD Ultra-Fine Kelley Pen Needle) #200 ea 10/23/24
fluticasone fur. 100 mcg-umeclid 62.5 mcg-vilant 25 mcg inhalat.powder (Trelegy Ellipta) 1 inh inhalation DAILY 12/07/24
insulin aspart U-100 100 unit/mL (3 mL) subcutaneous pen (Novolog FlexPen U-100 Insulin aspart) 15 unit SC AC Diabetes 12/07/24
insulin glargine 100 unit/mL (3 mL) subcutaneous pen (Lantus Solostar U-100 Insulin) 10 unit SC DAILY Diabetes 12/07/24
metoprolol succinate 25 mg tablet,extended release 24 hr 75 mg PO BID 12/07/24
mupirocin 2 % topical ointment 1 applic intranasal BID #1 tube 04/20/25
ondansetron HCl 4 mg tablet 4 mg PO Q6H PRN nausea and vomiting #30 tabs 04/20/25
oxycodone 5 mg tablet 5 - 10 mg (1 - 2 x 5 mg) PO Q6H PRN moderate-severe pain #30 tabs 04/20/25
cefadroxil 500 mg capsule 500 mg PO BID infection prevention #14 caps 07/09/25
Saccharomyces boulardii 250 mg capsule (Florastor) 250 mg PO BID #1 cap 07/21/25
acetaminophen 325 mg tablet (Tylenol) 650 mg (2 x 325 mg) PO QID #0 tabs 07/21/25
apixaban 5 mg tablet (Eliquis) 2.5 mg (1/2 x 5 mg) PO BID Blood clot prevention/tx/afib #0 tabs 07/21/25
docusate sodium 100 mg capsule (Colace) 100 mg PO BID stool softner #1 cap 07/21/25
magnesium hydroxide 400 mg/5 mL oral suspension (Milk of Magnesia) 30 ml PO HS PRN constipation #1 mL 07/21/25
sennosides 8.6 mg tablet (Senokot) 17.2 mg (2 x 8.6 mg) PO BID laxative #2 tabs 07/21/25
Home Medication Changes
mupirocin 2 % topical ointment 1 applic intranasal BID #1 tube 04/20/25
ondansetron HCl 4 mg tablet 4 mg PO Q6H PRN nausea and vomiting #30 tabs 04/20/25
oxycodone 5 mg tablet 5 - 10 mg (1 - 2 x 5 mg) PO Q6H PRN moderate-severe pain #30 tabs 04/20/25
cefadroxil 500 mg capsule 500 mg PO BID infection prevention #14 caps 07/09/25
Saccharomyces boulardii 250 mg capsule (Florastor) 250 mg PO BID #1 cap 07/21/25
acetaminophen 325 mg tablet (Tylenol) 650 mg (2 x 325 mg) PO QID #0 tabs 07/21/25
apixaban 5 mg tablet (Eliquis) 2.5 mg (1/2 x 5 mg) PO BID Blood clot prevention/tx/afib #0 tabs 07/21/25
docusate sodium 100 mg capsule (Colace) 100 mg PO BID stool softner #1 cap 07/21/25
magnesium hydroxide 400 mg/5 mL oral suspension (Milk of Magnesia) 30 ml PO HS PRN constipation #1 mL 07/21/25
sennosides 8.6 mg tablet (Senokot) 17.2 mg (2 x 8.6 mg) PO BID laxative #2 tabs 07/21/25
Pending Results: No
[2025-07-21 08:30] LABS: Glucose - Point of Care 192 mg/dl (70-99)
[2025-07-21 10:10] LABS: Glucose - Point of Care 231 mg/dl (70-99)
[2025-07-21] MEDS: NOVOLOG vial 2 UNITS SC (10:19)
[2025-07-21] MEDS: ANCEF 5 IV (11:03)
== END 2025-07-21 12:25 | disposition home or self-care (01) ==
LOC: SDS 05:46
PROVIDERS: ATTENDING PHYSICIAN Orthopaedic Surgery; FAMILY PHYSICIAN Family Medicine; OTHER PHYSICIAN Internal Medicine Cardiovascular Disease; OTHER PHYSICIAN Physician Assistant Medical; OTHER PHYSICIAN Student in an Organized Health Care Education/Training Program
DX: M16.12 Unilateral primary osteoarthritis, left hip (principal)
CPT/HCPCS: 27130; C1776; 36415; 73502; 80053; 82962; 83036; 85027; 86850; 86900; 86901; 87070; 97116; 97162; 97530; C1713